=== PATIENT | male | born 1980 | race Caucasian/White ===

== ENCOUNTER 2021-12-07 07:30 | Emergency (ER) | payer BC, SELFPAY ==
[2021-12-07 07:49] VITALS: BP 180/94; PULSE 76; RESP 18; O2SAT 98; BMI 50.5
--- NOTE | 2021-12-07 08:02 | CRLHL7_ITS ---
For Patients: As a result of the Century Cures Act, medical imaging exams and procedure reports are released immediately into your electronic medical record. You may view this report before your referring provider. If you have questions, please contact your health care provider. INDICATION: Left flank pain, history of kidney stones. TECHNIQUE: CT of the abdomen and pelvis without intravenous contrast. Coronal and sagittal reconstructions. COMPARISON: CT of the abdomen and pelvis 06/14/2020. FINDINGS: The unenhanced liver, gallbladder, spleen, pancreas, and adrenal glands are normal in appearance. No biliary dilation. Stable small low-attenuation lesion in the right kidney which is not well characterized but likely a cyst. No right hydronephrosis or ureteral dilation. There is a 5 mm obstructing stone in the mid left ureter with mild upstream left hydroureteronephrosis and perinephric fat stranding (series 2 image 115 and series 3, image 62). The bladder is normal in appearance. Nonenlarged prostate gland. No bowel dilation. Mild amount of stool throughout the colon. Negative appendix. No intraperitoneal free air or fluid. Small fat containing umbilical hernia. Aortoiliac vascular calcifications. Stable small gastrohepatic, delmis hepatis, and periaortic lymph nodes. No lymphadenopathy by size criteria. Degenerative changes of the spine. The lung bases are clear. Mild coronary artery calcifications. IMPRESSION: 1. 5 mm obstructing stone in the mid left ureter with mild left hydroureteronephrosis. 2. Coronary artery and abdominal vascular calcifications slightly greater than expected for patient age. Please note that all CT scans at this facility use dose modulation, iterative reconstruction, and/or weight-based dosing when appropriate to reduce radiation dose to as low as reasonably achievable. Dictated by Katey Meyer MD @ 12/07/2021 9:30:30 AM (Electronically Signed)
--- NOTE | 2021-12-07 08:03 | ED.GENADULT ---
HPI - General Adult General Chief complaint: Flank Pain Stated complaint: Possible kidney stone Time Seen by Provider: 12/07/21 07:53 History of Present Illness HPI narrative: This 41-year-old male comes in reporting left flank pain radiating into his left abdomen and groin. This began about 3 hours prior to arrival. He has a history of multiple kidney stones in the past. He states that this feels like another recurrence of the same. He does not report any fever. He has not had any gross hematuria. Prior to this he was in good health. Related Data Previous Rx's Medication Instructions Recorded hydrocodone 5 mg-acetaminophen 325 1 tab PO Q4-6H PRN pain #20 tabs 12/07/21 mg tablet ketorolac 10 mg tablet 10 mg PO Q8H 5 days #15 tabs 12/07/21 ondansetron HCl 4 mg tablet 4 mg PO Q6H #20 tabs 12/07/21 Allergies Allergy/AdvReac Type Severity Reaction Status Date / Time No Known Drug Allergies Allergy Verified 12/07/21 07:48 Review of Systems Status of ROS: Reports: 10 or more systems reviewed and unremarkable except as noted in History and below Narrative: Constitutional: No fevers, no weight gain or loss. Eyes: No discharge. No vision changes. HENT: No congestion, no sore throat, no ear pain. Cardiovascular: No chest pain, no palpitations. Respiratory: No shortness of breath, no wheezes, no cough. Gastrointestinal: Left flank and abdominal pain with associated nausea and vomiting. Genitourinary: No dysuria, no hematuria. Musculoskeletal: Normal range of motion. Skin: No rashes, no pruritis. Neurological: No dizziness, weakness, sensory change, speech change. Endo/Heme/Allergies: No bruising or bleeding. No polydipsia. Pysch: no suicidality, no anxiety, no insomnia. All other systems reviewed and are negative. PFSH PFSH Social History Smoking Status: Current every day smoker What tobacco products do you use: cigarettes Do you use any of these nicotine containing products: None Second hand tobacco smoke exposure: No How often do you have a drink containing alcohol: monthly or less How many standard drinks containing alcohol do you have on a typical day: 3 or 4 How often do you have six or more drinks on one occasion: Less than monthly AUDIT-C Alcohol total score: 3 Non-prescribed substance use: marijuana (any form) service: No Exam Narrative: Exam Narrative: Constitutional: Well-developed, well-nourished, no acute distress. HEENT: Normocephalic, atraumatic. Neck: Normal range of motion. Nontender. Supple. Heart: Regular. No murmurs. Normal rate. Intact distal pulses. Lungs: Clear to auscultation. No chest discomfort. No wheezes, rhonchi, or rales. Abdomen: Normal bowel sounds. Left flank tenderness radiating into the left abdomen and left groin. No rebound tenderness. Genitalia: Deferred. Back: No midline tenderness. Normal range of motion. Extremities: Normal range of motion. No injury. Skin: Intact. No rash. Warm. No erythema or pallor. Neurologic: No altered sensation. No weakness. Alert and oriented. Psychiatric: No suicidality. No anxiety or depression. No insomnia. Nursing notes and vitals signs are reviewed. Const: Vital Signs, click to edit/add: Vital Signs - 24 hr 12/07/21 07:49 Pulse Rate [Pulse Oximeter] 76 Respiratory Rate 18 Blood Pressure [Le ft Forearm] 180/94 H Pulse Oximetry 98 Oxygen Delivery Me thod Room Air Course Vital Signs Vital signs: Initial Vital Signs Temperature Source Temporal Artery Scan 12/07/21 07:49 Pulse Rate 76 12/07/21 07:49 Pulse Rhythm 12/07/21 07:49 Respiratory Rate 18 12/07/21 07:49 Blood Pressure 180/94 H 12/07/21 07:49 Blood Pressure Mean 122 12/07/21 07:49 Blood Pressure Position Supine 12/07/21 07:49 Pulse Oximetry 98 12/07/21 07:49 Oxygen Delivery Method 12/07/21 07:49 Vital Signs Pulse Rate 76 12/07/21 07:49 Respiratory Rate 18 12/07/21 07:49 Blood Pressure 180/94 H 12/07/21 07:49 Pulse Oximetry 98 12/07/21 07:49 Oxygen Delivery Method 12/07/21 07:49 Pulse Rate 76 12/07/21 07:49 Respiratory Rate 18 12/07/21 07:49 Blood Pressure 180/94 H 12/07/21 07:49 Pulse Oximetry 98 12/07/21 07:49 Oxygen Delivery Method 12/07/21 07:49 Medical Decision Making MDM Narrative Medical decision making narrative: This patient comes in with symptoms typical of passing a ureteral stone. An IV was established where he received Zofran 4 mg, Dilaudid 0.5 mg, and Toradol [address] is of the abdomen and pelvis is obtained as is urinalysis. Urinalysis shows no sign of infection but there is microscopic hematuria. CT imaging of the abdomen and pelvis does show a 5 mm stone in the mid left ureter. The patient received sufficient relief with the medicines he received. His tone is a bit larger than average and hopefully he will be able to pass this without assistance from urologist. He received prescriptions for Gilbert, Toradol, and Zofran. I advised him to return if not improving or worsening. Lab Data Labs: Lab Results 12/07/21 Range/Units 08:01 Urine Color Yellow (Yellow) Urine Appearance Slightly Cloudy A (Clear) Urine pH 7.0 (5.0-8.5) Ur Specific [place] 1.020 (1.000-1.030) Urine Protein Negative (Negative) Urine Glucose (UA) Negative (Negative) Urine Ketones Negative (Negative) Urine Blood 2+ A (Negative) Urine Nitrite Negative (Negative) Urine Bilirubin Negative (Negative) Urine Urobilinogen 0.2 (0.2-1.0) Ur Leukocyte Esterase Negative (Negative) Urine RBC 10-25 A (0-2) Urine WBC 0-2 (0-5) Ur Squamous Epith Cells Few (None-Few) Urine Bacteria None (None) Imaging Data CT scan - abdomen: Radiologist's impression: 1. 5 mm obstructing stone in the mid left ureter with mild left hydroureteronephrosis. 2. Coronary artery and abdominal vascular calcifications slightly greater than expected for patient age. Discharge Plan Discharge Clinical Impression: Calculus, ureteral Patient Disposition: Home, Self-Care Condition: Stable Additional Instructions: Take medications as needed and indicated. Follow up with MD or return if worsening. Prescriptions: New hydrocodone-acetaminophen 5-325 mg tablet 1 tab PO Q4-6H PRN (Reason: pain) Qty: 20 0RF ketorolac 10 mg tablet 10 mg PO Q8H 5 Days Qty: 15 0RF ondansetron HCl 4 mg tablet 4 mg PO Q6H Qty: 20 0RF Follow Up/Referrals: Provider,Not a Local [Primary Care Provider] - Stand Alone Forms: [employer] Info Instructions
[2021-12-07] MEDS: KETOROLAC 30 MG/ML inj IVP (08:17)
[2021-12-07] MEDS: ONDANSETRON 2 MG/ML inj 4 MG IVP (08:18)
[2021-12-07] MEDS: HYDROmorphone 0.5 mg/0.5 ml inj IVP (08:20)
[2021-12-07 08:28] LABS: Color Urine Yellow (Yellow)
[2021-12-07 08:29] LABS: Appearance Urine Slightly Cloudy (Clear); Bilirubin Urine Negative (Negative); Blood Urine 2+ (Negative); Glucose Urine Negative (Negative); Ketones Urine Negative (Negative)
[2021-12-07 08:30] LABS: Leukocyte Esterase Urine Negative (Negative); Nitrite Urine Negative (Negative); Protein Urine Negative (Negative); Squamous Epithelial Cell Urine Few (None-Few); Urobilinogen Urine 0.2 (0.2-1.0); WBC Urine 0-2 (0-5)
--- OUTSIDE RECORDS SUMMARY | 2021-12-07 08:32 | XMS_ITS | Encounter Summary ---
:1980 Author Organization [place] Address [facility] [place] [address] Care Team Providers Name Role Phone Alice Gillette PA-C Primary Care Provider [phone] Alice Gillette PA-C Unavailable [phone] Reason for Visit Reason Onset Date Comments Medication Refill 10/30/2021 Fluoxetine Encounter Details Date Type Department Care Team Description 10/30/2021 Telephone [facility] Alice Gillette Med ication Refill Physicians CARYL Beltrán (Fluoxetine) [address] [place] [address] [place] [address] [address] [place], [place] [id number] [phone] Social History Tobacco Use Types Packs/Day Years Used Date Smoking Tobacco: Every Day Cigarettes 0.5 10 Smokeless Tobacco: Never Comments: 5 cigarettes a day, down from 10 Alcohol Use Standard Drinks/Week Comments Yes 0 (1 standard drink = 0.6 oz pure alcoho l) 2 drinks/month Alcohol Habits Answer Date Recorded How often do you have a drink containing alcohol? 2-4 times a month 07/20/2019 How many drinks containing alcohol do you have on a 1 or 2 07/20/2019 typical day when you are drinking? How often do you have six or more drinks on one Never 07/20/2019 occasion? Sex Assigned at Date Recorded Not on file documented as of this encounter Miscellaneous Notes Telephone Encounter - Eva Guillen CMA - 11/01/2021 12:00 PM CDT Called patient and informed him of message from Magen. He understands but is not able to come in for the next couple of months due to work and travel. He is wondering If 60 tablets can be sent in and papa come in to see Alice for his medication check visit since she will be back from maternity leave at that time. Routing to Magen to resend 60 day supply. Telephone Encounter - Eva Guillen CMA - 10/30/2021 5:21 PM CDT Addendum: Approved short course only, we haven't addressed this medication for over 1 year. Need OV for further refills. Neither Alice nor I discussed this in our recent visits. Magen Vázquez PA-C [facility] Pt called in wondering why his fluoxetine was denied and all other medications were sent. He has been taking this for awhile and he has no concerns with it. It is working well so he is hoping that a refill can be sent in. Routing to Magen for approval of this. Telephone Encounter - Su Pérez CMA - 10/30/2021 2:09 PM CDT Denied refill of fluoxetine. Needs OV for refills Addendum Note - Eva Guillen CMA - 10/30/2021 2:09 PM CDT Addended by: EVA GONSALEZ on: 10/30/2021 05:23 PM Modules accepted: Orders Addendum Note - Magen Vázquez PA-C - 10/30/2021 2:09 PM CDT Addended by: MAGEN VÁZQUEZ on: 11/01/2021 08:26 AM Modules accepted: Orders Addendum Note - Eva Guillen CMA - 10/30/2021 2:09 PM CDT Addended by: EVA GONSALEZ on: 11/01/2021 12:01 PM Modules accepted: Orders Addendum Note - Magen Vázquez PA-C - 10/30/2021 2:09 PM CDT Addended by: MAGEN VÁZQUEZ on: 11/01/2021 01:05 PM Modules accepted: Orders documented in this encounter Plan of Treatment Not on filedocumented as of this encounter Visit Diagnoses Diagnosis Generalized anxiety disorder documented in this encounter Additional Health Concerns Assessment Noted Time PHQ-9 Depression Total Score: 0 10/27/2020 2:16 PM CDT documented as of this encounter Care Teams Manager Registration Relationship Specialty Start Date End Date Alice Gillette PA-C PCP - General Physician Supervisor Tree Trimming 07/20/19 [address] [place] [address] Alice Gillette PA-C Assigned PCP 06/25/19 [address] [address] documented as of this encounter
--- OUTSIDE RECORDS SUMMARY | 2021-12-07 08:32 | XMS_ITS | Clinical Summary ---
:1980 Author Organization [place] Address [address] [facility] [place] [address] Care Team Providers Name Role Phone Alice Gillette PA-C Primary Care Provider [phone] Alice Gillette PA-C Unavailable Allergies No known active allergies Medications Medication Sig Dispensed Refills Start Date End Date Status aspirin 81 MG EC tablet Take 81 mg by 0 Active mouth daily fluticasone (FLONASE) 50 [place] 1-2 15.8 mL 0 12/01/2020 Active MCG/ACT nasal sprays into sprayIndications: Benign both nostrils paroxysmal positional daily vertigo, bilateral tamsulosin (FLOMAX) 0.4 Take 0.4 mg by 0 06/17/2020 Active MG capsule mouth as needed PRN FOR KIDNEY STONES amLODIPine (NORVASC) 10 Take 1 tablet 90 tablet 1 08/02/2021 Active MG tabletIndications: (10 mg) by Benign essential mouth daily hypertension hydrochlorothiazide Take 1 tablet 90 tablet 1 08/02/2021 Active (HYDRODIURIL) 25 MG (25 mg) by tabletIndications: Benign mouth daily essential hypertension lisinopril (ZESTRIL) 40 Take 1 tablet 90 tablet 1 08/02/2021 Active MG tabletIndications: (40 mg) by Benign essential mouth daily hypertension metFORMIN (GLUCOPHAGE XR) Take 1 tablet 90 tablet 1 08/02/2021 Active 500 MG 24 hr (500 mg) by tabletIndications: mouth daily Prediabetes (with dinner) metoprolol succinate ER Take 1 tablet 90 tablet 1 08/02/2021 Active (TOPROL XL) 50 MG 24 hr (50 mg) by tabletIndications: Benign mouth daily essential hypertension FLUoxetine (PROZAC) 20 MG Take 1 capsule 60 capsule 0 11/02/19 Active capsuleIndications: (20 mg) by Generalized anxiety mouth daily disorder Active Problems Problem Noted Date Post-traumatic osteoarthritis of left knee 08/02/2021 Generalized anxiety disorder 10/27/2020 Prediabetes 10/27/2020 Health Mcfp 07/20/2019 ACP (advance care planning) 07/20/2019 History of cocaine use 07/20/2019 History of alcohol abuse 07/20/2019 Bilateral carpal tunnel syndrome 07/20/2019 Benign essential hypertension 05/27/2014 BMI 50.0-59.9, adult 05/27/2014 Nasal septal deformity 05/27/2014 GUTIERREZ on CPAP 05/27/2014 Tobacco use disorder 01/09/2010 Tear of medial cartilage or meniscus of knee, current 12/08/2007 Other postprocedural status(V45.89) 12/08/2007 Resolved Problems Problem Noted Date Resolved Date Morbid obesity 08/02/2021 08/02/2021 Alcohol abuse 01/09/2010 07/20/2019 Calf pain 01/09/2010 07/20/2019 Chest pain, unspecified 01/09/2010 07/20/2019 Cocaine abuse, continuous 01/09/2010 07/20/2019 Hyperglycemia 01/09/2010 08/02/2021 Malignant hypertension 01/09/2010 07/20/2019 Encounters Date Type Specialty Care Team Description 10/30/2021 Telephone Family Practice Alice Gillette Medic ation Refill CARYL Beltrán (Fluoxetine) from Last 3 Months Immunizations Name Administration Dates Next Due HepB-Adult 12/21/1996 MMR 10/11/1993, 12/11/1981 TD (ADULT, 7+) 12/21/1996 TDAP Vaccine (Boostrix) 11/03/2019 Family History Patient is adopted Medical History Relation Comments Hypertension Father Osteoarthritis Father Deep Vein Thrombosis Mother provoked plane ride Osteoarthritis Mother bilateral TKR Sleep Apnea Sister Relation Status Comments Brother Alive Father Alive Mother Alive Sister Alive Social History Tobacco Use Types Packs/Day Years [...] Assigned at Date Recorded Not on file Last Filed Vital Signs Vital Sign Reading Time Taken Comments Blood Pressure 164/90 09/04/2021 1:21 PM CDT Pulse 61 09/04/2021 1:21 PM CDT Temperature 36.7 ??C (98 ??F) 09/04/2021 1:21 PM CDT Respiratory Rate 18 08/24/2019 10:39 PM CDT Oxygen Saturation 98% 09/04/2021 1:21 PM CDT Inhaled Oxygen Concentration - - Weight 163.3 kg (360 lb) 09/04/2021 1:21 PM CDT Height 176.5 cm (5' 9.5) 08/02/2021 11:47 AM CDT Body Mass Index 52.4 08/02/2021 11:47 AM CDT Plan of Treatment Health Maintenance Due Date Last Done Comments ANNUAL REVIEW OF 1980 ORDERS DIABETIC FOOT EXAM 1980 EYE EXAM 1980 MICROALBUMIN 1980 COVID-19 Vaccine (#1) 03/11/1981 INFLUENZA VACCINE (#1) 2021 A1C 11/02/2021 08/02/2021, 05/02/2021, 10/27/2020, Additional history exists HEPATITIS B IMMUNIZATION 05/02/2022 04/26/2020 (Not Postpon ed from 06/21/2020 (3 of 3 - 3-dose series) Needed), 12/21/1996 (Ad ditional Documentation Needed) BMP 08/02/2022 08/02/2021, 05/02/2021, 10/27/2020, Additional history exists LIPID 09/04/2022 09/04/2021, 04/26/2020 NICOTINE/TOBACCO 09/04/2022 09/04/2021 CESSATION COUNSELING Q 1 YR YEARLY PREVENTIVE VISIT 09/04/2022 09/04/2021, 09/04/2021, 12/21/1996 ADVANCE CARE PLANNING 07/19/2024 07/20/2019, 07/20/2019 DTAP/TDAP/TD IMMUNIZATION 11/02/2029 11/03/2019, 12/21/1996 (3 - Td or Tdap) Pneumococcal Vaccine: Addressed 04/26/2020 (Not Overridden with the Pediatrics (0 to 5 Years) Needed) intent ion of not and At-Risk Patients (6 completi ng the topic to 64 Years) PHQ-2 (once per calendar Completed 05/02/2021, year) 10/27/2020, 10/27/2020, Additional history exists HEPATITIS C SCREENING Discontinued HIV SCREENING Discontinued IPV IMMUNIZATION Aged Out No longer eligi ble based on patient's age to complete this to pic MENINGITIS IMMUNIZATION Aged Out No longe r eligible based on patient's age to complete this to pic Procedures Procedure Name Priority Date/Time Associated Diagnosis Comme [facility] SURGICAL PATHOLOGY Routine 09/22/2021 8:00 AM Res ults for this EXAM CDT procedure are i n the results section. from Last 3 Months Results Surgical Pathology Exam (09/22/2021 8:00 AM CDT) Component Value Ref Test Analysis Performed At [facility] gist Range Method Time Signature Case Report Surgical Pathology Report ? Case: [id number] ? 09/25/2021 Authorizing Provider: ??Claudio Siddiqi MD ? Collected: ? 09/22/2021 08:00 AM ? 11:02 AM LABORATOR Y Ordering Location: ? [facility] ?? Received: ?09/22/2021 09:13 AM ? CDT ? Hospital ? Pathologist: ? Jesse Waldron, ? MD ? Specimen: ?Finger, Right , long finger ? Final Soft tissue, right long finger, excision- 09/25/2021 Electronically Diagnosis Keratinous cyst, epidermal type 11:02 AM LABORATORY signed by CDT Jesse Waldron MD on 09/25/2021 at 11:02 AM Clinical na 09/25/2021 RH Information 11:02 AM LABORATORY CDT Gross A(). Finger, Right, long finger: 022 RH Description The specimen is received in formalin labeled with the patient's name, medical record number and other identifying information and designated mass right long finger. It consists of a well-circumscribed 11:02 AM LABORATORY 1.4 x 1.3 x 1.1 cm white-ta n, rubbery tissue mass. Sectioning shows it is a cystic structure filled with white, pasty material with a wall thickness averaging 0.1 cm. Transitional Kindergarten Teacher sections are submitted in 1 cassette. CDT (MARIBETH Jauregui (ASCP)) Microscopic Microscopic 09/25/2021 Description performed 11:02 AM LABORATORY CDT Performing The technical 09/25/2021 RH Labs component of this 11:02 AM LABORATORY testing was CDT completed at [facility] Laboratory Case Images 09/25/2021 11:02 AM LABORATORY CDT Specimen Anatomical Collection Method Collection Time Receive d Time (Source) Location / / Volume Laterality Tissue STRUCTURE OF 09/22/2021 8:00 AM 9:13 FINGER OF RIGHT CDT AM CDT HAND / Unknown Claudio More MD LAB - [facility] Performing Organization Address City/State/ZIP Code Phon e Number LABORATORY [facility] [place] [address] Acute Care Lab [address]st floor, Room [address] [place] [address], Care Lab [facility] [address] Lab (1st floor, no room number) from Last 3 Months Insurance Payer Benefit Plan Subscriber ID Effective Phone Address Typ e / Group Dates WORK COMP WC OTHER [id number] 2013-Prese [phone] [address] [place] [address] BCBS BC[place] OF [place] [id number] 2020-Pres [phone] [address] [id number] Indemnity ent [address] [place] [address] [phone] [id number] [facility] [address] (Home) [place] [address] Brock Gotti Personal/Family Self 1980 [phone] [id number] (Home) [place] [address] Brock Gotti Personal/Family Self 1980 [phone] [id number] [address] (Home) [place] [address] Brock Gotti Worker's Self 1980 [phone] [facility] [address] (Home) [place] [address] Care Teams Cook Fruit Relationship Specialty Start Date End Date Alice Gillette PA-C PCP - General Physician Fiberglass Boat Builder 07/20/19 [address] [address] Alice Gillette PA-C Assigned PCP 06/25/19 [address] [address]
--- OUTSIDE RECORDS SUMMARY | 2021-12-07 08:32 | XMS_ITS | Encounter Summary ---
:1980 Author Organization [place] Address [address] [place] [address]. [place] [address] Care Team Providers Name Role Phone Alice Gillette PA-C Primary Care Provider [phone] Alice Gillette PA-C Unavailable [phone] Encounter Details Date Type Department Care Team Description 08/02/2021 Travel Social History Tobacco Use Types Packs/Day Years Used Date Smoking Tobacco: Every Day Cigarettes 0.5 10 Smokeless Tobacco: Never Comments: 10 per day Alcohol Use Standard Drinks/Week Comments Yes 0 (1 standard drink = 0.6 oz pure alcoho l) 5 drinks/week Alcohol Habits Answer Date Recorded How often do you have a drink containing alcohol? 2-4 times a month 07/20/2019 How many drinks containing alcohol do you have on a 1 or 2 07/20/2019 typical day when you are drinking? How often do you have six or more drinks on one Never 07/20/2019 occasion? Sex Assigned at Date Recorded Not on file COVID-19 Exposure Response Date Recorded In the last 10 days, have you been in contact with No / Unsu re 08/02/2021 11:35 AM CDT someone who was confirmed or suspected to have Coronavirus/COVID-19? documented as of this encounter Plan of Treatment Not on filedocumented as of this encounter Visit Diagnoses Not on filedocumented in this encounter Additional Health Concerns Assessment Noted Time PHQ-9 Depression Total Score: 0 10/27/2020 2:16 PM CDT documented as of this encounter Care Teams Rn Flight Relationship Specialty Start Date End Date Alice Gillette PA-C PCP - General Physician Sawmill Supervisor 07/20/[address], [address] [address] Alice Gillette PA-C Assigned PCP 06/25/[address] [address] documented as of this encounter
--- OUTSIDE RECORDS SUMMARY | 2021-12-07 08:32 | XMS_ITS | Encounter Summary ---
:1980 Author Organization [place] Address [address] [place] [address]. [place] [address] Care Team Providers Name Role Phone Alice Gillette PA-C Primary Care Provider [phone] Alice Gillette PA-C Unavailable [phone] Encounter Details Date Type Department Care Team Description 09/04/2021 Travel Social History Tobacco Use Types Packs/Day [...] in contact with No / Unsu re 09/04/2021 12:51 PM CDT someone who was confirmed or suspected to have Coronavirus/COVID-19? documented as of this encounter Plan of Treatment Not on filedocumented as of this encounter Visit Diagnoses Not on filedocumented in this encounter Additional Health Concerns Assessment Noted Time PHQ-9 Depression Total Score: 0 10/27/2020 2:16 PM CDT documented as of this encounter Care Teams Field Installer Relationship Specialty Start Date End Date Alice Gillette PA-C PCP - General Physician Striker Off 07/20/19 [address] , [address] [address] Alice Gillette PA-C Assigned PCP 06/25/19 [address] , [address] [address] documented as of this encounter
--- OUTSIDE RECORDS SUMMARY | 2021-12-07 08:32 | XMS_ITS | Encounter Summary ---
:1980 Author Organization [place] Address [facility] [place] [address] Care Team Providers Name Role Phone Alice Gillette PA-C Primary Care Provider [phone] Alice Gillette PA-C Unavailable [phone] Reason for Visit Reason Comments Physical Encounter Details Date Type Department Care Team Description 09/04/[address] [facility] Brock Vázquez PA -C Encounter for general adult medical exam ination with abnormal findings (Primary Dx); Physicians [address] [place] [address] Screening for lipoid disorde rs [address] [place] [id number] Social History Tobacco Use Types Packs/Day Years [...] have Coronavirus/COVID-19? documented as of this encounter Last Filed Vital Signs Vital Sign Reading Time Taken Comments Blood Pressure 164/90 09/04/2021 1:21 PM CDT Pulse 61 09/04/2021 1:21 PM CDT Temperature 36.7 ??C (98 ??F) 09/04/2021 1:21 PM CDT Respiratory Rate - - Oxygen Saturation 98% 09/04/2021 1:21 PM CDT Inhaled Oxygen Concentration - - Weight 163.3 kg (360 lb) 09/04/2021 1:21 PM CDT Height - - Body Mass Index 52.4 08/02/2021 11:47 AM CDT documented in this encounter Progress Notes Brock Vázquez PA-C - 09/04/2021 1:00 PM CDT SUBJECTIVE: CC: Brock Gotti is an 40 year old male who presents for preventative health visit. Patient has been advised of split billing requirements and indicates understanding: Yes HPI Today's PHQ-2 Score: PHQ-2 (??1999 Pfizer) 05/02/2021 Q1: Little interest or pleasure in doing things 1 Q2: Feeling down, depressed or hopeless 1 PHQ-2 Score 2 PHQ-2 Total Score (12-17 Years)- Positive if 3 or more points; Administer PHQ-A if positive - Abuse: Current or Past(Physical, Sexual or Emotional)- No Do you feel safe in your environment? Yes Diet-on an intermittent fasting diet. Good fruit/vegetable intake. Working on weight loss. Exercise-limited due to knee pain Sleep-using CPAP. 8hrs/night BM-1x/day Vitamin Use-none at this time Dentist-hasn't gone in years Eye Doctor-not gone in years Stopping cigarettes this weekend-down to 5 cigarettes/day. Denies wanting NRT or Chantix but will call if necessary. BP at [id number]. Taking medications as directed. Has white coat hypertension. Social History Tobacco Use ??? Smoking status: Current Every Day Smoker Packs/day: 0.50 Years: 10.00 Pack years: 5.00 Types: Cigarettes ??? Smokeless tobacco: Never Used ??? Tobacco comment: 5 cigarettes a day, down from 10 Substance Use Topics ??? Alcohol use: Yes Comment: 2 drinks/month No flowsheet data found. Last PSA: No results found for: PSA Reviewed orders with patient. Reviewed health maintenance and updated orders accordingly - Yes Lab work is in process Reviewed and updated as needed this visit by clinical staff Tobacco Med Hx Surg Hx Fam Hx Soc Hx Reviewed and updated as needed this visit by Provider Tobacco Med Hx Surg Hx Fam Hx Soc Hx Past Medical History: Diagnosis Date ??? Hypertension ??? Recurrent nephrolithiasis Past Surgical History: Procedure Laterality Date ??? ARTHROSCOPY KNEE left ??? CYSTECTOMY PILONIDAL ??? ENDOSCOPIC POLYPECTOMY NASAL 06/17/2012 Procedure: ENDOSCOPIC POLYPECTOMY NASAL;; Surgeon: Damon Haywood MD; Location: [facility] OR ??? FRACTURE TX, FINGER/HAND 5th digit right hand, ~ age 13 ??? MYRINGOTOMY, INSERT TUBE BILATERAL, COMBINED 06/17/2012 Procedure: COMBINED MYRINGOTOMY, INSERT TUBE BILATERAL; Bilateral MYRINGOTOMY with Aspiration, Coagulation of Adenoids, Tonsillectomy, Nasal Endoscopy and Nasal Pharyngoscopy; Surgeon: Kun Haywood MD; Location: [facility] OR ??? TONSILLECTOMY, ADENOIDECTOMY, COMBINED 06/17/2012 Procedure: COMBINED TONSILLECTOMY, ADENOIDECTOMY;; Surgeon: Damon Haywood MD; Location: [facility] OR ??? wisdom teeth extraction[ Review of Systems CONSTITUTIONAL: NEGATIVE for fever, chills, change in weight INTEGUMENTARY/SKIN: NEGATIVE for worrisome rashes, moles or lesions EYES: NEGATIVE for vision changes or irritation ENT: NEGATIVE for ear, mouth and throat problems RESP: NEGATIVE for significant cough or SOB CV: NEGATIVE for chest pain, palpitations or peripheral edema GI: NEGATIVE for nausea, abdominal pain, heartburn, or change in bowel habits male: negative for dysuria, hematuria, decreased urinary stream, erectile dysfunction, urethral discharge MUSCULOSKELETAL: NEGATIVE for significant arthralgias or myalgia NEURO: NEGATIVE for weakness, dizziness or paresthesias PSYCHIATRIC: NEGATIVE for changes in mood or affect OBJECTIVE: BP (!) 164/90 (BP Location: Right arm, Patient Position: Sitting, Cuff Size: Adult Large) Pulse 61 Temp 98 ??F (36.7 ??C) (Oral) Wt (!) 163.3 kg (360 lb) SpO2 98% BMI 52.40 kg/m?? Physical Exam GENERAL: healthy, alert and no distress EYES: Eyes grossly normal to inspection, PERRL and conjunctivae and sclerae normal HENT: ear canals and TM's normal, nose and mouth without ulcers or lesions NECK: no adenopathy, no asymmetry, masses, or scars and thyroid normal to palpation RESP: lungs clear to auscultation - no rales, rhonchi or wheezes CV: regular rate and rhythm, normal S1 S2, no S3 or S4, no murmur, click or rub, no peripheral edemaand peripheral pulses strong ABDOMEN: soft, nontender, no hepatosplenomegaly, no masses and bowel sounds normal SKIN: no suspicious lesions or rashes NEURO: Normal strength and tone, mentation intact and speech normal PSYCH: mentation appears normal, affect normal/bright Diagnostic Test Results: Labs reviewed in Epic ASSESSMENT/PLAN: ICD-10-CM 1. Encounter for general adult medical examination with abnormal findings Z00.01 2. Screening for lipoid disorders Z13.220 Patient has been advised of split billing requirements and indicates understanding: Yes COUNSELING: Reviewed preventive health counseling, as reflected in patient instructions Regular exercise Healthy diet/nutrition Vision screening Alcohol Use Safe sex practices/STD prevention Estimated body mass index is 52.4 kg/m?? as calculated from the following: Height as of 08/02/21: 1.765 m (5' 9.5). Weight as of this encounter: 163.3 kg (360 lb). Weight management plan: Discussed healthy diet and exercise guidelines He reports that he has been smoking cigarettes. He has a 5.00 pack-year smoking history. He has never used smokeless tobacco. Nicotine/Tobacco Cessation Plan: Patient is working on quitting this weekend. Offered help and he declines, wants to quit without NRT Counseling Resources: ATP IV Guidelines Pooled Cohorts Equation Calculator FRAX Risk Assessment ICSI Preventive Guidelines Dietary Guidelines for Americans, 2009 USDA's MyPlate ASA Prophylaxis Lung CA Screening Brock Vázquez PA-C [facility] documented in this encounter Plan of Treatment Not on filedocumented as of this encounter Procedures Procedure Name Priority Date/Time Associated Diagnosis Comme nts LIPID PANEL (BFP) Routine 09/04/2021 3:01 PM Screening for lip oid Results for this CDT disorders procedure are i n the results section. HEMOGRAM PLATELET Routine 09/04/2021 1:58 PM Encounter for Res ults for this DIFF (BFP) CDT general adult procedure are in medical examination the resu lts with abnormal section. findings CO COLLECTION VENOUS Routine 09/04/2021 1:32 PM Encounter for BLOOD VENIPUNCTURE CDT general adult medical examination with abnormal findings Screening for lipoid disorders documented in this encounter Results (ABNORMAL) Lipid Panel (BFP) (09/04/2021 3:01 PM CDT) Patholo gist Method Time Signature Cholesterol 210 (A) 0 - 199 BFP INTERNAL mg/dL Triglycerides 411 (A) 0 - 149 BFP INTERNAL mg/dL HDL Cholesterol 39 (A) 40 - 150 BFP INTERNAL mg/dL LDL Cholesterol 89 0 - 130 BFP INTERNAL Direct mg/dL Cholesterol/HDL 5 0 - 5 BFP INTERNAL Ratio Specimen (Source) Anatomical Collection Method Collection Time Re ceived Time Location / / Volume Laterality Blood 09/04/2021 3:01 PM CDT Brock Vázquez PA-C LAB - NON-BEAKER BLOOD LABS Performing Organization Address City/State/ZIP Code Phon e Number BFP INTERNAL HEMOGRAM PLATELET DIFF (BFP) (09/04/2021 1:58 PM CDT) P athologist Signature WBC 10.1 4.0 - 11 B[facility] INTERNAL 10*9/L RBC Count 5.23 4.4 - 5.9 B[facility] INTERNAL 10*12/L Hemoglobin 16.2 13.3 - 17.7 B[facility] INTERNAL g/dL Hematocrit 47.8 40.0 - 53.0 BFP INTERNAL % MCV 91.4 78 - 100 fL BFP INTERNAL MCH 31.0 26 - 33 pg BFP INTERNAL MCHC 33.9 31 - 36 [facility] INTERNAL g/dL Platelet Count 253 150 - 375 BFP INTERNAL 10^9/L % Granulocytes 58.1 % BFP INTERNAL % Lymphocytes 30.9 % BFP INTERNAL % Monocytes 11.0 % BFP INTERNAL Specimen (Source) Anatomical Collection Method Collection Time Re ceived Time Location / / Volume Laterality Blood 09/04/2021 1:58 PM CDT Brock Vázquez PA-C LAB - NON-BEAKER BLOOD LABS Performing Organization Address City/State/ZIP Code Phon e Number BFP INTERNAL documented in this encounter Visit Diagnoses Diagnosis Encounter for general adult medical exam ination with abnormal findings - Primary Routine general medical examination at a health care facility Screening for lipoid disorders documented in this encounter Additional Health Concerns Assessment Noted Time PHQ-9 Depression Total Score: 0 10/27/2020 2:16 PM CDT documented as of this encounter Care Teams Jewelry Polisher Relationship Specialty Start Date End Date Alice Gillette PA-C PCP - General Physician Executive Director Contract Shop 07/20/19 [address] , [address] [address] Alice Gillette PA-C Assigned PCP 06/25/[address], [address] [address] documented as of this encounter
--- OUTSIDE RECORDS SUMMARY | 2021-12-07 08:33 | XMS_ITS | Encounter Summary ---
:1980 Author Organization [place] Address [facility] [place] [address] Care Team Providers Name Role Phone Alice Gillette PA-C Primary Care Provider [phone] Alice Gillette PA-C Unavailable [phone] Encounter Details Date Type Department Care Team Description 05/04/2021 Telephone [facility] Alice Gillette Physicians PA-C [address] [address] [address] [place] [address] [place] [address] [phone] Social History Tobacco Use Types Packs/Day Years [...] Exposure Response Date Recorded In the last month, have you been in contact with No / Unsure 05/02/2021 11:57 AM CDT someone who was confirmed or suspected to have Coronavirus / COVID-19? documented as of this encounter Miscellaneous Notes Telephone Encounter - Alice Gillette PA-C - 05/04/2021 5:35 PM CDT Called and left message for pt. Informed of normal labs other than mildly elevated ALT. Suspect fatty liver. Working on weight loss. Continue with plan to recheck in 2 months. documented in this encounter Plan of Treatment Not on filedocumented as of this encounter Visit Diagnoses Not on filedocumented in this encounter Additional Health Concerns Assessment Noted Time PHQ-9 Depression Total Score: 0 10/27/2020 2:16 PM CDT documented as of this encounter Care Teams Disbursing Officer Relationship Specialty Start Date End Date Alice Gillette PA-C PCP - General Physician Client Service Professional 07/20/19 [address] , [address] [address] Alice Gillette PA-C Assigned PCP 06/25/[address], [address] [address] documented as of this encounter
--- OUTSIDE RECORDS SUMMARY | 2021-12-07 08:33 | XMS_ITS | Encounter Summary ---
:1980 Author Organization [place] Address [facility] [place] [address] Care Team Providers Name Role Phone Alice Gillette PA-C Primary Care Provider Alice Gillette PA-C Unavailable [phone] Reason for Visit Reason Comments Dizziness Patient has had dizzy episod es over the past week. Might have something to do with his ear tubes. Encounter Details Date Type Department Care Team Description 12/01/2020 Office Visit [facility] Alice Gillette ign paroxysmal Physicians CARYL Beltrán positional vertigo, [address], bilateral (Primary [address]) [place] [address] [phone] (Wo rk) Social History Tobacco Use Types Packs/Day Years [...] been in contact with No / Unsure 12/01/2020 1:24 PM CDT someone who was confirmed or suspected to have Coronavirus / COVID-19? documented as of this encounter Last Filed Vital Signs Vital Sign Reading Time Taken Comments Blood Pressure 170/88 12/01/2020 1:33 PM CDT Pulse 69 12/01/2020 1:33 PM CDT Temperature 36.7 ??C (98.1 ??F) 12/01/2020 1:33 PM CDT Respiratory Rate - - Oxygen Saturation 98% 12/01/2020 1:33 PM CDT Inhaled Oxygen Concentration - - Weight 164.7 kg (363 lb) 12/01/2020 1:33 PM CDT Height 176.5 cm (5' 9.5) 12/01/2020 1:33 PM CDT Body Mass Index 52.84 12/01/2020 1:33 PM CDT documented in this encounter Patient Instructions Patient InstructionsAlice Gillette PA-C - 12/01/2020 1:30 PM CDT Symptoms strongly suggestive of benign paroxysmal positional vertigo (BPPV). Explained concept of this to patient, including cause being crystals being dislodged in inner ear and needing these crystalsto be returned to proper place for symptoms to resolve. Informed patient that the body can gradually return these crystals to their place on it's own over the course of several days to sometimes weeks. However, I did recommend they try taking meclizine to help with symptoms, and explained basic Patti maneuver to try at home to help return crystals to proper place. Also prescribed fluticasone nasal spray to use daily for the next 1-2 weeks. Encouraged pt to contact me in 1 week if not significantly better, or sooner if worsening. At that point, would likely coordinate referral to a dizzy and balance physical therapist. Pt should contact me or seek emergency evaluation if symptoms significantly worsen. documented in this encounter Progress Notes Alice Gillette PA-C - 12/01/2020 1:30 PM CDT CC: Dizziness History: Brock was at work last week, and felt sudden spinning when he looked down. This went away within 2 minutes. Last night was at a friend's house, normal, and then went home, and when he stood up after cough felt tilted like he was walking sideways. Denies any feeling of passing out. This dizziness lasted remainder of night, and then woke up this morning and it was gone, but still feels off. PMH, MEDICATIONS, ALLERGIES, SOCIAL AND FAMILY HISTORY in [facility] and reviewed by me personally. ROS negative other than the symptoms noted above in the HPI. Examination BP (!) 170/88 (BP Location: Left arm, Patient Position: Sitting, Cuff Size: Adult Large) Pulse 69 Temp 98.1 ??F (36.7 ??C) (Temporal) Ht 1.765 m (5' 9.5) Wt (!) 164.7 kg (363 lb) SpO2 98% BMI 52.84 kg/m?? Constitutional: Sitting comfortably, in no acute distress. Vital signs noted Eyes: pupils equal round reactive to light and accomodation, extra ocular movements intact Ears: external canals and TMs free of abnormalities Nose: patent, without mucosal abnormalities Mouth and throat: without erythema or lesions of the mucosa Neck: no adenopathy, trachea midline and normal to palpation, thyroid normal to palpation Cardiovascular: regular rate and rhythm, no murmurs, clicks, or gallops Respiratory: normal respiratory rate and rhythm, lungs clear to auscultation NEURO: cranial nerves 2-12 intact, muscle strength normal, rapid alternating movements normal, sensation to light touch and pinprick normal, proprioception normal, reflexes normal and symmetric SKIN: No jaundice/pallor/rash. Psychiatric: mentation appears normal and affect normal/bright A/P ICD-10-CM 1. Benign paroxysmal positional vertigo, bilateral H81.13 meclizine (ANTIVERT) 25 MG tablet fluticasone (FLONASE) 50 MCG/ACT nasal spray DISCUSSION: Reassured by normal neurological exam today. Symptoms strongly suggestive of benign paroxysmal positional vertigo (BPPV). Explained concept of this to patient, including cause being crystals being dislodged in inner ear and needing these crystalsto be returned to proper place for symptoms to resolve. Informed patient that the body can gradually return these crystals to their place on it's own over the course of several days to sometimes weeks. However, I did recommend they try taking meclizine to help with symptoms, and explained basic Patti maneuver to try at home to help return crystals to proper place. Also prescribed fluticasone nasal spray to use daily for the next 1-2 weeks. Encouraged pt to contact me in 1 week if not significantly better, or sooner if worsening. At that point, would likely coordinate referral to a dizzy and balance physical therapist. Pt should contact me or seek emergency evaluation if symptoms significantly worsen. follow up visit: As needed Alice Gillette PA-C [facility] Physicians documented in this encounter Plan of Treatment Not on filedocumented as of this encounter Visit Diagnoses Diagnosis Benign paroxysmal positional vertigo, bi lateral - Primary documented in this encounter Additional Health Concerns Assessment Noted Time PHQ-9 Depression Total Score: 0 10/27/2020 2:16 PM CDT documented as of this encounter Care Teams Pipe Cutter Relationship Specialty Start Date End Date Alice Gillette PA-C PCP - General Physician Recruitment Internship 07/20/19 [address] [address] Alice Gillette PA-C Assigned PCP 06/25/[address], [address] [address] documented as of this encounter
--- OUTSIDE RECORDS SUMMARY | 2021-12-07 08:33 | XMS_ITS | Encounter Summary ---
:1980 Author Organization [facility] Address [address] [facility] [place] [address] Care Team Providers Name Role Phone Alice Gillette PA-C Primary Care Provider [phone] Alice Gillette PA-C Unavailable [phone] Reason for Visit Reason Comments Flank Pain Encounter Details Date Type Department Care Team Description 08/24/2019 - Emergency [facility] Priscilla Quiroga U reterolithiasis; 08/25/2019 [facility] Emergency [place] Right flank pain Dept [facility] [address] [place], [place] [address] [email or web address] [address] [id number] [place] [address] [place] [address] (Wo rk) Social History Tobacco Use Types Packs/Day Years Used Date Smoking Tobacco: Every Day Cigarettes 0.5 10 Smokeless Tobacco: Never Comments: at most 2 cig/ daily-trying to quit Alcohol Use Standard Drinks/Week Comments Yes 0 [...] been in contact with No / Unsure 08/24/2019 10:38 PM CDT someone who was confirmed or suspected to have Coronavirus / COVID-19? documented as of this encounter Last Filed Vital Signs Vital Sign Reading Time Taken Comments Blood Pressure 164/93 08/25/2019 1:18 AM CDT Pulse 71 08/25/2019 1:18 AM CDT Temperature 36.4 ??C (97.6 ??F) 08/24/2019 10:39 PM CDT Respiratory Rate 18 08/24/2019 10:39 PM CDT Oxygen Saturation 97% 08/25/2019 1:16 AM CDT Inhaled Oxygen Concentration - - Weight - - Height - - Body Mass Index - - documented in this encounter Discharge Instructions Discharge InstructionsPriscilla Quiroga PA - 08/25/2019 1:11 AM CDT You have a 8 mm stone is almost to the bladder on the right side. Rest your labs and urine are reassuring. Stay well-hydrated at home, Tylenol and ibuprofen for pain control. You can take up to 1000 mgor 1 g of Tylenol. You can take 600 mg of ibuprofen at one time. You can take these together every 6hours if needed. Always take ibuprofen with food. Never take more than 4 g (4000 mg) of Tylenol in 1day. Do not take this amount for more than 1 week at a time. Use oxycodone to help with pain controlas well. Flomax can help pass the stone. Zofran for nausea control. Follow-up with urology, information as above. They may be able to offer you diet modifications. If he passes stone, bring it to theirclinic as well. The stone is larger, and you may have difficulty passing it, follow-up with them if you continue to have pain by the end of the week. Return if you have uncontrolled pain, fevers, new concerns. Diet modifications to consider with stones: From the viewpoint of diet, increasing the intake of fluid, fruits, vegetables, dietary calcium, potassium, and phytate may be beneficial. In addition, decreasing the intake of oxalate, animal protein,sucrose, fructose, sodium, supplemental vitamin C, and supplemental calcium (as opposed to dietary calcium) may reduce the risk of stones. Discharge Instructions Kidney Stones Kidney stones are a common problem that can cause a lot of pain but fortunately are usually not dangerous and can be generally treated with medicine at home. However, sometimes your condition may be worse than it seemed at first, or may get worse with time. You need to follow-up with your regular doctor within 3 days. Most kidney stones will pass on their own, but occasionally stones may need to be removed by an urologist. We will send you home with a urine strainer. Be sure to urinate into this, or urinate into a container and pour the urine through the fine filter to catch the kidney stone as it comes out. The stone will seem like a pebble or grain of sand. Be sure to save this in a Ziploc?? bag and take it to the doctor???s office with you. Return to the Emergency Department if: Your pain is not controlled. You are vomiting and can???t keep fluids or medications down. You develop fever (>101). You feel much more ill or develop new symptoms. What can I do to help myself? Be sure to drink plenty of fluids. Staying active is good, and may help the stone to pass. You may do whatever you feel up to doing without restrictions. Treatment: Non-steroidal anti-inflammatory drugs (NSAIDs). This includes prescription medicines like Toradol?? (ketorolac) and non-prescription medicines like Advil?? (ibuprofen) and Nuprin?? (ibuprofen). These pain relievers are very effective for kidney stones. Narcotic pain pills. If you have been given a narcotic such as Vicodin?? (hydrocodone with acetaminophen), Percocet?? (oxycodone with acetaminophen), or codeine, do not drive for four hours after you have taken it. If the narcotic contains Tylenol?? (acetaminophen), do not take Tylenol?? with it. All narcotics will cause constipation, so eat a high fiber diet. Nausea medication. Nausea and vomiting are common with kidney stones, so your physician may send youhome with medicine for this. Flomax?? (tamsulosin). This medicine is sometimes used for men with prostate problems, but also can help kidney stones to pass. This medicine can lower blood pressure, and you may feel faint, especially when you first stand up. Be sure to get up gradually, sit down if you feel faint, and avoid activity where feeling faint would be dangerous, such as climbing ladders. If you were given a prescription for medicine here today, be sure to read all of the information (including the package insert) that comes with your prescription. This will include important information about the medicine, its side effects, and any warnings that you need to know about. The pharmacist who fills the prescription can provide more information and answer questions you may have about the medicine. If you have questions or concerns that the pharmacist cannot address, please call or return to the Emergency Department. documented in this encounter Medications at Time of Discharge Medication Sig Dispensed Refills Start Date End Date ondansetron (ZOFRAN ODT) 4 Take 1 tablet (4 9 tablet 0 08/28/2019 MG ODT tab mg) by mouth every 8 hours as needed for nausea tamsulosin (FLOMAX) 0.4 MG Take 1 capsule 10 capsule 0 08/2409/04/2019 capsule (0.4 mg) by mouth daily for 10 doses amLODIPine (NORVASC) 10 MG Take 1 tablet (10 90 tablet 0 11/03/2019 tabletIndications: Benign mg) by mouth essential hypertension daily hydrochlorothiazide Take 1 tablet (25 90 tablet 0 0 11/03/2019 (HYDRODIURIL) 25 MG mg) by mouth tabletIndications: Benign daily essential hypertension lisinopril (ZESTRIL) 40 MG Take 1 tablet (40 90 tablet 0 11/03/2019 tabletIndications: Benign mg) by mouth essential hypertension daily metoprolol succinate ER Take 1 tablet (50 90 tablet 0 08/0611/03/2019 (TOPROL-XL) 50 MG 24 hr mg) by mouth tabletIndications: Benign daily essential hypertension order for DMEIndications: Equipment being 1 Units 0 08/0606/09/2020 Benign essential ordered: Digital hypertension home blood pressure monitor kit oxyCODONE (ROXICODONE) 5 MG Take 1 tablet (5 12 tablet 0 11/03/2019 tablet mg) by mouth every 6 hours as needed for pain documented as of this encounter ED Notes Bisi Álvarez, REAL - 08/25/2019 1:25 AM CDT AVS reviewed. Yesenia Mohr RN - 08/24/2019 10:38 PM CDT Onset of right flank pain that started this evening at 5. Hx of kidney stones. Priscilla Quiroga PA - 08/24/2019 10:37 PM CDT History Chief Complaint: Flank Pain HPI Brock Gotti, a current everyday smoker, is a 38 year old male with a history of recurrent kidney stones and hypertension who presents with flank pain. The patient reports 4 days ago he developed back aches and suddenly at 1700 today he developed a 10/10 pain on his right back. The pain is similar to the pain he has with kidney stones, but more intense. He turned the seat heaters on in his car and notes alleviation for 1 minute. He took a oxycodone for pain control. He endorses muscle tightness in his back. He denies fever, hematuria, and chest pain. Allergies: No known drug allergies Medications: Amlodipine Hydrochlorothiazide Lisinopril Metroprolol succinate ER Past Medical History: Cocaine use Alcohol abuse Bilateral carpal tunnel syndrome Essential hypertension Morbid obesity Nasal septal deformity GUTIERREZ on CPAP Hyperglycemia Tobacco use disorder Tear of medial cartilage or meniscus of knee, current Other postprocedural status Recurrent nephrolithiasis Past Surgical History: Cystectomy pilonidal Endoscopic polypectomy nasal Fracture TX, finger/hand Myringotomy, insert tube bilateral, combined Tonsillectomy, adenoidectomy, combined Uledi teeth extraction Family History: Bilateral TKR DVT Hypertension Social History: Smoking status- current every day smoker Alcohol use- yes Drug use- yes Marital Status: Single [1] Review of Systems Constitutional: Negative for fever. HENT: Negative for sore throat. Respiratory: Negative for cough and shortness of breath. Gastrointestinal: Positive for nausea. Negative for diarrhea and vomiting. Genitourinary: Positive for flank pain. Negative for difficulty urinating and hematuria. Musculoskeletal: Positive for myalgias. All other systems reviewed and are negative. Physical Exam Patient Vitals for the past 24 hrs: BP Temp Temp src Pulse Resp SpO2 08/25/19 0030 (!) 167/96 -- -- 68 -- 96 % 08/25/19 0022 (!) 179/95 -- -- 69 -- 97 % 08/24/19 2241 (!) 154/59 -- -- -- -- -- 08/24/19 2239 -- 97.6 ??F (36.4 ??C) Temporal -- 18 96 % Physical Exam General: Appears uncomfortable, resting on the bed. Skin: Good turgor, no rash, no unusual bruising or prominent lesions. HEENT: Head: Normocephalic, atraumatic, no visible masses. Eyes: Conjunctiva clear. Cardiac: Normal rate and regular rhythm, no murmur or gallop. Lungs: Clear to auscultation. Abdomen: Obese abdomen. Mild right CVA tenderness that extends to the right lower abdomen. No rebound or guarding. Negative Tomas's. No pain McBurney's. No left CVA tenderness. Musculoskeletal: Normal gait and station. N Neurologic: Oriented x 3. GCS: 15. Psychiatric: Intact recent and remote memory, judgment and insight, normal mood and affect. Emergency Department Course Imaging: Radiology findings were communicated with the patient who voiced understanding of the findings. CT Abdomen/Pelvis w/o Contrast: Moderate right hydronephrosis due to a distal ureteral stone, 8 mm maximal dimension. As read by Radiology. Laboratory: Laboratory findings were communicated with the patient who voiced understanding of the findings. CBC: WBC 16.9 (L), absolute neutrophil 12.2 (H), absolute monocytes 1.9 (H) o/w WNL (HGB 15.4, PLT 237) BMP: Glucose 141 (H) o/w WNL (Creatinine 0.89) UA with Microscopic: Moderate blood, protein albumin 30, red blood cells 56, calcium oxalate few, o/w WNL. Procedures None Interventions: 2326 Zofran 4 mg IV 2326 Dilaudid 0.5 mg IV 2330 Toradol 15 mg IV 0035 Dilaudid 0.5 mg IV 0110 Oxycodone 5 mg PO Emergency Department Course: Past medical records, nursing notes, and vitals reviewed. 2326 I performed an exam of the patient as documented above. IV was inserted and blood was drawn for laboratory testing, results above. The patient provided a urine sample here in the emergency department. This was sent for laboratory testing, findings above. The patient was sent for a CT abdomen/pelvis while in the emergency department, results above. I rechecked the patient and discussed the results of his workup thus far. Findings and plan explained to the Patient. Patient discharged home with instructions regarding supportive care, medications, and reasons to return. The importance of close follow-up was reviewed. The patient was prescribed oxycodone, Flomax, Zofran. Impression & Plan Medical Decision Making: Brock Gotti is a 38 year old male presented with unilateral flank and abdominal pain consistent with renal colic. CT confirms a ureteral stone. As the patient has been having recurrent stones, we did discuss ultrasound or x-ray to evaluate for stone. However, given the patient significant leukocytosis, we did decide to move forward with a CT which confirmed an 8 mm stone in the distal right ureter. Patient was uncomfortable here, but pain is controlled with interventions in the Emergency Department. Given the size of the stone in his initial significant discomfort, we did discuss observation for pain control. However, as he does feel improved and comfortable for discharge I think this is reasonable. There is no fever or evidence of a urinary tract infection. The patient will be discharged with opioid analgesics and Ibuprofen for pain. Side effects of narcotic medications were discussed. Flomaxwill be prescribed daily to attempt to ease stone passage. Other etiologies for these symptoms such as AAA, pyelonephritis, muscular strain, appendicitis, amongst others are considered and have been excluded. We did discuss diet modifications. I do feel that he needs to follow with urology as he has been having recurrent stones. He was given the follow-up info and advised to call tomorrow. In the meantime, he will continue to strain his urine at home. Zofran given for nausea control. He will also con tinue Tylenol ibuprofen with oxycodone. The patient was told to return if if increasing pain not controlled with pain meds, vomiting, and fever. We discussed that the stone may have difficulty passing,however it is reassuring that is moved the distal ureter. We may need to see urology to help with passing of stone and he will call them within the next few days if pain persists. All questions were answered prior to the patient's discharge. He was in agreement with the plan stated above. Diagnosis: ICD-10-CM 1. Ureterolithiasis N20.1 2. Right flank pain R10.9 Disposition: Discharged to home. Discharge Medications: New Prescriptions ONDANSETRON (ZOFRAN ODT) 4 MG ODT TAB Take 1 tablet (4 mg) by mouth every 8 hours as needed for nausea OXYCODONE (ROXICODONE) 5 MG TABLET Take 1 tablet (5 mg) by mouth every 6 hours as needed for pain TAMSULOSIN (FLOMAX) 0.4 MG CAPSULE Take 1 capsule (0.4 mg) by mouth daily for 10 doses Scribe Disclosure: Trista Coyne, am serving as a scribe at 11:39 PM on 08/24/2019 to document services personally performed by Priscilla Quiroga PA based on my observations and the provider's statements to me. This was created at least in part with a voice recognition software. Mistakes/typos may be present. Priscilla Quiroga PA 08/25/19 0123 documented in this encounter Plan of Treatment Not on filedocumented as of this encounter Procedures Procedure Name Priority Date/Time Associated Comments Diagnosis ROUTINE UA WITH STAT 08/25/2019 12:09 Results for this MICROSCOPIC AM CDT procedure are i n the results section. CT ABDOMEN PELVIS W/O STAT 08/25/2019 12:03 Re sults for this CONTRAST AM CDT procedure are i n the results section. CBC WITH PLATELETS & STAT 08/24/2019 11:19 Res ults for this DIFFERENTIAL PM CDT procedure are i n the results section. BASIC METABOLIC PANEL STAT 08/24/2019 11:19 Re sults for this PM CDT procedure are i n the results section. documented in this encounter Results (ABNORMAL) UA with Microscopic (08/25/2019 12:09 AM CDT) [facility] Method Time Signature Color Urine Yellow 08/25/2019 [facility] 12:56 AM [facility] Appearance Urine Clear 08/25/2019 [facility] 12:56 AM [facility] Glucose Urine Negative NEG^Negat 08/25/2019 [facility] radha mg/dL 12:56 AM [facility] Bilirubin Urine Negative NEG^Negat 08/25/2019 [facility]ha 12:56 AM [facility] Ketones Urine Trace (A) NEG^Negat 08/25/2019 [facility] mg/dL 12:56 AM [facility] Specific [place] 1.032 1.003 - 08/25/2019 [facility] Urine 1.035 12:56 AM [facility] Blood Urine Moderate (A) NEG^Negat 08/25/2019 [facility]ha 12:56 AM [facility] pH Urine 6.0 5.0 - 7.0 08/25/2019 [facility] pH 12:56 AM [facility] Protein Albumin 30 (A) NEG^Negat 08/25/2019 [facility] Urine radha mg/dL 12:56 AM [facility] Urobilinogen Normal 0.0 - 2.0 08/25/2019 [facility] mg/dL mg/dL 12:56 AM [facility] Nitrite Urine Negative NEG^Negat 08/25/2019 [facility] radha 12:56 AM [facility] Leukocyte Negative NEG^Negat 08/25/2019 [facility] Esterase Urine radha 12:56 AM [facility] Source Midstream 08/25/2019 [facility] Urine 12:09 AM [facility] WBC Urine 2 0 - 5 08/25/2019 [facility] /HPF 12:56 AM [facility] RBC Urine 56 (H) 0 - 2 08/25/2019 [facility] /HPF 12:56 AM [facility] Mucous Urine Present (A) NEG^Negat 08/25/2019 [facility] radha /LPF 12:56 AM [facility] Calcium Oxalate Few (A) NEG^Negat 08/25/2019 [facility] /HPF 12:56 AM [facility] Specimen (Source) Anatomical Collection Method Collection Time Re ceived Time Location / / Volume Laterality Examination of 08/25/2019 12:09 0 midstream urine AM CDT 12:16 AM T specimen (procedure) [facility] - URINE ORDERABLES Performing Organization Address City/State/ZIP Code Phon e Number M [facility] [address], [place] [address] [facility] [address], [place] [address] [address] [phone] CT Abdomen Pelvis w/o Contrast (08/25/2019 12:03 AM CDT) Anatomical Region Laterality Modality Abdomen/Pelvis, SUBRAD CT BODY, UMP CT ABDOMEN PELVIS, Computed Tomography RAD CT Specimen (Source) Anatomical Collection Method Collection Time Re ceived Time Location / / Volume Laterality 08/24/2019 11:51 PM CDT Impressions 08/25/2019 12:40 AM CDT IMPRESSION: Moderate right hydronephrosis due to a distal ureteral stone, 8 mm maximal dimension. Narrative 08/25/2019 12:40 AM CDT EXAM: CT ABDOMEN PELVIS W/O CONTRAST LOCATION: [facility] DATE/TIME: 08/24/2019 11:51 PM INDICATION: Right flank pain. COMPARISON: 10/01/2018. TECHNIQUE: CT scan of the abdomen and pe lvis was performed without IV contrast. Multiplanar reformats were obtained. Dose reduction techniques were used. CONTRAST: None. FINDINGS: LOWER CHEST: Normal. HEPATOBILIARY: Normal. PANCREAS: Normal. SPLEEN: Normal. ADRENAL GLANDS: Normal. KIDNEYS/BLADDER: Moderate right hydronep hrosis and perinephric stranding due to a slightly elongated stone in the distal ureter just above the UVJ. This measures 8 mm craniocaudad x 6 mm in greatest cross-sectional diameter. BOWEL: No obstruction. LYMPH NODES: Normal. VASCULATURE: Mild calcification. Normal caliber abdominal aorta. PELVIC ORGANS: Normal. No ascites. OTHER: Evaluation of solid abdominal org ans limited by lack of contrast. MUSCULOSKELETAL: Normal. Procedure Note Vidal Escalante MD - 08/25/2019F ormatting of this note might be different from the original. EXAM: CT ABDOMEN PELVIS W/O CONTRAST LOCATION: [facility] DATE/TIME: 08/24/2019 11:51 PM INDICATION: Right flank pain. COMPARISON: 10/01/2018. TECHNIQUE: CT scan of the abdomen and pe lvis was performed without IV contrast. Multiplanar reformats were obtained. Dose reduction techniques were used. CONTRAST: None. FINDINGS: LOWER CHEST: Normal. HEPATOBILIARY: Normal. PANCREAS: Normal. SPLEEN: Normal. ADRENAL GLANDS: Normal. KIDNEYS/BLADDER: Moderate right hydronep hrosis and perinephric stranding due to a slightly elongated stone in the distal ureter just above the UVJ. This measures 8 mm craniocaudad x 6 mm in greatest cross-sectional diameter. BOWEL: No obstruction. LYMPH NODES: Normal. VASCULATURE: Mild calcification. Normal caliber abdominal aorta. PELVIC ORGANS: Normal. No ascites. OTHER: Evaluation of solid abdominal org ans limited by lack of contrast. MUSCULOSKELETAL: Normal. IMPRESSION: Moderate right hydronephrosi s due to a distal ureteral stone, 8 mm maximal dimension. [facility] IMG CT ORDERABLES (ABNORMAL) Basic metabolic panel (08/24/2019 11:19 PM [facility]) athologist Signature Sodium 138 133 - 144 08/24/2019 [facility] mmol/L 11:43 PM [facility] Potassium 4.0 3.4 - 5.3 08/24/2019 [facility] mmol/L 11:43 PM [facility] Comment: Specimen slightly hemolyzed, potassium m ay be falsely elevated Reviewed, acceptable Chloride 107 94 - 109 mmol/L 08/24/2019 11:43 PM [facility] Carbon Dioxide 25 20 - 32 mmol/L 08/24/2019 11:43 PM [facility] Anion Gap 6 3 - 14 mmol/L 08/24/2019 11:43 PM [facility] Glucose 141 (H) 70 - 99 mg/dL 08/24/2019 11:43 PM [facility] Urea Nitrogen 15 7 - 30 mg/dL 08/24/2019 11:43 PM [facility] Creatinine 0.89 0.66 - 1.25 mg/dL 08/24/2019 11:46 PM [facility] GFR Estimate >90 >60 08/24/2019 11:46 PM YO CAI mL/min/{1.73_m2} [facility] Comment: Non GFR Calc Starting 01/28/2018, serum creatinine ba sed estimated GFR (eGFR) will be calculated using the Chronic Kidney Dise ase Epidemiology Collaboration (CKD-EPI) equation. GFR Estimate If >90 >60 mL/min/{1.73_m2} 08/24/2019 11 :46 PM [facility] Comment: GFR Calc Starting 01/28/2018, serum creatinine ba sed estimated GFR (eGFR) will be calculated using the Chronic Kidney Dise ase Epidemiology Collaboration (CKD-EPI) equation. Calcium 8.3 (L) 8.5 - 10.1 mg/dL 08/24/2019 11:43 PM CDT [facility] Specimen Anatomical Collection Method Collection Time Receive d Time (Source) Location / / Volume Laterality Blood specimen 08/24/2019 11:19 0 (specimen) PM CDT 11:29 PM CDT [facility] - BLOOD ORDERABLES Performing Organization Address City/State/ZIP Code Phon e Number M [place] [id number] [place] [address] [place] [address], [facility] [phone] [facility] [address], [place] [address], [facility] [phone] (ABNORMAL) CBC with platelets differential (08/24/2019 11:19 PM CDT) [facility] Method Time Signature WBC 16.9 (H) 4.0 - 08/24/2019 [facility] 11.0 11:31 PM [facility] 10e9/L [facility] RBC Count 5.21 4.4 - 5.9 08/24/2019 [facility] 10e12/L 11:31 PM [facility] Hemoglobin 15.4 13.3 - 08/24/2019 [facility] 17.7 g/dL 11:31 PM [facility] Hematocrit 45.8 40.0 - 08/24/2019 [facility] 53.0 % 11:31 PM [facility] MCV 88 78 - 100 08/24/2019 [facility] [place] 11:31 PM [facility] MCH 29.6 26.5 - 08/24/2019 [facility] 33.0 pg 11:31 [facility] MCHC 33.6 31.5 - 08/24/2019 [facility] 36.5 g/dL 11:31 [facility] RDW 13.3 10.0 - 08/24/2019 [facility] 15.0 % 11:31 PM [facility] Platelet Count 237 150 - 450 08/24/2019 [facility] 10e9/L 11:31 PM [facility] Diff Method Automated 08/24/2019 [facility] Method 11:31 [facility] % Neutrophils 72.2 % 08/24/2019 [facility] 11:31 PM [facility] % Lymphocytes 14.3 % 08/24/2019 [facility] 11:31 [facility] % Monocytes 11.1 % 08/24/2019 [facility] 11:31 [facility] % Eosinophils 1.6 % 08/24/2019 [facility] 11:31 PM [facility] % Basophils 0.4 % 08/24/2019 [facility] 11:31 [facility] % Immature 0.4 % 08/24/2019 [facility] Granulocytes 11:31 [facility] Nucleated RBCs 0 0 /100 08/24/2019 [facility] 11:31 PM [facility] Absolute 12.2 (H) 1.6 - 8.3 08/24/2019 [facility] Neutrophil 10e9/L 11:31 [facility] Absolute 2.4 0.8 - 5.3 08/24/2019 [facility] Lymphocytes 10e9/L 11:31 [facility] Absolute 1.9 (H) 0.0 - 1.3 08/24/2019 [facility] Monocytes 10e9/L 11:31 [facility] Absolute 0.3 0.0 - 0.7 08/24/2019 [facility] Eosinophils 10e9/L 11:31 [facility] Absolute 0.1 0.0 - 0.2 08/24/2019 [facility] Basophils 10e9/L 11:31 PM [facility] Abs Immature 0.1 0 - 0.4 08/24/2019 [facility] Granulocytes 10e9/L 11:31 [facility] Absolute 0.0 08/24/2019 [facility] Nucleated RBC 11:31 [facility] Specimen Anatomical Collection Method Collection Time Receive d Time (Source) Location / / Volume Laterality Blood specimen 08/24/2019 11:19 0 (specimen) PM CDT 11:29 PM CDT [facility] - BLOOD ORDERABLES Performing Organization Address City/State/ZIP Code Phon e Number M [facility] [address], [place] [address] [facility] [facility] [address] [place], [place] [address] [facility] [phone] documented in this encounter Visit Diagnoses Diagnosis Ureterolithiasis Calculus of ureter Right flank pain Abdominal pain, unspecified site documented in this encounter Administered Medications Inactive Administered Medications - up to 3 most recent administrations Medication Order MAR Action Action Date Dose Rate Site HYDROmorphone (PF) (DILAUDID) Given 08/25/2019 12:35 AM CDT 0.5 mg injection 0.5 mg 0.5 mg, Intravenous, EVERY 15 MIN PRN, moderate to severe pain, Starting on Sat08/24/19 at 2323, For 3 doses, For ordered IV doses 0.1-4 mg give IV Push undiluted. Administer each 2mg over 2-5 minutes. Given 08/24/2019 11:26 PM CDT 0.5 mg ketorolac (TORADOL) injection 15 mg Given 08/24/2019 11:30 PM CDT 15 mg 15 mg, Intravenous, ONCE, On Sat08/24/19 at 2324, For 1 dose, Do not give within 6 hours of Ibuprofen. Can cause pain on injection. If ordered intravenously (IV) : administer through a running maintenance fluid over 1 minute followed by a flush. If patient complains of pain on injection, may dilute 15-30 mg in 5 mL and push over 1 to 2 minutes. ondansetron (ZOFRAN) injection 4 mg Given 08/24/2019 11:26 PM CDT 4 mg 4 mg, Intravenous, EVERY 30 MIN PRN, nausea, vomiting, Administer over 2-5 Minutes, Starting on Sat08/24/19 at 2323, For 3 doses, May repeat in 30 minutes as needed, up to 3 doses. Irritant. For ordered IV doses 0.1-4 mg, give IV Push undiluted over 2-5 minutes. oxyCODONE (ROXICODONE) tablet 5 mg Given 08/25/2019 1:10 AM CDT 5 mg 5 mg, Oral, ONCE, On Sat08/25/19 at 0107, For 1 dose documented in this encounter Active and Recently Administered Medications Times are shown in CDT. Scheduled Medication Order 08/23/2019 08/24/2019 08/25/2019 ketorolac (TORADOL) injection 15 mg (COMPLETED) 2329 (Given - Provider: Piper Silva, REAL) 15 mg, Intravenous, ONCE, Sat08/24/19 at 2324, For 1 dose, Do not give within 6 hours of Ibuprofen. Can cause pain on injection. If ordered intravenously (IV) : administer through a running maintenance fluid over 1 minute followed by a flush. If patient complains of pain on injection, may dilute 15-30 mg in 5 mL and push over 1 to 2 minutes. oxyCODONE (ROXICODONE) tablet 5 mg (COMPLETED) 109 (Given - Provider: Bisi Álvarez, REAL) 5 mg, Oral, ONCE, Sat08/25/19 at 0107, For 1 dose PRN Medication Order 08/23/2019 08/24/2019 08/25/2019 HYDROmorphone (PF) (DILAUDID) injection 0.5 mg 2325 (Given - Provider: Piper Silva, REAL) 0035 (Given - Provider: Bisi Álvarez , REAL) 0.5 mg, Intravenous, EVERY 15 MIN PRN, m oderate to severe pain, Starting Sat08/24/19 at 2323, For 3 doses, For ordered IV doses 0.1-4 mg give IV Push undiluted. Administer each 2mg over 2-5 minutes. ondansetron (ZOFRAN) injection 4 mg 2325 (Given - Provider: Piper Silva, REAL) 4 mg, Intravenous, EVERY 30 MIN PRN, kurtis sea, vomiting, Administer over 2-5 Minutes, Starting 08/24/19 at 2323, For 3 doses, May repeat in 30 minutes as needed, up to 3 doses. Irritant. For ordered IV doses 0.1-4 mg, give IV Push undiluted over 2-5 minutes. 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
--- OUTSIDE RECORDS SUMMARY | 2021-12-07 08:33 | XMS_ITS | Encounter Summary ---
:1980 Author Organization [facility] Address [address] [place] [address]. [place] [address] Care Team Providers Name Role Phone Alice Gillette PA-C Primary Care Provider [phone] Alice Gillette PA-C Unavailable [phone] Encounter Details Date Type Department Care Team Description 11/03/2019 Travel Social History Tobacco Use Types Packs/Day [...] been in contact with No / Unsure 11/03/2019 9:29 AM CDT someone who was confirmed or suspected to have Coronavirus / COVID-19? documented as of this encounter Plan of Treatment Not on filedocumented as of this encounter Visit Diagnoses Not on filedocumented in this encounter Care Teams Clinic Scheduler Relationship Specialty Start Date End Date Alice Gillette PA-C PCP - General Physician Fur Pointer 07/20/19 [address] [place] [id number] Alice Gillette PA-C Assigned PCP 06/25/[address] [address] documented as of this encounter
--- OUTSIDE RECORDS SUMMARY | 2021-12-07 08:33 | XMS_ITS | Encounter Summary ---
:1980 Author Organization [facility] Address [facility] [facility] [place] [address] Care Team Providers Name Role Phone Alice Gillette PA-C Primary Care Provider [phone] Alice Gillette PA-C Unavailable [phone] Encounter Details Date Type Department Care Team Description 07/20/2019 Travel Social History Tobacco Use Types Packs/Day [...] been in contact with No / Unsure 07/20/2019 11:18 AM CDT someone who was confirmed or suspected to have Coronavirus / COVID-19? documented as of this encounter Plan of Treatment Not on filedocumented as of this encounter Visit Diagnoses Not on filedocumented in this encounter Care Teams Etcher Electrolytic Relationship Specialty Start Date End Date Alice Gillette PA-C PCP - General Physician Respiratory Equipment Assistant 07/20/[address] [place] [id number] Alice Gillette PA-C Assigned PCP 06/25/[address] [address] documented as of this encounter
--- OUTSIDE RECORDS SUMMARY | 2021-12-07 08:33 | XMS_ITS | Encounter Summary ---
:1980 Author Organization [facility] Address [address] [place] [address]. [place] [address] Care Team Providers Name Role Phone No Ref-Primary, Physician Primary Care Provider [phone] Reason for Visit Reason Comments Flank Pain Back Pain Encounter Details Date Type Department Care Team Description 06/23/2019 - Emergency [facility] Jon Louise Hydronep hrosis with 06/24/2019 [facility] Emergency DO Jamison urinary obstruction Dept [facility] due to ureteral [address] calculus [place], [place] [address] [id number] [place] [address] (Wo rk) Social History Tobacco Use Types Packs/Day Years Used Date Smoking Tobacco: Every Day Cigarettes 0.5 10 Smokeless Tobacco: Never Comments: at most 2 cig/ daily-trying to quit Alcohol Use Standard Drinks/Week Comments No 0 (1 standard drink = 0.6 oz pure alcoho l) 20 weekly Alcohol Habits Answer Date Recorded How often [...] been in contact with No / Unsure 06/23/2019 5:43 PM CDT someone who was confirmed or suspected to have Coronavirus / COVID-19? documented as of this encounter Last Filed Vital Signs Vital Sign Reading Time Taken Comments Blood Pressure 158/86 06/23/2019 11:00 PM CDT Pulse 72 06/23/2019 11:00 PM CDT Temperature 36.6 ??C (97.8 ??F) 06/23/2019 5:43 PM CDT Respiratory Rate 20 06/23/2019 5:43 PM CDT Oxygen Saturation 96% 06/23/2019 11:00 PM CDT Inhaled Oxygen Concentration - - Weight - - Height - - Body Mass Index - - documented in this encounter Discharge Instructions Discharge InstructionsJon Louise DO - 06/23/2019 11:30 PM CDT Diagnosis: Right ureteral stone What do you do next: Take the medications I have prescribed as directed. Drink plenty of fluids. We discussed keeping you in the hospital and having you seen by the urologist tomorrow though you have elected to go home. Please follow-up with your primary care clinic but also with the urologist that I have listed. I have placed a note to the urologist and hopefully their clinic will contact you in thenext 1-2 business days. When do you return: If you have worsening pain, intractable vomiting, fevers you cannot control, or any other symptoms that concern you please return to the emergency department for reevaluation. Thank you for allowing us to care for you today. AttachmentsThe following attachments cannot be sent through Care Everywhere. Kidney Stone w/ Colic ([place])documented in this encounter Medications at Time of Discharge Medication Sig Dispensed Refills Start Date End Date AMLODIPINE BESYLATE PO Take 10 mg by 0 07/20/2019 mouth daily. celecoxib (CELEBREX) 200 MG Take 1 capsule 14 capsule 1 08/201207/20/2019 capsuleIndications: S/P by mouth 2 times tonsillectomy daily as needed for pain. HYDROCHLOROTHIAZIDE PO Take 25 mg by 0 07/20/2019 mouth daily. ibuprofen (ADVIL,MOTRIN) 600 Take 1 tablet 30 tablet 1 04/201308/07/2019 MG tablet (600 mg) by mouth every 6 hours as needed for pain LISINOPRIL PO Take 20 mg by 0 07/20/19 20 mouth daily. ondansetron (ZOFRAN) 4 MG Take 1 tablet (4 8 tablet 0 /06/201907/20/2019 tablet mg) by mouth every 6 hours oxyCODONE (ROXICODONE) 5 MG Take 1 tablet (5 12 tablet 0 07/20/2019 tablet mg) by mouth every 6 hours as needed for severe pain tamsulosin (FLOMAX) 0.4 MG Take 1 capsule 10 capsule 0 06/2208/07/2019 capsule (0.4 mg) by mouth daily for 10 doses documented as of this encounter ED Notes Aide Harrison RN - 06/23/2019 5:47 PM CDT Two days ago with right sided flank pain. States he has had kidney stones in the past. 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 States took one Oxycodone around 1300 and laid down. Pain had improved, but is now coming back more severe. Denies hematuria. States my scrotum is starting to get upset right now like it does when I get kidney stones. Jon Louise DO - 06/23/2019 5:43 PM CDT History Chief Complaint: Flank Pain and Back Pain HPI Brock Gotti is a 38 year old male current tobacco user with a history of kidney stones, hypertension and diabetes who presents with right sided flank and back pain. The patient reports four days of worsening pain in his back and flank that radiates down to his scrotum. He complains of nausea, bloating, and dark urine. He reports that the pain feels similar to previous kidney stones, noting that he gets them every three months.The patient states that he has never needed surgical interventions and they have always passed on their own. He denies any family history of kidney stones or personal history of kidney infections. The patient states that his testicles do not hurt as bad as previous episodes. He reports taking an Oxycodone, prescribed from previous episodes, and feeling brief relief, before it returned. He denies any trauma or injury to his scrotum or groin. He denies any hematuria, fever, or respiratory symptoms. He denies any abdominal surgery. Allergies: No known drug allergies Medications: Amlodipine Hydrochlorothiazide Lisinopril Prozac Blood glucose meter Past Medical History: Hypertension Obesity Deviated nasal septum Diabetes GUTIERREZ History of alcohol abuse History of cocaine abuse Past Surgical History: Arthroscopy knee left Cystectomy pilonidal Endoscopic nasal polypectomy Bilateral myringotomy and tube insertion Tonsillectomy, adenoidectomy [place] teeth extraction Family History: History reviewed. No pertinent family history. Social History: Smoking status: current 0.5 ppd - trying to quit Alcohol use: No Drug use: No The patient presents to the emergency department alone via personal vehicle PCP: No Ref-Primary, Physician Marital Status: Single [1] Review of Systems Constitutional: Negative for fever. Respiratory: Negative for cough and shortness of breath. Gastrointestinal: Positive for nausea. Negative for vomiting. Genitourinary: Positive for flank pain. Negative for hematuria and testicular pain. Musculoskeletal: Positive for back pain. All other systems reviewed and are negative. Physical Exam Patient Vitals for the past 24 hrs: BP Temp Temp src Pulse Resp SpO2 06/23/19 2300 (!) 158/86 -- -- 72 -- 96 % 06/23/19 1743 (!) 183/108 97.8 ??F (36.6 ??C) Temporal 92 20 94 % Physical Exam Constitutional: Vital signs reviewed as above. HENT: Head: No external signs of trauma noted. Eyes: Conjunctivae are normal. Pupils are equal, round, and reactive to light. Cardiovascular: Normal rate, regular rhythm and normal heart sounds. Exam reveals no friction rub. No murmur heard. Pulmonary/Chest: Effort normal and breath sounds normal. No respiratory distress. There are no wheezes. There are no rales. Gastrointestinal: Soft. Bowel sounds normal. There is no distension. There is mild RLQ tenderness. There is no rebound or guarding. Musculoskeletal: Normal range of motion. Normal Tone Mild right CVA tenderness to percussion Neurological: Patient is alert and oriented to person, place, and time. Skin: Skin is warm and dry. Patient is not diaphoretic Psychiatric: The patient appears calm Emergency Department Course Imaging: Radiology findings were communicated with the patient who voiced understanding of the findings. Abd/pelvis CT no contrast - Stone Protocol IMPRESSION: 1. Obstructing 4 x 4 x 5 mm distal right ureteral stone with mild secondary hydronephrosis, right renal and perirenal edema. 2. Hepatic steatosis. 3. Mild nonspecific distention of the gallbladder without adjacent inflammatory change. 4. Mildly prominent right inguinal lymph node stable when compared to oldest study and of unknown but doubtful significance. As read by Radiology. Laboratory: Laboratory findings were communicated with the patient who voiced understanding of the findings. BMP: Glucose: 139 (H) o/w WNL (Creatinine 0.83) CBC: WBC 14.7 (H) WNL (HGB 15.1, PLT 275) UA: protein albumin: 10, RBC: 4 (H), mucous: present, o/w Negative Urinalysis and culture obtained and sent for evaluation. Hepatic Panel: WNL Interventions: 2024 Morphine 4 mg IV 2024 Zofran 4 mg IV 2206 Morphine 4 mg IV Emergency Department Course: Past medical records, nursing notes, and vitals reviewed. 1932: I performed an exam of the patient and obtained history, as documented above. IV inserted and blood drawn. Urinalysis and culture obtained and sent for evaluation. The patient was sent for a abdomen and pelvic CT while in the emergency department, results above. 2316: I rechecked the patient. Explained findings to patient. 2325: I rechecked the patient. I reviewed the results with the Patient and answered all related questions prior to discharge. Findings and plan explained to the Patient. Patient discharged home with instructions regarding supportive care, medications, and reasons to return. The importance of close follow-up was reviewed. The patient was prescribed Oxycodone and Flomax Impression & Plan Medical Decision Making: This 38-year-old male patient presents the ED due to flank pain. Please see the HPI and exam for specifics. The patient seemed to have flank pain that was coming and going. He received several doses ofpain medications and on reassessment I discussed observation with him. The patient states that he would like to try Flomax and would like to try going home but I did encourage him to come back should he feel any worse at all. The patient states that he has had stones in the past but has never followedup with urology in person. I did put a message into Dr. Ortiz from urology in the hopes that the patient can be connected with a specialist in the outpatient setting. Anticipatory guidance given prior to discharge. Diagnosis: ICD-10-CM 1. Hydronephrosis with urinary obstruction due to ureteral calculus N13.2 Hepatic panel Disposition: Discharged to home. Discharge Medications: Oxycodone Flomax Lauren janis 06/23/2019 [facility] EMERGENCY DEPARTMENT Scribe Disclosure: I, Lauren Mendozaaravindcaleb, am serving as a scribe at 7:32 PM on 06/23/2019 to document services personally performed by Jon Louise DO based on my observations and the provider's statements to me. Scribe Disclosure: I, Douglas Cam, am serving as a scribe at 11:45 PM on 06/23/2019 to document services personally performed by Jon Louise DO\ based on my observations and the provider's statements to me. Jon Louise DO 06/24/19 0049 documented in this encounter Miscellaneous Notes Result Encounter Note - Felix Jacinto RN - 06/24/2019 12:44 AM CDT Final urine culture report is NEGATIVE per [facility] Result protocol. If NEGATIVE result, no change in treatment, per [facility] Result protocol. documented in this encounter Plan of Treatment Not on filedocumented as of this encounter Procedures Procedure Name Priority Date/Time Associated Diagnosis Comme nts CT ABDOMEN PELVIS STAT 06/23/2019 10:22 Result s for this W/O CONTRAST PM CDT procedure are i n the results section. URINE CULTURE STAT 06/23/2019 9:52 Hydronephrosis with Resu lts for this PM CDT urinary obstruction procedur e are in due to ureteral the results calculus section. ROUTINE UA WITH STAT 06/23/2019 9:50 Results f or this MICROSCOPIC PM CDT procedure are i n the results section. CBC WITH PLATELETS & STAT 06/23/2019 8:26 Resu lts for this DIFFERENTIAL PM CDT procedure are i n the results section. HEPATIC FUNCTION Routine 06/23/2019 8:26 Hydronephrosis with R esults for this PANEL PM CDT urinary obstruction procedur e are in due to ureteral the results calculus section. BASIC METABOLIC STAT 06/23/2019 8:26 Results f or this PANEL PM CDT procedure are i n the results section. documented in this encounter Results Abd/pelvis CT no contrast - Stone Protocol (06/23/2019 10:22 PM CDT) Anatomical Region Laterality Modality Abdomen/Pelvis, SUBRAD CT BODY, UMP CT ABDOMEN PELVIS, Computed Tomography RAD CT Specimen (Source) Anatomical Collection Method Collection Time Re ceived Time Location / / Volume Laterality 06/23/2019 10:17 PM CDT Impressions 06/23/2019 10:57 PM CDT IMPRESSION: 1. ??Obstructing 4 x 4 x 5 mm distal rig ht ureteral stone with mild secondary hydronephrosis, right renal and perirenal edema. 2. ??Hepatic steatosis. 3. ??Mild nonspecific distention of the gallbladder without adjacent inflammatory change. 4. ??Mildly prominent right inguinal lym ph node stable when compared to oldest study, of unknown but doubtful significance. Narrative 06/23/2019 10:57 PM CDT EXAM: CT ABDOMEN PELVIS W/O CONTRAST LOCATION: [facility] DATE/TIME: 06/23/2019 10:17 PM INDICATION: Right-sided flank pain, prio r kidney stones COMPARISON: 10/01/2018 and additional ex ams dating back to 04/21/2017 TECHNIQUE: CT scan of the abdomen and pe lvis was performed without IV contrast. Multiplanar reformats were obtained. Dose reduction techniques were used. CONTRAST: None. FINDINGS: LOWER CHEST: Normal. HEPATOBILIARY: Hepatic steatosis. Mild n onspecific distention of the gallbladder without adjacent inflammatory change. No radiodense stones identified. PANCREAS: Normal. SPLEEN: Normal. ADRENAL GLANDS: Normal. KIDNEYS/BLADDER: 4 x 4 x 5 mm obstructin g distal right ureteral stone just prior to the ureterovesical junction with mild secondary hydronephrosis and hydroureter, mild right renal and perirenal edema, otherwise normal. BOWEL: Normal. LYMPH NODES: Mildly prominent right ingu inal lymph node stable with no other adenopathy. VASCULATURE: Atherosclerotic plaque. No aortic aneurysm. PELVIC ORGANS: Normal. MUSCULOSKELETAL: Tiny fat-containing par aumbilical hernia. Degenerative disease. Procedure Note Natanael Saeed MD - 06/23/2019F ormatting of this note might be different from the original. EXAM: CT ABDOMEN PELVIS W/O CONTRAST LOCATION: [facility] DATE/TIME: 06/23/2019 10:17 PM INDICATION: Right-sided flank pain, prio r kidney stones COMPARISON: 10/01/2018 and additional ex ams dating back to 04/21/2017 TECHNIQUE: CT scan of the abdomen and pe lvis was performed without IV contrast. Multiplanar reformats were obtained. Dose reduction techniques were used. CONTRAST: None. FINDINGS: LOWER CHEST: Normal. HEPATOBILIARY: Hepatic steatosis. Mild n onspecific distention of the gallbladder without adjacent inflammatory change. No radiodense stones identified. PANCREAS: Normal. SPLEEN: Normal. ADRENAL GLANDS: Normal. KIDNEYS/BLADDER: 4 x 4 x 5 mm obstructin g distal right ureteral stone just prior to the ureterovesical junction with mild secondary hydronephrosis and hydroureter, mild right renal and perirenal edema, otherwise normal. BOWEL: Normal. LYMPH NODES: Mildly prominent right ingu inal lymph node stable with no other adenopathy. VASCULATURE: Atherosclerotic plaque. No aortic aneurysm. PELVIC ORGANS: Normal. MUSCULOSKELETAL: Tiny fat-containing par aumbilical hernia. Degenerative disease. IMPRESSION: 1. Obstructing 4 x 4 x 5 mm distal right ureteral stone with mild secondary hydronephrosis, right renal and perirenal edema. 2. Hepatic steatosis. 3. Mild nonspecific distention of the ga llbladder without adjacent inflammatory change. 4. Mildly prominent right inguinal lymph node stable when compared to oldest study, of unknown but doubtful significance. Jon Louise DO IMG CT ORDERABLES Urine Culture (06/23/2019 9:52 PM CDT) Component Value Ref Test Analysis Performed At [facility] Range Method Time Signature Specimen Midstream Urine INFECTIOUS Description DISEASES DIAGNOSTIC LABORATORY Special Specimen 06/24/2019 INFECTIOUS Requests received in 4:19 AM CDT DISEASES preservative DIAGNOSTIC LABORATORY Culture Micro No growth 06/25/2019 INFECTIOUS 4:58 AM CDT DISEASES DIAGNOSTIC LABORATORY Specimen (Source) Anatomical Collection Method Collection Time Re ceived Time Location / / Volume Laterality Examination of 06/23/2019 9:52 06/23/2019 midstream urine PM CDT 10:01 PM CDT specimen (procedure) Jon Jamison Louise DO LAB - MICRO GENERAL ORDERABL ES Performing Organization Address City/State/ZIP Code Phon e Number INFECTIOUS DISEASES [address] [place] [address] DIAGNOSTIC LABORATORY, [facility] INFECTIOUS DISEASES [address] [place] [address], [place] DIAGNOSTIC LABORATORY (ABNORMAL) UA with Microscopic (06/23/2019 9:50 PM [facility]) [facility] Method Time Signature Color Urine Light Yellow 06/23/2019 [facility] 10:08 PM [facility] Appearance Urine Clear 06/23/2019 [facility] 10:08 PM [facility] Glucose Urine Negative NEG^Negat 06/23/2019 [place] radha mg/dL 10:08 PM [facility] Bilirubin Urine Negative NEG^Negat 06/23/2019 [place] radha 10:08 PM [facility] Ketones Urine Negative NEG^Negat 06/23/2019 [place] radha mg/dL 10:08 PM [facility] Specific [place] 1.022 1.003 - 06/23/2019 [place] Urine 1.035 10:08 PM [facility] Blood Urine Negative NEG^Negat 06/23/2019 [place] radha 10:08 PM [facility] pH Urine 6.5 5.0 - 7.0 06/23/2019 [place] pH 10:08 PM [facility] Protein Albumin 10 (A) NEG^Negat 06/23/2019 [place] Urine radha mg/dL 10:08 [facility] Urobilinogen Normal 0.0 - 2.0 06/23/2019 [place] mg/dL mg/dL 10:08 PM [facility] Nitrite Urine Negative NEG^Negat 06/23/2019 [place] radha 10:08 [facility] Leukocyte Negative NEG^Negat 06/23/2019 [place] Esterase Urine radha 10:08 [facility] Source Midstream 06/23/2019 [place] Urine 9:52 PM [facility] WBC Urine 2 0 - 5 06/23/2019 [facility] /HPF 10:08 PM [facility] RBC Urine 4 (H) 0 - 2 06/23/2019 [facility] /HPF 10:08 [facility] Mucous Urine Present (A) NEG^Negat 06/23/2019 [place] radha /LPF 10:08 PM [facility] Specimen (Source) Anatomical Collection Method Collection Time Re ceived Time Location / / Volume Laterality Examination of 06/23/2019 9:50 06/23/2019 midstream urine PM CDT 10:00 PM CDT specimen (procedure) Jon Louise DO LAB - URINE ORDERABLES Performing Organization Address City/[facility]/ZIP Code Phon e Number M [facility] [address], [place] [address] [facility] [address] [place], [place] [address] [facility] [phone] Hepatic panel (06/23/2019 8:26 PM CDT) athologist Signature Bilirubin Direct <0.1 0.0 - 0.2 06/23/2019 [place] mg/dL 11:30 PM [facility] Bilirubin Total 0.4 0.2 - 1.3 06/23/2019 [place] mg/dL 11:30 PM [facility] Albumin 3.6 3.4 - 5.0 06/23/2019 [place] g/dL 11:30 [facility] Protein Total 7.7 6.8 - 8.8 06/23/2019 [place] g/dL 11:30 [facility] Alkaline 91 40 - 150 06/23/2019 [place] Phosphatase U/L 11:30 [facility] ALT 62 0 - 70 U/L 06/23/2019 [place] 11:30 PM [facility] AST 42 0 - 45 U/L 06/23/2019 [place] 11:30 PM [facility] Comment: Specimen is hemolyzed which can falsely elevate AST. Analysis of a non-hemolyzed specimen may result in a l ower value. Specimen Anatomical Collection Method Collection Time Receive d Time (Source) Location / / Volume Laterality 06/23/2019 8:26 PM 0 8:31 CDT PM CDT Jon Louise DO LAB - BLOOD ORDERABLES Performing Organization Address City/[facility]/ZIP Code Phon e Number [facility] [address], [place] [address] [facility] [address] [place], [place] [address] [facility] [phone] (ABNORMAL) Basic metabolic panel (06/23/2019 8:26 PM [facility]) athologist Signature Sodium 138 133 - 144 06/23/2019 [place] mmol/L 8:49 PM [facility] Potassium 3.5 3.4 - 5.3 06/23/2019 [place] mmol/L 8:49 PM [facility] Comment: Specimen slightly hemolyzed, po tassium may be falsely elevated Chloride 105 94 - 109 mmol/L 06/23/2019 8:49 PM [facility] Carbon Dioxide 29 20 - 32 mmol/L 06/23/2019 8:[address] [facility] Anion Gap 4 3 - 14 mmol/L 06/23/2019 8:49 PM [facility] Glucose 139 (H) 70 - 99 mg/dL 06/23/2019 8:49 PM [facility] Urea Nitrogen 14 7 - 30 mg/dL 06/23/2019 8:49 PM [facility] Creatinine 0.83 0.66 - 1.25 mg/dL 06/23/2019 8:49 PM [facility] GFR Estimate >90 >60 06/23/2019 8:49 PM [facility] mL/min/{1.73_m2} [facility] Comment: Non GFR Calc Starting 01/28/2018, serum creatinine ba sed estimated GFR (eGFR) will be calculated using the Chronic Kidney Dise [facility] Epidemiology Collaboration (CKD-EPI) equation. GFR Estimate If >90 >60 mL/min/{1.73_m2} 06/23/2019 8: [address] [facility] Comment: GFR Calc Starting 01/28/2018, serum creatinine ba sed estimated GFR (eGFR) will be calculated using the Chronic Kidney Dise [facility] Epidemiology Collaboration (CKD-EPI) equation. Calcium 8.7 8.5 - 10.1 mg/dL 06/23/2019 8:49 PM [facility] Specimen Anatomical Collection Method Collection Time Receive d Time (Source) Location / / Volume Laterality Blood specimen 06/23/2019 8:26 PM 020 8:31 (specimen) CDT PM CDT Jon Louise DO LAB - BLOOD ORDERABLES Performing Organization Address City/State/ZIP Code Phon e Number M [facility] [address] [place] [address] [phone] [facility] [address] [place] [address], [place] [phone] (ABNORMAL) CBC with platelets differential (06/23/2019 8:26 PM CDT) [facility] gist Method Time Signature WBC 14.7 (H) 4.0 - 06/23/2019 [facility] 11.0 8:33 PM [facility] 10e9/L [facility] RBC Count 5.27 4.4 - 5.9 06/23/2019 [facility] 10e12/L 8:33 PM [facility] Hemoglobin 15.1 13.3 - 06/23/2019 [facility] 17.7 g/dL 8:33 PM [facility] Hematocrit 44.9 40.0 - 06/23/2019 [facility] 53.0 % 8:33 PM [facility] MCV 85 78 - 100 06/23/2019 [facility] fl 8:33 PM [facility] MCH 28.7 26.5 - 06/23/2019 [facility] 33.0 pg 8:33 PM [facility] MCHC 33.6 31.5 - 06/23/2019 [facility] 36.5 g/dL 8:33 PM [facility] RDW 13.1 10.0 - 06/23/2019 [facility] 15.0 % 8:33 PM [facility] Platelet Count 275 150 - 450 06/23/2019 [facility] 10e9/L 8:33 PM [facility] Diff Method Automated 06/23/2019 [facility] Method 8:33 PM [facility] % Neutrophils 74.6 % 06/23/2019 [facility] 8:33 PM [facility] % Lymphocytes 13.2 % 06/23/2019 [facility] 8:33 PM [facility] % Monocytes 10.5 % 06/23/2019 [facility] 8:33 PM [facility] % Eosinophils 1.0 % 06/23/2019 [place] 8:33 PM [facility] % Basophils 0.3 % 06/23/2019 [place] 8:33 PM [facility] % Immature 0.4 % 06/23/2019 [place] Granulocytes 8:33 PM [facility] Nucleated RBCs 0 0 /100 06/23/2019 [place] 8:33 PM [facility] Absolute 11.0 (H) 1.6 - 8.3 06/23/2019 [place] Neutrophil 10e9/L 8:33 PM [facility] Absolute 2.0 0.8 - 5.3 06/23/2019 [place] Lymphocytes 10e9/L 8:33 PM [facility] Absolute 1.6 (H) 0.0 - 1.3 06/23/2019 [place] Monocytes 10e9/L 8:33 PM [facility] Absolute 0.2 0.0 - 0.7 06/23/2019 [place] Eosinophils 10e9/L 8:33 PM [facility] Absolute 0.1 0.0 - 0.2 06/23/2019 [place] Basophils 10e9/L 8:33 PM [facility] Abs Immature 0.1 0 - 0.4 06/23/2019 [place] Granulocytes 10e9/L 8:33 PM [facility] Absolute 0.0 06/23/2019 [place] Nucleated RBC 8:33 PM [facility] Specimen Anatomical Collection Method Collection Time Receive d Time (Source) Location / / Volume Laterality Blood specimen 06/23/2019 8:26 PM 020 8:31 (specimen) CDT PM CDT Jon Louise DO LAB - BLOOD ORDERABLES Performing Organization Address City/State/ZIP Code Phon e Number M [facility] [address], [place] [address] [facility] [address] [phone] documented in this encounter Visit Diagnoses Diagnosis Hydronephrosis with urinary obstruction due to ureteral calculus documented in this encounter Administered Medications Inactive Administered Medications - up to 3 most recent administrations Medication Order MAR Action Action Date Dose Rate Site HYDROmorphone (PF) (DILAUDID) Given 06/23/2019 11:36 PM CDT 0.5 mg injection 0.5 mg 0.5 mg, Intravenous, ONCE, On e 06/23/19 at 2230, For 1 dose, For ordered IV doses 0.1-4 mg give IV Push undiluted. Administer each 2mg over 2-5 minutes. morphine (PF) injection 4 mg Given 06/23/2019 8:25 PM CDT 4 mg 4 mg, Intravenous, ONCE, Administer over 4-5 Minutes, On Sat06/23/19 at 2019, For 1 dose, For ordered IV doses 0.1-15 mg give IV Push undiluted over 4-5 minutes. morphine (PF) injection 4 mg Given 06/23/2019 10:07 PM CDT 4 mg 4 mg, Intravenous, ONCE, Administer over 4-5 Minutes, On Sat06/23/19 at 2142, For 1 dose, For ordered IV doses 0.1-15 mg give IV Push undiluted over 4-5 minutes. ondansetron (ZOFRAN) injection 4 mg Given 06/23/2019 8:25 PM CDT 4 mg 4 mg, Intravenous, ONCE, Administer over 2-5 Minutes, On Sat06/23/19 at 2019, For 1 dose, Irritant. For ordered IV doses 0.1-4 mg, give IV Push undiluted over 2-5 minutes. tamsulosin (FLOMAX) capsule 0.4 mg Given 06/23/2019 11:33 PM CDT 0.4 mg 0.4 mg, Oral, ONCE, On Sat06/23/19 at 2327, For 1 dose, Administer 30 minutes after the same meal each day. Capsules should be swallowed whole; do not crush chew or open. documented in this encounter Active and Recently Administered Medications Times are shown in CDT. Scheduled Medication Order 06/22/2019 06/23/2019 06/24/2019 HYDROmorphone (PF) (DILAUDID) injection 0.5 mg (COMPLETED) 2336 (Given - Provider: Jose R Piper RN) 0.5 mg, Intravenous, ONCE, Sat06/23/19 a t 2230, For 1 dose, For ordered IV doses 0.1-4 mg give IV Push undiluted. Administer each 2mg over 2-5 minutes. morphine (PF) injection 4 mg (COMPLETED) 2024 (Given - Provider: Glendy Rockwell RN) 4 mg, Intravenous, ONCE, Administer over 4-5 Minutes, 06/23/19 at 2019, For 1 dose, For ordered IV doses 0.1-15 mg give IV Push undiluted over 4-5 minutes. morphine (PF) injection 4 mg (COMPLETED) 2206 (Given - Provider: Glendy Rockwell RN) 4 mg, Intravenous, ONCE, Administer over 4-5 Minutes, 06/23/19 at 2142, For 1 dose, For ordered IV doses 0.1-15 mg give IV Push undiluted over 4-5 minutes. ondansetron (ZOFRAN) injection 4 mg (COMPLETED) 2024 (Given - Provider: Glendy Rockwell RN) 4 mg, Intravenous, ONCE, Administer over 2-5 Minutes, 06/23/19 at 2019, For 1 dose, Irritant. For ordered IV doses 0.1-4 mg, give IV Push undiluted over 2-5 minutes. tamsulosin (FLOMAX) capsule 0.4 mg (COMPLETED) 2332 (Given - Provider: Jose R Piper RN) 0.4 mg, Oral, ONCE, 06/23/19 at 2327, For 1 dose, Administer 30 minutes after the same meal each day. Capsules should be swallowed whole; do not crush chew or open. documented in this encounter Care Teams Computer System Validation Specialist Relationship Specialty Start Date End Date No Ref-Primary, Physician PCP - General 04/26/19 07/19/19 documented as of this encounter
--- OUTSIDE RECORDS SUMMARY | 2021-12-07 08:33 | XMS_ITS | Encounter Summary ---
:1980 Author Organization [place] Address [address] [place] [address]. [place] [address] Care Team Providers Name Role Phone No Ref-Primary, Physician Primary Care Provider [phone] Encounter Details Date Type Department Care Team Description 06/23/2019 Travel Social History Tobacco Use Types Packs/Day [...] on filedocumented in this encounter Care Teams Interim Controller Relationship Specialty Start Date End Date No Ref-Primary, Physician PCP - General 04/26/19 07/19/19 documented as of this encounter
--- OUTSIDE RECORDS SUMMARY | 2021-12-07 08:33 | XMS_ITS | Encounter Summary ---
:1980 Author Organization [place] Address [address] [place] [address]. [place] [address] Care Team Providers Name Role Phone Alice Gillette PA-C Primary Care Provider [phone] Alice Gillette PA-C Unavailable [phone] Encounter Details Date Type Department Care Team Description 05/12/2021 Travel Social History Tobacco Use Types Packs/Day [...] been in contact with No / Unsure 05/12/2021 10:49 AM CDT someone who was confirmed or suspected to have Coronavirus / COVID-19? documented as of this encounter Plan of Treatment Not on filedocumented as of this encounter Visit Diagnoses Not on filedocumented in this encounter Additional Health Concerns Assessment Noted Time PHQ-9 Depression Total Score: 0 10/27/2020 2:16 PM CDT documented as of this encounter Care Teams Anesthesiologist Assistant Certified Relationship Specialty Start Date End Date Alice Gillette PA-C PCP - General Physician Art Conservator 07/20/[address], [address] [address] Alice Gillette PA-C Assigned PCP 06/25/[address], [address] [address] documented as of this encounter
--- OUTSIDE RECORDS SUMMARY | 2021-12-07 08:33 | XMS_ITS | Encounter Summary ---
:1980 Author Organization [place] Address [facility] [facility] [place] [address] Care Team Providers Name Role Phone Alice Gillette PA-C Primary Care Provider [phone] Alice Gillette PA-C Unavailable [phone] Encounter Details Date Type Department Care Team Description 08/07/2019 Travel Social History Tobacco Use Types Packs/Day [...] been in contact with No / Unsure 08/07/2019 9:35 AM CDT someone who was confirmed or suspected to have Coronavirus / COVID-19? documented as of this encounter Plan of Treatment Not on filedocumented as of this encounter Visit Diagnoses Not on filedocumented in this encounter Care Teams Assembler Unit Relationship Specialty Start Date End Date Alice Gillette PA-C PCP - General Physician Plaster Machine Tender 07/20/[address] [place] [id number] Alice Gillette PA-C Assigned PCP 06/25/[address] [address] documented as of this encounter
--- OUTSIDE RECORDS SUMMARY | 2021-12-07 08:33 | XMS_ITS | Encounter Summary ---
:1980 Author Organization [place] Address [facility] [place] [address] Care Team Providers Name Role Phone Alice Gillette PA-C Primary Care Provider Alice Gillette PA-C Unavailable [phone] Reason for Referral Consultation (Routine) - Pending Review Specialty Diagnoses / Procedures Referred By Contact Refer red To Contact Diagnoses Post-traumatic osteoarthritis of left knee Alice Gillette [facility] CARYL Beltrán [place] [address], [place] [address] [place] [phone] Fax: Referral ID Status Reason Start Date Expiration Date Visits V isits Requested Authorized [id number] Pending 08/02/2021 08/02/2022 1 1 Review Reason for Visit Reason Comments Recheck Medication Non fasting, check a1c Encounter Details Date Type Department Care Team Description 08/02/2021 Office Visit [facility] Meagan Gilletteiabshayy s (Primary Dx); Physicians Alice Beltrán, Benign essential hypertensio n; [address] CARY[place] Post-traumatic osteoarthritis of left kn ee; [address], BMI 50.0-59.9, adult (H) [facility] [address] [id number] [place], [place] [phone] [id number] Social History Tobacco Use Types Packs/Day Years [...] Sign Reading Time Taken Comments Blood Pressure 146/92 08/02/2021 11:47 AM CDT Pulse 69 08/02/2021 11:47 AM CDT Temperature 36.9 ??C (98.4 ??F) 08/02/2021 11:47 AM CDT Respiratory Rate - - Oxygen Saturation 98% 08/02/2021 11:47 AM CDT Inhaled Oxygen Concentration - - Weight 162.8 kg (359 lb) 08/02/2021 11:47 AM CDT Height 176.5 cm (5' 9.5) 08/02/2021 11:47 AM CDT Body Mass Index 52.25 08/02/2021 11:47 AM CDT documented in this encounter Progress Notes Alice Gillette PA-C - 08/02/2021 11:45 AM CDT CC: Medication Check History: Pre-diabetes, Obesity: A1c last checked 04/2021 and 6.0%. Was started on metformin XR 500 mg daily to help with prediabetes,and weight. HTN: Has been taking hydrochlorothiazide, amlodipine, lisinopril, and metoprolol ER 50 mg daily. Has beentaking consistently. Does tend to get better numbers at home, but has stopped checking at home as hedoesn't feel high blood pressure. Left knee osteoarthritis: Pain continues to be severe. Seems to be causing compensatory pain with plantar fasciitis, right lower extremity pain. Has been recommended to have knee replacement, since there is no cartilage left, but he has been also recommended to lose weight prior to this surgery. He is getting increasing frustrated with his efforts to lose weight, and lack of results. Feels like knee pain is significantly lowering quality of life. PMH, MEDICATIONS, ALLERGIES, SOCIAL AND FAMILY HISTORY in EPIC and reviewed by me personally. ROS negative other than the symptoms noted above in the HPI. Examination BP (!) 146/92 (BP Location: Left arm, Patient Position: Sitting, Cuff Size: Adult Large) Pulse 69 Temp 98.4 ??F (36.9 ??C) (Temporal) Ht 1.765 m (5' 9.5) Wt (!) 162.8 kg (359 lb) SpO2 98% BMI 52.25 kg/m?? Constitutional: Sitting comfortably, in no acute distress. Vital signs noted Neck: no adenopathy, trachea midline and normal to palpation, thyroid normal to palpationno adenopathy, trachea midline and normal to palpation, thyroid normal to palpation Cardiovascular: regular rate and rhythm, no murmurs, clicks, or gallops Respiratory: normal respiratory rate and rhythm, lungs clear to auscultation SKIN: No jaundice/pallor/rash. Psychiatric: mentation appears normal and affect normal/bright A/P ICD-10-CM 1. Prediabetes R73.03 HEMOGLOBIN A1C (BFP) VENOUS COLLECTION metFORMIN (GLUCOPHAGE XR) 500 MG 24 hr tablet CANCELED: ALBUMIN RANDOM URINE QUANTITATIVE (BFP) CANCELED: FOOT EXAM NO CHARGE [18924.114] 2. Benign essential hypertension I10 amLODIPine (NORVASC) 10 MG tablet hydrochlorothiazide (HYDRODIURIL) 25 MG tablet lisinopril (ZESTRIL) 40 MG tablet metoprolol succinate ER (TOPROL XL) 50 MG 24 hr tablet Basic Metabolic Panel (BFP) DISCUSSION: Pre-diabetes, Obesity: A1c today decreased to 5.8%. Weight down 3 lbs. Will update BMP, and send MyChart. Did offer weight management referral but pt declines at this time. Feels like he follows healthy diet. His mom has hadsome success with Nova, which he understands would need to come from weight specialist. HTN: Given history of white coat hypertension, suspect home BP would be better than today. Asked him to resume checking BPs at home 1-2x monthly indefinitely to ensure <130/80. Agreed to refill current medications for 6 months. Contact me sooner if getting higher numbers. Left knee osteoarthritis: Given ongoing and significant impact to quality of life agreed to refer to [facility] for second opinion. follow up visit: As needed Alice Gillette PA-C [facility] documented in this encounter Nursing Notes Katerin Elliott - 08/02/2021 11:45 AM CDT Chief Complaint Patient presents with ??? Recheck Medication Non fasting, check a1c Pre-visit Screening: Immunizations: up to date Colonoscopy: NA Mammogram: NA Asthma Action Test/Plan: NA PHQ9: UTD GAD7: UTD Questioned patient about current smoking habits Pt. Smokes about 10 per day. Ok to leave detailed message on voice mail for today's visit only Yes, phone # [phone] documented in this encounter Plan of Treatment Scheduled Referrals Name Type Priority Associated Diagnoses Order S chedule Orthopedic Ball Rolling Machine Operator Referral Routine Post-traumatic Expec kalen: Referral osteoarthritis of left 08/02 knee (Approximate), Expires: 2022 documented as of this encounter Procedures Procedure Name Priority Date/Time Associated Diagnosis Comme nts BASIC METABOLIC PANEL Routine 08/02/2021 2:15 PM Benign essent ial Results for this (BFP) CDT hypertension procedure are i n the results section. [place] COLLECTION VENOUS Routine 08/02/2021 11:52 Prediabetes BLOOD VENIPUNCTURE AM CDT HEMOGLOBIN A1C (BFP) Routine 08/02/2021 Prediabetes Results for this procedure are i n the results section. documented in this encounter Results (ABNORMAL) Basic Metabolic Panel (BFP) (08/02/2021 2:15 PM CDT) Analysis Performed At Patho logist Time Signature Carbon Dioxide 29.3 20 - 32 B[facility] INTERNAL mmol/L Creatinine 0.85 0.60 - [facility] INTERNAL 1.30 mg/dL Glucose 129 (A) 60 - 99 [facility] INTERNAL mg/dL Sodium 138.9 135 - 146 [facility] INTERNAL mmol/L Potassium 3.31 (A) 3.5 - 5.3 [facility] INTERNAL mmol/L Comment: ran twice Chloride 101.2 98 - 110 mmol/L [facility] INTERNAL Urea Nitrogen 13 7 - 25 mg/dL [facility] INTERNAL Calcium 9.2 8.6 - 10.3 mg/dL [facility] INTERNAL BUN/Creatinine Ratio 15.3 6 - 22 BFP INTER NAL Specimen (Source) Anatomical Collection Method Collection Time Re ceived Time Location / / Volume Laterality Blood 08/02/2021 2:15 PM CDT Alice Gillette PA-C LAB - NON-FAUSTINO BLOOD LAB S Performing Organization Address City/[facility] Phon e Number [facility] INTERNAL HEMOGLOBIN A1C (BFP) (08/02/2021) P athologist Signature Hemoglobin A1C 5.8 4.0 - 7.0 % [facility] INTERNAL Specimen (Source) Anatomical Location Collection Method / Collectio n Time Received Time / Laterality Volume Blood 08/02/2021 Alice Gillette PA-C LAB - NON-NEENA BLOOD LAB S Performing Organization Address City/[facility] Phon e Number B[facility] INTERNAL documented in this encounter Visit Diagnoses Diagnosis Prediabetes - Primary Other abnormal glucose Benign essential hypertension Essential hypertension, benign Post-traumatic osteoarthritis of left kn ee Secondary localized osteoarthrosis, lowe r leg BMI 50.0-59.9, adult (H) Body Mass Index 50.0-59.9, adult documented in this encounter Additional Health Concerns Assessment Noted Time PHQ-9 Depression Total Score: 0 10/27/2020 2:16 PM CDT documented as of this encounter Care Teams Selector Packer Relationship Specialty Start Date End Date Alice Gillette PA-C PCP - General Physician Packing Clerk 07/20/19 [address] [address] Aliec Gillette PA-C Assigned PCP 06/25/19 [address] , [address] [address] documented as of this encounter
--- OUTSIDE RECORDS SUMMARY | 2021-12-07 08:33 | XMS_ITS | Encounter Summary ---
:1980 Author Organization [facility] Address [facility] [place] [address] Care Team Providers Name Role Phone Ailce Gillette PA-C Primary Care Provider [phone] Alice Gillette PA-C Unavailable [phone] Reason for Visit Reason Comments Pre-Op Exam carpal tunnel Encounter Details Date Type Department Care Team Description [facility] Pre -op exam (Primary Dx); Physicians CARYL Beltrán Bilateral carpal tunnel syndrome; [address], [facility] essential hypertensio n; [address] [address] History of elevated glucose; [place], [place] History of cocaine use; [id number] History of alcohol abuse; [phone] (Wo rk) [facility]; ACP (adva nce care planning) Social History Tobacco Use Types Packs/Day Years [...] Sign Reading Time Taken Comments Blood Pressure 161/88 07/20/2019 12:34 PM average omro n CDT Pulse 82 07/20/2019 12:34 PM CDT Temperature 36.8 ??C (98.3 ??F) 07/20/2019 11:35 AM CDT Respiratory Rate - - Oxygen Saturation 97% 07/20/2019 11:35 AM CDT Inhaled Oxygen Concentration - - Weight 165.4 kg (364 lb 9.6 07/20/2019 11:35 AM oz) CDT Height 175.3 cm (5' 9) 07/20/2019 11:35 AM CDT Body Mass Index 53.84 07/20/2019 11:35 AM CDT documented in this encounter Progress Notes Alice Encarnacion PA-C - 07/20/2019 11:30 AM CDT [facility] [address] [place] [id number] Dept: [phone] PRE-OP EVALUATION: Today's date: 07/20/2019 Brock Gotti (: 1980) presents for pre-operative evaluation assessment as requested by Dr. Claudio More. He requires evaluation and anesthesia risk assessment prior to undergoing surgery/procedure for treatment of carpal tunnel. Proposed Surgery/ Procedure: Bilateral carpal tunel Date of Surgery/ Procedure: July Time of Surgery/ Procedure: am Hospital/Surgical Facility: [facility] Fax number for surgical facility: [phone] Primary Physician: Alice Encarnacion Type of Anesthesia Anticipated: to be determined Patient has a Health Care Directive or Living Will: NO 1. NO - Do you have a history of heart attack, stroke, stent, bypass or surgery on an artery in the head, neck, heart or legs? 2. NO - Do you ever have any pain or discomfort in your chest? 3. NO - Do you have a history of Heart Failure? 4. NO - Are you troubled by shortness of breath when: walking on the level, up a slight hill or at night? 5. NO - Do you currently have a cold, bronchitis or other respiratory infection? 6. NO - Do you have a cough, shortness of breath or wheezing? 7. NO - Do you sometimes get pains in the calves of your legs when you walk? 8. YES - DO YOU OR ANYONE IN YOUR FAMILY HAVE PREVIOUS HISTORY OF BLOOD CLOTS? Mother has history ofprovoked DVT after plane ride 9. NO - Do you or does anyone in your family have a serious bleeding problem such as prolonged bleeding following surgeries or cuts? 10. NO - Have you ever had problems with anemia or been told to take iron pills? 11. NO - Have you had any abnormal blood loss such as black, tarry or bloody stools, or abnormal vaginal bleeding? 12. NO - Have you ever had a blood transfusion? 13. NO - Have you or any of your relatives ever had problems with anesthesia? 14. YES - DO YOU HAVE SLEEP APNEA, EXCESSIVE SNORING OR DAYTIME DROWSINESS? Patient has GUTIERREZ and usesCPAP 15. NO - Do you have any prosthetic heart valves? 16. NO - Do you have prosthetic joints? 17. NO - Is there any chance that you may be ? HPI: HPI related to upcoming procedure: Brock has been having worsening symptoms of carpal tunnel for the past 2 years. Plan is for surgical repair. HYPERTENSION - Patient has longstanding history of HTN , currently denies any symptoms referable to elevated blood pressure. Specifically denies chest pain, palpitations, dyspnea, orthopnea, PND or peripheral edema. Blood pressure readings have not been in normal range. Current medication regimen is as listed below. Patient denies any side effects of medication. Will have him increase lisinopril to 40 mg daily. MEDICAL HISTORY: Patient Active Problem List Diagnosis Date Noted ??? History of cocaine use 07/20/2019 Priority: Medium ??? History of alcohol abuse 07/20/2019 Priority: Medium ??? Bilateral carpal tunnel syndrome 07/20/2019 Priority: Medium ??? Essential hypertension 05/27/2014 Priority: Medium ??? Morbid obesity with BMI of 45.0-49.9, adult (H) 05/27/2014 Priority: Medium ??? Nasal septal deformity 05/27/2014 Priority: Medium ??? GUTIERREZ on CPAP 05/27/2014 Priority: Medium ??? Hyperglycemia 01/09/2010 Priority: Medium ??? Tobacco use disorder 01/09/2010 Priority: Medium ??? Tear of medial cartilage or meniscus of knee, current 12/08/2007 Priority: Medium ??? Other postprocedural status(V45.89) 12/08/2007 Priority: Medium ??? Health Fci 07/20/2019 Priority: Low ??? ACP (advance care planning) 07/20/2019 Priority: Low Past Medical History: Diagnosis Date ??? Hypertension [...] Location: [facility] OR ??? wisdom teeth extraction[ Current Outpatient Medications Medication Sig Dispense Refill ??? amLODIPine (NORVASC) 10 MG tablet Take 1 tablet (10 mg) by mouth daily 14 tablet 0 ??? hydrochlorothiazide (HYDRODIURIL) 25 MG tablet Take 1 tablet (25 mg) by mouth daily 14 tablet 0 ??? ibuprofen (ADVIL,MOTRIN) 600 MG tablet Take 1 tablet (600 mg) by mouth every 6 hours as needed for pain 30 tablet 1 ??? lisinopril (ZESTRIL) 40 MG tablet Take 0.5 tablets (20 mg) by mouth daily 14 tablet 0 OTC products: Takes ibuprofen, but stopped 07/18/2019. Allergies Allergen Reactions ??? No Clinical Screening - See Comments PN: JAVIER CM1: >>> NO CONTRAST ADVERSE REACTION <<< Reaction : Latex Allergy: NO Social History Tobacco Use ??? Smoking status: Current Every Day Smoker Packs/day: 0.50 Years: 10.00 Pack years: 5.00 Types: Cigarettes ??? Smokeless tobacco: Never Used ??? Tobacco comment: at most 2 cig/ daily-trying to quit Substance Use Topics ??? Alcohol use: Yes Frequency: 2-4 times a month Drinks per session: 1 or 2 Binge frequency: Never Comment: 5 drinks/week History Drug Use ??? Types: Marijuana REVIEW OF SYSTEMS: Constitutional, neuro, ENT, endocrine, pulmonary, cardiac, gastrointestinal, genitourinary, musculoskeletal, integument and psychiatric systems are negative, except as otherwise noted. EXAM: BP (!) 161/88 Pulse 82 Temp 98.3 ??F (36.8 ??C) (Oral) Ht 1.753 m (5' 9) Wt (!) 165.4 kg (364 lb 9.6 oz) SpO2 97% BMI 53.84 kg/m?? GENERAL APPEARANCE: healthy, alert and no distress EYES: EOMI, PERRL HENT: ear canals and TM's normal and nose and mouth without ulcers or lesions NECK: no adenopathy, no asymmetry, masses, or scars and thyroid normal to palpation RESP: lungs clear to auscultation - no rales, rhonchi or wheezes CV: regular rates and rhythm, normal S1 S2, no S3 or S4 and no murmur, click or rub ABDOMEN: soft, nontender, no HSM or masses and bowel sounds normal MS: extremities normal- no gross deformities noted, no evidence of inflammation in joints, FROM in all extremities. SKIN: no suspicious lesions or rashes NEURO: Normal strength and tone, sensory exam grossly normal, mentation intact and speech normal PSYCH: mentation appears normal. and affect normal/bright LYMPHATICS: No cervical adenopathy DIAGNOSTICS: Hemoglobin (indicated for history of anemia or procedure with significant blood loss such as tonsillectomy, major intraperitoneal surgery, vascular surgery, major spine surgery, total joint replacement) Serum Potassium Serum Creatinine Hemoglobin A1C Office Visit on 07/20/2019 Component Date Value Ref Range Status ??? WBC 07/20/2019 9.9 4.0 - 11 10*9/L Final ??? RBC Count 07/20/2019 5.22 4.4 - 5.9 10*12/L Final ??? Hemoglobin 07/20/2019 15.9 13.3 - 17.7 g/dL Final ??? Hematocrit 07/20/2019 46.7 40.0 - 53.0 % Final ??? MCV 07/20/2019 89.4 78 - 100 fL Final ??? MCH 07/20/2019 30.5 26 - 33 pg Final ??? MCHC 07/20/2019 34.0 31 - 36 g/dL Final ??? RDW 07/20/2019 12.7 % Final ??? Platelet Count 07/20/2019 262 150 - 375 10^9/L Final ??? Carbon Dioxide 07/20/2019 28.3 20 - 32 mmol/L Final ??? Creatinine 07/20/2019 0.84 0.70 - 1.18 mg/dL Final ??? Glucose 07/20/2019 140* 60 - 99 mg/dL Final ??? Sodium 07/20/2019 143.6 135 - 146 mmol/L Final ??? Potassium 07/20/2019 3.39* 3.5 - 5.3 mmol/L Final ??? Chloride 07/20/2019 104.7 98 - 110 mmol/L Final ??? Protein Total 07/20/2019 7.3 6.1 - 8.1 g/dL Final ??? Albumin 07/20/2019 4.3 3.6 - 5.1 g/dL Final ??? Alkaline Phosphatase 07/20/2019 96 33 - 130 U/L Final ??? ALT 07/20/2019 36* 0 - 32 U/L Final ??? AST 07/20/2019 18 0 - 35 U/L Final ??? Bilirubin Total 07/20/2019 0.6 0.2 - 1.2 mg/dL Final ??? Urea Nitrogen 07/20/2019 14 7 - 25 mg/dL Final ??? Calcium 07/20/2019 9.7 8.6 - 10.3 mg/dL Final ??? BUN/Creatinine Ratio 07/20/2019 16.7 6 - 22 Final ??? Globulin Calculated 07/20/2019 3.0 1.9 - 3.7 Final ??? A/G Ratio 07/20/2019 1.4 1 - 2.5 Final ??? Hemoglobin A1C 07/20/2019 6.1 4.0 - 7.0 % Final Labs WNL other than mild elevation of ALT and mild hypokalemia. BP in office today is elevated on max doses of his triple therapy for HTN. I do not feel that levelsare high enough to be unsafe for surgery, and pt has been instructed to follow-up with me within 2 weeks after surgery. IMPRESSION: Reason for surgery/procedure: Bilateral Carpal Tunnel Diagnosis/reason for consult: Pre-operative Examination The proposed surgical procedure is considered INTERMEDIATE risk. REVISED CARDIAC RISK INDEX The patient has the following serious cardiovascular risks for perioperative complications such as (ND, PE, VFib and 3?? AV Block): No serious cardiac risks INTERPRETATION: 1 risks: Class II (low risk - 0.9% complication rate) The patient has the following additional risks for perioperative complications: No identified additional risks ICD-10-CM 1. Pre-op exam Z01.818 VENOUS COLLECTION HEMOGRAM/PLATELET (BFP) Comprehensive Metobolic Panel (BFP) 2. Bilateral carpal tunnel syndrome G56.03 VENOUS COLLECTION HEMOGRAM/PLATELET (BFP) Comprehensive Metobolic Panel (BFP) 3. Benign essential hypertension I10 amLODIPine (NORVASC) 10 MG tablet hydrochlorothiazide (HYDRODIURIL) 25 MG tablet lisinopril (ZESTRIL) 40 MG tablet VENOUS COLLECTION Comprehensive Metobolic Panel (BFP) 4. History of elevated glucose Z86.39 VENOUS COLLECTION Hemoglobin A1c (BFP) 5. History of cocaine use Z87.898 6. History of alcohol abuse F10.11 7. Health Fci Z76.89 8. ACP (advance care planning) Z71.89 RECOMMENDATIONS: --Patient is to take all scheduled medications on the day of surgery EXCEPT for modifications listedbelow. APPROVAL GIVEN to proceed with proposed procedure, without further diagnostic evaluation 1. Seven days before surgery do not take Aspirin or any [id number] pain medications other thanTylenol. TYLENOL is the safest pain pill to use before surgery because it does not affect your bleeding time. If tylenol is not sufficient for pain control talk to me or the surgeon and we will decide what is safe to use. 2. Do not eat anything after midnight (renny of the surgery) and nothing the morning of the surgery. 3. Medications: Patient should take lisinopril and amlodipine on the morning of surgery, and hold hydrochlorothiazide until after surgery. 4. Follow all instructions given by the surgery team. They usually give out a packet. Read it and please follow it precisely. This helps surgical experience and outcomes. 5. If you have any questions do not hesitate to call me or the surgeon/surgical team. Alice Encarnacion PA-C [facility] Signed Electronically by: Alice Encarnacion PA-C Copy of this evaluation report is provided to requesting physician. [facility] Preop Guidelines Revised Cardiac Risk Index documented in this encounter Miscellaneous Notes Addendum Note - Alice Encarnacion PA-C - 07/20/2019 11:30 AM CDT Addended by: ALICE ENCARNACION on: 07/20/2019 05:37 PM Modules accepted: Orders documented in this encounter Plan of Treatment Not on filedocumented as of this encounter Procedures Procedure Name Priority Date/Time Associated Comments Diagnosis HEMOGLOBIN A1C Routine 07/20/2019 12:23 History of elevated Re sults for this PM CDT glucose procedure are i n the results section. ZZCL AFF Routine 07/20/2019 12:12 Pre-op exam Results for this HEMOGRAM/PLATELET PM CDT Bilateral carpal proced ure are in tunnel syndrome the results section. HC VENOUS COLLECTION Routine 07/20/2019 11:54 Benign essential AM CDT hypertension Pre-op exam Bilateral carpal tunnel syndrome History of elevated glucose COMPREHENSIVE Routine 07/20/2019 Benign essential Results fo r this METABOLIC PANEL (BFP) hypertensi on procedure are in Pre-op exam the results Bilateral carpal section. tunnel syndrome documented in this encounter Results Hemoglobin A1c (BFP) (07/20/2019 12:23 PM CDT) P athologist Signature Hemoglobin A1C 6.1 4.0 - 7.0 % BFP INTERNAL Specimen (Source) Anatomical Collection Method Collection Time Re ceived Time Location / / Volume Laterality Blood specimen 07/20/2019 12:23 (specimen) PM CDT Alice Gillette PA-C LAB - BLOOD ORDERABLES Performing Organization Address City/State/ZIP Code Phon e Number BFP INTERNAL HEMOGRAM/PLATELET (BFP) (07/20/2019 12:12 PM CDT) P athologist Signature WBC 9.9 4.0 - 11 BFP INTERNAL 10*9/L RBC Count 5.22 4.4 - 5.9 BFP INTERNAL 10*12/L Hemoglobin 15.9 13.3 - 17.7 BFP INTERNAL g/dL Hematocrit 46.7 40.0 - 53.0 BFP INTERNAL % MCV 89.4 78 - 100 fL BFP INTERNAL MCH 30.5 26 - 33 pg BFP INTERNAL MCHC 34.0 31 - 36 BFP INTERNAL g/dL RDW 12.7 % BFP INTERNAL Platelet Count 262 150 - 375 BFP INTERNAL 10^9/L Specimen (Source) Anatomical Collection Method Collection Time Re ceived Time Location / / Volume Laterality 07/20/2019 12:12 PM CDT Alice Gillette PA-C LABORATORY Performing Organization Address City/State/ZIP Code Phon e Number BFP INTERNAL (ABNORMAL) Comprehensive Metobolic Panel (BFP) (07/20/2019) Patholo gist Method Time Signature Carbon Dioxide 28.3 20 - 32 BFP INTERNAL mmol/L Creatinine 0.84 0.70 - BFP INTERNAL 1.18 mg/dL Glucose 140 (A) 60 - 99 BFP INTERNAL mg/dL Sodium 143.6 135 - 146 BFP INTERNAL mmol/L Potassium 3.39 (A) 3.5 - 5.3 BFP INTERNAL mmol/L Chloride 104.7 98 - 110 BFP INTERNAL mmol/L Protein Total 7.3 6.1 - 8.1 BFP INTERNAL g/dL Albumin 4.3 3.6 - 5.1 BFP INTERNAL g/dL Alkaline 96 33 - 130 BFP INTERNAL Phosphatase U/L ALT 36 (A) 0 - 32 U/L BFP INTERNAL AST 18 0 - 35 U/L BFP INTERNAL Bilirubin Total 0.6 0.2 - 1.2 BFP INTERNAL mg/dL Urea Nitrogen 14 7 - 25 BFP INTERNAL mg/dL Calcium 9.7 8.6 - 10.3 BFP INTERNAL mg/dL BUN/Creatinine 16.7 6 - 22 BFP INTERNAL Ratio Globulin 3.0 1.9 - 3.7 BFP INTERNAL Calculated A/G Ratio 1.4 1 - 2.5 BFP INTERNAL Specimen (Source) Anatomical Location Collection Method / Collectio n Time Received Time / Laterality Volume Blood specimen 07/20/2019 (specimen) Alice Gillette PA-C LAB - NON-BEAKER BLOOD LAB S Performing Organization Address City/State/ZIP Code Phon e Number BFP INTERNAL documented in this encounter Visit Diagnoses Diagnosis Pre-op exam - Primary Preoperative examination, unspecified Bilateral carpal tunnel syndrome Carpal tunnel syndrome Benign essential hypertension Essential hypertension, benign History of elevated glucose Personal history of other endocrine, met abolic, and immunity disorders History of cocaine use Cocaine abuse, in remission History of alcohol abuse Nondependent alcohol abuse, in remission Health [facility] notesas part of the Health [facility] to capture care coordination pl ACP (advance care planning) Other specified counseling documented in this encounter Care Teams Entry Operator Relationship Specialty Start Date End Date Alice Gillette PA-C PCP - General Physician Websphere Administrator 07/20/19 [address] [address] Alice Gillette PA-C Assigned PCP 06/25/[address], [address] [address] documented as of this encounter
--- OUTSIDE RECORDS SUMMARY | 2021-12-07 08:33 | XMS_ITS | Encounter Summary ---
:1980 Author Organization [place] Address [facility] [place] [address] Care Team Providers Name Role Phone Alice Gillette PA-C Primary Care Provider [phone] Alice Gillette PA-C Unavailable [phone] Encounter Details Date Type Department Care Team Description 08/24/2019 Travel Social History Tobacco Use Types Packs/Day [...] on filedocumented in this encounter Care Teams Ukrainian Folk Arts Instructor Relationship Specialty Start Date End Date Alice Gillette PA-C PCP - General Physician Registrar [employer] 07/20/19 [address] [place] [address] Alice Gillette PA-C Assigned PCP 06/25/[address] [address] documented as of this encounter
--- OUTSIDE RECORDS SUMMARY | 2021-12-07 08:33 | XMS_ITS | Encounter Summary ---
:1980 Author Organization [place] Address [address] [place] [address]. [place] [address] Care Team Providers Name Role Phone Alice Gillette PA-C Primary Care Provider [phone] Alice Gillette PA-C Unavailable [phone] Encounter Details Date Type Department Care Team Description 10/27/2020 Travel Social History Tobacco Use Types Packs/Day [...] been in contact with No / Unsure 10/27/2020 12:01 PM CDT someone who was confirmed or suspected to have Coronavirus / COVID-19? documented as of this encounter Plan of Treatment Not on filedocumented as of this encounter Visit Diagnoses Not on filedocumented in this encounter Additional Health Concerns Assessment Noted Time PHQ-9 Depression Total Score: 0 10/27/2020 2:16 PM CDT documented as of this encounter Care Teams Supervisor In Charge Relationship Specialty Start Date End Date Alice Gillette PA-C PCP - General Physician Process Safety Management Engineer 07/20/[address], [address] [address] Alice Gillette PA-C Assigned PCP 06/25/[address], [address] [id number] documented as of this encounter
--- OUTSIDE RECORDS SUMMARY | 2021-12-07 08:33 | XMS_ITS | Encounter Summary ---
:1980 Author Organization [place] Address On license of [facility]. [address] Care Team Providers Name Role Phone Alice Gillette PA-C Primary Care Provider [phone] Alice Gillette PA-C Unavailable [phone] Reason for Visit Reason Comments Recheck Medication Encounter Details Date Type Department Care Team Description 01/28/2020 Office Visit [facility] Alice Gillette eralized anxiety Physicians CARYL Beltrán disorder (Primary Dx) [address] , [facility] [address] [id number] [phone] (Wo rk) Social History Tobacco Use Types [...] been in contact with No / Unsure 01/28/2020 7:08 AM CHILD LIFE ASSISTANT someone who was confirmed or suspected to have Coronavirus / COVID-19? documented as of this encounter Progress Notes Alice Encarnacion PA-C - 01/28/2020 11:00 AM CST This visit was completed via telemedicine using [employer]. Patient and I completed history, ROS, and HPI via virtual encounter with video/sound. There was no physical examination done due to telemedicine appointment. CC: Medication Check History: Anxiety, panic attacks: Has been taking fluoxetine 20 mg daily for anxiety for the past 5 years. This seemed to start after he had to be hospitalized around that time with severely elevated BP. Was evaluated for depression, anxiety, and was found to have anxiety. Fluoxeteine helps with stress/anxiety, panic, and irritability. No longer getting panic attacks. Takes fluoxetine daily consistently. No side effects. PMH, MEDICATIONS, ALLERGIES, SOCIAL AND FAMILY HISTORY in [facility] and reviewed by me personally. ROS negative other than the symptoms noted above in the HPI. Examination There were no vitals taken for this visit. Constitutional: Sitting comfortably, in no acute distress. Vital signs noted Psychiatric: mentation appears normal and affect normal/bright A/P ICD-10-CM 1. Generalized anxiety disorder F41.1 FLUoxetine (PROZAC) 20 MG capsule DISCUSSION: Anxiety: ANGELINA-7 today shows good control. Agreed to refill this medication without change for 1 year, as it isworking well without side effects. He should contact me sooner with concerns. follow up visit: 3 months for BP as planned, 1 year for mental health Time of visit: 10 minutes Alice Encarnacion PA-C [facility] Physicians D LIFE ASSISTANT documented in this encounter Plan of Treatment Not on filedocumented as of this encounter Visit Diagnoses Diagnosis Generalized anxiety disorder - Primary documented in this encounter Care Teams Pressfitter Relationship Specialty Start Date End Date Alice Gillette PA-C PCP - General Physician Truck Loader 07/20/[address], [address] [place] [address] Alice Gillette PA-C Assigned PCP 06/25/19 [address] , [facility] [address] [place] [address] documented as of this encounter
--- OUTSIDE RECORDS SUMMARY | 2021-12-07 08:33 | XMS_ITS | Encounter Summary ---
:1980 Author Organization [place] Address [address] [place] [address]. [place] [address] Care Team Providers Name Role Phone Alice Gillette PA-C Primary Care Provider [phone] Alice Gillette PA-C Unavailable [phone] Encounter Details Date Type Department Care Team Description 01/27/2021 Travel Social History Tobacco Use Types Packs/Day [...] been in contact with No / Unsure 01/27/2021 11:18 AM COMMUNITY HEALTH DIRECTOR someone who was confirmed or suspected to have Coronavirus / COVID-19? documented as of this encounter Plan of Treatment Not on filedocumented as of this encounter Visit Diagnoses Not on filedocumented in this encounter Additional Health Concerns Assessment Noted Time PHQ-9 Depression Total Score: 0 10/27/2020 2:16 PM CDT documented as of this encounter Care Teams Sand Screener Operator Relationship Specialty Start Date End Date Alice Gillette PA-C PCP - General Physician Switchboard Clerk 07/20/[address], [address] [id number] Alice Gillette PA-C Assigned PCP 06/25/[address], [address] [address] documented as of this encounter
--- OUTSIDE RECORDS SUMMARY | 2021-12-07 08:33 | XMS_ITS | Encounter Summary ---
:1980 Author Organization [place] Address [facility] [place] [address] Care Team Providers Name Role Phone Alice Gillette PA-C Primary Care Provider Alice Gillette PA-C Unavailable Reason for Referral (Routine) - Closed Specialty Diagnoses / Procedures Referred By Contact Refer red To Contact Procedures Alice Gillette PA-C TDAP VACCINE [address], [address] [place] [address] Referral ID Status Reason Start Date Expiration Date Visits Requ ested Visits Authorized [id number] Closed 11/03/2019 11/02/2020 1 1 Reason for Visit Reason Comments Recheck Medication non fasting Encounter Details Date Type Department Care Team Description 11/03/2019 Office Visit [place] Alice Gillette essential hypertension (Primary Dx); Physicians CARYL Beltrán Acute right-sided thoracic back pain [address], [address] [place] [address] [phone] (Wo rk) Social History Tobacco Use Types [...] Sign Reading Time Taken Comments Blood Pressure 152/88 11/03/2019 9:36 AM CDT Pulse 76 11/03/2019 9:36 AM CDT Temperature 36.7 ??C (98.1 ??F) 11/03/2019 9:36 AM CDT Respiratory Rate - - Oxygen Saturation 98% 11/03/2019 9:36 AM CDT Inhaled Oxygen Concentration - - Weight 164.2 kg (362 lb) 11/03/2019 9:36 AM CDT Height 176.5 cm (5' 9.5) 11/03/2019 9:36 AM CDT Body Mass Index 52.69 11/03/2019 9:36 AM CDT documented in this encounter Patient Instructions Patient InstructionsAlice Encarnacion PA-C - 11/03/2019 9:30 AM CDT BP improved today, but not controlled. Suspect degree of white coat hypertension. Agreed to refill current medication without any change. Agreed to refill current medications without change for 90 days, but asked him to contact me in 2 weeks with BP from home. If normal, would consider 6 months of refills. If abnormal would increase metoprolol. Goal BP is <130/80. Recommended he continue to push fluids for potential kidney stone. Also can take Flomax. Also recommended trial of cyclobenzaprine (Flexaril) muscle relaxant that pt can take up to 3 times daily. Warned them of possible side effects, including drowsiness, and no driving if drowsy. Consider [employer] to help with weight loss. documented in this encounter Progress Notes Alice Encarnacion PA-C - 11/03/2019 9:30 AM CDT CC: Medication Check History: HTN: Taking amlodipine 10 mg daily, hydrochlorothiazide 25 mg, and lisinopril 40 mg daily. He has been taking these consistently with most recent dose being yesterday. Denies any chest pain, palpitations, SOB. Does not check BP at home. He has been unemployed, so does not have health insurance. No chest pain, palpitations, SOB. I recommended he complete an annual eye exam, but he was unable to do this before his insurance stopped. History of kidney stones: Has had several kidney stones, with most recent confirmed in 08/2019 with 8 mm diameter. Was filtering urine for 3 weeks, and never came out. Did get right sided pain back about 3 weeks ago, and is concerned he is getting another kidney stone. Seems to be triggered by dark alcohol, fireball, so has been avoiding this which has helped. PMH, MEDICATIONS, ALLERGIES, SOCIAL AND FAMILY HISTORY in [facility] and reviewed by me personally. ROS negative other than the symptoms noted above in the HPI. Examination BP (!) 152/88 (BP Location: Right arm, Patient Position: Sitting, Cuff Size: Adult Large) Pulse 76 Temp 98.1 ??F (36.7 ??C) (Oral) Ht 1.765 m (5' 9.5) Wt (!) 164.2 kg (362 lb) SpO2 98% BMI52.69 kg/m?? Constitutional: Sitting comfortably, in no acute distress. Vital signs noted. BP elevated. Eyes: pupils equal round reactive to light and accomodation, extra ocular movements intact Neck: no adenopathy, trachea midline and normal to palpation, thyroid normal to palpation Cardiovascular: regular rate and rhythm, no murmurs, clicks, or gallops Respiratory: normal respiratory rate and rhythm, lungs clear to auscultation SKIN: No jaundice/pallor/rash. Psychiatric: mentation appears normal and affect normal/bright A/P ICD-10-CM 1. Benign essential hypertension I10 amLODIPine (NORVASC) 10 MG tablet metoprolol succinate ER (TOPROL-XL) 50 MG 24 hr tablet lisinopril (ZESTRIL) 40 MG tablet hydrochlorothiazide (HYDRODIURIL) 25 MG tablet VENOUS COLLECTION Basic Metabolic Panel (BFP) 2. Acute right-sided thoracic back pain M54.6 cyclobenzaprine (FLEXERIL) 10 MG tablet DISCUSSION: BP improved today, but not controlled. Suspect degree of white coat hypertension. Agreed to refill current medications without change for 90 days, but asked him to contact me in 2 weeks with BP from home. If normal, would consider 6 months of refills. If abnormal would increase metoprolol to 100 mg daily. Goal BP is <130/80. Recommended he continue to push fluids for potential kidney stone. Also can take Flomax. Also recommended trial of cyclobenzaprine (Flexaril) muscle relaxant that pt can take up to 3 times daily. Warned them of possible side effects, including drowsiness, and no driving if drowsy. Consider [employer] to help with weight loss. follow up visit: 6 months Alice Encarnacion PA-C [facility] documented in this encounter Nursing Notes Katerin Elliott - 11/03/2019 9:30 AM CDT Brock is here for a non fasting bp med check. Pre-visit Screening: Immunizations: not up to date - tdap today Colonoscopy: NA Mammogram: NA Asthma Action Test/Plan: NA PHQ9: None GAD7: None Questioned patient about current smoking habits Pt. Quit some time ago Ok to leave detailed message on voice mail for today's visit only Yes, phone # [phone] documented in this encounter Plan of Treatment Not on filedocumented as of this encounter Procedures Procedure Name Priority Date/Time Associated Diagnosis Comme nts HC VENOUS Routine 11/03/2019 10:10 Benign essential COLLECTION AM CDT hypertension BASIC METABOLIC Routine 11/03/2019 Benign essential Results for this PANEL (BFP) hypertension procedure are i n the results section. documented in this encounter Results (ABNORMAL) Basic Metabolic Panel (BFP) (11/03/2019) P athologist Signature Carbon Dioxide 31.9 20 - 32 BFP INTERNAL mmol/L Creatinine 0.77 0.70 - BFP INTERNAL 1.18 mg/dL Glucose 152 (A) 60 - 99 BFP INTERNAL mg/dL Sodium 139.5 135 - 146 BFP INTERNAL mmol/L Potassium 3.67 3.5 - 5.3 BFP INTERNAL mmol/L Chloride 100.6 98 - 110 BFP INTERNAL mmol/L Urea Nitrogen 10 7 - 25 BFP INTERNAL mg/dL Calcium 9.5 8.6 - 10.3 BFP INTERNAL mg/dL BUN/Creatinine 13.0 6 - 22 BFP INTERNAL Ratio Specimen (Source) Anatomical Location Collection Method / Collectio n Time Received Time / Laterality Volume Blood specimen 11/03/2019 (specimen) Alice Gillette PA-C LAB - NON-BEAKER BLOOD LAB S Performing Organization Address City/State/ZIP Code Phon e Number BFP INTERNAL documented in this encounter Visit Diagnoses Diagnosis Benign essential hypertension - Primary Essential hypertension, benign Acute right-sided thoracic back pain documented in this encounter Care Teams Telesales Manager Relationship Specialty Start Date End Date Alice Gillette PA-C PCP - General Physician Sewer Bricklayer 07/20/19 [address] [address] Alice Gillette PA-C Assigned PCP 06/25/[address] [address] documented as of this encounter
--- OUTSIDE RECORDS SUMMARY | 2021-12-07 08:33 | XMS_ITS | Encounter Summary ---
:1980 Author Organization [place] Address [address] [facility] [place] [address] Care Team Providers Name Role Phone lAice Gillette PA-C Primary Care Provider [phone] Alice Gillette PA-C Unavailable [phone] Reason for Visit Reason Comments Shoulder Pain right shoulder pain. Was mov ing furniture yesterday and then this morning he noticed pain and arm pain. Encounter Details Date Type Department Care Team Description 05/12/2021 Office Visit [place] León Mullen Acute pain of right shoulder (Primary Dx); Physicians MD Jevon White coat syndrome with hypertension [address] [place] [address] [phone] Social History Tobacco Use Types Packs/Day Years [...] Sign Reading Time Taken Comments Blood Pressure 180/88 05/12/2021 11:12 AM CDT Pulse 64 05/12/2021 11:12 AM CDT Temperature 36.6 ??C (97.9 ??F) 05/12/2021 11:12 AM CDT Respiratory Rate - - Oxygen Saturation 98% 05/12/2021 11:12 AM CDT Inhaled Oxygen Concentration - - Weight 164.2 kg (362 lb) 05/12/2021 11:12 AM CDT Height 176.5 cm (5' 9.5) 05/12/2021 11:12 AM CDT Body Mass Index 52.69 05/12/2021 11:12 AM CDT documented in this encounter Patient Instructions Patient InstructionsAllLeón flowers MD - 05/12/2021 11:00 AM CDT Let me know if pain comes back, we'll set up imaging for you Consider appt with Dr. Bocanegra or Edelmira at [facility] documented in this encounter Progress Notes León Mullen MD - 05/12/2021 11:00 AM CDT ASSESSMENT & PLAN ICD-10-CM 1. Acute pain of right shoulder M25.511 2. White coat syndrome with hypertension I10 Sx improved, exam reassuring, agreed to continue to monitor and follow-up prn León Mullen MD, [facility] ----- SUBJECTIVE Brock Gotti is a/an 40 year old male who is seen for evaluation of Chief Complaint Patient presents with ??? Shoulder Pain right shoulder pain. Was moving furniture yesterday and then this morning he noticed pain and arm pain. The patient is seen by themselves. 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 OBJECTIVE: BP (!) 180/88 (BP Location: Right arm, Patient Position: Sitting, Cuff Size: Adult Large) Pulse 64 Temp 97.9 ??F (36.6 ??C) (Temporal) Ht 1.765 m (5' 9.5) Wt (!) 164.2 kg (362 lb) SpO2 98% BMI 52.69 kg/m?? General: healthy, alert and in no distress HEENT: no scleral icterus or conjunctival erythema Skin: no visible suspicious lesions or rashes. CV: no pedal edema Resp: normal respiratory effort without conversational dyspnea Psych: normal mood and affect Gait: normal MSK: R shoulder without deformity, skin unremarkable Full and symm AROM 160/160/60/T6 5/5 str throughout RTC and BUE Neg empty can, agee, speeds, Obriens and apprehension SILT BUE 2+ radial pulses documented in this encounter Nursing Notes Katerin Elliott - 05/12/2021 11:00 AM CDT Chief Complaint Patient presents with ??? Shoulder Pain right shoulder pain. Was moving furniture yesterday and then this morning he noticed pain and arm pain. Pre-visit Screening: Immunizations: up to date Colonoscopy: NA Mammogram: NA Asthma Action Test/Plan: NA PHQ9: UTD GAD7: UTD Questioned patient about current smoking habits Pt. has never smoked. Ok to leave detailed message on voice mail for today's visit only Yes, phone # [phone] documented in this encounter Plan of Treatment Not on filedocumented as of this encounter Visit Diagnoses Diagnosis Acute pain of right shoulder - Primary White coat syndrome with hypertension documented in this encounter Additional Health Concerns Assessment Noted Time PHQ-9 Depression Total Score: 0 10/27/2020 2:16 PM CDT documented as of this encounter Care Teams Director Drug Safety Relationship Specialty Start Date End Date Ailce Gillette PA-C PCP - General Physician Web Merchandiser 07/20/19 [address] [address] Alice Gillette PA-C Assigned PCP 06/25/[address], [address] [address] documented as of this encounter
--- OUTSIDE RECORDS SUMMARY | 2021-12-07 08:33 | XMS_ITS | Encounter Summary ---
:1980 Author Organization [place] Address Count includes the [facility] [place] [address] Care Team Providers Name Role Phone Alice Gillette PA-C Primary Care Provider [phone] Alice Gillette PA-C Unavailable [phone] Reason for Visit Reason Comments Recheck Medication Encounter Details Date Type Department Care Team Description 08/07/2019 Office Visit [facility] Alice Gillette vated glucose (Primary Dx); Physicians CARYL Beltrán Benign essential hypertension [address] , [address] [address] [phone] (Wo rk) Social History Tobacco Use Types [...] Sign Reading Time Taken Comments Blood Pressure 162/90 08/07/2019 9:48 AM CDT Pulse 88 08/07/2019 9:48 AM CDT Temperature 36.6 ??C (97.9 ??F) 08/07/2019 9:48 AM CDT Respiratory Rate 20 08/07/2019 9:48 AM CDT Oxygen Saturation - - Inhaled Oxygen Concentration - - Weight 162 kg (357 lb 3.2 oz) 08/07/2019 9:48 AM CDT Height 175.3 cm (5' 9) 08/07/2019 9:48 AM CDT Body Mass Index 52.75 08/07/2019 9:48 AM CDT documented in this encounter Patient Instructions Patient InstructionsAlice Encarnacion PA-C - 08/07/2019 9:45 AM CDT Brock's BP continues to be elevated today, although he has not taken medications today, and has only been taking 1/2 tablet of lisinopril. Will recheck labs today, and contact with results next week. Continue on same medications, but will add on metoprolol 1 tablet daily. Monitor for side effects, including dizziness, fatigue, SOB, and contact me if noted. I will order blood pressure monitor that you can hopefully warp picker from your pharmacy. Try to check BP at home 1-2 times weekly, after 5 minutes of sitting, feet flat on floor. Arm level with heart. Please contact me with phone call in 2-4 weeks with some updated BP. Need to get BP <140/90, but even better if <130/80. Continue to work on healthy diet and exercise with the goal weight loss. documented in this encounter Progress Notes Alice Encarnacion PA-C - 08/07/2019 9:45 AM CDT CC: Medication Check History: HTN: Taking amlodipine 10 mg daily, hydrochlorothiazide 25 mg, and lisinopril 40 mg daily. He has been taking these consistently with most recent being yesterday, but for some reason he explains that lisinopril bottle said to take 1/2 tablet, so he has only been taking half dose. Denies any chest pain, palpitations, SOB. Does not check BP at home. Has been under some stress with his work letting him go after [email or web address] as they could not accommodate his post-op restrictions. He was working in the [employer], so he is unsure of where he will work next. As of now, his insurance runs out at the end of July. I recommended he complete an annual eye exam as it has been more than 1 year. PMH, MEDICATIONS, ALLERGIES, SOCIAL AND FAMILY HISTORY in [facility] and reviewed by me personally. ROS negative other than the symptoms noted above in the HPI. Examination BP (!) 162/90 (BP Location: Right arm, Patient Position: Chair, Cuff Size: Adult Large) Pulse 88 Temp 97.9 ??F (36.6 ??C) Resp 20 Ht 1.753 m (5' 9) Wt (!) 162 kg (357 lb 3.2 oz) BMI 52.75 kg/m?? Constitutional: Sitting comfortably, in no acute distress. Vital signs noted Neck: no adenopathy, trachea midline and normal to palpation Cardiovascular: regular rate and rhythm, no murmurs, clicks, or gallops Respiratory: normal respiratory rate and rhythm, lungs clear to auscultation SKIN: No jaundice/pallor/rash. Psychiatric: mentation appears normal and affect normal/bright A/P ICD-10-CM 1. Benign essential hypertension I10 amLODIPine (NORVASC) 10 MG tablet hydrochlorothiazide (HYDRODIURIL) 25 MG tablet lisinopril (ZESTRIL) 40 MG tablet VENOUS COLLECTION Basic Metabolic Panel (BFP) metoprolol succinate ER (TOPROL-XL) 50 MG 24 hr tablet order for DME DISCUSSION: Brock's BP continues to be elevated today, although he has not taken medications today, and has only been taking 1/2 tablet of lisinopril. Will recheck labs today, and contact with results next week. Continue on same medications, but will add on metoprolol 1 tablet daily. Monitor for side effects, including dizziness, fatigue, SOB, and contact me if noted. I will order blood pressure monitor that you can hopefully warp picker from your pharmacy. Try to check BP at home 1-2 times weekly, after 5 minutes of sitting, feet flat on floor. Arm level with heart. Please contact me with phone call in 2-4 weeks with some updated BP. Need to get BP <140/90, but even better if <130/80. Continue to work on healthy diet and exercise with the goal weight loss. Glucose elevated. Adding A1c Asked him to get annual eye exam and have records faxed. follow up visit: 3 months Alice Encarnacion PA-C [facility] Physicians documented in this encounter Nursing Notes Su Pérez CMA - 08/07/2019 9:45 AM CDT Brock Gotti is here for a blood pressure check and medication refill. Questioned patient about current smoking habits. Pt. currently smokes. Advised about smoking cessation. Body mass index is 52.75 kg/m??. PULSE regular My Chart: Pre-visit planning Immunizations - Tdap Colonoscopy - Mammogram - Asthma - PHQ9 - ANGELINA-7 - documented in this encounter Miscellaneous Notes Addendum Note - Alice Encarnacion PA-C - 08/07/2019 9:45 AM CDT Addended by: ALICE ENCARNACION on: 08/07/2019 02:24 PM Modules accepted: Orders documented in this encounter Plan of Treatment Not on filedocumented as of this encounter Procedures Procedure Name Priority Date/Time Associated Diagnosis Comme nts HEMOGLOBIN A1C Routine 08/07/2019 2:33 PM Elevated glucose Res ults for this CDT procedure are i n the results section. HC VENOUS Routine 08/07/2019 10:16 Benign essential COLLECTION AM CDT hypertension BASIC METABOLIC Routine 08/07/2019 Benign essential Results for this PANEL (BFP) hypertension procedure are i n the results section. documented in this encounter Results Hemoglobin A1c (BFP) (08/07/2019 2:33 PM CDT) P athologist Signature Hemoglobin A1C 5.9 4.0 - 7.0 % BFP INTERNAL Specimen (Source) Anatomical Collection Method Collection Time Re ceived Time Location / / Volume Laterality Blood specimen 08/07/2019 2:33 PM (specimen) CDT Alice Gillette PA-C LAB - BLOOD ORDERABLES Performing Organization Address City/[facility] Phon e Number BFP INTERNAL (ABNORMAL) Basic Metabolic Panel (BFP) (08/07/2019) P athologist Signature Carbon Dioxide 27.7 20 - 32 BFP INTERNAL mmol/L Creatinine 0.75 0.70 - BFP INTERNAL 1.18 mg/dL Glucose 144 (A) 60 - 99 BFP INTERNAL mg/dL Sodium 143.3 135 - 146 BFP INTERNAL mmol/L Potassium 3.59 3.5 - 5.3 BFP INTERNAL mmol/L Chloride 105.5 98 - 110 BFP INTERNAL mmol/L Urea Nitrogen 12 7 - 25 BFP INTERNAL mg/dL Calcium 8.7 8.6 - 10.3 BFP INTERNAL mg/dL BUN/Creatinine 16.0 6 - 22 BFP INTERNAL Ratio Specimen (Source) Anatomical Location Collection Method / Collectio n Time Received Time / Laterality Volume Blood specimen 08/07/2019 (specimen) Alice Gillette PA-C LAB - NON-BEAKER BLOOD LAB S Performing Organization Address [facility] Phon e Number BFP INTERNAL documented in this encounter Visit Diagnoses Diagnosis Elevated glucose - Primary Other abnormal glucose Benign essential hypertension Essential hypertension, benign documented in this encounter Care Teams Barrel Stave Inspector Relationship Specialty Start Date End Date Alice Gillette PA-C PCP - General Physician Line Mechanic 07/20/[address], [address] [address] Alice Gillette PA-C Assigned PCP 06/25/[address], [address] [place] [address] documented as of this encounter
--- OUTSIDE RECORDS SUMMARY | 2021-12-07 08:33 | XMS_ITS | Encounter Summary ---
:1980 Author Organization [place] Address [facility] [place] [address] Care Team Providers Name Role Phone Alice Gillette PA-C Primary Care Provider Alice Gillette PA-C Unavailable [phone] Reason for Visit Reason Comments Recheck Medication non fasting Diabetes Encounter Details Date Type Department Care Team Description 10/27/2020 Office Visit [facility] Alice Gillette essential hypertension (Primary Dx); Physicians CARYL Beltrán Prediabetes; [address], Generalized anxiety disorder ; [address] [address] BMI 50.0-59.9, adult (H) [place] [id number] [phone] (Wo rk) Social History Tobacco Use Types [...] Sign Reading Time Taken Comments Blood Pressure 158/90 10/27/2020 12:23 PM CDT Pulse 67 10/27/2020 12:23 PM CDT Temperature 36.6 ??C (97.9 ??F) 10/27/2020 12:23 PM CDT Respiratory Rate - - Oxygen Saturation 98% 10/27/2020 12:23 PM CDT Inhaled Oxygen Concentration - - Weight 166 kg (366 lb) 10/27/2020 12:23 PM CDT Height 176.5 cm (5' 9.5) 10/27/2020 12:23 PM CDT Body Mass Index 53.27 10/27/2020 12:23 PM CDT documented in this encounter Progress Notes Alice Gillette PA-C - 10/27/2020 12:15 PM CDT CC: Medication Check History: HTN: Pt is treated for HTN. Taking amlodipine, lisinopril, metoprolol, hydrochlorothiazide and potassium supplement as he was found to be low potassium 04/2020. This has not been rechecked. Has been taking consistently. Denies any side effects. BP was elevated at last visit 04/2020, but Brock had been checking at home and was getting much better numbers, and was having some success with weight loss, so no changes were made. Suspect white coat hypertension. Does check BP at home. Getting 130/72. Last eye exam was many years ago. Denies any chest pain, palpitations, SOB. Has been active. Weight has been stable. Prediabetes: Brock has been on metformin in the past for prediabetes. A1c at 04/2020 appt had increased to 6.4%, right on the border between prediabetes and diabetes. Based on this, recommended restart metformin, butdid not get that message on MyChart, so has not been taking this. Anxiety: Well controlled on fluoxetine 20 mg. No side effects. No panic attacks. PMH, MEDICATIONS, ALLERGIES, SOCIAL AND FAMILY HISTORY in EPIC and reviewed by me personally. ROS negative other than the symptoms noted above in the HPI. Examination BP (!) 158/90 (BP Location: Left arm, Patient Position: Sitting, Cuff Size: Adult Large) Pulse 67 Temp 97.9 ??F (36.6 ??C) (Temporal) Ht 1.765 m (5' 9.5) Wt (!) 166 kg (366 lb) SpO2 98% BMI 53.27 kg/m?? Constitutional: Sitting comfortably, in no acute distress. Vital signs noted Neck: no adenopathy, trachea midline and normal to palpation, thyroid normal to palpation Cardiovascular: regular rate and rhythm, no murmurs, clicks, or gallops Respiratory: normal respiratory rate and rhythm, lungs clear to auscultation SKIN: No jaundice/pallor/rash. Psychiatric: mentation appears normal and affect normal/bright A/P ICD-10-CM 1. Benign essential hypertension I10 hydrochlorothiazide (HYDRODIURIL) 25 MG tablet lisinopril (ZESTRIL) 40 MG tablet metoprolol succinate ER (TOPROL-XL) 50 MG 24 hr tablet amLODIPine (NORVASC) 10 MG tablet 2. Prediabetes R73.03 HEMOGLOBIN A1C (BFP) VENOUS COLLECTION Comprehensive Metobolic Panel (BFP) 3. Generalized anxiety disorder F41.1 FLUoxetine (PROZAC) 20 MG capsule 4. BMI 50.0-59.9, adult (H) Z68.43 DISCUSSION: HTN: BP today elevated as expected with white coat hypertension. Home BPs continue to be at goal or near goal of <130/80. Agreed to have him to bring BP cuff with him to next appt to recalibrate. For now, continue on same doses, and contact me with concerns. Will update CMP today. Continue to work on lifestyle changes. Will refer for eye exam. Prediabetes: A1c today improved to 6.2%. Agreed to recheck in 6 months and hold on restarting metformin at this time. Anxiety: ANGELINA updated today. Will refill for up to 1 year. Obesity: Weight continues to be a concern. He is not interested in seeing weight rental management trainee at this time. follow up visit: 6 months Alice Gillette PA-C [facility] Physicians documented in this encounter Nursing Notes Katerin Elliott - 10/27/2020 12:15 PM CDT Chief Complaint Patient presents with ??? Recheck Medication non fasting ??? Diabetes Pre-visit Screening: Immunizations: up to date Colonoscopy: NA Mammogram: NA Asthma Action Test/Plan: NA PHQ9: Done today GAD7: Done today Questioned patient about current smoking habits Pt. smokes 10 cigerettes a day Ok to leave detailed message on voice mail for today's visit only Yes, phone # cell documented in this encounter Plan of Treatment Not on filedocumented as of this encounter Procedures Procedure Name Priority Date/Time Associated Comments Diagnosis HEMOGLOBIN A1C (BFP) Routine 10/27/2020 12:41 Prediabetes Res ults for this PM CDT procedure are i n the results section. CA COLLECTION VENOUS Routine 10/27/2020 12:27 Prediabetes BLOOD VENIPUNCTURE PM CDT COMPREHENSIVE Routine 10/27/2020 Prediabetes Results for th is METABOLIC PANEL (BFP) proced ure are in the results section. documented in this encounter Results HEMOGLOBIN A1C (BFP) (10/27/2020 12:41 PM CDT) P athologist Signature Hemoglobin A1C 6.2 4.0 - 7.0 % BFP INTERNAL Specimen (Source) Anatomical Collection Method Collection Time Re ceived Time Location / / Volume Laterality Blood 10/27/2020 12:41 PM CDT Alice Gillette PA-C LAB - NON-BEAKER BLOOD LAB S Performing Organization Address City/State/ZIP Code Phon e Number BFP INTERNAL (ABNORMAL) Comprehensive Metobolic Panel (BFP) (10/27/2020) [facility] Method Time Signature Carbon Dioxide 29.3 20 - 32 BFP INTERNAL mmol/L Creatinine 0.68 0.60 - BFP INTERNAL 1.30 mg/dL Glucose 138 (A) 60 - 99 BFP INTERNAL mg/dL Sodium 140.7 135 - 146 BFP INTERNAL mmol/L Potassium 3.40 (A) 3.5 - 5.3 BFP INTERNAL mmol/L Chloride 102.9 98 - 110 BFP INTERNAL mmol/L Protein Total 6.9 6.1 - 8.1 BFP INTERNAL g/dL Albumin 4.2 3.6 - 5.1 BFP INTERNAL g/dL Alkaline 63 33 - 130 BFP INTERNAL Phosphatase U/L ALT 46 (A) 0 - 32 U/L BFP INTERNAL AST 22 0 - 35 U/L BFP INTERNAL Bilirubin Total 0.5 0.2 - 1.2 BFP INTERNAL mg/dL Urea Nitrogen 13 7 - 25 BFP INTERNAL mg/dL Calcium 9.3 8.6 - 10.3 BFP INTERNAL mg/dL BUN/Creatinine 19.1 6 - 22 BFP INTERNAL Ratio Globulin 2.7 1.9 - 3.7 BFP INTERNAL Calculated A/G Ratio 1.6 1 - 2.5 BFP INTERNAL Specimen (Source) Anatomical Location Collection Method / Collectio n Time Received Time / Laterality Volume Blood 10/27/2020 Alice Gillette PA-C LAB - NON-BEAKER BLOOD LAB S Performing Organization Address City/State/ZIP Code Phon e Number BFP INTERNAL documented in this encounter Visit Diagnoses Diagnosis Benign essential hypertension - Primary Essential hypertension, benign Prediabetes Other abnormal glucose Generalized anxiety disorder BMI 50.0-59.9, adult (H) Body Mass Index 50.0-59.9, adult documented in this encounter Additional Health Concerns Assessment Noted Time PHQ-9 Depression Total Score: 0 10/27/2020 2:16 PM CDT documented as of this encounter Care Teams Tax Compliance Manager Relationship Specialty Start Date End Date Alice Gillette PA-C PCP - General Physician Conference Organizer 07/20/19 [address] [address] Alice Gillette PA-C Assigned PCP 06/25/[address], [address] [address] documented as of this encounter
--- OUTSIDE RECORDS SUMMARY | 2021-12-07 08:33 | XMS_ITS | Encounter Summary ---
:1980 Author Organization [place] Address [address] [place] [address]. [place] [address] Care Team Providers Name Role Phone Alice Gillette PA-C Primary Care Provider [phone] Alice Gillette PA-C Unavailable [phone] Encounter Details Date Type Department Care Team Description 04/26/2020 Travel Social History Tobacco Use Types Packs/Day [...] been in contact with No / Unsure 04/26/2020 11:20 AM CDT someone who was confirmed or suspected to have Coronavirus / COVID-19? documented as of this encounter Plan of Treatment Not on filedocumented as of this encounter Visit Diagnoses Not on filedocumented in this encounter Care Teams Long Line Teamster Relationship Specialty Start Date End Date Alice Gillette PA-C PCP - General Physician Bibliographic Services Specialist 07/20/[address] [place] [address] Alice Gillette PA-C Assigned PCP 06/25/19 [address] [place] [address] documented as of this encounter
--- OUTSIDE RECORDS SUMMARY | 2021-12-07 08:33 | XMS_ITS | Encounter Summary ---
:1980 Author Organization [place] Address [facility] [place] [address] Care Team Providers Name Role Phone Alice Gillette PA-C Primary Care Provider Alice Gillette PA-C Unavailable [phone] Reason for Visit Reason Comments Recheck Medication non fasting Encounter Details Date Type Department Care Team Description 05/02/2021 Office Visit [facility] Alice Gillette essential hypertension (Primary Dx); Physicians CARYL Beltrán Prediabetes; [address], Fatigue, unspecified type; [address] Morbid obesity (H) [place] [address] [phone] (Wo rk) Social History Tobacco Use Types [...] Sign Reading Time Taken Comments Blood Pressure 170/84 05/02/2021 12:14 PM CDT Pulse 68 05/02/2021 12:14 PM CDT Temperature 36.8 ??C (98.2 ??F) 05/02/2021 12:14 PM CDT Respiratory Rate - - Oxygen Saturation 98% 05/02/2021 12:14 PM CDT Inhaled Oxygen Concentration - - Weight 163.3 kg (360 lb) 05/02/2021 12:14 PM CDT Height 176.5 cm (5' 9.5) 05/02/2021 12:14 PM CDT Body Mass Index 52.4 05/02/2021 12:14 PM CDT documented in this encounter Progress Notes Alice Gillette PA-C - 05/02/2021 12:15 PM CDT CC: Medication Check History: Pre-diabetes: A1c last checked 10/2020 6.2%, which was down from 6.4%. Has been on Metformin in the past, but stopped this. Did have weight loss when on Metformin before. Has been eating more healthy, but frustrated has only lost 3 lbs. HTN: Pt is treated for HTN. Taking hydrochlorothiazide, amlodipine, lisinopril, metoprolol ER 50 mg. Has been taking consistently. Denies any side effects. Does check BP at home, and does have history of having white coat hypertension. Last home BP was 137/72. He feels like mask in clinic also spikes his claustrophobia, elevating BP. Has not been able to schedule eye exam, but knows this is recommended. Denies any chest pain, palpitations, SOB. Has not been active. Weight has been slightly decreased. Bilateral knee pain: Continues to struggle with significant knee pain despite getting injections 1 month ago. These were very successful. Is considering seeing another ortho for second opinion. Has been told he has to loseweight before replacement surgery, but is finding this very difficult. He has been taking NSAIDS regularly. Has not tried Tylenol. Obesity: Has been eating very healthy. Has only lost 3 lbs since 6 months ago. PMH, MEDICATIONS, ALLERGIES, SOCIAL AND FAMILY HISTORY in EPIC and reviewed by me personally. ROS negative other than the symptoms noted above in the HPI. Examination BP (!) 170/84 (BP Location: Left arm, Patient Position: Sitting, Cuff Size: Adult Large) Pulse 68 Temp 98.2 ??F (36.8 ??C) (Temporal) Ht 1.765 m (5' 9.5) Wt (!) 163.3 kg (360 lb) SpO2 98% BMI 52.40 kg/m?? Constitutional: Sitting comfortably, in no acute distress. Vital signs noted Neck: no adenopathy, trachea midline and normal to palpation, thyroid normal to palpation Cardiovascular: regular rate and rhythm, no murmurs, clicks, or gallops Respiratory: normal respiratory rate and rhythm, lungs clear to auscultation SKIN: No jaundice/pallor/rash. Psychiatric: mentation appears normal and affect normal/bright A/P ICD-10-CM 1. Benign essential hypertension I10 lisinopril (ZESTRIL) 40 MG tablet metoprolol succinate ER (TOPROL-XL) 50 MG 24 hr tablet hydrochlorothiazide (HYDRODIURIL) 25 MG tablet amLODIPine (NORVASC) 10 MG tablet Comprehensive Metobolic Panel (BFP) 2. Prediabetes R73.03 VENOUS COLLECTION HEMOGLOBIN A1C (BFP) metFORMIN (GLUCOPHAGE-XR) 500 MG 24 hr tablet 3. Fatigue, unspecified type R53.83 TSH WITH FREE T4 REFLEX ([facility]) 4. Morbid obesity (H) E66.01 TSH WITH FREE T4 REFLEX ([facility]) DISCUSSION: Pre-diabetes: A1c improved to 6.0%. However, agreed to restart on metformin 1 tablet daily with dinner to help with insulin resistance, obesity. He will need to return in 2 months to recheck BMP. HTN: BP today significantly elevated as is typical for him in clinic. However, home BPs are well controlled. Will refill without change for 90 days, and will hopefully do longer term refills at metformin f/u visit. Ideally should complete eye exam, and consider bringing home BP cuff to next appt. Bilateral knee pain: Should continue to work with eligibility specialist. Should do trial of Tylenol arthritis twice dailyto see if this controls symptoms in order to stop NSAIDs. This could be contributing to HTN. Obesity: Offered weight referral, especially with issues with knee, unable to get surgery, but pt declines. Checking TSH. follow up visit: 3 months Alice Gillette PA-C [facility] Physicians documented in this encounter Nursing Notes Katerin Elliott - 05/02/2021 12:15 PM CDT Chief Complaint Patient presents with ??? Recheck Medication non fasting Pre-visit Screening: Immunizations: up to date Colonoscopy: NA Mammogram: NA Asthma Action Test/Plan: NA PHQ9: NA GAD7: NA Questioned patient about current smoking habits Pt. Smokes 10 cigs per day Ok to leave detailed message on voice mail for today's visit only Yes, phone # [phone] documented in this encounter Plan of Treatment Not on filedocumented as of this encounter Procedures Procedure Name Priority Date/Time Associated Diagnosis Comme nts COMPREHENSIVE Routine 05/02/2021 2:36 Benign essential Results for this METABOLIC PANEL (BFP) PM CDT hypertension proced ure are in the results section. TSH WITH FREE T4 Routine 05/02/2021 1:47 Fatigue, unspecified Results for this REFLEX ([facility]) PM CDT type procedure are in Morbid obesity (H) the resul ts section. SC COLLECTION VENOUS Routine 05/02/2021 12:19 Prediabetes BLOOD VENIPUNCTURE PM CDT HEMOGLOBIN A1C (BFP) Routine 05/02/2021 Prediabetes Results for this procedure are i n the results section. documented in this encounter Results (ABNORMAL) Comprehensive Metobolic Panel (BFP) (05/02/2021 2:36 PM CDT) P athologist Signature Carbon Dioxide 27.7 20 - 32 BFP INTERNAL mmol/L Creatinine 0.81 0.60 - BFP INTERNAL 1.30 mg/dL Glucose 98 60 - 99 BFP INTERNAL mg/dL Sodium 140.6 135 - 146 BFP INTERNAL mmol/L Potassium 3.50 3.5 - 5.3 BFP INTERNAL mmol/L Chloride 102.5 98 - 110 BFP INTERNAL mmol/L Protein Total 7.3 6.1 - 8.1 BFP INTERNAL g/dL Albumin 4.4 3.6 - 5.1 BFP INTERNAL g/dL Alkaline 79 33 - 130 BFP INTERNAL Phosphatase U/L ALT 82 (A) 0 - 32 U/L BFP INTERNAL AST 32 0 - 35 U/L BFP INTERNAL Bilirubin Total 0.6 0.2 - 1.2 BFP INTERNAL mg/dL Urea Nitrogen 15 7 - 25 BFP INTERNAL mg/dL Calcium 9.6 8.6 - 10.3 BFP INTERNAL mg/dL BUN/Creatinine 18.5 6 - 22 BFP INTERNAL Ratio Globulin 2.9 1.9 - 3.7 BFP INTERNAL Calculated A/G Ratio 1.5 1 - 2.5 BFP INTERNAL Specimen (Source) Anatomical Collection Method Collection Time Re ceived Time Location / / Volume Laterality Blood 05/02/2021 2:36 PM CDT Alice Gillette PA-C LAB - NON-BEAKER BLOOD LAB S Performing Organization Address City/State/ZIP Code Phon e Number BFP INTERNAL TSH WITH FREE T4 REFLEX ([facility]) (05/02/2021 1:47 PM CDT) athologist Signature TSH 1.39 0.40 - 4.50 [facility] Specimen Anatomical Collection Method Collection Time Receive d Time (Source) Location / / Volume Laterality Blood 05/02/2021 1:47 PM 2 2:44 CDT AM CDT Resulting Agency Comment Performing Organization Information: ? CB ? [facility] ? [address] [facility] [place] [phone] ? Devin Bello M.D. Alice Gillette PA-C LAB - NON-BEAKER BLOOD LAB S Performing Organization Address City/State/ZIP Code Phon e Number [facility] [address] [place], [place] [address] HEMOGLOBIN A1C (BFP) (05/02/2021) P athologist Signature Hemoglobin A1C 6.0 4.0 - 7.0 % BFP INTERNAL Specimen (Source) Anatomical Location Collection Method / Collectio n Time Received Time / Laterality Volume Blood 05/02/2021 Alice Gillette PA-C LAB - NON-BEAKER BLOOD LAB S Performing Organization Address City/State/ZIP Code Phon e Number BFP INTERNAL documented in this encounter Visit Diagnoses Diagnosis Benign essential hypertension - Primary Essential hypertension, benign Prediabetes Other abnormal glucose Fatigue, unspecified type Morbid obesity (H) Morbid obesity documented in this encounter Additional Health Concerns Assessment Noted Time PHQ-9 Depression Total Score: 0 10/27/2020 2:16 PM CDT documented as of this encounter Care Teams Survey Research Professor Relationship Specialty Start Date End Date Alice Gillette PA-C PCP - General Physician Data Services Developer 07/20/19 [address] [address] Alice Gillette PA-C Assigned PCP 06/25/19 [address] [address] documented as of this encounter
--- OUTSIDE RECORDS SUMMARY | 2021-12-07 08:33 | XMS_ITS | Encounter Summary ---
:1980 Author Organization [place] Address [address] [place] [address]. [place] [address] Care Team Providers Name Role Phone Alice Gillette PA-C Primary Care Provider [phone] Alice Gillette PA-C Unavailable Reason for Visit Reason Onset Date Comments Refill Request 01/18/2020 Encounter Details Date Type Department Care Team Description 01/18/2020 Refill [facility] Alice Gillette , Refill Request Physicians CARYL [address] [address] [place] [address] [address] [place], [place] [address] [place] [address] [phone] Social History Tobacco Use Types Packs/Day Years [...] this encounter Miscellaneous Notes Telephone Encounter - Ira Brewer CMA - 01/19/2020 12:42 PM TEACHER ADULT EDUCATION Called and informed pt. HER ADULT EDUCATION Telephone Encounter - Alice Encarnacion PA-C - 01/19/2020 12:27 PM TEACHER ADULT EDUCATION Refilled all 4 medications with metoprolol being increased to 100 mg daily. Please inform pt. He will be due for appt prior to this 90 day supply running out, ideally fast for this appt. HER ADULT EDUCATION Telephone Encounter - Ira Brewer CMA - 01/19/2020 9:12 AM CST Pt states he has not written them now , 138/85 avg reading he has been getting. HER ADULT EDUCATION Telephone Encounter - Alice Encarnacion PA-C - 01/19/2020 12:09 AM TEACHER ADULT EDUCATION This was our agreement: Agreed to refill current medications without change for 90 days, but asked him to contact me in 2 weeks with BP from home. If normal, would consider 6 months of refills. If abnormal would increase metoprolol to 100 mg daily. Goal BP is <130/80. I never heard any outside BPs from him. Can you please contact him, and ask him for any home BPs he has? HER ADULT EDUCATION Telephone Encounter - Ira Brewer CMA - 01/18/2020 12:04 PM TEACHER ADULT EDUCATION Last OV 11/03/2019 with instructions to follow up in 6 months. Pt called asking for refills. Pending Prescriptions: Disp Refills amLODIPine (NORVASC) 10 MG tablet 90 tab*0 Sig: Take 1 tablet (10 mg) by mouth daily hydrochlorothiazide (HYDRODIURIL) 25 MG t*90 tab*0 Sig: Take 1 tablet (25 mg) by mouth daily lisinopril (ZESTRIL) 40 MG tablet 90 tab*0 Sig: Take 1 tablet (40 mg) by mouth daily metoprolol succinate ER (TOPROL-XL) 50 MG*90 tab*0 Sig: Take 1 tablet (50 mg) by mouth daily HER ADULT EDUCATION documented in this encounter Plan of Treatment Not on filedocumented as of this encounter Visit Diagnoses Diagnosis Benign essential hypertension Essential hypertension, benign documented in this encounter Care Teams Lighter Relationship Specialty Start Date End Date Alice Gillette PA-C PCP - General Physician Cleat Layer 07/20/19 [address] [address] Alice Gillette PA-C Assigned PCP 06/25/19 [address] [address] documented as of this encounter
--- OUTSIDE RECORDS SUMMARY | 2021-12-07 08:33 | XMS_ITS | Encounter Summary ---
:1980 Author Organization [place] Address [address] [place] [address]. [place] [address] Care Team Providers Name Role Phone Alice Gillette PA-C Primary Care Provider [phone] Alice Gillette PA-C Unavailable [phone] Encounter Details Date Type Department Care Team Description 12/01/2020 Travel Social History Tobacco Use Types Packs/Day [...] documented as of this encounter Care Teams Security Controls Assessor Relationship Specialty Start Date End Date Alice Gillette PA-C PCP - General Physician Silverware Washer 07/20/[address], [address] [address] Alice Gillette PA-C Assigned PCP 06/25/[address], [address] [id number] documented as of this encounter
--- OUTSIDE RECORDS SUMMARY | 2021-12-07 08:33 | XMS_ITS | Encounter Summary ---
:1980 Author Organization [place] Address [address] [place] [address]. [place] [address] Care Team Providers Name Role Phone Alice Gillette PA-C Primary Care Provider [phone] Alice Gillette PA-C Unavailable [phone] Encounter Details Date Type Department Care Team Description 01/28/2020 Travel Social History Tobacco Use Types Packs/Day [...] with No / Unsure 01/28/2020 7:08 AM MANAGER OF PATIENT someone who was confirmed or suspected to have Coronavirus / COVID-19? documented as of this encounter Plan of Treatment Not on filedocumented as of this encounter Visit Diagnoses Not on filedocumented in this encounter Care Teams Bee Worker Relationship Specialty Start Date End Date Alice Gillette PA-C PCP - General Physician Scientific Associate 07/20/[address] [address] Alice Gillette PA-C Assigned PCP 06/25/19 [address] [facility] [address] [address] documented as of this encounter
--- OUTSIDE RECORDS SUMMARY | 2021-12-07 08:33 | XMS_ITS | Encounter Summary ---
:1980 Author Organization [place] Address [address] [place] [address]. [place] [address] Care Team Providers Name Role Phone Alice Gillette PA-C Primary Care Provider [phone] Alice Gillette PA-C Unavailable [phone] Encounter Details Date Type Department Care Team Description 05/02/2021 Travel Social History Tobacco Use Types Packs/Day [...] documented as of this encounter Care Teams Biomedical Instrument Technician Relationship Specialty Start Date End Date Alice Gillette PA-C PCP - General Physician Cement Gun Operator 07/20/[address], [address] [address] Alice Gillette PA-C Assigned PCP 06/25/[address], [address] [id number] documented as of this encounter
--- OUTSIDE RECORDS SUMMARY | 2021-12-07 08:33 | XMS_ITS | Encounter Summary ---
:1980 Author Organization [place] Address Formerly [facility] [place] [address] Care Team Providers Name Role Phone Alice Gillette PA-C Primary Care Provider [phone] Alice Gillette PA-C Unavailable [phone] Reason for Visit Reason Comments Recheck Medication fasting Encounter Details Date Type Department Care Team Description 04/26/2020 Office Visit [facility] Alice Gillette essential hypertension (Primary Dx); Physicians CARYL Beltrán Screening for lipid disorders; [address], Prediabetes; [address] Type 2 diabetes mellitus without complic ation, without long-term current use of insulin (H) [place] [id number] [phone] (Wo rk) Social History Tobacco Use Types [...] Sign Reading Time Taken Comments Blood Pressure 154/90 04/26/2020 11:35 AM CDT Pulse 63 04/26/2020 11:35 AM CDT Temperature 36.9 ??C (98.4 ??F) 04/26/2020 11:35 AM CDT Respiratory Rate - - Oxygen Saturation 98% 04/26/2020 11:35 AM CDT Inhaled Oxygen Concentration - - Weight 166 kg (366 lb) 04/26/2020 11:35 AM CDT Height 175.3 cm (5' 9) 04/26/2020 11:35 AM CDT Body Mass Index 54.05 04/26/2020 11:35 AM CDT documented in this encounter Progress Notes Alice Gillette PA-C - 04/26/2020 11:30 AM CDT CC: Medication Check History: HTN: Taking amlodipine 10 mg daily, hydrochlorothiazide 25 mg, metoprolol XL 100 mg (only 1/2 tablet) and lisinopril 40 mg daily. Tried metoprolol 100 mg full pill, but got some SOB/chest pressure, that went away when he went back down to 50 mg. Has been taking those consistently. Denies any chest pain, palpitations, SOB. Does check BP at home and getting 134-137/73-74. He has now gotten back on health insurance.??He has not yet completed eye exam. Has been working out regularly. Eating less, soda minimal, replacement shakes. Prediabetes: Has been on metformin before, but no longer taking. PMH, MEDICATIONS, ALLERGIES, SOCIAL AND FAMILY HISTORY in [facility] and reviewed by me personally. ROS negative other than the symptoms noted above in the HPI. Examination BP (!) 154/90 (BP Location: Left arm, Patient Position: Sitting, Cuff Size: Adult Large) Pulse 63 Temp 98.4 ??F (36.9 ??C) (Temporal) Ht 1.753 m (5' 9) Wt (!) 166 kg (366 lb) SpO2 98% BMI 54.05 kg/m?? Constitutional: Sitting comfortably, in no acute [...] hypertension I10 lisinopril (ZESTRIL) 40 MG tablet hydrochlorothiazide (HYDRODIURIL) 25 MG tablet amLODIPine (NORVASC) 10 MG tablet VENOUS COLLECTION Basic Metabolic Panel (BFP) metoprolol succinate ER (TOPROL-XL) 50 MG 24 hr tablet 2. Screening for lipid disorders Z13.220 VENOUS COLLECTION Lipid Panel (BFP) 3. Prediabetes R73.03 VENOUS COLLECTION Hemoglobin A1c (BFP) DISCUSSION: HTN: BP is elevated today in office, but home BPs are much better, and Brock is suspected to have a degreeof white coat hypertension. Given that he is having some success with weight loss, agreed to continue on same dose for 6 months. Will check fasting labs, and send MyChart with results when available. Diabetes: New diagnosis diabetes A1c 6.4%. Recommended restart on Metformin 500 XL 1 tab daily then after 1 week increase to 2 tabs daily with meals. Start LD ASA. Return in 3 months. Also found low potassium. Agreed to start daily potassium supplement. follow up visit: 3 months Alice Gillette PA-C [facility] Physicians documented in this encounter Nursing Notes Olive May - 04/26/2020 11:30 AM CDT Brock is here for a fasting med check. Pre-visit Screening: Immunizations: up to date Colonoscopy: NA Mammogram: NA Asthma Action Test/Plan: NA PHQ9: UTD GAD7: UTD Questioned patient about current smoking habits Pt. Smokes 15 cigs per day Ok to leave detailed message on voice mail for today's visit only Yes, phone # [phone] documented in this encounter Miscellaneous Notes Addendum Note - Alice Gillette PA-C - 04/26/2020 11:30 AM CDT Addended by: ALICE GILLETTE on: 04/28/2020 05:57 PM Modules accepted: Orders Addendum Note - Olive May - 04/26/2020 11:30 AM CDT Addended by: OLIVE MAY on: 06/09/2020 01:30 PM Modules accepted: Orders documented in this encounter Plan of Treatment Not on filedocumented as of this encounter Procedures Procedure Name Priority Date/Time Associated Diagnosis Comme nts ME COLLECTION VENOUS Routine 04/26/2020 12:06 Benign essential BLOOD VENIPUNCTURE PM CDT hypertension Screening for lipid disorders Prediabetes LIPID PANEL (BFP) Routine 04/26/2020 Screening for lipid Res ults for this disorders procedure are i n the results section. BASIC METABOLIC PANEL Routine 04/26/2020 Benign essential Re sults for this (BFP) hypertension procedure are i n the results section. HEMOGLOBIN A1C Routine 04/26/2020 Prediabetes Results for t his procedure are i n the results section. documented in this encounter Results (ABNORMAL) Lipid Panel (BFP) (04/26/2020) [facility] gist Method Time Signature Cholesterol 210 (A) 0 - 199 BFP INTERNAL mg/dL Triglycerides 200 (A) 0 - 149 BFP INTERNAL mg/dL HDL Cholesterol 42 40 - 150 BFP INTERNAL mg/dL LDL Cholesterol 128 0 - 130 BFP INTERNAL Direct mg/dL Cholesterol/HDL 5 0 - 5 BFP INTERNAL Ratio Specimen (Source) Anatomical Location Collection Method / Collectio n Time Received Time / Laterality Volume Blood specimen 04/26/2020 (specimen) Alice Gillette PA-C LAB - NON-BEAKER BLOOD LAB S Performing Organization Address City/[facility]/ZIP Code Phon e Number BFP INTERNAL Hemoglobin A1c (BFP) (04/26/2020) P athologist Signature Hemoglobin A1C 6.4 4.0 - 7.0 % BFP INTERNAL Specimen (Source) Anatomical Location Collection Method / Collectio n Time Received Time / Laterality Volume Blood specimen 04/26/2020 (specimen) Alice Gillette PA-C LAB - BLOOD ORDERABLES Performing Organization Address City/[facility]/ZIP Code Phon e Number BFP INTERNAL (ABNORMAL) Basic Metabolic Panel (BFP) (04/26/2020) Analysis Performed At Patho logist Time Signature Carbon Dioxide 31.1 20 - 32 BFP INTERNAL mmol/L Creatinine 0.98 0.60 - BFP INTERNAL 1.30 mg/dL Glucose 143 (A) 60 - 99 BFP INTERNAL mg/dL Sodium 141.2 135 - 146 BFP INTERNAL mmol/L Potassium 3.38 (A) 3.5 - 5.3 BFP INTERNAL mmol/L Comment: ran twice Chloride 101.2 98 - 110 mmol/L BFP INTERNAL Urea Nitrogen 17 7 - 25 mg/dL BFP INTERNAL Calcium 9.4 8.6 - 10.3 mg/dL BFP INTERNAL BUN/Creatinine Ratio 17.3 6 - 22 BFP INTER NAL Specimen (Source) Anatomical Location Collection Method / Collectio n Time Received Time / Laterality Volume Blood specimen 04/26/2020 (specimen) Alice Gillette PA-C LAB - NON-BEAKER BLOOD LAB S Performing Organization Address [facility]/ZIP Code Phon e Number BFP INTERNAL documented in this encounter Visit Diagnoses Diagnosis Benign essential hypertension - Primary Essential hypertension, benign Screening for lipid disorders Prediabetes Other abnormal glucose Type 2 diabetes mellitus without complic ation, without long-term current use of insulin (H) documented in this encounter Care Teams Building Estimator Relationship Specialty Start Date End Date Alice Gillette PA-C PCP - General Physician Bolt Machine Operator 07/20/[address], [address] [place] [address] Alcie Gillette PA-C Assigned PCP 06/25/[address] [address] documented as of this encounter
--- OUTSIDE RECORDS SUMMARY | 2021-12-07 08:33 | XMS_ITS | Encounter Summary ---
:1980 Author Organization [place] Address [address] [place] [address]. [place] [address] Care Team Providers Name Role Phone Alice Gillette PA-C Primary Care Provider [phone] Alice Gillette PA-C Unavailable Reason for Visit Reason Onset Date Comments Refill Request 01/25/2020 Encounter Details Date Type Department Care Team Description 01/25/2020 Refill [facility] Alice Gillette , Refill Request Physicians CARYL [address] [address] [place] [address] [address] [place], [place] [id number] [place] [phone] Social History Tobacco Use Types Packs/Day Years [...] this encounter Miscellaneous Notes Telephone Encounter - Damon Garcia CMA - 01/26/2020 5:44 PM CST Scheduled pt for virtual visit on 01/28/20. He asked for 5 capsules, called this in to May[facility] Morton per his request. AISER TIMBER Telephone Encounter - Alice Encarnacion PA-C - 01/26/2020 5:12 PM APPRAISER TIMBER Unfortunately, since this mental health medication wasn't discussed with pt yet, I do feel like we would need to discuss this before any tank terminal gauger refills. We could do virtual visit for this medication. I would refill him up to 30 days to make sure he won't run out prior to appt. AISER TIMBER Telephone Encounter - Vida Duncan CMA - 01/25/2020 11:21 AM CST Patient is on 20 mg of fluoxetine which he received from Dr Quintanilla at [facility]. He is hoping you can refill this for him as it wasn't done with the recent refills? Pending Prescriptions: Disp Refills FLUoxetine (PROZAC) 20 MG capsule 90 cap*1 Sig: Take 1 capsule (20 mg) by mouth daily Patient's phone #[phone] AISER TIMBER Addendum Note - Damon Garcia CMA - 01/25/2020 11:21 AM APPRAISER TIMBER Addended by: DAMON GARCIA on: 01/26/2020 05:45 PM Modules accepted: Orders AISER TIMBER documented in this encounter Plan of Treatment Not on filedocumented as of this encounter Visit Diagnoses Not on filedocumented in this encounter Care Teams Crackling Press Operator Relationship Specialty Start Date End Date Alice Gillette PA-C PCP - General Physician Assistant Women'S Basketball Coach 07/20/19 [address] [address] Alice Gillette PA-C Assigned PCP 06/25/[address] [facility] [address] [place] [address] documented as of this encounter
--- OUTSIDE RECORDS SUMMARY | 2021-12-07 08:34 | XMS_ITS | Encounter Summary ---
:1980 Author Organization [place] Address [facility]0 [facility] [place] [address] Care Team Providers Name Role Phone No Ref-Primary, Physician Primary Care Provider [phone] Reason for Visit Reason Comments Flank Pain Encounter Details Date Type Department Care Team Description 04/26/2019 Emergency [facility] Evens Mercado MD Acute right flank pain; [facility] Emergency Dep t [facility] Groin pain, right [address] [place], [place] [address] [place] [id number] [address] [address] [place], [place] [address] (Wo rk) Social History Tobacco Use Types [...] been in contact with No / Unsure 04/26/2019 10:58 AM CDT someone who was confirmed or suspected to have Coronavirus / COVID-19? documented as of this encounter Last Filed Vital Signs Vital Sign Reading Time Taken Comments Blood Pressure 142/76 04/26/2019 1:00 PM CDT Pulse 75 04/26/2019 1:15 PM CDT Temperature 37 ??C (98.6 ??F) 04/26/2019 11:00 AM CDT Respiratory Rate 16 04/26/2019 11:54 AM CDT Oxygen Saturation 97% 04/26/2019 1:15 PM CDT Inhaled Oxygen Concentration - - Weight - - Height - - Body Mass Index - - documented in this encounter Discharge Instructions Discharge InstructionsNick Mercado MD - 04/26/2019 1:17 PM CDT Discharge Instructions Kidney Stones Kidney stones are a common problem that can cause a lot of pain but fortunately are usually not dangerous. Kidney stones form in the kidney and then can cause a blockage (obstruction) of the flow of urine from the kidney which leads to pain. Most patients can manage kidney stones at home (without a hospital stay). However, sometimes your condition may be worse than it seemed at first, or may get worse with time. Most kidney stones will pass on their own, but occasionally stones may need to be removed by an urologist. Generally, every Emergency Department visit should have a follow-up clinic visit with either a primary or a specialty clinic/provider. Please follow-up as instructed by your emergency provider today. Return to the Emergency Department if: Your pain is not controlled despite the medications provided or recommended. You are vomiting (throwing up) and cannot keep fluids or medications down. You develop a fever (>100.4??F). You feel much more ill or develop new symptoms. What can I do to help myself? Be sure to drink plenty of fluids. If instructed to do so, strain your urine (pee) with the urine strainer you were provided with today. Your stone may look like a grain of sand or a small pebble. Collect any stones in the cup provided and bring to your follow-up appointment. Staying active is good, and may help the stone to pass. You may do whatever you feel up to doing without restrictions. Treatment: Non-steroidal anti-inflammatory drugs (NSAIDs). This includes prescription medicines like Toradol?? (ketorolac) and non-prescription medicines like Advil?? (ibuprofen) and Nuprin?? (ibuprofen) and Naproxen. These pain relievers are very effective for kidney stones. Nausea (sick to your stomach) medication. Nausea and vomiting are common with kidney stones, so yourprovider may send you home with medicine for this. Flomax?? (tamsulosin). This medicine is sometimes used for men with prostate problems, but also can help kidney stones to pass. Its effectiveness is controversial or questionable so it is prescribed incertain situations. This medicine can lower blood pressure, and you may feel faint/lightheaded, espec ially when you first stand up. Be sure [...] call or return to the Emergency Department. Remember that you can always come back to the Emergency Department if you are not able to see your regular provider in the amount of time listed above, if you get any new symptoms, or if there is anything that worries you. documented in this encounter Medications at Time [...] Take 1 tablet (4 8 tablet 0 04/1107/20/2019 tablet mg) by mouth every 6 hours oxyCODONE-acetaminophen Take 1 tablet by 12 tablet 0 201906/23/2019 (PERCOCET) 5-325 MG tablet mouth every 6 hours as needed for moderate to severe pain tamsulosin (FLOMAX) 0.4 MG Take 1 capsule 7 capsule 1 04/2106/23/2019 capsule (0.4 mg) by mouth daily documented as of this encounter ED Notes Shahid Waters RN - 04/26/2019 11:00 AM CDT Pt with hx of kidney stones, woke this morning with right flank pain radiating into his testicle;stephanie. It feels like my last kidney stone. Pt did day 1 hydrocodone this morning for pain with no improvement. Nick Mercado MD - 04/26/2019 10:58 AM CDT History Chief Complaint: Flank Pain HPI Brock Gotti is a 38 year old male with diabetes and history of kidney stones who presents with flank pain. The patient was fine yesterday but developed right-sided lower back pain this morning, first radiating up to his flank then down to his testicles. This resembles pain he has had in the past withhis previous 3 or 4 kidney stones. His last stones was about 3 or 4 months ago though he never saw it pass when straining his urine. The patient took a hydrocodone about 40 minutes ago for the pain anddeveloped nausea on his way to the Emergency Department but has not vomited. He also notes potentialhematuria about 3 weeks ago and states his sugars have been well-controlled lately. The patient denies previous abdominal surgeries, hernias, or recent falls or injuries. Allergies: No Known Allergies Medications: amlodipine Celecoxib Hydrochlorothiazide lisinopril Past Medical History: Hypertension Obesity Deviated nasal septum Diabetes GUTIERREZ History of alcohol abuse History of cocaine abuse Past Surgical History: Left knee arthroscopy Pilonidal cystectomy Endoscopic nasal polypectomy Bilateral myringotomy and tube insertion Tonsillectomy, adenoidectomy [place] teeth extraction Family History: No past pertinent family history. Social History: Tobacco use: current every day smoker, 0.5 packs daily for 10 years, trying to quit Alcohol use: history of abuse, about 20 drinks weekly Drug use: history of cocaine PCP: [facility] Review of Systems Gastrointestinal: Positive for nausea. Negative for vomiting. Genitourinary: Positive for flank pain, hematuria and testicular pain. Musculoskeletal: Positive for back pain. All other systems reviewed and are negative. Physical Exam Patient Vitals for the past 24 hrs: BP Temp Pulse Heart Rate Resp SpO2 04/26/19 1315 -- -- 75 -- -- 97 % 04/26/19 1300 (!) 142/76 -- 75 -- -- 95 % 04/26/19 1245 (!) 141/79 -- 68 -- -- 95 % 04/26/19 1230 (!) 159/82 -- 67 -- -- 95 % 04/26/19 1215 (!) 152/85 -- 69 -- -- 95 % 04/26/19 1200 (!) 151/84 -- 66 -- -- 96 % 04/26/19 1154 (!) 158/89 -- -- 76 16 98 % 04/26/19 1130 -- -- -- -- -- 96 % 04/26/19 1115 (!) 149/83 -- 66 -- 16 97 % 04/26/19 1100 (!) 210/117 98.6 ??F (37 ??C) 76 76 16 98 % Physical Exam Vital signs and nursing notes reviewed. Constitutional: laying on gurney appears comfortable HENT: Oropharynx is clear and moist Eyes: Conjunctivae are normal bilaterally. Pupils equal Neck: normal range of motion Cardiovascular: Normal rate, regular rhythm, normal heart sounds. Pulmonary/Chest: Effort normal and breath sounds normal. No respiratory distress. Abdominal: Soft. Bowel sounds are normal. No localizing reproducible tenderness. Tenderness to palpation. No rebound or guarding. No flank pain. : No testicular swelling or scrotal pain. Musculoskeletal: No joint swelling or edema. Neurological: Alert and oriented. No focal weakness Skin: Skin is warm and dry. No rash noted. Psych: normal affect Emergency Department Course Imaging: Radiology findings were communicated with the patient who voiced understanding of the findings. XR KUB: An approximately 0.5 cm radiodensity projected over the right pelvis could represent a distal right ureteral stone. No other findings suspicious for urinary calculi are identified, although the kidneys are largely obscured by overlying bowel gas. The bowel gas pattern is within normal limits where seen, as per radiology. Laboratory: Laboratory findings were communicated with the patient who voiced understanding of the findings. BMP: glucose 159 (H), creatinine 0.64 (L) o/w WNL UA with microscopic: WNL Interventions: 1122 Toradol 15 mg IV 1123 Dilaudid 0.5 mg IV 1319 Percocet 5-325 mg tablet PO Emergency Department Course: Past medical records, nursing notes, and vitals reviewed. 1108 I performed an exam of the patient as documented above. IV was inserted and blood was drawn for laboratory testing, results above. The patient provided a urine sample here in the emergency department. This was sent for laboratory testing, findings above. The patient was sent for a KUB x-ray while in the emergency department, results above. 1307 Patient rechecked and updated. I personally reviewed the laboratory and imaging results with the Patient and answered all related questions prior to discharge. I prescribed Zofran and Percocet. Impression & Plan Medical Decision Making: Brock Gotti is a 38 year old male who presents to the emergency department today with acute onset of right flank followed by right groin and testicular pain today. Patient has a history of kidney stones and states his pain feels very similar to that. Lab tests including BMP and urinalysis were done and returned unremarkable. There' no obvious hematuria. I did a KUB which showed findings of suspicionof a distal ureteral stone of about 0.5 cm. Patient's pain is almost resolved at time of evaluation.Discusses that I can't 100% tell him that this was a kidney stone that caused his pain, but as there's no clear indication of other causes of discomfort as he has no testicular pathology, specifically evidence of torsion or scrotal swelling, no history of diverticulitis, etc, that I suspect it likely is uretal stone causing his pain. Discussed though that without doing CT imaging this cannot be definitely diagnosed. He understands and states he would rather hold off on doing CT imaging at this time.Patient is aware if he has progressive or worsening uncontrolled pain, fever, vomiting, bloody stools, or other concerns, he is to return immediately. Otherwise, will have him strain his urine until hepasses the likely stone. He is given medication for pain and nausea if needed. He is given referral to uroloy as outpatient for follow-up if he has not passed the stone in the past few days. Patient understands the plan and has no questions. Discharged home. Discharge Diagnosis: ICD-10-CM 1. Acute right flank pain R10.9 2. Groin pain, right R10.31 Disposition: Discharged to home Discharge Medications: New Prescriptions ONDANSETRON (ZOFRAN) 4 MG TABLET Take 1 tablet (4 mg) by mouth every 6 hours OXYCODONE-ACETAMINOPHEN (PERCOCET) 5-325 MG TABLET Take 1 tablet by mouth every 6 hours as needed for moderate to severe pain Scribe Disclosure: Jovana Coyne, am serving as a scribe at 11:08 AM on 04/26/2019 to document services personally performed by Nick Mercado MD based on my observations and the provider's statements to me. Nick Mercado MD 04/26/19 1341 documented in this encounter Plan of Treatment Not on filedocumented as of this encounter Procedures Procedure Name Priority Date/Time Associated Comments Diagnosis XR KUB STAT 04/26/2019 11:46 Results for this AM CDT procedure are i n the results section. ROUTINE UA WITH STAT 04/26/2019 11:17 Results for this MICROSCOPIC AM CDT procedure are i n the results section. BASIC METABOLIC PANEL STAT 04/26/2019 11:17 Re sults for this AM CDT procedure are i n the results section. documented in this encounter Results KUB XR (04/26/2019 11:46 AM CDT) Anatomical Region Laterality Modality Abdomen/Pelvis Digital Radiography Specimen (Source) Anatomical Location Collection Method / Collectio n Time Received Time / Laterality Volume Impressions 04/26/2019 1:41 PM CDT IMPRESSION: An approximately 0.5 cm radiodensity projected over the right pelvis could represent a distal ri ght ureteral stone. No other findings suspicious for urinary calculi are identified, although the kidneys are largely obscured by overlyin g bowel gas. The bowel gas pattern is within normal limits where se en. HERMINIO BARNES MD Narrative 04/26/2019 1:41 PM CDT ABDOMEN ONE VIEW ??04/26/2019 11:46 AM HISTORY: Right flank and groin pain. COMPARISON: CT of the abdomen and pelvis performed 04/21/2017. Procedure Note Herminio Barnes MD - 04/26/2019Forma tting of this note might be different from the original. ABDOMEN ONE VIEW 04/26/2019 11:46 AM HISTORY: Right flank and groin pain. COMPARISON: CT of the abdomen and pelvis performed 04/21/2017. IMPRESSION: An approximately 0.5 cm radi odensity projected over the right pelvis could represent a distal ri ght ureteral stone. No other findings suspicious for urinary calculi are identified, although the kidneys are largely obscured by overlyin g bowel gas. The bowel gas pattern is within normal limits where se en. HERMINIO BARNES MD Nick Mercado MD IMG DIAGNOSTIC IMAGING ORDER HALLIE UA with Microscopic (04/26/2019 11:17 AM CDT) [facility] Method Time Signature Color Urine Straw 04/26/2019 [place] 11:30 AM [facility] Appearance Urine Clear 04/26/2019 [place] 11:30 AM [facility] Glucose Urine Negative NEG^Negat 04/26/2019 [place] radha mg/dL 11:30 AM [facility] Bilirubin Urine Negative NEG^Negat 04/26/2019 [place] radha 11:30 AM [facility] Ketones Urine Negative NEG^Negat 04/26/2019 [place] radha mg/dL 11:30 AM [facility] Specific [place] 1.014 1.003 - 04/26/2019 [place] Urine 1.035 11:30 AM [facility] Blood Urine Negative NEG^Negat 04/26/2019 [place] radha 11:30 AM [facility] pH Urine 6.5 5.0 - 7.0 04/26/2019 [place] pH 11:30 AM [facility] Protein Albumin Negative NEG^Negat 04/26/2019 [place] Urine radha mg/dL 11:30 AM [facility] Urobilinogen Normal 0.0 - 2.0 04/26/2019 [place] mg/dL mg/dL 11:30 AM [facility] Nitrite Urine Negative NEG^Negat 04/26/2019 [place] radha 11:30 AM [facility] Leukocyte Negative NEG^Negat 04/26/2019 [place] Esterase Urine radha 11:30 AM [facility] Source Midstream 04/26/2019 [place] Urine 11:18 AM [facility] WBC Urine 1 0 - 5 04/26/2019 [facility] /HPF 11:30 AM [facility] RBC Urine 1 0 - 2 04/26/2019 [facility] /HPF 11:30 AM [facility] Squamous <1 0 - 1 04/26/2019 [place] Epithelial /HPF /HPF 11:30 AM [facility] Specimen (Source) Anatomical Collection Method Collection Time Re ceived Time Location / / Volume Laterality Examination of URINE SPECIMEN 04/26/2019 11:17 020 midstream urine OBTAINED BY CLEAN AM CDT 11:23 A M CDT specimen CATCH PROCEDURE / (procedure) Unknown Nick Mercado MD LAB - URINE ORDERABLES Performing Organization Address City/State/ZIP Code Phon e Number M [facility] [address] [address] [facility] [address] [phone] (ABNORMAL) Basic metabolic panel (04/26/2019 11:17 AM [facility]) Analysis Performed At Patho logist Time Signature Sodium 138 133 - 144 04/26/2019 [place] mmol/L 11:38 AM [facility] Potassium 3.4 3.4 - 5.3 04/26/2019 [place] mmol/L 11:38 AM [facility] Chloride 104 94 - 109 04/26/2019 [place] mmol/L 11:38 AM [facility] Carbon Dioxide 30 20 - 32 04/26/2019 [place] mmol/L 11:44 AM [facility] Anion Gap 4 3 - 14 04/26/2019 [place] mmol/L 11:44 AM [facility] Glucose 159 (H) 70 - 99 04/26/2019 [place] mg/dL 11:44 AM [facility] Urea Nitrogen 11 7 - 30 04/26/2019 [place] mg/dL 11:44 AM [facility] Creatinine 0.64 (L) 0.66 - 04/26/2019 [place] 1.25 mg/dL 11:44 AM [facility] GFR Estimate >90 >60 04/26/2019 [place] mL/min/{1. 11:44 AM [facility] 73_m2} HOSPITAL Comment: Non GFR Calc Starting 01/28/2018, serum creatinine ba sed estimated GFR (eGFR) will be calculated using the Chronic Kidney Dise [facility] Epidemiology Collaboration (CKD-EPI) equation. GFR Estimate If >90 >60 mL/min/{1.73_m2} 04/26/2019 11 :[address] [facility] Comment: GFR Calc Starting 01/28/2018, serum creatinine ba sed estimated GFR (eGFR) will be calculated using the Chronic Kidney Dise [facility] Epidemiology Collaboration (CKD-EPI) equation. Calcium 9.0 8.5 - 10.1 mg/dL 04/26/2019 11:44 AM [facility] Specimen Anatomical Collection Method Collection Time Receive d Time (Source) Location / / Volume Laterality Blood specimen 04/26/2019 11:17 0 (specimen) AM CDT 11:21 AM CDT Nick Mercado MD LAB - BLOOD ORDERABLES Performing Organization Address City/State/ZIP Code Phon e Number [place] [address] [phone] documented in this encounter Visit Diagnoses Diagnosis Acute right flank pain Abdominal pain, unspecified site Groin pain, right documented in this encounter Administered Medications Inactive Administered Medications - up to 3 most recent administrations Medication Order MAR Action Action Date Dose Rate Site HYDROmorphone (PF) (DILAUDID) Given 04/26/2019 11:23 AM CDT 0.5 mg injection 0.5 mg 0.5 mg, Intravenous, ONCE, On 04/26/19 at 1114, For 1 dose, For ordered IV doses 0.1-4 mg give IV Push undiluted. Administer each 2mg over 2-5 minutes. ketorolac (TORADOL) injection 15 mg Given 04/26/2019 11:22 AM CDT 15 mg 15 mg, Intravenous, ONCE, On 04/26/19 at 1114, For 1 dose, Can cause pain on injection. If ordered intravenously (IV) : administer through a running maintenance fluid over 1 minute followed by a flush. If patient complains of pain on injection, may dilute 15-30 mg in 5 mL and push over 1 to 2 minutes. oxyCODONE-acetaminophen (PERCOCET) 5-325 MG Given 04/11 1:19 PM CDT 1 tablet per tablet 1 tablet 1 tablet, Oral, ONCE, On 04/26/19 at 1314, For 1 dose, Maximum acetaminophen dose from all sources= 75 mg/kg/day not to exceed 4 grams documented in this encounter Active and Recently Administered Medications Times are shown in CDT. Scheduled Medication Order 04/24/2019 04/25/2019 04/26/2019 HYDROmorphone (PF) (DILAUDID) injection 0.5 mg (COMPLETED) 1123 (Given - Provider: Tracee Han RN) 0.5 mg, Intravenous, ONCE, 1 dose, Sun at 1114, For ordered IV doses 0.1-4 mg give IV Push undiluted. Administer each 2mg over 2-5 minutes. ketorolac (TORADOL) injection 15 mg (COMPLETED) 1122 (Given - Provider: Tracee Han RN) 15 mg, Intravenous, ONCE, 04/26/19 at 1114, For 1 dose, Can cause pain on injection. If ordered intravenously (IV) : administer through a running maintenance fluid over 1 minute followed by a flush. If patient complains of pain on injectio n, may dilute 15-30 mg in 5 mL and push over 1 to 2 minutes. oxyCODONE-acetaminophen (PERCOCET) 5-325 MG per tablet 1 tablet (COMPLETED) 1319 (Given - Provider: Tracee Han RN) 1 tablet, Oral, ONCE, 04/26/19 at 131 4, For 1 dose, Maximum acetaminophen dose from all sources= 75 mg/kg/day not to exceed 4 grams documented in this encounter Care Teams Vocational Instructor Relationship Specialty Start Date End Date No Ref-Primary, Physician PCP - General 04/26/19 07/19/19 documented as of this encounter
--- OUTSIDE RECORDS SUMMARY | 2021-12-07 08:34 | XMS_ITS | Encounter Summary ---
:1980 Author Organization [facility] Address [address] [place] [address]. [place] [address] Care Team Providers Name Role Phone Bertrand Field MD Primary Care Provider Reason for Visit Reason Comments Ankle Pain Encounter Details Date Type Department Care Team Description 02/13/2013 [facility] León Ramirez Ankle fr acture, right, [facility] Emergency Dep vladimir Johnson MD closed, initial [address] [facility] EMERGENCY PHYSICIANS encounter (Primary Dx) [facility] [id number] [address] [facility] [phone] [place], [place] [address] (Wo rk) Social History Tobacco Use Types [...] on file documented as of this encounter Last Filed Vital Signs Vital Sign Reading Time Taken Comments Blood Pressure 113/72 02/13/2013 10:25 AM RN BURN Pulse 76 02/13/2013 9:07 AM RN BURN Temperature 36.7 ??C (98.1 ??F) 02/13/2013 9:08 AM RN BURN Respiratory Rate 18 02/13/2013 10:25 AM RN BURN Oxygen Saturation 99% 02/13/2013 10:25 AM RN BURN Inhaled Oxygen Concentration - - Weight - - Height - - Body Mass Index - - documented in this encounter Discharge Instructions Discharge InstructionsLeón Ramirez MD - 02/13/2013 10:15 AM RN BURN Discharge Instructions Splint Care You had a splint put on today to help protect your injury and help it heal. Splints are used to treat things like strains, sprains, cuts and fractures (broken bones). Be sure your splint is not too tight! If you splint is too tight, it may cause loss of blood supply.Signs of your splint being too tight include: your arm or leg hurting a lot more; your fingers or toes getting numb, cold, pale or blue; or your child is crying, fussing or seeming restless. Return to the Emergency Department right away if: You have increased pain or pressure around the injury. You have numbness, tingling, or cool, pale, or blue toes or fingers past the injury. Your child is more fussy than normal, crying a lot, or restless. Your splint becomes soft, breaks, or is wet. Your splint begins to smell bad. Your splint is cutting into your skin. Home Care: Keep the injured area above the level of your heart while laying or sitting down. This will help decrease the swelling and the pain. Keep the splint dry. Do not put objects down or inside the splint. If there is an elastic bandage (Mohan wrap) holding the splint on this may be loosened slightly to relieve pressure or pain. If pain continues return to the Emergency Department right away. Do not remove your splint by yourself unless told to by your doctor. Follow-up: Sometimes the splint put on in the Emergency Department needs to be changed once the swelling has gone down and a more permanent cast needs to be placed. This is usually done by a bone specialist doctor (Orthopedist). Follow the instructions given to you by your doctor today. X-rays: X-rays done today were read by your doctor but will also be read by a radiologist. We will contact you if the radiologist sees anything different on the x-ray. Your regular doctor may also wantto review your x-rays on follow-up. You could have a fracture (break), even if we told you your x-rays were normal. X-rays are not always certain, and some fractures are hard to see and may not show up right away. Also, your x-ray may look like you have a fracture, even though you do not. It is important to follow-up with your regular doctor. Remember that you can always come back to the Emergency Department if you are not able to see your regular doctor in the amount of time listed above, if you get any new symptoms, or if there is anything that worries you. You were given a medication that may make you drowsy or impaired. You must not drive, operate dangerous equipment, or do any other dangerous activity for at least 4 hours after you leave the emergency department, or longer if the doctor tells you a different time. If you drive under the influence of this medication, it could be illegal. Do not drink any alcohol for at least 8 hours after you leave here. BURN documented in this encounter Medications at Time of Discharge Medication Sig Dispensed Refills Start Date End Date ondansetron (ZOFRAN ODT) 4 Take 1 tablet (4 10 tablet 0 04/201302/16/2013 MG disintegrating tablet mg) by mouth every 8 hours as needed for nausea AMLODIPINE BESYLATE PO Take 10 mg by 0 07/20/2019 mouth daily. celecoxib (CELEBREX) 200 MG Take 1 capsule by 14 capsule 1 0 06/17/2012 07/20/2019 capsuleIndications: S/P mouth 2 times tonsillectomy daily as needed for pain. HYDROCHLOROTHIAZIDE PO Take 25 mg by 0 07/20/2019 mouth daily. ibuprofen (ADVIL,MOTRIN) Take 1 tablet 30 tablet 1 02/13/19 14 08/07/2019 600 MG tablet (600 mg) by mouth every 6 hours as needed for pain LISINOPRIL PO Take 20 mg by 0 07/20/19 20 mouth daily. oxyCODONE-acetaminophen Take 1 tablet by 20 tablet 0 201304/21/2017 (PERCOCET) 5-325 MG per mouth every 6 tablet hours as needed for pain oxyCODONE-acetaminophen Take 5-10 mLs by 500 mL 0 201204/21/2017 (ROXICET) 5-325 MG/5ML mouth every 4 solutionIndications: S/P hours as needed tonsillectomy for pain. Hold if sedated. Observe for any airway or breathing problems. documented as of this encounter ED Notes León Ramirez MD - 02/13/2013 9:11 AM CST Images from the original note were not included. History Chief Complaint: Ankle Pain HPI Brock Gotti is a 32 year old male with a history of hypertension who presents with ankle pain aftera fall. The patient reports that 30 minutes ago he was at work when he had a witnessed, mechanical fall off a one foot high loading dock, landing on his right ankle. The patient continues that he developed immediate right ankle pain and swelling, stating I have never felt like this before, and I havetwisted my ankle many times, prompting him to visit the ED. Here, the patient states that his rightankle is numb - I cannot feel anything [in his ankle, but denies focal weakness or tingling. He denies bony deformity or ecchymosis. He denies head injury or LOC during his fall, but notes additional left thumb pain, also without deformity. Allergies: NKDA Medications: Lisinopril Amlodipine besylate HCTZ Roxicet Celebrex Past Medical History: Hypertension Tear of medial cartilage or meniscus of knee Past Surgical History: Left knee arthroscopy Pilonidal cystoscopy [place] teeth extraction Bilateral myringotomy Endoscopic nasal polypectomy T&A Family History: The patient denies any relevant family history. Social History: The patient is single and presents with his roommate. The patient is a current everyday smoker, 0.5ppd for 10 years, and reports alcohol use of 20 drinks weekly. Review of Systems Musculoskeletal: Right ankle pain after fall. Edema. No deformity. Left thumb pain - no deformity. Skin: No ecchymosis. Neurological: Positive for numbness (right ankle). No focal weakness or tingling. No head injury or LOC. All other systems reviewed and are negative. Physical Exam First Vitals: BP: 114/72 mmHg Pulse: 76 Temp: 98.1 ??F (36.7 ??C) Resp: 16 SpO2: 99 % Physical Exam Nursing note and vitals reviewed. Constitutional: He is oriented to person, place, and time. He appears well-developed. HENT: Head: Normocephalic and atraumatic. Right Ear: External ear normal. Mouth/Throat: Oropharynx is clear and moist. Eyes: Conjunctivae normal and EOM are normal. Pupils are equal, round, and reactive to light. Neck: Normal range of motion. Neck supple. No JVD present. Cardiovascular: Normal rate, regular rhythm and normal heart sounds. Pulmonary/Chest: Effort normal and breath sounds normal. Abdominal: Soft. Bowel sounds are normal. He exhibits no distension. There is no tenderness. There is no rebound. Musculoskeletal: Normal range of motion. Right knee: Normal. Right ankle: He exhibits swelling and ecchymosis. He exhibits no deformity, no laceration and normal pulse. tenderness. Lateral malleolus tenderness found. Achilles tendon normal. Left hand: He exhibits tenderness. Hands: Lymphadenopathy: He has no cervical adenopathy. Neurological: He is alert and oriented to person, place, and time. He displays normal reflexes. No cranial nerve deficit. He exhibits normal muscle tone. Coordination normal. Skin: Skin is warm and dry. Psychiatric: He has a normal mood and affect. His behavior is normal. Judgment normal. Emergency Department Course Imaging: Radiographic findings were communicated with the patient who voiced understanding of the findings. Right ankle XR, G/E, 3 views: 3 views of the ankle. Soft tissue swelling over the lateral malleolus.Very tiny density inferior to the distal fibula could represent a tiny avulsion fracture approximately 1 x 3 mm. Ankle mortise appears intact. Prominent inferior calcaneal spur. Degenerative changes over the dorsal midfoot. Report per radiology. Left fingers XR, 2-3 views: 3 views of the thumb. Negative. Report per radiology. Procedure: Right ankle splint placement A/O splint was applied and after placement I checked and adjusted the fit to ensure proper positioning. Patient was more comfortable with splint in place. Sensation and circulation are intact after splint placement. ED Interventions: Zofran-ODT 4mg disintegrating tablet PO Advil 600mg tablet PO [place] 5-325mg tablet PO Emergency Department Course: Nursing notes and vitals reviewed. I performed an exam of the patient as documented above. 9:32 AM Right ankle x-rays obtained. Left fingers x-rays obtained. Results as above. Findings discussed with the patient. 9:58 AM Recheck. The patient notes that his numbness is positional in nature, stating that it is exacerbated by rotating his ankle to the right. 10:14 AM I placed a splint on the patient's right ankle. See note above. Findings and plan explained to the Patient. Patient discharged home, status improved, with instructions regarding supportive care, medications, and reasons to return as well as the importance of close follow-up was reviewed. Impression & Plan Medical Decision Making: Brock Gotti is a 32 year old male who presents following a mechanical fall at work. Examination shows minimal tenderness of the left thumb and moderate tenderness and swelling of the lateral malleolus. X-rays confirm a distal avulsion fracture of the right fibula. X-rays of the thumb are negative. Patient was provided an A/O splint and follow up with orthopedics. Pain medication was provided. Diagnosis: 1. Acute right distal fibula fracture 2. Status post mechanical fall at work Radha Coyne am serving as a scribe at 9:11 AM on 02/13/2013 to document services personally performed by León Ramirez MD, based on my observations and the provider's statements to me. León Ramirez MD 02/15/13 0460 BURN Ratna aGmino RN - 02/13/2013 9:06 AM CST Patient presents to the ED following a fall off a loading dock. Estimates fall of 6, landed on right ankle. BURN documented in this encounter Plan of Treatment Not on filedocumented as of this encounter Procedures Procedure Name Priority Date/Time Associated Diagnosis Comme nts XR ANKLE RIGHT G/E STAT 02/13/2013 9:32 AM Res ults for this 3 VIEWS RN BURN procedure are i n the results section. XR FINGER LEFT G/E STAT 02/13/2013 9:32 AM Res ults for this 2 VIEWS RN BURN procedure are i n the results section. documented in this encounter Results Ankle XR, G/E 3 views, right (02/13/2013 9:32 AM RN BURN) Anatomical Region Laterality Modality Left Ankle Right Computed Radiography Specimen (Source) Anatomical Location Collection Method / Collectio n Time Received Time / Laterality Volume Impressions 02/13/2013 9:56 AM RN BURN IMPRESSION: ??3 views of the ankle. Soft tissue swelling over the lateral malleolus. Very tiny density inf erior to the distal fibula could represent a tiny avulsion fracture approximately 1 x 3 mm. Ankle mortise appears intact. Prominent inferi or calcaneal spur. Degenerative changes over the dorsal mid foot. CRISSY SMITH MD Narrative 02/13/2013 9:56 AM RN BURN XR ANKLE RT G/E 3 VW ??02/13/2013 9:32 AM HISTORY: ??Trauma. COMPARISON: ??None. Procedure Note Crissy Smith MD - 4 XR ANKLE RT G/E 3 VW 02/13/2013 9:32 AM HISTORY: Trauma. COMPARISON: None. IMPRESSION IMPRESSION: 3 views of the ankle. Soft t issue swelling over the lateral malleolus. Very tiny density inf erior to the distal fibula could represent a tiny avulsion fracture approximately 1 x 3 mm. Ankle mortise appears intact. Prominent inferi or calcaneal spur. Degenerative changes over the dorsal mid foot. CRISSY SMITH MD León Ramirez MD IMG DIAGNOSTIC IMAGING ORDER HALLIE Fingers XR, 2-3 views, left (02/13/2013 9:32 AM RN BURN) Anatomical Region Laterality Modality Left Hand Left Computed Radiography Specimen (Source) Anatomical Location Collection Method / Collectio n Time Received Time / Laterality Volume Impressions 02/13/2013 9:54 AM RN BURN IMPRESSION: ??3 views of the thumb. Negative. CRISSY SMITH MD Narrative 02/13/2013 9:54 AM RN BURN XR FINGER LT G/E 2 VW ??02/13/2013 9:32 AM HISTORY: ??Pain. COMPARISON: ??None. Procedure Note Crissy Smith MD - 4 XR FINGER LT G/E 2 VW 02/13/2013 9:32 AM HISTORY: Pain. COMPARISON: None. IMPRESSION IMPRESSION: 3 views of the thumb. Negati ve. CRISSY SMITH MD León Ramirez MD IMG DIAGNOSTIC IMAGING ORDER HALLIE documented in this encounter Visit Diagnoses Diagnosis Ankle fracture, right, closed, initial e ncounter - Primary documented in this encounter Administered Medications Inactive Administered Medications - up to 3 most recent administrations Medication Order MAR Action Action Date Dose Rate Site HYDROcodone-acetaminophen Given 02/13/2013 9:23 AM RN BURN 1 tablet (NORCO) 5-325 MG per tablet 1 tablet 1 tablet, Oral, ONCE, On Sat02/13/13 at 0915, For 1 dose, Maximum acetaminophen dose from all sources= 75 mg/kg/day not to exceed 4 grams ibuprofen (ADVIL,MOTRIN) tablet 600 mg Given 02/13/2013 9:23 AM RN BURN 600 mg 600 mg, Oral, ONCE, On Sat02/13/13 at 0915, For 1 dose ondansetron (ZOFRAN-ODT) disintegrating tablet Given 0 02/13/2013 9:23 AM RN BURN 4 mg 4 mg 4 mg, Oral, ONCE, On Sat02/13/13 at 0915, For 1 dose, With dry hands, peel back foil backing and gently remove tablet; do not push oral disintegrating tablet through foil backing; administer immediately on tongue and oral disintegrating tablet dissolves in seconds; then swallow with saliva; liquid not required. documented in this encounter Active and Recently Administered Medications Times are shown in RN BURN. Scheduled Medication Order 02/11/2013 02/12/2013 02/13/2013 HYDROcodone-acetaminophen (NORCO) 5-325 MG per tablet 1 tablet ( COMPLETED) 922 (Given - Provider: Ratna Gamino RN) 1 tablet, Oral, ONCE, Sat02/13/13 at 0915 , For 1 dose, Maximum acetaminophen dose from all sources= 75 mg/kg/day not to exceed 4 grams ibuprofen (ADVIL,MOTRIN) tablet 600 mg (COMPLETED) 922 (Given - Provider: Ratna Gamino RN) 600 mg, Oral, ONCE, Sat02/13/13 at 0915, For 1 dose ondansetron (ZOFRAN-ODT) disintegrating tablet 4 mg (COMPLETED) 0923 (Given - Provider: Ratna Gamino RN) 4 mg, Oral, ONCE, 02/13/13 at 0915, Fo r 1 dose, With dry hands, peel back foil backing and gently remove tablet; do not push oral disintegrating tablet through foil backing; administer immediately on tongue and oral disintegrating tablet di ssolves in seconds; then swallow with saliva; liquid not required. documented in this encounter Care Teams Clinical Data Analyst Relationship Specialty Start Date End Date Bertrand Field MD PCP - General Family Practice 06/09/12 04/25/19 [facility] [address] [place] [phone] documented as of this encounter
--- OUTSIDE RECORDS SUMMARY | 2021-12-07 08:34 | XMS_ITS | Encounter Summary ---
:1980 Author Organization [facility] Address [facility] [place] [address] Care Team Providers Name Role Phone Bertrand Field MD Primary Care Provider Reason for Visit Auth/Cert - Closed Specialty Diagnoses / Procedures Referred By Contact Refer red To Contact Surgery Diagnoses Tosil and Adenoid Hypertrophy, Chronic Otitis Media Rh Periop Services Procedures COMBINED MYRINGOTOMY, INSERT TUBE(S), ADENOIDECTOMY TONSILLECTOMY [address], [place] [address] Phone: Fax: Referral ID Status Reason Start Date Expiration Date Visits Requ ested Visits Authorized [id number] Closed 1 1 Encounter Details Date Type Department Care Team Description 06/17/2012 Anesthesia Event [facility] Shelton Lomax PeriOp Services MD eGovani [address] [place] [address] ANESTHESIA [id number] [facility] [address] [place], [place] [address] (Wo rk) Anesthesia Record Procedure Summary Procedure Name Responsible Anesthesia Start Anesthesia Stop Anesthesiologist Time Time Bilateral MYRINGOTOMY Shelton Lomax MD 06/17/12 0927 0 06/17/12 1115 with Aspiration, Coagulation of Adenoids, Tonsillectomy, Nasal Endoscopy and Nasal Pharyngoscopy (Bilateral: Ear) Events Date Time Event Comment 06/17/2012 09 An Phoebe 0927 MD Present 0930 An Start Data 0934 An Induction 0934 Quick Note Pre oxygenation. Airway controlled. Easy mask. 0935 MD Present 0938 An Intubation 0941 MD Present 1011 MD Present 1038 MD Present 1109 MD Present 1115 1115 an stop data 1115 An Stop Electronically s igned by Jian Carl on June 17, 2012 11:15 AM Name Total midazolam 1 mg/mL 2 mg fentaNYL 50 mcg/mL 250 mcg lidocaine 1% 50 mg propofol 10 mg/mL 200 mg rocuronium 10 mg/mL 45 mg succinylcholine 20 mg/mL 10 mg glycopyrrolate 0.2 mg/mL 1.1 mg neostigmine 1mg/mL 5 mg dexamethasone 4 mg/mL 10 mg ondansetron 2 mg/mL 4 mg ePHEDrine 50 mg/mL 10 mg phenylephrine 10 mg/mL 1,300 mcg ceFAZolin (ANCEF) IVPB 2 g 2 g LR 1,700 mL Agents Name O2 N2O Exp Sevoflurane Blood No blood administrations on file. Lines, Drains, and Airways Type Details Placement Removal Peripheral IV 06/17/12; 0821; 20 G; 06/17/12 0821 by 06/17/12 1400 by Left; Hand Shelton Lomax Melander, Jean M, MD RN RETIRED ETT 06/17/12; 0938; Airway 06/17/12 0938 by 06/17/12 1110 by Size: 8; Cuffed; Oral Jian Carl Kortan, Rory endotracheal tube, AJITH; ARCHIVAL STUDIES PROFESSOR Geovani Baker ARTIFICIAL SNOW MAKING MACHINE OPERATOR Blade Type: Reid; Blade Size: 2; Insertion Attempts: 1; Secured at (cm)to lip: 22 cm; Breath Sounds: Equal, clear and bilateral; End Tidal CO2: Present; Dentition: Intact; Grade View of Cords: 1 Incision/Surgical Site 06/17/12; 1006; 06/17/12 1006 by 08/25/19 0026 by Bilateral; Ear; Ananya Krishnamurthy RN Otterstedt, Erica, 08/25/19; 0026 REAL Incision/Surgical Site 06/17/12; 1054; Throat; 06/17/12 1054 by 08/25/19 0026 by 08/25/19; 0026 Ananya Krishnamurthy RN Otterstedt, Erica, RN Gastric Tube 18 fr; appearance of 06/17/12 1056 by 06/17/12 1 056 by fluid consistent with Jian Velásquez APRN CRNA Incision/Surgical Site 06/17/12; 1102; Nose; 06/17/12 1102 by 0026 by 08/25/19; 0026 Ananya Krishnamurthy RN Otterstedt, Erica, REAL documented in this encounter Social History Tobacco Use Types Packs/Day Years [...] on file documented as of this encounter OR Notes Anesthesia Postprocedure Evaluation - Shelton Lomax MD - 06/17/2012 5:11 PM CDT Anesthesia Post-Evaluation Note Patient: Brock Gotti Patient location: PACU Procedure(s) Performed: Procedure(s) with comments: COMBINED MYRINGOTOMY, INSERT TUBE BILATERAL - Bilateral MYRINGOTOMY with Aspiration, Coagulation of Adenoids, Tonsillectomy, Nasal Endoscopy and Nasal Pharyngoscopy COMBINED TONSILLECTOMY, ADENOIDECTOMY Anesthesia type: General Patient Condition Respiratory Function (RR / SpO2 / Airway Patency): Satisfactory Cardiac Function (HR / Rhythm / BP): Satisfactory Mental Status: Satisfactory Temperature: Satisfactory Pain Control: Satisfactory PONV: None Beta-Ngozi Therapy: None indicated Hydration Status: Satisfactory Last Vitals: Filed Vitals: 06/17/12 1219 06/17/12 1235 06/17/12 1315 BP: 116/62 109/53 114/62 Temp: Resp: 12 14 12 SpO2: 95% 96% Additional Comments: Anesthesia Preprocedure Evaluation - Shelton Lomax MD - 06/17/2012 8:24 AM CDT Anesthesia Evaluation . ROS/MED HX Pulmonary: (+) tobacco use Current use. Neurologic: Cardiovascular: (+) hypertension . . METS/Exercise Tolerance: Hematologic: Musculoskeletal: GI/Hepatic: (+) Other GI/Hepatic obesity Renal: Endo: Psychiatric: Infectious Disease: Other: Physical Exam Normal systems: cardiovascular and pulmonary Airway Mallampati: II TM distance: >3 FB Neck ROM: full Dental Cardiovascular Pulmonary Anesthesia Plan ASA Score 2 . Plan for ETT and General with Intravenous and Propofol induction. Maintenance will beBalanced. Routine analgesia and antiemetics to be used for post-operative care. Anesthetic plan, risks, benefits and alternatives discussed with: patient or patient admitting representative. History & Physical Review History and physical reviewed; no interval change. . documented in this encounter Miscellaneous Notes Anesthesia Care Transfer Note - Jian Carl APRN CRNA - 06/17/2012 11:15 AM CDT Anesthesia Care Transfer Note Patient: Brock Gotti Transferred to: PACU Patient vital signs: stable Airway: none Spont resps, patient awake, follows commands, extubated awake. Airway clear. documented in this encounter Plan of Treatment Not on filedocumented as of this encounter Visit Diagnoses Not on filedocumented in this encounter Administered Medications Inactive Administered Medications - up to 3 most recent administrations Medication Order MAR Action Action Date Dose Rate Site ceFAZolin (ANCEF) IVPB 2 g Given 06/17/2012 9:27 AM CDT 2 g Routine, 2 g, Intravenous, PRE-OP/PRE-PROCEDURE, Starting on Sat06/17/12 at 0748, For 1 dose, Give first dose within 1 hour PRIOR to incision., Indications: Perioperative Pharmacoprophylaxis, Pre-procedure dexamethasone (DECADRON) injection Given 06/17/2012 10:00 AM CDT 2 mg PRN, Administer over 1-4 Minutes, Starting on Sat06/17/12 at 0931, Anesthesia Intra-op Given 06/17/2012 9:31 AM CDT 8 mg ePHEDrine injection Given 06/17/2012 10:07 AM CDT 10 mg PRN, Starting on Sat06/17/12 at 1007, Anesthesia Intra-op fentaNYL (SUBLIMAZE) injection Given 06/17/2012 11:15 AM CDT 50 mcg PRN, moderate to severe pain, Starting on Sat06/17/12 at 0931, Anesthesia Intra-op Given 06/17/2012 11:01 AM CDT 50 mcg Given 06/17/2012 9:31 AM CDT 150 mcg glycopyrrolate (ROBINUL) injection Given 06/17/2012 11:08 AM CDT 0.8 mg PRN, Starting on Sat06/17/12 at 0931, Anesthesia Intra-op Given 06/17/2012 9:31 AM CDT 0.3 mg lactated ringers infusion New Bag 06/17/2012 9:48 AM CDT mL Intravenous, CONTINUOUS PRN, Anesthesia Intra-op, Starting on Sat06/17/12 at 0927, Until Sat06/17/12 at 1115 New Bag 06/17/2012 9:27 AM CDT mL lidocaine 1 % injection Given 06/17/2012 9:31 AM CDT 50 mg PRN, Starting on Sat06/17/12 at 0931, Anesthesia Intra-op midazolam (VERSED) injection Given 06/17/2012 9:27 AM CDT 2 mg PRN, anxiety, Starting on Sat06/17/12 at 0927, Anesthesia Intra-op neostigmine (PROSTIGMINE) injection Given 06/17/2012 11:08 AM CDT 5 mg Intravenous, PRN, Starting on Sat06/17/12 at 1108, Anesthesia Intra-op ondansetron (ZOFRAN) injection Given 06/17/2012 10:20 AM CDT 4 mg PRN, nausea, vomiting, Administer over 2-5 Minutes, Starting on Sat06/17/12 at 1020, Anesthesia Intra-op phenylephrine (PRASANNA-SYNEPHRINE) injection Given 06/17/2012 10:07 AM CDT 200 mcg PRN, Starting on Sat06/17/12 at 0945, Anesthesia Intra-op Given 06/17/2012 10:03 AM CDT 200 mcg Given 06/17/2012 9:59 AM CDT 200 mcg propofol (DIPRIVAN) injection Given 06/17/2012 9:31 AM CDT 200 mg PRN, Starting on Sat06/17/12 at 0931, Anesthesia Intra-op rocuronium (ZEMURON) injection Given 06/17/2012 9:31 AM CDT 45 mg PRN, Starting on Sat06/17/12 at 0931, Anesthesia Intra-op succinylcholine (ANECTINE) injection Given 06/17/2012 9:59 AM CDT 10 mg PRN, Starting on Sat06/17/12 at 0959, Anesthesia Intra-op documented in this encounter Care Teams City Letter Carrier Relationship Specialty Start Date End Date Bertrand Field MD PCP - General Family Practice 06/09/12 04/25/19 [facility] [address] [place] [phone] documented as of this encounter
--- OUTSIDE RECORDS SUMMARY | 2021-12-07 08:34 | XMS_ITS | Encounter Summary ---
:1980 Author Organization [facility] Address [address] [place] [address]. [place] [address] Care Team Providers Name Role Phone Med Hawley MD Primary Care Provider Encounter Details Date Type Department Care Team Description 12/08/2007 Therapy Visit [place] for [place]io, Tear of Media l Cartilage or Meniscus of Knee, Current; Athletic Medicine - MARY ANNE Winkler Other Postprocedural Status [address] Physical Therapy [facility] [address] [address] [place], [place] [address] [place], [place] [phone] (Work) [phone] Social History Tobacco Use Types Packs/Day Years Used Date Smoking Tobacco: Never Assessed Alcohol Habits Answer Date Recorded How often [...] on file documented as of this encounter Progress Notes Peterson Mercado - 12/27/2007 10:38 AM CST D/C per IE status as pt failed to schedule/show for additional appts. CLE OPERATOR Peterson Mercado - 12/08/2007 12:51 PM CDT Please refer to the daily flowsheet for treatment today and total treatment time. Does this patient have Medicare or Medicaid as primary or secondary insurance? NO documented in this encounter Plan of Treatment Not on filedocumented as of this encounter Procedures Procedure Name Priority Date/Time Associated Diagnosis Comme nts [facility] THERAPEUTIC Routine 12/08/2007 12:52 PM Tear of Medial Car tilage ACTIVITIES CDT or Meniscus of Knee, Current Other Postprocedural Status [facility] THERAPEUTIC Routine 12/08/2007 12:52 PM Tear of Medial Car tilage EXERCISES CDT or Meniscus of Knee, Current Other Postprocedural Status documented in this encounter Visit Diagnoses Diagnosis Tear of medial cartilage or meniscus of knee, current Other postprocedural status(V45.89) Other postprocedural status documented in this encounter Care Teams Electric Frying Pan Repairer Relationship Specialty Start Date End Date Med Hawley MD PCP - General 11/22/04 06/08/12 [address] [place] [address] documented as of this encounter
--- OUTSIDE RECORDS SUMMARY | 2021-12-07 08:34 | XMS_ITS | Encounter Summary ---
:1980 Author Organization [place] Address [address] [place] [address]. [place] [address] Care Team Providers Name Role Phone No Ref-Primary, Physician Primary Care Provider [phone] Encounter Details Date Type Department Care Team Description 04/26/2019 Travel Social History Tobacco Use Types Packs/Day [...] on filedocumented in this encounter Care Teams Social Media Strategist Relationship Specialty Start Date End Date No Ref-Primary, Physician PCP - General 04/26/19 07/19/19 documented as of this encounter
--- OUTSIDE RECORDS SUMMARY | 2021-12-07 08:34 | XMS_ITS | Encounter Summary ---
:1980 Author Organization [place] Address [address] [place] [address]. [place] [address] Care Team Providers Name Role Phone Bertrand Field MD Primary Care Provider Reason for Visit Reason Comments Abdominal Pain Encounter Details Date Type Department Care Team Description 10/13/2015 Emergency [facility] Eliza Cruz Pros tatocystitis [facility] Emergency Dep vladimir Wynn MD [address] [facility] [place], [place] [address] [place] [id number] [facility] [phone] [place] [address] (Wo rk) Social History Tobacco [...] Sign Reading Time Taken Comments Blood Pressure 156/81 10/13/2015 4:15 AM CDT Pulse 80 10/13/2015 4:15 AM CDT Temperature 36.5 ??C (97.7 ??F) 10/13/2015 1:52 AM CDT Respiratory Rate 18 10/13/2015 4:15 AM CDT Oxygen Saturation 98% 10/13/2015 4:15 AM CDT Inhaled Oxygen Concentration - - Weight 153.8 kg (339 lb) 10/13/2015 1:52 AM CDT Height 175.3 cm (5' 9) 10/13/2015 1:52 AM CDT Body Mass Index 50.06 10/13/2015 1:52 AM CDT documented in this encounter Discharge Instructions AttachmentsThe following attachments cannot be sent through Care Everywhere. PROSTATE ANATOMY (VIETNAMESE)URINARY SYMPTOMS, PROSTATE PROBLEMS AND RELATED (VIETNAMESE)documented in this encounter Medications at Time of Discharge Medication Sig Dispensed Refills Start Date End Date doxycycline (VIBRAMYCIN) Take 1 capsule 28 capsule 0 016 10/27/2015 100 MG capsule (100 mg) by mouth 2 times daily for 14 days phenazopyridine (PYRIDIUM) Take 1 tablet 9 tablet 0 201510/16/2015 100 MG tablet (100 mg) by mouth 3 times daily for 3 days AMLODIPINE BESYLATE PO Take 10 mg by [...] documented as of this encounter ED Notes Kieran Reese - 10/13/2015 2:05 AM CDT Applied monitoring equipment onto Patient (Pulse ox and BP). chaperoned MD with testicular exam. KETT Eliza Cruz MD - 10/13/2015 1:56 AM CDT History Chief Complaint: Abdominal Pain HPI Brock Gotti is a 35 year old male with a history of HTN who presents to the emergency department today for evaluation of lower abdominal pain and scrotal pain. The patient states that he was at work yesterday and was having urinary frequency and urgency and dysuria. When he did urinate, he would let out some urine, but not a lot would really come out. He also began having lower abdominal pain that radiates into his bilateral rotum. He went to lay down and was unable to sleep due to the pain. He describes his pain as a dull ache and unbearable at moments. The pain resolves temporarily after usingthe bathroom, but comes back shortly afterwards. He denies gross hematuria. The patient denies fevers, chills, nausea, vomiting, or diarrhea. He denies any recent testicular discharge or sores. Allergies: NKDA Medications: Celebrex Linisopril Amlodipine Hydrochlorothiazide Percocet Past Medical History: HTN Past Surgical History: Arthroscopy knee Cystectomy pilonidal Myringotomy Polypectomy, nasal Family History: History reviewed. No pertinent family history. Social History: Marital Status: Single [1] Tobacco: Current Everyday Smoker Alcohol: Negative Review of Systems Constitutional: Negative for fever and chills. Gastrointestinal: Negative for nausea, vomiting and diarrhea. Genitourinary: Positive for urgency, frequency and testicular pain. Negative for hematuria and discharge. All other systems reviewed and are negative. Physical Exam First Vitals: BP: (!) 171/109 mmHg Pulse: 83 Temp: 97.7 ??F (36.5 ??C) Resp: 20 Height: 175.3 cm (5' 9) Weight: (!) 153.769 kg (339 lb) SpO2: 98 % Physical Exam General/Appearance: appears stated age, well-groomed, appears comfortable Eyes: EOMI, no scleral injection, no icterus ENT: MMM Neck: supple, nl ROM, no stiffness Cardiovascular: RRR, nl S1S2, no m/r/g, 2+ pulses in all 4 extremities, cap refill <2sec Respiratory: CTAB, good air movement throughout, no wheezes/rhonchi/rales, no increased WOB, no retractions Back: no lesions GI: abd soft, non-distended, Mild suprapubic tenderness to palpation, no HSM, no rebound, no guarding, nl BS : nl bilateral testicular lie, no testicular swelling/lesions/ttp/masses. No penile lesions or purulent drainage. MSK: YUNG, good tone, no bony abnormality Skin: warm and well-perfused, no rash, no edema, no ecchymosis, nl turgor Neuro: GCS 15, alert and oriented, no gross focal neuro deficits Psych: interacts appropriately Heme: no petechia, no purpura, no active bleeding Emergency Department Course Imaging: US Testicular and Scrotum: IMPRESSION: Normal scrotal ultrasound. Preliminary reading per radiology. Laboratory: UA: yellow, clear. WBC/HPF 1 RBC/HPF 38 (H), Urine Blood: Moderate (A), Protein Albumin Urine: 10 (A), Mucous Urine: Present (A). Chlamydia PCR: Pending Gonorrhea PCR: Pending Interventions: 0400 250 mg Rocephin IM 0400 100 mg Doxycycline PO 0400 200 mg Pyridium PO Emergency Department Course: Nursing notes and vitals reviewed. I performed an exam of the patient as documented above. The patient was taken for ultrasound, see imaging results above. Urine collected. This was sent to the lab for further testing, results above. The patient received the intervention(s) above. 0324 Recheck on patient and update on results Findings and plan explained to the Patient. Patient discharged home with instructions regarding supportive care, medications, and reasons to return. The importance of close follow-up was reviewed. Impression & Plan Medical Decision Making: Brock Gotti is a 35 year old male who presents with one day of urinary frequency and urge as well as a sense of urge or defecation. He is also having suprapubic discomfort and tenderness to palpation.He has some testicular discomfort however, not reproduced by palpation. Testicular and scrotal ultras ound are negative. Exam is not consistent with orchitis or epididymitis. His urinalysis is positive for significant blood, likely consistent with prostatitis. He is being treated with Subtriaxone IM and Doxycycline for fourteen days. He feels comfortable with this plan. WE will also try Pyridium for his urinary symptoms, although we discussed this may not be as affective if his inflammation is comingfrom a prostate source rather than a bladder source. Diagnosis: ICD-10-CM 1. Prostatocystitis N41.3 Disposition: discharged to home Discharge Medications: New Prescriptions DOXYCYCLINE (VIBRAMYCIN) 100 MG CAPSULE Take 1 capsule (100 mg) by mouth 2 times daily for 14 days PHENAZOPYRIDINE (PYRIDIUM) 100 MG TABLET Take 1 tablet (100 mg) by mouth 3 times daily for 3 days Scribe Disclosure: ILauren, am serving as a scribe at 2:02 AM on 10/13/2015 to document services personally performed by Eliza Cruz*, based on my observations and the provider's statements to me. Lauren Pena 10/13/2015 [facility] EMERGENCY DEPARTMENT Eliza Cruz MD 10/13/15 0512 Lisa Green RN - 10/13/2015 1:54 AM CDT Pt to ER with c/o low abd pain, increased urination, constipation, denies any nausea or vomiting documented in this encounter Plan of Treatment Not on filedocumented as of this encounter Procedures Procedure Name Priority Date/Time Associated Diagnosis Comme nts US TESTICULAR AND STAT 10/13/2015 3:13 AM Resu lts for this SCROTUM CDT procedure are i n the results section. ROUTINE UA WITH STAT 10/13/2015 2:12 AM Result s for this MICROSCOPIC CDT procedure are i n the results section. NEISSERIA STAT 10/13/2015 2:10 AM Prostatocystitis Resul ts for this GONORRHOEAE PCR CDT procedure ar e in the results section. CHLAMYDIA STAT 10/13/2015 2:10 AM Prostatocystitis Resul ts for this TRACHOMATIS PCR CDT procedure ar e in the results section. documented in this encounter Results US Testicular and Scrotum (10/13/2015 3:13 AM CDT) Anatomical Region Laterality Modality Abdomen/Pelvis Ultrasound Specimen (Source) Anatomical Location Collection Method / Collectio n Time Received Time / Laterality Volume Impressions 10/13/2015 6:08 AM CDT IMPRESSION: Normal scrotal ultrasound. EDUARDO BROWN MD Narrative 10/13/2015 6:08 AM CDT US TESTICULAR AND SCROTUM ??10/13/2015 3:13 AM ?? HISTORY: Bilateral scrotal pain. COMPARISON: None. FINDINGS: The testicles are normal in si ze and texture bilaterally. No testicular mass. The right testicle shawn ures 4.9 x 2.6 x 3.0 cm. The left testicle measures 4.6 x 2.5 x 3.1 c m. Color Doppler and Doppler waveform analysis of the testicles shows normal and symmetric blood flow. No torsion. The epididymides are n ormal in appearance bilaterally. No hydrocele or varicocele on either side. Procedure Note Eduardo Brown MD - 10/13/2015Form atting of this note might be different from the original. US TESTICULAR AND SCROTUM 10/13/2015 3:13 AM HISTORY: Bilateral scrotal pain. COMPARISON: None. FINDINGS: The testicles are normal in si ze and texture bilaterally. No testicular mass. The right testicle shawn ures 4.9 x 2.6 x 3.0 cm. The left testicle measures 4.6 x 2.5 x 3.1 c m. Color Doppler and Doppler waveform analysis of the testicles shows normal and symmetric blood flow. No torsion. The epididymides are n ormal in appearance bilaterally. No hydrocele or varicocele on either side. IMPRESSION: Normal scrotal ultrasound. EDUARDO BROWN MD Eliza Cruz MD IMG US ORDERABLES (ABNORMAL) UA with Microscopic (10/13/2015 2:12 AM CDT) [facility] Method Time Signature Color Urine Yellow [facility] Appearance Urine Clear [facility] Glucose Urine Negative NEG mg/dL [facility] Bilirubin Urine Negative NEG [facility] Ketones Urine Negative NEG mg/dL [facility] Specific [place] 1.019 1.003 - [place] Urine 1.035 [facility] Blood Urine Moderate (A) NEG [facility] pH Urine 6.0 5.0 - 7.0 [place] pH [facility] Protein Albumin 10 (A) NEG mg/dL [facility] Urobilinogen 2.0 0.0 - 2.0 [place] mg/dL mg/dL [facility] Nitrite Urine Negative NEG [facility] Leukocyte Negative NEG [place] Esterase Urine [facility] Source [facility]stream [facility] WBC Urine 1 0 - 2 [facility] RBC Urine 38 (H) 0 - 2 [facility] Mucous Urine Present (A) NEG /LPF [facility] Specimen Anatomical Collection Method Collection Time Receive d Time (Source) Location / / Volume Laterality Urine specimen URINE SPECIMEN 10/13/2015 2:12 AM 10/12 2:18 (specimen) OBTAINED BY CLEAN CDT AM CDT CATCH PROCEDURE / Unknown Eliza Cruz MD LAB - URINE ORDERABLES Performing Organization Address City/[facility] [place] Phon e Number [place] [address] [phone] [place] [phone] Neisseria gonorrhoeae PCR (10/13/2015 2:10 AM CDT) Component Value Ref Test Analysis Performed At [facility] Range Method Time Signature Specimen Urine [facility] N Gonorrhea Negative NEG INFECTIOUS PCR Negative for N. gonorrhoeae rRNA by transcripti on mediated amplification. DISEASE A negative result by transc ription mediated amplification does not preclude the DIAGNOSTIC presence of N. gonorrhoeae infection because re sults are dependent on proper LABORATORY and adequate collection, absence of inhibitors, and suffici ent rRNA to be detected. Specimen Anatomical Collection Method Collection Time Receive d Time (Source) Location / / Volume Laterality Urine specimen 10/13/2015 2:10 AM 016 2:17 (specimen) CDT AM CDT Eliza Cruz MD LAB - MICRO GENERAL ORDER HALLIE Performing Organization Address City/State/ZIP Code Phon e Number INFECTIOUS DISEASES [address] [place] [address] DIAGNOSTIC LABORATORY, [facility] [address] [place], [place] [address] [address] [phone] INFECTIOUS DISEASE [address] [place], [place] [address] DIAGNOSTIC LABORATORY Chlamydia trachomatis PCR (10/13/2015 2:10 AM CDT) Component Value Ref Test Analysis Performed At [facility] [place] Method Time Signature Specimen Urine [facility] Chlamydia Negative NEG INFECTIOUS Trachomatis Negative for C. trachomatis rRNA by dynamic balancer set up worker mediated amplification. DISEASE PCR A negative result by transc ription mediated amplification does not preclude the DIAGNOSTIC presence of C. trachomatis infection because re sults are dependent on proper LABORATORY and adequate collection, absence of inhibitors, and suffici ent rRNA to be detected. Specimen Anatomical Collection Method Collection Time Receive d Time (Source) Location / / Volume Laterality Urine specimen 10/13/2015 2:10 AM 016 2:17 (specimen) CDT AM CDT Eliza Cruz MD LAB - MICRO GENERAL ORDER HALLIE Performing Organization Address City/State/ZIP Code Phon e Number INFECTIOUS DISEASES [address] [place] [address] DIAGNOSTIC LABORATORY, [facility] [address] [place], [place] [address] [facility] [phone] INFECTIOUS DISEASE [address] [place] [address], [facility] DIAGNOSTIC LABORATORY documented in this encounter Visit Diagnoses Diagnosis Prostatocystitis documented in this encounter Administered Medications Inactive Administered Medications - up to 3 most recent administrations Medication Order MAR Action Action Date Dose Rate Site cefTRIAXone (ROCEPHIN) injection Given 10/13/2015 4:00 AM CDT 25 0 mg 250 mg STAT, 250 mg, Intramuscular, ONCE, On Tiffanie 10/13/15 at 0326, For 1 dose, Indications: prostatitis doxycycline (VIBRA-TABS) tablet 100 mg Given 10/13/2015 4:00 AM CDT 100 mg STAT, 100 mg, Oral, ONCE, On Tiffanie 10/13/15 at 0326, For 1 dose, Indications: prostatisis phenazopyridine (PYRIDIUM) tablet 200 mg Given 10/13/2015 4:00 AM CDT 200 mg 200 mg, Oral, ONCE, On Tiffanie 10/13/15 at 0327, For 1 dose documented in this encounter Active and Recently Administered Medications Times are shown in CDT. Scheduled Medication Order 10/11/2015 10/12/2015 10/13/2015 cefTRIAXone (ROCEPHIN) injection 250 mg (COMPLETED) 0400 (Given - Provider: Ernestine Patel RN) 250 mg, Intramuscular, ONCE, Tiffanie 10/13/15 at 0326, For 1 dose, Indications: prostatitis doxycycline (VIBRA-TABS) tablet 100 mg (COMPLETED) 0400 (Given - Provider: Ernestine Patel RN) 100 mg, Oral, ONCE, Tiffanie 10/13/15 at 0326, For 1 dose, Indications: prostatisis phenazopyridine (PYRIDIUM) tablet 200 mg (COMPLETED) 0400 (Given - Provider: Ernestine Patel RN) 200 mg, Oral, ONCE, Tiffanie 10/13/15 at 0327, For 1 dose documented in this encounter Care Teams Bioinformatics Associate Relationship Specialty Start Date End Date Bertrand Field MD PCP - General Family Practice 06/09/12 04/25/19 [facility] [address] [place] [address] documented as of this encounter
--- OUTSIDE RECORDS SUMMARY | 2021-12-07 08:34 | XMS_ITS | Encounter Summary ---
:1980 Author Organization [facility] Address [address] [place] [address]. [place] [address] Care Team Providers Name Role Phone Bertrand Field MD Primary Care Provider Reason for Visit Reason Comments Ankle Pain Encounter Details Date Type Department Care Team Description 03/23/2013 Emergency [facility] Eliza Cruz e sprain, right, [facility] vladimir Wynn MD initial encounter [address] [facility] (Primary Dx) [place] [phone] [address] [phone] [address] [place] [address] (Wo rk) Social History Tobacco Use Types [...] Sign Reading Time Taken Comments Blood Pressure 119/66 03/23/2013 12:21 PM PATIENT ASSESSMENT COORDINATOR Pulse 83 03/23/2013 12:21 PM PATIENT ASSESSMENT COORDINATOR Temperature 36.6 ??C (97.9 ??F) 03/23/2013 10:41 AM PATIENT ASSESSMENT COORDINATOR Respiratory Rate 18 03/23/2013 12:21 PM PATIENT ASSESSMENT COORDINATOR Oxygen Saturation 100% 03/23/2013 12:21 PM PATIENT ASSESSMENT COORDINATOR Inhaled Oxygen Concentration - - Weight 140.6 kg (310 lb) 03/23/2013 12:21 PM PATIENT ASSESSMENT COORDINATOR Height 175.3 cm (5' 9.02) 03/23/2013 12:21 PM PATIENT ASSESSMENT COORDINATOR Body Mass Index 45.76 03/23/2013 12:21 PM PATIENT ASSESSMENT COORDINATOR documented in this encounter Discharge Instructions Discharge InstructionsEliza Cruz MD - 03/23/2013 12:23 PM PATIENT ASSESSMENT COORDINATOR Home Back SP RU CH *SPRAIN:ANKLE [w/ x-ray] A sprain is an injury to the ligaments or capsule that holds a joint together. There are no broken bones. Most sprains take from four to six weeks to heal. If the ligament is completely torn (severe sprain), it can take several months to recover. Mild to Moderate sprains may be treated with an elastic wrap or an in-shoe splint to provide supportand prevent re-injury. A mild sprain may not require any additional support. A severe sprain may require surgery to repair, but this is rare. HOME CARE: 1. Stay off the injured leg as much as possible until you can walk on it without pain. If you have alot of pain with walking, crutches or a walker may be prescribed. (These can be rented or purchased at many pharmacies and surgical or orthopedic supply stores). Follow your doctor's advice regarding when to begin bearing weight on that leg. 2. Keep your leg elevated to reduce pain and swelling. When sleeping, place a pillow under the injured leg. When sitting, support the injured leg so it is level with your waist. This is very important during the first 48 hours. 3. Apply an ice pack (ice cubes in a plastic bag, wrapped in a towel) over the injured area for 20 minutes every 1-2 hours the first day. You can place the ice pack directly over the splint/cast. If you were given a boot, open it to apply the ice pack. Continue with ice packs 3-4 times a day for the next two days, then as needed for the relief of pain and swelling. 4. You may use acetaminophen (Tylenol) 650-1000 mg every 6 hours or ibuprofen (Motrin, Advil) 600 mgevery 6-8 hours with food to control pain, if you are able to take these medicines. [NOTE: If you have chronic liver or kidney disease or ever had a stomach ulcer or GI bleeding, talk with your doctor before using these medicines.] 5. You may return to sports after healing, when you can run without pain. 6. A sprained ankle is at risk for re-injury during the first six weeks. During that time, protect your ankle with an in-shoe splint that prevents tilting of your ankle from side to side. This is very important if you do active work or play sports during that time. FOLLOW UP with your doctor, or as advised, if you are not starting to improve within the next five days. GET PROMPT MEDICAL ATTENTION if any of the following occur: ?? The plaster cast or splint gets wet or soft ?? The fiberglass cast or splint gets wet and does not dry for 24 hours ?? Pain or swelling increases, or redness appears ?? Toes become cold, blue, numb or tingly ?? [id number] [facility], [address] [place] [address]. All rights reserved. This information is not intended as a substitute for professional medical care. Always follow your healthcare professional's instructions. ENT ASSESSMENT COORDINATOR documented in this encounter Medications at Time [...] documented as of this encounter ED Notes Carmita Paulino RN - 03/23/2013 12:32 PM CST Pt states that he has air splint and crutches at home and does not want to incur additional expense.He has a follow up appt with ortho later this month. ENT ASSESSMENT COORDINATOR Eliza Cruz MD - 03/23/2013 12:02 PM CST History Chief Complaint: Ankle Pain HPI Brock Gotti is a 32 year old male who presents with right ankle pain. The patient reports that he inverted his right foot while walking today and developed pain in his lateral right ankle and throughout the right foot with associated swelling. He was only able to minimally bear weight on the ankle. Th is prompted him to come into the emergency department for evaluation. Here the patient rates his pain as 4/10 in severity. He initially had some numbness in his toes but it resolved by the time of thisinterview. The patient notes a previous injury about 5 weeks ago and states that x-ray revealed no bony injury at that time. He denies any overlying wounds or other complaints. Allergies: No Known Allergies Medications: Celebrex Lisinopril Amlodipine HCTZ Past Medical History: Hypertension Tear of medial cartilage or meniscus of knee Past Surgical History: Arthroscopy knee, left Cystectomy pilonidal [place] teeth extraction Myringotomy, insert tube bilateral Endoscopic polypectomy, nasal T&A Family History: History reviewed. No pertinent family history. Social History: Marital Status: Single Smoking status: 0.5 ppd for 10 years Alcohol use: 20 weekly Review of Systems Musculoskeletal: Positive for joint swelling, arthralgias and gait problem. Right ankle. Skin: Negative for wound. Neurological: Positive for numbness (resolved). All other systems reviewed and are negative. Physical Exam First Vitals: BP: 107/56 mmHg Heart Rate: 71 Temp: 97.9 ??F (36.6 ??C) Resp: 18 SpO2: 99 % Physical Exam Gen: GCS 15, alert, appropriate, appears comfortable in bed CV: RRR, nl S1S2, no m/r/g, equal 2+ pulses radial and DP pulses Resp: CTAB, no rales/rhonchi/wheezes, no increased WOB Ext: YUNG -- able to almost fully range R ankle, mild edema to lateral R malleolus, no ecchymosis, +ttp diffusely around lateral R malleolus, no ttp over medial malleolus/navicular bone/base of 5th metatarsal Emergency Department Course Imaging: Radiographic findings were communicated with the patient who voiced understanding of the findings. XR ankle, right: 3 views of the ankle. Persistent soft tissue swelling over the lateral malleolus, not significantly changed. No fractures identified. Prominent inferior calcaneal spur and degenerative changes over thedorsal midfoot as before. Final result per Dr. Smith, radiology. Emergency Department Course: The patient arrived in the emergency department. The patient was sent for a right ankle x-ray while in the emergency department, findings above. Past medical records, nursing notes, and vitals reviewed. (1202) I performed an exam of the patient as documented above. GCS 15. Findings and plan explained to the Patient. Patient discharged home, status improved, with instructions regarding supportive care,medications, and reasons to return as well as the importance of close follow-up was reviewed. Impression & Plan Medical Decision Making: The patient is a 32 year old male with right ankle inversion who had an x-ray ordered in triage. X-ray is negative. He has no significant findings of ankle joint instability. I feel he is appropriate for discharge. He already has ankle splint and crutches at home. Discharge Diagnosis: 1. Ankle sprain, right, initial encounter (845.00) Irene Rodriguez 03/23/2013 [facility] EMERGENCY DEPARTMENT I, Irene Rodriguez, am serving as a scribe at 12:02 PM on 03/23/2013 to document services personally performed by Dr. Cruz, based on my observations and the provider's statements to me. Eliza Cruz MD 03/23/13 [id number] ENT ASSESSMENT COORDINATOR Carmita Paulino RN - 03/23/2013 11:15 AM CST Pt back from XR. ENT ASSESSMENT COORDINATOR Mehnaz Dennis RN - 03/23/2013 10:42 AM CST In Triage: ABC's intact. Alert and oriented x 3. Waking today and rolled right ankle. Right ankle pain and swelling. ENT ASSESSMENT COORDINATOR documented in this encounter Plan of Treatment Not on filedocumented as of this encounter Procedures Procedure Name Priority Date/Time Associated Diagnosis Comme nts XR ANKLE RIGHT G/E STAT 03/23/2013 11:08 AM Re sults for this 3 VIEWS PATIENT ASSESSMENT COORDINATOR procedure are i n the results section. documented in this encounter Results Ankle XR, G/E 3 views, right (03/23/2013 11:08 AM PATIENT ASSESSMENT COORDINATOR) Anatomical Region Laterality Modality Left Ankle Right Computed Radiography Specimen (Source) Anatomical Location Collection Method / Collectio n Time Received Time / Laterality Volume Impressions 03/23/2013 11:11 AM PATIENT ASSESSMENT COORDINATOR IMPRESSION: ??3 views of the ankle. Persistent soft tissue swelling over the lateral malleolus, not signific antly changed. No fractures identified. Prominent inferior calcaneal spur and degenerative changes over the dorsal midfoot as before. CRISSY SMITH MD Narrative 03/23/2013 11:11 AM PATIENT ASSESSMENT COORDINATOR XR ANKLE RT G/E 3 VW ??03/23/2013 11:08 AM HISTORY: ??Trauma. COMPARISON: ??02/13/2013. Procedure Note Crissy Smith MD - 4 XR ANKLE RT G/E 3 VW 03/23/2013 11:08 AM HISTORY: Trauma. COMPARISON: 02/13/2013. IMPRESSION IMPRESSION: 3 views of the ankle. Persis tent soft tissue swelling over the lateral malleolus, not signific antly changed. No fractures identified. Prominent inferior calcaneal spur and degenerative changes over the dorsal midfoot as before. CRISSY SMITH MD Eliza Cruz MD [facility] DI[facility]NOST[facility] IMAG[facility] OR DERABLES documented in this encounter Visit Diagnoses Diagnosis Ankle sprain, right, initial encounter - Primary documented in this encounter Active and Recently Administered Medications Care Teams Rf Technician Relationship Specialty Start Date End Date Bertrand Field MD PCP - General Family Practice 06/09/12 04/25/19 [facility] [id number] [place] [id number] documented as of this encounter
--- OUTSIDE RECORDS SUMMARY | 2021-12-07 08:34 | XMS_ITS | Encounter Summary ---
:1980 Author Organization [facility] Address [address] [place] [address]. [place] [address] Care Team Providers Name Role Phone Bertrand Field MD Primary Care Provider Reason for Visit Reason Comments Groin Pain Back Pain Encounter Details Date Type Department Care Team Description 04/21/2017 Emergency [facility] Evens Mercado MD Ureterolithiasis [facility] Emergency Dep t [facility] [address] [place] [id number] [place], [place] [address] (Wo rk) Social History Tobacco Use Types [...] Sign Reading Time Taken Comments Blood Pressure 190/98 04/21/2017 10:53 PM CDT Pulse 83 04/21/2017 10:53 PM CDT Temperature 37.5 ??C (99.5 ??F) 04/21/2017 7:29 PM CDT Respiratory Rate 20 04/21/2017 9:27 PM CDT Oxygen Saturation 96% 04/21/2017 10:53 PM CDT Inhaled Oxygen Concentration - - Weight - - Height - - Body Mass Index - - documented in this encounter Discharge Instructions Discharge InstructionsNick Mercado MD - 04/21/2017 10:39 PM CDT Discharge Instructions Kidney Stones Kidney [...] today. Return to the Emergency Department if: ??? Your pain is not controlled despite the medications provided or recommended. ??? You are vomiting (throwing up) and cannot keep fluids or medications down. ? ? You develop a fever (>100.4??F). ??? You feel much more ill or develop new symptoms. What can I do to help myself? Be sure to drink plenty of fluids. ??? If instructed to do so, strain your urine (pee) with the urine strainer you were provided with today. Your stone may look like a grain of sand or a small pebble. Collect any stones in the cup provided and bring to your follow-up appointment. ??? Staying active is good, and may help the stone to pass. You may do whatever you feel up to doingwithout restrictions. Treatment: ??? Non-steroidal anti-inflammatory drugs (NSAIDs). This includes prescription medicines like Toradol?? (ketorolac) and non-prescription medicines like Advil?? (ibuprofen) and Nuprin?? (ibuprofen) and Naproxen. These pain relievers are very effective for kidney stones. ??? Nausea (sick to your stomach) medication. Nausea and vomiting are common with kidney stones, so your provider may send you home with medicine for this. ??? Flomax?? (tamsulosin). This medicine is sometimes used for men with prostate problems, but also can help kidney stones to pass. Its effectiveness is controversial or questionable so it is prescribed in certain situations. This medicine can lower blood pressure, and you may feel faint/lightheaded, e specially when you first stand up. Be sure [...] mouth daily. oxyCODONE-acetaminophen Take 1 tablet by 15 tablet 0 201704/26/2019 (PERCOCET) 5-325 MG per mouth every 6 tablet hours as needed for moderate to severe pain tamsulosin (FLOMAX) 0.4 MG Take 1 capsule 7 capsule 1 04/2106/23/2019 capsule (0.4 mg) by mouth daily documented as of this encounter ED Notes Neli Mahajan RN - 04/21/2017 7:30 PM CDT Groin pain and back pain x 1 hour. Patient states he has a history of prostate infection. ABC intactalert and no distress. Nick Mercado MD - 04/21/2017 7:23 PM CDT History Chief Complaint: Groin Pain and Back Pain The history is provided by the patient. Brock Gotti is a 36 year old male with a history of prostate infection who presents with groin and back pain. The patient reports that he experienced onset of bilateral testicular pain while trying tourinate 1 hour before presentation that quickly radiated to the right side of his back. The patient describes the pain as feeling swollen and constant. The patient states that his pain is not really similar in nature to when he had a prostate infection, only much worse. Patient was feeling well before onset of pain today. Patient denies hematuria, history of kidney stones, or other complaint. Allergies: No known drug allergies Medications: Celebrex Lisinopril Hydrochlorothiazide Past Medical History: Tear of medial cartilage of knee Hypertension Past Surgical History: Arthroscopy Cystectomy pilonidal Endoscopic nasal polypectomy Myringotomy Tonsillectomy, adenoidectomy (combined) [place] teeth extraction Family History: History reviewed. No pertinent family history. Social History: Presents with father Tobacco use: Current every day (0.50 PPD for 10 years) Alcohol use: No PCP: Bertrand Field Marital Status: Single Review of Systems Genitourinary: Positive for testicular pain. Negative for hematuria. Musculoskeletal: Positive for back pain. All other systems reviewed and are negative. Physical Exam Patient Vitals for the past 24 hrs: BP Temp Temp src Pulse Resp SpO2 04/21/17 2145 - - - - - 96 % 04/21/17 2127 (!) 194/94 - - 78 20 97 % 04/21/171928 (!) 180/95 99.5 ??F (37.5 ??C) Temporal 92 20 98 % Physical Exam Vital signs and nursing notes reviewed. Constitutional: laying on gurney appears uncomfortable HENT: Oropharynx is clear and moist Eyes: Conjunctivae are normal bilaterally. Pupils equal Neck: normal range of motion Cardiovascular: Normal rate, regular rhythm, normal heart sounds. Pulmonary/Chest: Effort normal and breath sounds normal. No respiratory distress. Abdominal: Soft. Bowel sounds are normal. No tenderness to palpation. No rebound or guarding. No palpable hernia. : no testicular pain or scrotal swelling Musculoskeletal: No joint swelling or edema. Neurological: Alert and oriented. No focal weakness Skin: Skin is warm and dry. No rash noted. Psych: normal affect Emergency Department Course Imaging: Radiographic findings were communicated with the patient who voiced understanding of the findings. CT Abd/pelvis without contrast: Impression: 3 mm distal right ureteral stone approximately 1-2 cm from the ureterovesical junction. There is mild associated hydronephrosis and hydroureter on that side. Imaging independently reviewed and agree with radiologist interpretation. Laboratory: CBC: WBC 13.0 (H) o/w WNL (HGB 15.4, PLT 246) BMP: K 3.1 (L), GLC 126 (H) o/w WNL (Creatinine 0.73) UA with micro: Blood large, RBC >182 (H), Mucous present o/w negative Interventions: 2009: Toradol 30 mg IV 2010: Dilaudid 1 mg IV 2013: Zofran 4 mg IV 2127: Percocet 5/325 1 tablet PO 2127: Dilaudid 0.5 mg IV The patient's symptoms were improved with parenteral narcotics. Emergency Department Course: Past medical records, nursing notes, and vitals reviewed. 1937: I performed an exam of the patient and obtained history, as documented above. Above interventions provided. Blood drawn. This was sent to the lab for further testing, results above. The patient was sent for a CT while in the emergency department, findings above. Findings and plan explained to the Patient. Patient discharged home with instructions regarding supportive care, medications, and reasons to return. The importance of close follow-up was reviewed. Impression & Plan Medical Decision Making: Brock Gotti is a 36 year old male who presents with acute onset of right flank and groin pain. On examination, I did not notice any testicular torsion, hernia, or other obvious findings. Lab tests areas above. His CT imaging showed findings of a 3mm distal right ureteral stone consistent with the location of his pain and symptoms. Patient's pain is well controlled her in the ER. He is given medication for at home including Flomax, percocet, and Zofran. He is to strain his urine until the stone passes. If, however, he developed fever, intractable pain, or uncontrolled vomiting, he is to return here for evaluation. He is follow up with primary care physician in the next few days if he does not pass the stone. Diagnosis: ICD-10-CM 1. Ureterolithiasis N20.1 right Disposition: Discharged to home with plan as outlined. Discharge Medications: Discharge Medication List as of 04/21/2017 10:40 PM START taking these medications Details tamsulosin (FLOMAX) 0.4 MG capsule Take 1 capsule (0.4 mg) by mouth daily, Disp- 7 capsule, R-1, Local Print Percocet 5/325 I, Meet [place], am serving as a scribe at 7:39 PM on 04/21/2017 to document services personally performed by Nick Mercado MD based on my observations and the provider's statements to me. 04/21/2017 [facility] EMERGENCY DEPARTMENT Nick Mercado MD 04/22/17 1218 documented in this encounter Plan of Treatment Not on filedocumented as of this encounter Procedures Procedure Name Priority Date/Time Associated Comments Diagnosis ROUTINE UA WITH STAT 04/21/2017 9:49 PM Result s for this MICROSCOPIC CDT procedure are i n the results section. CT ABDOMEN PELVIS W/O STAT 04/21/2017 8:54 PM Results for this CONTRAST CDT procedure are i n the results section. CBC WITH PLATELETS & STAT 04/21/2017 8:04 PM R esults for this DIFFERENTIAL CDT procedure are i n the results section. BASIC METABOLIC PANEL STAT 04/21/2017 8:04 PM Results for this CDT procedure are i n the results section. documented in this encounter Results (ABNORMAL) UA with Microscopic (04/21/2017 9:49 PM CDT) Component Value Ref Test Analysis Performed At [facility] Range Method Time Signature Color Urine Yellow 04/21/2017 [facility] 10:32 PM [facility] Appearance Urine Clear 04/21/2017 [facility] 10:32 PM [facility] Glucose Urine Negative NEG^Nega 04/21/2017 [facility] tive 10:32 PM [facility] mg/dL [facility] Bilirubin Urine Negative NEG^Nega 04/21/2017 [facility] tive 10:32 PM [facility] Ketones Urine Negative NEG^Nega 04/21/2017 [facility] tive 10:32 PM [facility] mg/dL [facility] Specific [place] 1.019 1.003 - 04/21/2017 [facility] Urine 1.035 10:32 PM [facility] Blood Urine Large (A) NEG^Nega 04/21/2017 [facility] tive 10:32 PM [facility] pH Urine 7.0 5.0 - 04/21/2017 [facility] 7.0 pH 10:32 PM [facility] Protein Albumin Negative NEG^Nega 04/21/2017 [facility] Urine tive 10:32 PM [facility] mg/dL [facility] Urobilinogen 0.0 0.0 - 04/21/2017 [facility] mg/dL 2.0 10:32 PM [facility] mg/dL [facility] Nitrite Urine Negative NEG^Nega 04/21/2017 [facility] tive 10:32 PM [facility] Leukocyte Negative NEG^Nega 04/21/2017 [place] Esterase Urine tive 10:32 PM [facility] Source Unspecified 04/21/2017 [facility] Urine 10:21 PM [facility] WBC Urine 1 0 - 5 04/21/2017 [facility] /HPF 10:32 PM [facility] RBC Urine >182 (H) 0 - 2 04/21/2017 [facility] /HPF 10:32 PM [facility] Mucous Urine Present (A) NEG^Nega 04/21/2017 [facility] tive 10:32 PM [facility] /[facility] Specimen (Source) Anatomical Collection Method Collection Time Re ceived Time Location / / Volume Laterality Unspecified Urine URINE SPECIMEN 04/21/2017 9:49 04/21 OBTAINED BY CLEAN PM CDT 10:20 PM C DT CATCH PROCEDURE / Unknown Nick Mercado MD LAB - URINE ORDERABLES Performing Organization Address City/State/ZIP Code Phon e Number [facility] [address] [place], [place] [address] [facility] [address] [place], [place] [address] [facility] [phone] CT Abdomen Pelvis w/o Contrast (04/21/2017 8:54 PM CDT) Anatomical Region Laterality Modality Abdomen/Pelvis, SUBRAD CT BODY, UMP CT ABDOMEN PELVIS, Computed Tomography RAD CT Specimen (Source) Anatomical Location Collection Method / Collectio n Time Received Time / Laterality Volume Impressions 04/21/2017 8:57 PM CDT Impression: 3 mm distal right ureteral stone approximately 1-2 cm from the ureterovesical junction. There is mi ld associated hydronephrosis and hydroureter on that side. JACK BOYLE MD Narrative 04/21/2017 8:57 PM CDT Exam: CT ABDOMEN PELVIS W/O CONTRAST ??04/21/2017 8:54 PM History: Right flank pain. Comparison: None Technique: Volumetric acquisition with r econstruction in the axial, coronal planes through the abdomen and p john without contrast. Radiation dose for this scan was reduced using automated exposure control, adjustment of the mA and/or kV according to patient size, or iterative reconstruction technique. Contrast: None Findings: Lung Bases: Lung bases are clear. No ple ural or pericardial effusion. Abdomen: Unenhanced liver, spleen, adren al glands, pancreas and gallbladder appear normal. 3 mm stone in the distal right ureter, a pproximately 1-2 cm from the ureterovesical junction (series 2 image 79). There is mild associated hydronephrosis and hydroureter on that s daniel. No left renal or ureteral calculi, no left hydronephrosis or hydro ureter. No areas of bowel wall thickening or bow el dilatation. Normal appendix. Pelvic structures appear normal. No free fluid. No abdominal or pelvic lymphadenopathy. Bones: No concerning lytic or sclerotic lesions. Procedure Note Jack Boyle MD - 04/21/2017 Exam: CT ABDOMEN PELVIS W/O CONTRAST 04/11 8:54 PM History: Right flank pain. Comparison: None Technique: Volumetric acquisition with r econstruction in the axial, coronal planes through the abdomen and p john without contrast. Radiation dose for this scan was reduced using automated exposure control, adjustment of the mA and/or kV according to patient size, or iterative reconstruction technique. Contrast: None Findings: Lung Bases: Lung bases are clear. No ple ural or pericardial effusion. Abdomen: Unenhanced liver, spleen, adren al glands, pancreas and gallbladder appear normal. 3 mm stone in the distal right ureter, a pproximately 1-2 cm from the ureterovesical junction (series 2 image 79). There is mild associated hydronephrosis and hydroureter on that s daniel. No left renal or ureteral calculi, no left hydronephrosis or hydro ureter. No areas of bowel wall thickening or bow el dilatation. Normal appendix. Pelvic structures appear normal. No free fluid. No abdominal or pelvic lymphadenopathy. Bones: No concerning lytic or sclerotic lesions. Impression: 3 mm distal right ureteral s tone approximately 1-2 cm from the ureterovesical junction. There is mi ld associated hydronephrosis and hydroureter on that side. JACK BOYLE MD Nick Mercado MD IMG CT ORDERABLES (ABNORMAL) Basic metabolic panel (BMP) (04/21/2017 8:04 PM CDT) athologist Signature Sodium 139 133 - 144 04/21/2017 [facility] mmol/L 8:39 PM [facility] Potassium 3.1 (L) 3.4 - 5.3 04/21/2017 [facility] mmol/L 8:39 PM [facility] Chloride 105 94 - 109 04/21/2017 [facility] mmol/L 8:39 PM [facility] Carbon Dioxide 29 20 - 32 04/21/2017 [facility] mmol/L 8:39 PM [facility] Anion Gap 5 3 - 14 04/21/2017 [facility] mmol/L 8:39 PM [facility] Glucose 126 (H) 70 - 99 04/21/2017 [facility] mg/dL 8:39 PM [facility] Urea Nitrogen 11 7 - 30 04/21/2017 [facility] mg/dL 8:39 PM [facility] Creatinine 0.73 0.66 - 04/21/2017 [facility] 1.25 mg/dL 8:39 PM [facility] GFR Estimate >90 >60 04/21/2017 [facility] mL/min/1.7 8:[address] Comment: Non GFR Calc GFR Estimate If >90 >60 mL/min/1.7m2 04/21/2017 8:39 [facility] Comment: GFR Calc Calcium 8.6 8.5 - 10.1 mg/dL 04/21/2017 8:39 PM [facility] Specimen Anatomical Collection Method Collection Time Receive d Time (Source) Location / / Volume Laterality Blood specimen 04/21/2017 8:04 PM 018 8:19 (specimen) CDT PM CDT Nick Mercado MD LAB - BLOOD ORDERABLES Performing Organization Address City/State/ZIP Code Phon e Number [facility] [address] [place] [address] [facility] [address] [phone] (ABNORMAL) CBC + differential (04/21/2017 8:04 PM CDT) [facility] Method Time Signature WBC 13.0 (H) 4.0 - 04/21/2017 [facility] 11.0 8:23 PM [facility] 10e9/L [facility] RBC Count 5.27 4.4 - 5.9 04/21/2017 [facility] 10e12/L 8:23 PM [facility] Hemoglobin 15.4 13.3 - 04/21/2017 [facility] 17.7 g/dL 8:23 PM [facility] Hematocrit 45.1 40.0 - 04/21/2017 [facility] 53.0 % 8:23 PM [facility] MCV 86 78 - 100 04/21/2017 [facility] fl 8:23 PM [facility] MCH 29.2 26.5 - 04/21/2017 [facility] 33.0 pg 8:23 PM [facility] MCHC 34.1 31.5 - 04/21/2017 [facility] 36.5 g/dL 8:23 PM [facility] RDW 13.2 10.0 - 04/21/2017 [facility] 15.0 % 8:23 PM [facility] Platelet Count 246 150 - 450 04/21/2017 [facility] 10e9/L 8:23 PM [facility] Diff Method Automated 04/21/2017 [facility] Method 8:23 PM [facility] % Neutrophils 61.8 % 04/21/2017 [facility] 8:23 PM [facility] % Lymphocytes 23.3 % 04/21/2017 [facility] 8:23 PM [facility] % Monocytes 10.5 % 04/21/2017 [facility] 8:23 PM [facility] % Eosinophils 3.2 % 04/21/2017 [facility] 8:23 PM [facility] % Basophils 0.5 % 04/21/2017 [facility] 8:23 PM [facility] % Immature 0.7 % 04/21/2017 [facility] Granulocytes 8:23 PM [facility] Nucleated RBCs 0 0 /100 04/21/2017 [facility] 8:23 PM [facility] Absolute 8.1 1.6 - 8.3 04/21/2017 [facility] Neutrophil 10e9/L 8:23 PM [facility] Absolute 3.0 0.8 - 5.3 04/21/2017 [facility] Lymphocytes 10e9/L 8:23 PM [facility] Absolute 1.4 (H) 0.0 - 1.3 04/21/2017 [facility] Monocytes 10e9/L 8:23 PM [facility] Absolute 0.4 0.0 - 0.7 04/21/2017 [facility] Eosinophils 10e9/L 8:23 PM [facility] Absolute 0.1 0.0 - 0.2 04/21/2017 [facility] Basophils 10e9/L 8:23 PM [facility] Abs Immature 0.1 0 - 0.4 04/21/2017 [facility] Granulocytes 10e9/L 8:23 PM [facility] Absolute 0.0 04/21/2017 [facility] Nucleated RBC 8:23 PM [facility] Specimen Anatomical Collection Method Collection Time Receive d Time (Source) Location / / Volume Laterality Blood specimen 04/21/2017 8:04 PM 018 8:19 (specimen) CDT [facility] Nick Mercado MD LAB - BLOOD ORDERABLES Performing Organization Address City/State/ZIP Code Phon e Number [facility] [address], [place] [address] [facility] [address] [place], [place] [address] [facility] [phone] documented in this encounter Visit Diagnoses Diagnosis Ureterolithiasis Calculus of ureter documented in this encounter Administered Medications Inactive Administered Medications - up to 3 most recent administrations Medication Order MAR Action Action Date Dose Rate Site HYDROmorphone (DILAUDID) injection 1 Given 04/21/2017 8:11 PM CD T 1 mg mg 1 mg, Intravenous, ONCE, On 04/21/17 at 1955, For 1 dose HYDROmorphone (PF) (DILAUDID) injection 0.5 Given 04/21/2017 9:28 PM CDT 0.5 mg mg 0.5 mg, Intravenous, ONCE, On 04/21/17 at 2123, For 1 dose, For ordered doses up to 4 mg give IV Push undiluted. Administer each 2mg over 2-5 minutes. ketorolac (TORADOL) injection 30 mg Given 04/21/2017 8:10 PM CDT 30 mg 30 mg, Intravenous, ONCE, Administer over 2 Minutes, On 04/21/17 at 1955, For 1 dose, Can cause pain on injection. Administer through a running maintenance fluid over 1 minute followed by a flush. If patient complains of pain on injection, may dilute 15-30 mg in 5 mL and push over 1 to 2 minutes. ondansetron (ZOFRAN) injection 4 mg Given 04/21/2017 8:14 PM CDT 4 mg 4 mg, Intravenous, ONCE, Administer over 2-5 Minutes, On 04/21/17 at 2014, For 1 dose, Irritant. For ordered doses up to 4 mg, give IV Push undiluted over 2-5 minutes. oxyCODONE-acetaminophen (PERCOCET) 5-325 MG Given 04/11 9:28 PM CDT 1 tablet per tablet 1 tablet 1 tablet, Oral, ONCE, On 04/21/17 at 2123, For 1 dose, Maximum acetaminophen dose from all sources= 75 mg/kg/day not to exceed 4 grams documented in this encounter Active and Recently Administered Medications Due to Daylight Saving Time, this section may contain times in both STENCIL MACHINE OPERATOR and CDT. Scheduled Medication Order 04/19/2017 04/20/2017 04/21/2017 HYDROmorphone (DILAUDID) injection 1 mg (COMPLETED) 2010 (Given - Provider: Joe Hodges, REAL) 1 mg, Intravenous, ONCE, 1 dose, 04/21/17 at 1955 HYDROmorphone (PF) (DILAUDID) injection 0.5 mg (COMPLETED) 2127 (Given - Provider: Joe Hodges, REAL) 0.5 mg, Intravenous, ONCE, 1 dose, Sun at 2123, For ordered doses up to 4 mg give IV Push undiluted. Administer each 2mg over 2-5 minutes. ketorolac (TORADOL) injection 30 mg (COMPLETED) 2009 (Given - Provider: Joe Hodges, REAL) 30 mg, Intravenous, ONCE, Administer ove r 2 Minutes, 04/21/17 at 195, For 1 dose, Can cause pain on injection. Administer through a running maintenance fluid over 1 minute followed by a flush. If kolby berry complains of pain on injection, trina erazo dilute 15-30 mg in 5 mL and push over 1 to 2 minutes. ondansetron (ZOFRAN) injection 4 mg (COMPLETED) 2013 (Given - Provider: Joe Hodges, REAL) 4 mg, Intravenous, ONCE, Administer over 2-5 Minutes, 04/21/17 at 2013, For 1 dose, Irritant. For ordered doses up to 4 mg, give IV Push undiluted over 2-5 minutes. oxyCODONE-acetaminophen (PERCOCET) 5-325 MG per tablet 1 tablet (COMPLETED) 2127 (Given - Provider: Joe Hodges, REAL) 1 tablet, Oral, ONCE, 04/21/17 at 212 3, For 1 dose, Maximum acetaminophen dose from all sources= 75 mg/kg/day not to exceed 4 grams documented in this encounter Care Teams Trekking Guide Relationship Specialty Start Date End Date Bertrand Field MD PCP - General Family Practice 06/09/12 04/25/19 [facility] [address] [place] [address] documented as of this encounter
--- OUTSIDE RECORDS SUMMARY | 2021-12-07 08:34 | XMS_ITS | Encounter Summary ---
:1980 Author Organization [place] Address [facility] [place] [address] Care Team Providers Name Role Phone Bertrand Field MD Primary Care Provider Reason for Visit Auth/Cert - Closed Specialty Diagnoses / Procedures Referred By Contact Refer red To Contact Surgery Diagnoses Tosil and Adenoid Hypertrophy, Chronic Otitis Media Rh Periop Services Procedures COMBINED MYRINGOTOMY, INSERT TUBE(S), ADENOIDECTOMY TONSILLECTOMY [address] [place], [place] [address] Phone: Fax: Referral ID Status Reason Start Date Expiration Date Visits Requ ested Visits Authorized [id number] Closed 1 1 Encounter Details Date Type Department Care Team Description 06/17/2012 Surgery [facility] Dimitri Haywood, [place] t[place] MYRINGOTOMY [place] [facility] SHRESTHA with Aspiration, [address] [facility] Coagulation of Adenoids, [facility] [place] Tonsillectomy, Nasal [id number] [address] Endoscopy and Nasal [phone] [address] Pharyngoscopy ENRIQUE SCHULER [phone] (Wo rk) Surgery Details Date/Time Status Location OR Service Patient Case Case Traum a Class Class Type Case? 06/17/12 9:00 Posted OR OR Otolaryngology Same Day AM Surgery Panel 1 Procedure LRB Anes Op Region Wound Class Commen ts Bilateral Bilateral General Ear II-Clean Bilateral MYRINGOTOMY with Contaminated MYRING OTOMY with Aspiration, Aspiration, Coagulation of Coagulatio n of Adenoids, Adenoids, Tonsillectomy, Nasal Tons illectomy, Endoscopy and Nasal Nasal Endoscopy and Pharyngoscopy Nasal Phary ngoscopy POLYPECTOMY, NASAL N/A General Nose II-Clean CAVITY, ENDOSCOPIC Contaminated Panel 2 Procedure LRB Anes Op Region Wound Class Commen ts TONSILLECTOMY AND ADENOIDECTOMY Throat II-C lean Contaminated Surgeon Surgeon Role Service Panel Dimitri Haywood MD Primary Otolaryngology 1 Dimitri Haywood MD Primary Otolaryngology 2 Special Needs 5'9; 315-330# per pt documented in this encounter Social History Tobacco [...] Sign Reading Time Taken Comments Blood Pressure 169/111 06/17/2012 7:38 AM CDT Pulse - - Temperature 35.9 ??C (96.6 ??F) 06/17/2012 7:38 AM CDT Respiratory Rate 18 06/17/2012 7:38 AM CDT Oxygen Saturation 98% 06/17/2012 7:38 AM CDT Inhaled Oxygen Concentration - - Weight 145.6 kg (321 lb) 06/17/2012 7:38 AM CDT Height 175.3 cm (5' 9) 06/17/2012 7:38 AM CDT Body Mass Index 47.4 06/17/2012 7:38 AM CDT documented in this encounter Discharge Instructions Discharge InstructionsRaDimitri dobbins MD - 06/17/2012 11:46 AM CDT GENERAL ANESTHESIA OR SEDATION ADULT DISCHARGE INSTRUCTIONS SPECIAL PRECAUTIONS FOR 24 HOURS AFTER SURGERY IT IS NOT UNUSUAL TO FEEL LIGHT-HEADED OR FAINT, UP TO 24 HOURS AFTER SURGERY OR WHILE TAKING PAIN MEDICATION. IF YOU HAVE THESE SYMPTOMS; SIT FOR A FEW MINUTES BEFORE STANDING AND HAVE SOMEONE ASSIST YOU WHEN YOU GET UP TO WALK OR USE THE BATHROOM. YOU SHOULD REST AND RELAX FOR THE NEXT 24 HOURS AND YOU MUST MAKE ARRANGEMENTS TO HAVE SOMEONE STAY WITH YOU FOR AT LEAST 24 HOURS AFTER YOUR DISCHARGE. AVOID HAZARDOUS AND STRENUOUS ACTIVITIES. DO NOTMAKE IMPORTANT DECISIONS FOR [address] ANY VEHICLE OR OPERATE MECHANICAL EQUIPMENT FOR 24 HOURS FOLLOWING THE END OF YOUR SURGERY. EVEN THOUGH YOU MAY FEEL NORMAL, YOUR REACTIONS MAY BE AFFECTED BY THE MEDICATION YOU HAVE RECEIVED. DO NOT DRINK ALCOHOLIC BEVERAGES FOR 24 HOURS FOLLOWING YOUR SURGERY. DRINK CLEAR LIQUIDS (APPLE JUICE, KEENAN SUNITHA, 7-UP, BROTH, ETC.). PROGRESS TO YOUR REGULAR DIET YOU FEEL ABLE. YOU MAY HAVE A DRY MOUTH, A SORE THROAT, MUSCLES ACHES OR TROUBLE SLEEPING. THESE SHOULD GO AWAY AFTER 24 HOURS. CALL YOUR DOCTOR FOR ANY OF THE FOLLOWING: SIGNS OF INFECTION (FEVER, GROWING TENDERNESS AT THE SURGERY SITE, A LARGE AMOUNT OF DRAINAGE OR BLEEDING, SEVERE PAIN, FOUL-SMELLING DRAINAGE, REDNESS OR SWELLING. IT HAS BEEN OVER 8 TO 10 HOURS SINCE SURGERY AND YOU ARE STILL NOT ABLE TO URINATE (PASS WATER). TONSILLECTOMY AND ADENOIDECTOMY DISCHARGE INSTRUCTIONS [facility], [place]. Dudley Mcleod M.D. Dimitri Haywood M.D. Ace Crowley M.D. León Membreno M.D. 1. Patients should eat only soft foods for at least one week after surgery. 2. Avoid citrus juices (which may burn) or any food which might scratch the throat and cause bleeding. The sooner patients eat and chew, the sooner they will feel better. 3. If the patient is nauseated or vomiting give clear liquids only, and avoid dairy products or other fatty foods. Use plain Tylenol instead of the narcotic pain medication. Hold the narcotic until nausea has passed and oral intake has improved. When you restart the narcotic pain medication, stop the Tylenol. 4. Patients may run a fever for up to 10 days after surgery. This may occasionally be as high as 101degrees. Contact your physician for a persisting fever in this range. 5. Patients may complain of an earache. This is usually referred pain from the throat and may be especially prominent around day six or seven after surgery, which is often when throat pain from tonsillectomy peaks. 6. Tylenol may be substituted for your prescription pain medication. Do not give Tylenol in additionto your prescription because an overdose of acetaminophen may occur. Ibuprofen may in some cases be used to supplement your narcotic pain medication. Contact your surgeon prior to starting ibuprofen todiscuss if this is a good choice for you. There may be a slightly increased risk of post operative bleeding with ibuprofen use. 7. Observe patient for difficulty breathing which may be caused by airway swelling or sedation from narcotic pain medication. 8. Patients should avoid any strenuous activity such as heavy lifting, active sports or games for atleast two weeks. It is best to stay in the [facility] area for the two week healing period. 9. Notify the doctor if there is any bleeding. Bleeding may be helped by gargling ice water if possible. 10. White areas will appear in the back of the throat after the tonsils have been removed. This is normal and will gradually disappear. 11. The patient???s breath may have a foul odor. This may be present for ten days. 12. If you have any problems or questions, please call [phone], 24 hours a day. 13. Keep ears dry until follow up visit. 14. Give oxymetazoline spray bottle from surgery and use 2 sprays in each nostril at bedtime for 1 week only if needed for congestion. documented in this encounter Medications at Time of Discharge Medication Sig Dispensed Refills Start Date End Date AMLODIPINE BESYLATE PO Take 10 mg by 0 07/20/2019 mouth daily. celecoxib (CELEBREX) 200 MG Take 1 capsule by 14 capsule 1 0 06/17/2012 07/20/2019 capsuleIndications: S/P mouth 2 times tonsillectomy daily as needed for pain. HYDROCHLOROTHIAZIDE PO Take 25 mg by 0 07/20/2019 mouth daily. LISINOPRIL PO Take 20 mg by 0 07/20/19 20 mouth daily. oxyCODONE-acetaminophen Take 5-10 mLs by 500 mL 0 201204/21/2017 (ROXICET) 5-325 MG/5ML mouth every 4 solutionIndications: S/P hours as needed tonsillectomy for pain. Hold if sedated. Observe for any airway or breathing problems. documented as of this encounter H&P Notes Dimitri Haywood MD - 06/16/2012 3:37 PM CDT documented in this encounter Miscellaneous Notes Op Note - Dimitri Haywood MD - 06/17/2012 11:58 AM CDT SURGEON: Dimitri Haywood MD PREOPERATIVE DIAGNOSES: 1. Chronic tonsillitis. 2. Adenoid hypertrophy. 3. Bilateral serous otitis media with conductive hearing loss. POSTOPERATIVE DIAGNOSES: 1. Chronic tonsillitis. 2. Adenoid hypertrophy. 3. Left serous otitis media. TITLE OF PROCEDURE: 1. Bilateral myringotomy and aspiration. 2. Tonsillectomy. 3. Coagulation of adenoids. 4. Nasopharyngoscopy. 5. Nasal endoscopy. INDICATIONS: Magen Oakley has a history of increasingly frequent episodes of sore throat. He also has chronic nasal obstruction and eustachian tube dysfunction, which has resulted in serous otitis media which is long-standing. The possible risks, benefits, alternatives, probabilities of success of the procedure including the risks of continued airway obstruction, bleeding, voice change, taste change, need for additional airway surgery in the future and risks related to his obesity were discussed and consent was obtained. DESCRIPTION OF PROCEDURE: Under general endotracheal anesthetic, the patient was draped and the right ear visualized under the microscope. He has a tortuous external auditory canal and only the posterior half of the tympanic membrane is easily accessible. A small radial myringotomy incision was made in the posterior-inferior quadrant. Only a very small amount of fluid was found in the right ear. A similar procedure was carried out on the left ear and that ear seemed to be full of clear fluid, which was suctioned out of the middle ear atraumatically. As per previous agreement with the patient, no tubes were placed. Attention was turned to the mouth. The Angelique was placed and a special retraction configuration arranged because of his weight to open the mouth and elevate the tongue and mandible. The right tonsil was grasped with a forceps and the mucosa of the anterior pillar incised with a bipolar cautery scissors. The tonsillar capsule was identified. A scissor was used to dissect the tonsil to the mid tonsil fossa where a large arterial vessel was identified and clamped. The vessel was double stick-tie ligated with 0 plain suture. The tonsil was dissected to the inferior pole pedicle, which was also clamped.The tonsil was removed and the pedicle stick-tie ligated with 0 plain suture. The left tonsil was removed in a similar fashion with one suture at the inferior pole which was a triple running suture over the pedicle. It should be noted that there was a papillomatous lesion on the medial surface of the left tonsil. With the tonsils out of the way, the nasopharynx was visualized with a mirror by retracting the softpalate but due to tissue hypertrophy and what appeared to be compression of the lateral pharynx due to his weight, the choana could not be visualized. It was also not possible to place a red Doe catheter through either side of the nose, so it was elected to endoscopically examine the nose. Oxymetazoline nasal spray was placed in each side of the nose and a 0-degree scope was used to visualize the choana. The adenoid tissue appeared to be completely obliterating the choana on the right side. Theleft side was very difficult to see because of the severe septal deviation. Using the endoscope, it was possible to advance the red Doe catheter into the nasopharynx on each side and pull it out the mouth and retract the soft palate. However, using a mirror in the nasopharynx, it was still not possible to visualize the choana due to tissue hypertrophy. Consequently, the suction cautery device was carefully used endoscopically through the nose to coagulate some of the adenoid tissue on the rightside. It was not possible to do that on the left side because of the marked septal deviation. Then, gradually it was possible to visualize some of the adenoid tissue in the nasopharynx because of the markings from the coagulation that was done transnasally. Some coagulation was done in the nasopharynxand after that, coagulation of the adenoids was carried out by alternating back and forth between the nasopharynx and a transnasal approach. However, the shrinkage did not appear adequate to open the airway and it was elected at this point not to instrument this area any further without discussing thesituation with the patient and determining how much shrinkage had been achieved by the coagulation through the right side. The red Doe catheter was removed and hemostasis was assured. The procedure was completed and the patient returned to the PAR in good condition, having tolerated the procedure well. There were no apparent complications and blood loss was approximately 50 cc. DIMITRI HAYWOOD MD MT: PP Name: MAGEN OAKLEY MRN: [id number] Account: [id number] : 1980 Procedure Date: 06/17/2012 Document: [id number] cc: Bertrand Field MD Brief Op Note - Dimitri Haywood MD - 06/17/2012 11:38 AM CDT [facility] Otol[facility]ology Brief Operative Note Procedure: Bilateral myringotomy and aspiration Nasopharyngoscopy Tonsillectomy and coagulation of adenoids Nasal endoscopy Surgeon: DIMITRI HAYWOOD MD Estimated blood loss: Less than 50 ml Comments: See dictated operative report for full details Plan of Care - Jennifer Tillman RN - 06/11/2012 12:12 PM CDT Copy of surgeons order sent to surgery scheduling for procedure verification documented in this encounter Plan of Treatment Not on filedocumented as of this encounter Procedures Procedure Name Priority Date/Time Associated Comments Diagnosis SURGICAL PATHOLOGY Routine 06/17/2012 10:10 AM Re sults for this EXAM CDT procedure are i n the results section. POLYPECTOMY, NASAL 06/17/2012 9:20 AM Tosil and Adenoi d CAVITY, ENDOSCOPIC CDT Hypertrophy, Chronic Otitis Media Special Needs 5'9; 315-330# per pt TONSILLECTOMY AND 06/17/2012 9:20 AM CDT Tosil and Sejal noid ADENOIDECTOMY Hypertrophy, Chronic Otitis Media Special Needs 5'9; 315-330# per pt MYRINGOTOMY, BILATERAL, WITH 06/17/2012 9:20 AM CDT To luciano and Adenoid VENTILATION TUBE INSERTION Hypertrophy, C hronic Otitis Media Special Needs 5'9; 315-330# per pt EKG 12-LEAD, TRACING ONLY Routine 06/17/2012 7:57 AM CDT Results for this procedure are in the resu lts section. CREATININE STAT 06/17/2012 7:55 AM CDT Resul ts for this procedure are in the resu lts section. documented in this encounter Results Surgical pathology exam (06/17/2012 10:10 AM CDT) Component Value Ref Test Analysis Performed At [facility] Locality Range Method Time Signature Copath Report Patient Name: MAGEN OAKLEY MR#: [id number] Specimen #: [id number] Collected: 06/17/2012 Received: 06/17/2012 Reported: 06/18/2012 13:59 Ordering Phy(s): DIMITRI HAYWOOD SPECIMEN(S): A: Tonsil, right B: Tonsil, left with lesion FINAL DIAGNOSIS: A. ??Tonsil, right, tonsillectomy - ? 1. ??Mild inflammation with benign lymphoid hyperplas ia. ? 2. ??Actinomyces organisms present. ? 3. ??Negative for dysplasia or malignancy. B. ??Tonsil, left, 'with lesion', tonsillectomy - ? 1. ??Squamous papilloma (0.5 cm, greatest dimension); completely excised. ? 2. ??Mild inflammation with benign lymphoid hyperplas ia. ? 3. ??Actinomyces organisms present. ? 4. ??Negative for dysplasia or malignancy. Electronically signed out by: Alysa Zaman M.D. CLINICAL HISTORY: Tonsil and adenoid hypertrophy. ??Chronic otitis media. GROSS: A. ??The specimen, labeled right tonsil, consists of a 3.2 x 2.5 x 1.5 cm intact palatine tonsillectomy specimen with pink edematou s and congested smooth mucosal surface. ??The pink homogeneous cut surface shows no localized lesions. ??RS, one cassette. B. ??The specimen, labeled left tonsil with lesion, consis ts of a 3.3 x 2.5 x 1.5 cm intact palatine tonsillectomy specimen with ove rlying pink surface remarkable for a central 0.5 cm area of raised exoph ytic cream-ernandez polypoid lesion. ??The base is inked black and the specimen is serially sectioned. ??The pink-cream tonsillar cut sections reveal the lesion to be limited to the mucosal surface. ??RS, one casse tte. ??SA/kd MICROSCOPIC: Microscopic examination is performed. Internal consultation is obtained (specimen B only). SA/sg DT/06-18-12 TESTING LAB LOCATION: [address] ??[id number] COLLECTION SITE: Client: [facility] Location: [facility]OR (R) Specimen Anatomical Collection Method Collection Time Receive d Time (Source) Location / / Volume Laterality 06/17/2012 10:10 06/17/2012 AM CDT 11:44 AM CDT Dimitri Haywood MD LAB - [facility] AP Performing Organization Address City/State/ZIP Code Phon e Number COPATH EKG 12-lead, tracing only (06/17/2012 7:57 AM CDT) Patholo gist Method Time Signature Interpretation ECG Click View RADIOLOGY Image link RESULTS to view waveform and result Specimen (Source) Anatomical Collection Method Collection Time Re ceived Time Location / / Volume Laterality 06/17/2012 7:57 AM CDT Shelton Lomax MD ECG ORDERABLES Performing Organization Address City/[facility]/ZIP Code Phon e Number RADIOLOGY RESULTS (ABNORMAL) Creatinine (06/17/2012 7:55 AM CDT) Analysis Performed At Patho logist Time Signature Creatinine 0.65 (L) 0.66 - [place] 1.25 mg/dL [facility] LAB GFR Estimate >90 >60 [facility] mL/min/1.7 [facility] m2 [facility] GFR Estimate If >90 >60 [place] Black mL/min/1.7 [facility] m2 [facility] LAB Specimen Anatomical Collection Method Collection Time Receive d Time (Source) Location / / Volume Laterality Blood specimen 06/17/2012 7:55 AM 013 8:00 (specimen) CDT AM CDT Shelton Lomax MD LAB - BLOOD ORDERABLES Performing Organization Address City/State/ZIP Code Phon e Number M [facility] [address] [place], [place] [address] [facility] documented in this encounter Visit Diagnoses Not on filedocumented in this encounter Administered Medications Inactive Administered Medications - up to 3 most recent administrations Medication Order MAR Action Action Date Dose Rate Site bupivacaine 0.25 % - Given 06/17/2012 10:31 5.1 mLs Operative EPINEPHrine 1:200,000 AM CDT Sit e/Surgical Site injection PRN, Starting on Sat06/17/12 at 1031, Intra-procedure fentaNYL (SUBLIMAZE) injection 25-50 mcg Given 06/17/2012 11:45 AM CDT 50 mcg 25-50 mcg, Intravenous, EVERY 2 MIN PRN, other, acute pain while in PACU., Starting on Sat06/17/12 at 1117, MAX cumulative dose = 250 mcg. Use Fentanyl initially, as a short acting agent for acute pain control. If insufficient, or a longer acting agent is needed, begin Morphine or Hydromorphone if ordered., PACU HYDROmorphone (DILAUDID) injection 0.2-0.4 Given 06/17/2012 11:27 AM CDT 0.4 mg mg 0.2-0.4 mg, Intravenous, EVERY 10 MIN PRN, moderate to severe pain, acute pain.?May administer if RR is > 10 , Starting on Sat06/17/12 at 1117, If fentanyl is also ordered, use HYDROmorphone if pain control insufficient with fentanyl or a longer acting agent is needed. Max cumulative dose = 2 mg , PACU/Phase II lactated ringers infusion New Bag 06/17/2012 12:27 PM CDT 1,000 mLs 100 mL/hr at 100 mL/hr, Intravenous, CONTINUOUS, Continue until IV catheter is weaned, PACU/Phase II, Starting on Sat06/17/12 at 1130, Until Sat06/17/12 at 1632 oxyCODONE-acetaminophen (ROXICET) 5-325 Given 06/17/2012 12:07 P M CDT 10 mLs MG/5ML solution 10 mL 10 mL, Oral, ONCE, On Sat06/17/12 at 1215, For 1 dose, PACU/Phase II documented in this encounter Active and Recently Administered Medications Times are shown in CDT. Scheduled Medication Order 06/15/2012 06/16/2012 06/17/2012 ceFAZolin (ANCEF) IVPB 2 g (COMPLETED) 09 (Given - Provider: Jian Carl APRN CRNA) 2 g, Intravenous, PRE-OP/PRE-PROCEDURE, For 1 dose, Give first dose within 1 hour PRIOR to incision., Indications: Surgical Prophylaxis, Pre-procedure oxyCODONE-acetaminophen (ROXICET) 5-325 MG/5ML solution 10 mL (C OMPLETED) 1207 (Given - Provider: Sarah Sweet, RN) 10 mL, Oral, ONCE, On Sat06/17/12 at 1215, For 1 dose, PACU/Phase II Continuous Medication Order 06/15/2012 06/16/2012 06/17/2012 lactated ringers infusion (CANCELED) 1227 (New Bag - Provider: Pura Burt, REAL) at 100 mL/hr, Intravenous, CONTINUOUS, C ontinue until IV catheter is weaned, PACU/Phase II PRN Medication Order 06/15/2012 06/16/2012 06/17/2012 bupivacaine 0.25 % - EPINEPHrine 1:200,000 injection (CANCELED) 1031 (Given - Provider: Dimitri Haywood MD - Comment: Tonsil Beds) PRN, Starting Sat06/17/12 at 1031, Intra-procedure fentaNYL (SUBLIMAZE) injection 25-50 mcg (CANCELED) 1145 (Given - Provider: Sarah Sweet, REAL) 25-50 mcg, Intravenous, EVERY 2 MIN PRN, Starting Sat06/17/12 at 1117, other, acute pain while in PACU., MAX cumulative dose = 250 mcg. Use Fentanyl initially, as a short acting agent for acute pain cont rol. If insufficient, or a longer acting agent is needed, begin Morphine or Hydromorphone if ordered., PACU HYDROmorphone (DILAUDID) injection 0.2-0.4 mg (CANCELED) 1127 (Given - Provider: Sarah Sweet RN) 0.2-0.4 mg, Intravenous, EVERY 10 MIN TN N, Starting 06/17/12 at 1117, Until 06/17/12 at 1632, moderate to severe pain, acute pain.?May administer if RR is > 10 , PACU/Phase II, If fentanyl is also ordered, use HYDROmorphone if pain control insufficient with fentanyl or a longer acting agent is needed. Max cumulative dose = 2 mg documented in this encounter Care Teams Power Cleaner Operator Relationship Specialty Start Date End Date Bertrand Field MD PCP - General Family Practice 06/09/12 04/25/19 [facility] [address] [place] [address] documented as of this encounter
--- OUTSIDE RECORDS SUMMARY | 2021-12-07 08:34 | XMS_ITS | Encounter Summary ---
:1980 Author Organization [place] Address [address] [place] [address]. [place] [address] Care Team Providers Name Role Phone Med Hawley MD Primary Care Provider Reason for Visit Reason Comments Consult bleeding belly button Encounter Details Date Type Department Care Team Description 11/22/2004 Office Visit [facility] Med Haw[facility] Casselberry MD (Primary Dx) [address] [phone] [id number] Social History Tobacco Use Types Packs/Day Years Used Date Smoking Tobacco: Every Day Cigarettes 0.5 Alcohol Use Standard Drinks/Week Comments Not Asked 0 (1 standard drink = 0.6 oz pure alcoho l) Alcohol Habits Answer Date Recorded How often [...] Sign Reading Time Taken Comments Blood Pressure 130/80 11/22/2004 1:00 PM CDT Pulse 80 11/22/2004 1:00 PM CDT Temperature - - Respiratory Rate - - Oxygen Saturation - - Inhaled Oxygen Concentration - - Weight 142 kg (313 lb) 11/22/2004 1:00 PM CDT Height 177.8 cm (5' 10) 11/22/2004 1:00 PM CDT Body Mass Index 44.91 11/22/2004 1:00 PM CDT documented in this encounter Progress Notes Med Hawley - 11/22/2004 1:15 PM CDT SUBJECTIVE: Brock Gotti is a 24 year old male complains of BLEEDING FROM HIS BELLY BUTTON. HE STATES THAT HE GETS THIS ON AND OFF EVERY YEAR. THERE IS NO FEVER AND NO CHILLS. OBJECTIVE: BP 130/80 Pulse 80 Ht 5' 10 (1.78m) Wt 313 lbs (142.0kg) EXAM;S1 and S2 normal, no murmurs, clicks, gallops or rubs. Regular rate and rhythm. Chest is clear;no wheezes or rales. No edema or JVD. Chest is clear, no wheezing or rales. Normal symmetric air entry throughout both lung lomas. No chest wall deformities or tenderness. The abdomen is soft without tenderness, guarding, mass, rebound or organomegaly. Bowel sounds are normal. No CVA tenderness or inguinal adenopathy noted. UMBILICYUS; SLIGHT REDNESS IN THE BOTTOM OF THE UMBILICUS NO FOUL SMELL ASSESSMENT: 1. SUPERFICIAL INFECTION; UMBILICUS PLAN: 1.see orders documented in this encounter Nursing Notes 11/22/2004 1:00 PM CDT >> PAO BUITRAGO 11/22/2004 1:04 pm Brock Gotti presents for complaint of bleeding belly button. Initial BP 130/80 Pulse 80 Ht 5' 10 (1.78m) Wt 313 lbs (142.0kg) Body Mass Index is 44.91 kg/(m^2).. BP completed using cuff size: large documented in this encounter Plan of Treatment Not on filedocumented as of this encounter Visit Diagnoses Diagnosis Other specified disorder of skin - Prima ry documented in this encounter Care Teams Wafer Cleaner Relationship Specialty Start Date End Date Med Hawley MD PCP - General 11/22/04 06/08/12 [address] [place] [address] documented as of this encounter
--- OUTSIDE RECORDS SUMMARY | 2021-12-07 08:34 | XMS_ITS | Encounter Summary ---
:1980 Author Organization [place] Address [facility] [place] [address] Care Team Providers Name Role Phone Bertrand Field MD Primary Care Provider Reason for Visit Auth/Cert - Closed Specialty Diagnoses / Procedures Referred By Contact Refer red To Contact Surgery Diagnoses Tosil and Adenoid Hypertrophy, Chronic Otitis Media Rh Periop Services Procedures COMBINED MYRINGOTOMY, INSERT TUBE(S), ADENOIDECTOMY TONSILLECTOMY [address] [place], [place] [address] Phone: Fax: Referral ID Status Reason Start Date Expiration Date Visits Requ ested Visits Authorized [id number] Closed 1 1 Encounter Details Date Type Department Care Team Description 06/17/2012 Hospital Encounter [facility] Dimitri Slaughter S /P tonsillectomy Carrol Mohr MD (Primary Dx) PreOP/PostOP ENT SPECIALTY [address] [facility] [address] [address] [place], [place] [phone] [address] Social History Tobacco Use Types Packs/Day Years [...] Sign Reading Time Taken Comments Blood Pressure 114/62 06/17/2012 1:15 PM CDT Pulse - - Temperature 36.8 ??C (98.2 ??F) 06/17/2012 11:13 AM CDT Respiratory Rate 12 06/17/2012 1:15 PM CDT Oxygen Saturation 96% 06/17/2012 1:15 PM CDT Inhaled Oxygen Concentration - - Weight 145.6 kg (321 lb) 06/17/2012 7:38 AM CDT Height 175.3 cm (5' 9) 06/17/2012 7:38 AM CDT Body Mass Index 47.4 06/17/2012 7:38 AM CDT documented in this encounter Discharge Instructions Discharge InstructionsDimitri Slaughter MD - 06/17/2012 11:46 AM CDT GENERAL [...] (PASS WATER). TONSILLECTOMY AND ADENOIDECTOMY DISCHARGE INSTRUCTIONS [facility], Jake. Dudley Mcleod M.D. Dimitri Slaughter M.D. Ace Crowley M.D. León Membreno M.D. [...] It is best to stay in the [facility] area for the two week healing period. [...] have any problems or questions, please call [phone], 24 hours a day. 13. Keep ears [...] as of this encounter H&P Notes Dimitri Slaughter MD - 06/16/2012 3:37 PM CDT documented in this encounter Miscellaneous Notes Op Note - Dimitri Slaughter MD - 06/17/2012 11:58 AM CDT SURGEON: Dimitri Slaughter MD PREOPERATIVE DIAGNOSES: 1. Chronic tonsillitis. 2. [...] blood loss was approximately 50 cc. DIMITRI SLAUGHTER MD MT: PP Name: MAGEN OAKLEY Account: [id number] : 1980 Procedure Date: 06/17/2012 Document: [id number] cc: Bertrand Field MD Brief Op Note - Dimitri Slaughter MD - 06/17/2012 11:38 AM CDT [facility] Otolaryngology Brief Operative Note Procedure: Bilateral myringotomy and aspiration Nasopharyngoscopy Tonsillectomy and coagulation of adenoids Nasal endoscopy Surgeon: DIMITRI SLAUGHTER MD Estimated blood loss: Less than 50 [...] Component Value Ref Test Analysis Performed At [facility] Method Time Signature Copath Report Patient Name: MAGEN OKALEY MR#: [id number] Specimen #: [id number] Collected: 06/17/2012 Received: 06/17/2012 Reported: 06/18/2012 13:59 Ordering Phy(s): DIMITRI SLAUGHTER SPECIMEN(S): A: Tonsil, right B: Tonsil, left [...] consultation is obtained (specimen B only). SA/sg 06-18-12 TESTING LAB LOCATION: [address] ??[address] COLLECTION SITE: Client: [facility] Location: SUSAN (R) Specimen Anatomical Collection Method Collection Time Receive d Time (Source) Location / / Volume Laterality 06/17/2012 10:10 06/17/2012 AM CDT 11:44 AM CDT Dimitri Slaughter MD LAB - [facility] AP Performing Organization Address City/State/ZIP Code Phon e Number COPATH EKG 12-lead, tracing only (06/17/2012 7:57 AM CDT) [facility] gist Method Time Signature Interpretation ECG Click View RADIOLOGY Image link RESULTS to view waveform and result Specimen (Source) Anatomical Collection Method Collection Time Re ceived Time Location / / Volume Laterality 06/17/2012 7:57 AM CDT Shelton Lomax MD ECG ORDERABLES Performing Organization Address City/State/ZIP Code Phon e Number RADIOLOGY RESULTS (ABNORMAL) Creatinine (06/17/2012 7:55 AM CDT) Analysis Performed At [facility] logist Time Signature Creatinine 0.65 (L) 0.66 - [facility] 1.25 mg/dL [facility] GFR Estimate >90 >60 [facility] mL/min/1.7 [facility] m2 [facility] GFR Estimate If >90 >60 [place] [facility] mL/min/[address] [place] [address] m2 [facility] LAB Specimen Anatomical Collection Method Collection Time Receive d Time (Source) Location / / Volume Laterality Blood specimen 06/17/2012 7:55 AM 013 8:00 (specimen) CDT AM CDT Shelton Lomax MD LAB - BLOOD ORDERABLES Performing Organization Address City/[facility]/ZIP Code Phon e Number [place] [address] [address] [facility] documented in this encounter Visit Diagnoses Diagnosis S/P tonsillectomy - Primary Other postprocedural status documented in this encounter Administered Medications Inactive Administered Medications - up to 3 most recent administrations Medication Order MAR Action Action Date Dose Rate Site fentaNYL (SUBLIMAZE) injection Given 06/17/2012 11:45 AM CDT 50 mcg 25-50 mcg 25-50 mcg, Intravenous, EVERY 2 MIN [...] 06/17/2012 ceFAZolin (ANCEF) IVPB 2 g (COMPLETED) 0927 (Given - Provider: Jian Carl APRN CRNA) 2 g, Intravenous, PRE-OP/PRE-PROCEDURE, For 1 dose, Give first dose within 1 hour PRIOR to incision., Indications: Surgical Prophylaxis, Pre-procedure oxyCODONE-acetaminophen (ROXICET) 5-325 MG/5ML solution 10 mL (C OMPLETED) 1207 (Given - Provider: Sarah Sweet RN) 10 mL, Oral, ONCE, On Sat06/17/12 at 1215, For 1 dose, PACU/Phase II Continuous Medication Order 06/15/2012 06/16/2012 06/17/2012 lactated ringers infusion (CANCELED) 1227 (New Bag - Provider: Pura Burt RN) at 100 mL/hr, Intravenous, CONTINUOUS, C ontinue until IV catheter is weaned, PACU/Phase II PRN Medication Order 06/15/2012 06/16/2012 06/17/2012 bupivacaine 0.25 % - EPINEPHrine 1:200,000 injection (CANCELED) 1031 (Given - Provider: Dimitri Slaughter MD - Comment: Tonsil Beds) PRN, Starting 06/17/12 at 1031, Intra-procedure fentaNYL (SUBLIMAZE) injection 25-50 mcg (CANCELED) 1145 (Given - Provider: Sarah Sweet RN) 25-50 mcg, Intravenous, EVERY 2 MIN PRN, Starting 06/17/12 at 1117, other, acute pain while in PACU., MAX cumulative dose = 250 mcg. Use Fentanyl initially, as a short acting agent for acute pain cont rol. If insufficient, or a longer acting agent is needed, begin Morphine or Hydromorphone if ordered., PACU HYDROmorphone (DILAUDID) injection 0.2-0.4 mg (CANCELED) 1127 (Given - Provider: Sarah Sweet RN) 0.2-0.4 mg, Intravenous, EVERY 10 MIN MT N, Starting 06/17/12 at 1117, Until 06/17/12 at 1632, moderate to severe pain, acute pain.?May administer if RR is > 10 , PACU/Phase II, If fentanyl is also ordered, use HYDROmorphone if pain control insufficient with fentanyl or a longer acting agent is needed. Max cumulative dose = 2 mg documented in this encounter Care Teams Iuss Analyst Relationship Specialty Start Date End Date Bertrand Field MD PCP - General Family Practice 06/09/12 04/25/19 [facility] [address] [place] [phone] documented as of this encounter
--- OUTSIDE RECORDS SUMMARY | 2021-12-07 08:35 | XMS_ITS | Encounter Summary ---
:1980 Author Organization [facility] Address [address] [place] [address] Care Team Providers Name Role Phone Unavailable Primary Care Provider Unavailable Reason for Referral MRI/CAT/PET Scan (Routine) - Closed Specialty Diagnoses / Procedures Referred By Contact Refer red To Contact Radiology Diagnoses [facility] Ureteral Dysuria Mary Nicholson APRN [facility] Region Procedures CT Abdomen Pelvis without IV Contrast C.N.P. [address] [address] Referral ID Status Reason Start Date Expiration Date Visits Requ ested Visits Authorized [id number] Closed 08/18/2020 08/18/2021 1 1 Encounter Details Date Type Department Care Team Description 08/18/2020 Orders Only Department of Urology Mary Nicholson, [facility] Ureteral (Primary Dx); in [place], C.N.P. Dysuria [place] [address] [place] [address] [phone] [phone] Social History Tobacco Use Types Packs/Day Years Used Date Smoking Tobacco: Every Day Cigarettes 0.5 Smokeless Tobacco: Never Alcohol Habits Answer Date Recorded How often do you have a drink containing alcohol? Monthly or less 06/16/2020 How many drinks containing alcohol do you have on a 5 or 6 06/16/2020 typical day when you are drinking? How often do you have six or more drinks on one Less than mo nthly 06/16/2020 occasion? Social Isolation Answer Date Recorded In a typical week, how many times do you More than three mikala es a week 06/16/2020 talk on the phone with family, friends, or neighbors? How often do you get together with friends Three times a wee k 06/16/2020 or relatives? How often do you attend bahai or Never 2020 holiness services? Do you belong to any clubs or No 06/16/2020 organizations such as bahai groups, unions, [employer] or athletic groups, or school groups? How often do you attend meetings of the Never 06/16/2020 clubs or organizations you belong to? Are you now , , , Never 06/16/2020 , never or living with a partner? Physical Activity Answer Date Recorded On average, how many days per week do you engage in moderate to 3 days 06/16/2020 strenuous exercise (like walking fast, running, jogging, dancing, swimming, biking, or other activities that cause a light or heavy sweat)? On average, how many minutes do you engage in exercise at th is 50 min 06/16/2020 level? Stress Answer Date Recorded Do you feel stress - tense, restless, nervous, or anxious, N ot at all 06/16/2020 or unable to sleep at night because your mind is troubled all the time - these days? Financial Resource Strain Answer Date Recorded How hard is it for you to pay for the very basics like Not v rafaela hard 06/16/2020 food, housing, medical care, and heating? Food Insecurity Answer Date Recorded Within the past 12 months, you worried that your food would Never true 06/16/2020 run out before you got money to buy more. Within the past 12 months, the food you bought just didn't N ever true 06/16/2020 last and you didn't have money to get more. Transportation Needs Answer Date Recorded In the past 12 months, has lack of transportation kept you f rom No 06/16/2020 medical appointments or from getting medications? In the past 12 months, has lack of transportation kept you f rom No 06/16/2020 meetings, work, or getting things needed for daily living? Housing Stability Answer Date Recorded In the last 12 months, was there a time when you were not ab le Yes 06/16/2020 to pay the mortgage or rent on time? In the last 12 months, how many places have you lived? 1 06/16/2020 In the last 12 months, was there a time when you did not hav e a No 06/16/[address] or slept in a usp (including now)? Education Answer Date Recorded What is the highest level of school you have Some college, n o degree 06/16/2020 completed or the highest degree you have received? Sex Assigned at Date Recorded Not on file documented as of this encounter Plan of Treatment Scheduled Orders Name Type Priority Associated Diagnoses Order S chedule CT Abdomen Pelvis Imaging RAD - Routine (most Stone Kidney And Expected: without IV Contrast inpatients and all Ureteral 08/18/2020 outpatients) Dysuria (Approximate), Expires: 08/19/2023 documented as of this encounter Visit Diagnoses Diagnosis [facility] Ureteral - Primary Dysuria documented in this encounter
--- OUTSIDE RECORDS SUMMARY | 2021-12-07 08:35 | XMS_ITS | Encounter Summary ---
:1980 Author Organization [facility] Address [address] [place] [address] Care Team Providers Name Role Phone Unavailable Primary Care Provider Unavailable Reason for Visit Reason Onset Date Comments Urolithiasis Left Without Being Seen 09/01/2020 Appointment Request (Routine) - Closed Specialty Diagnoses / Procedures Referred By Contact Refer red To Contact Urology Referral ID Status Reason Start Date Expiration Date Visits Requ ested Visits Authorized [id number] Closed 06/15/2020 06/15/2021 1 1 Encounter Details Date Type Department Care Team Description 06/16/2020 Comprehensive Visit Department of Mary [facility]olson And Urology in [place], UTILITY SALES AND SERVICE MANAGER, C.N.P. Treatment [place], [place] [address] Carried Out Due To [address] [place], [place] [address] Prior To Being Seen [phone] By [facility] Provider (Primary [phone] Dx) (Fax) Social History Tobacco Use Types Packs/Day Years [...] or relatives? How often do you attend catholic or Never 2020 pentecostal services? Do you belong to any clubs or No 06/16/2020 organizations such as catholic groups, unions, fraternal or athletic groups, or school groups? How [...] place to sleep or slept in a custodial (including now)? Education Answer Date Recorded What is the highest level of school you have Some college, n o degree 06/16/2020 completed or the highest degree you have received? Sex Assigned at Date Recorded Not on file documented as of this encounter Last Filed Vital Signs Vital Sign Reading Time Taken Comments Blood Pressure - - Pulse 81 06/16/2020 1:44 PM CDT Temperature 36.5 ??C (97.7 ??F) 06/16/2020 1:44 PM CDT Respiratory Rate - - Oxygen Saturation 98% 06/16/2020 1:44 PM CDT RA Inhaled Oxygen Concentration - - Weight - - Height - - Body Mass Index - - documented in this encounter Progress Notes Quan Weber - 06/16/2020 2:00 PM CDT Brock Gtoti was scheduled and checked in for an appointment but left before being seen by Mary Nicholson APRN, C.N.P. because provider had emerg surgery. Rooming staff completed some documentation within the encounter. documented in this encounter Plan of Treatment Not on filedocumented as of this encounter Visit Diagnoses Diagnosis Procedure And Treatment Not Carried Out Due To Patient Leaving Prior To Being Seen By Health Care Provider - Primary documented in this encounter
--- OUTSIDE RECORDS SUMMARY | 2021-12-07 08:35 | XMS_ITS | Encounter Summary ---
:1980 Author Organization [facility] Address [address] [place] [address] Care Team Providers Name Role Phone Unavailable Primary Care Provider Unavailable Reason for Visit Reason Comments Communication Encounter Details Date Type Department Care Team Description 06/15/2020 Clinical Communication Department of Urology Caren Walters Communication in [facility] C, R.N. [address] [place] [phone] Social History Tobacco Use Types Packs/Day Years [...] or relatives? How often do you attend orthodox or Never 2020 pentecostalism services? Do you belong to any clubs or No 06/16/2020 organizations such as orthodox groups, unions, fraternal or athletic groups, or [...] place to sleep or slept in a half-way (including now)? Sex Assigned at Date Recorded Not on file documented as of this encounter Miscellaneous Notes Telephone Encounter - Caren Walters R.N. - 06/15/2020 3:19 PM CDT Urology RN attempted to contact patient for further information in preparation of urology appointment tomorrow, 06/16/20. Called phone number listed in EMR twice and person that answered responded with wrong number. documented in this encounter Plan of Treatment Not on filedocumented as of this encounter Visit Diagnoses Not on filedocumented in this encounter
--- OUTSIDE RECORDS SUMMARY | 2021-12-07 08:35 | XMS_ITS | Encounter Summary ---
:1980 Author [facility] Address [address] [place] [address] Care Team Providers Name Role Phone Unassigned, Provider Primary Care Provider Unavailable Reason for Visit Procedure/Equipment (Routine) - Incomplete Specialty Diagnoses / Procedures Referred By Contact Refer red To Contact Diagnoses Primary osteoarthritis of both knees Maurilio Hair PA-C Procedures XR Knee Lt 3 Views [address] [facility] [place], [place] [address] Referral ID Status Reason Start Date Expiration Date Visits V isits Requested Authorized [id number] Incomplete 08/28/2016 11/27/2017 1 1 Encounter Details Date Type Department Care Team Description 08/28/2016 Imaging [facility] Maurilio Hair PA-C Left knee pain, [address] [facility] [facility] unspecified chronicity [place], [place] [address] [place] [address] [phone] (Wo rk) Social History Tobacco Use Types Packs/Day Years Used Date Smoking Tobacco: Former Sex Assigned at Date Recorded Not on file documented as of this encounter Plan of Treatment Not on filedocumented as of this encounter Procedures Procedure Name Priority Date/Time Associated Diagnosis Comme nts XR KNEE RT 1-2 VIEWS Routine 08/28/2016 8:22 AM Left knee pain , Results for this COMPARISON CDT unspecified procedure are i n chronicity the results section. XR KNEE LT 3 VIEWS Routine 08/28/2016 8:22 AM Left knee pain, Results for this CDT unspecified procedure are i n chronicity the results section. documented in this encounter Results XR Knee Rt 1-2 Views Comparison (08/28/2016 8:22 AM CDT) Anatomical Region Laterality Modality Lower Extremity, Knee Digital Radiograph y Specimen (Source) Anatomical Collection Method Collection Time Re ceived Time Location / / Volume Laterality 08/28/2016 8:11 AM CDT Narrative 08/28/2016 8:40 AM CDT COMPARISON: ??03/24/2010 FINDINGS: ?? Right knee: Moderate degenerative narrow ing medial knee joint compartment. Tricompartment degenerative spurring changes present as well as some atrophic changes of the tibial spine of the plateau. Left knee: More severe degenerative narr owing of the medial knee joint compartment. Tricompartment degenerative spurring. Appearance of some osteochondral loose joint body formation posterior knee joint. Procedure Note Rey Lee MD - 08/28/2016Format ting of this note might be different from the original. COMPARISON: 03/24/2010 FINDINGS: Right knee: Moderate degenerative narrow ing medial knee joint compartment. Tricompartment degenerative spurring changes present as well as some atrophic changes of the tibial spine of the plateau. Left knee: More severe degenerative narr owing of the medial knee joint compartment. Tricompartment degenerative spurring. Appearance of some osteochondral loose joint body formation posterior knee joint. Maurilio Hair PA-C RAD GD XR Knee Lt 3 Views (08/28/2016 8:22 AM CDT) Anatomical Region Laterality Modality Lower Extremity, Knee Digital Radiograph y Specimen (Source) Anatomical Collection Method Collection Time Re ceived Time Location / / Volume Laterality 08/28/2016 8:11 AM CDT Narrative 08/28/2016 8:40 AM CDT COMPARISON: ??03/24/2010 FINDINGS: ?? Right knee: Moderate degenerative narrow ing medial knee joint compartment. Tricompartment degenerative spurring changes present as well as some atrophic changes of the tibial spine of the plateau. Left knee: More severe degenerative narr owing of the medial knee joint compartment. Tricompartment degenerative spurring. Appearance of some osteochondral loose joint body formation posterior knee joint. Procedure Note Rey Lee MD - 08/28/2016Format ting of this note might be different from the original. COMPARISON: 03/24/2010 FINDINGS: Right knee: Moderate degenerative narrow ing medial knee joint compartment. Tricompartment degenerative spurring changes present as well as some atrophic changes of the tibial spine of the plateau. Left knee: More severe degenerative narr owing of the medial knee joint compartment. Tricompartment degenerative spurring. Appearance of some osteochondral loose joint body formation posterior knee joint. Maurilio PROCTOR GD documented in this encounter Visit Diagnoses Diagnosis Left knee pain, unspecified chronicity documented in this encounter Care Teams Independent Jeweler Relationship Specialty Start Date End Date Unassigned, Provider PCP - General 04/07/[address] [place] [phone] documented as of this encounter
--- OUTSIDE RECORDS SUMMARY | 2021-12-07 08:35 | XMS_ITS | Encounter Summary ---
:1980 Author Organization [facility] Address [address] [place] [address] Care Team Providers Name Role Phone Unassigned, Provider Primary Care Provider Unavailable Reason for Visit Procedure/Equipment (Routine) - Incomplete Specialty Diagnoses / Procedures Referred By Contact Refer red To Contact Diagnoses Pain in both knees, unspecified chronicity Jordan Mckinley PA-C Procedures XR Knee Rt 3 Views [address] [place] [address] Referral ID Status Reason Start Date Expiration Date Visits V isits Requested Authorized [id number] Incomplete 03/16/2020 06/15/2021 1 1 Encounter Details Date Type Department Care Team Description 03/16/2020 Ancillary [facility] AmbriannepimJordan Pain in both knees, Procedure [address] [facility] [address] [place] [address] [phone] Social History Tobacco Use Types Packs/Day Years Used Date Smoking Tobacco: Some Days Sex Assigned at Date Recorded Not on file documented as of this encounter Plan of Treatment Not on filedocumented as of this encounter Procedures Procedure Name Priority Date/Time Associated Diagnosis Comme nts XR KNEE RT 3 VIEWS Routine 03/16/2020 1:48 PM Pain in both kne es, Results for this CERTIFIED RECREATIONAL THERAPIST unspecified procedure are i n chronicity the results section. XR KNEE LT 3 VIEWS Routine 03/16/2020 1:48 PM Pain in both kne es, Results for this CERTIFIED RECREATIONAL THERAPIST unspecified procedure are i n chronicity the results section. documented in this encounter Results XR Knee Rt 3 Views (03/16/2020 1:48 PM CERTIFIED RECREATIONAL THERAPIST) Anatomical Region Laterality Modality Lower Extremity, Knee Digital Radiograph y Specimen (Source) Anatomical Collection Method Collection Time Re ceived Time Location / / Volume Laterality 03/16/2020 1:35 PM CERTIFIED RECREATIONAL THERAPIST Impressions 03/16/2020 1:53 PM CERTIFIED RECREATIONAL THERAPIST COMPARISON: ??08/18/2016. FINDINGS: ?? Right knee: 3 views were obtained. No fr acture or dislocation identified. Mild medial compartment and patellofemoral compartment joint space narrowing. Tricompartment marginal osteophyte formation. 4 mm ossific/calcific density on lateral vie w posterior to the tibial plateau may reflect small loose body. Left knee: 3 views were obtained. No fra cture or dislocation identified. Moderate to advanced medial compartment joint space narrowing, advanced compared with previous. Moderate patellofemoral compartme nt joint space narrowing. Tricompartment marginal osteophyte formation. Ossific densities posterior to the knee on lateral view may in part be due to hypertrophic spurring but question loose bodies. Procedure Note Jelani Johnson MD - 03/16/2020Formatt ing of this note might be different from the original. IMPRESSION COMPARISON: 08/18/2016. FINDINGS: Right knee: 3 views were obtained. No fr acture or dislocation identified. Mild medial compartment and patellofemoral compartment joint space narrowing. Tricompartment marginal osteophyte formation. 4 mm ossific/calcific density on lateral view posterior to the tibial plateau may reflect small loose body. Left knee: 3 views were obtained. No fra cture or dislocation identified. Moderate to advanced medial compartment joint space narrowing, advanced compared with previous. Moderate patellofemoral compartment joint space narrowing. Tricompartment marginal osteo phyte formation. Ossific densities posterior to the knee on lateral view may in part be due to hypertrophic spurring but question loose bodies. Jordan Mckinley PA-C RAD GD XR Knee Lt 3 Views (03/16/2020 1:48 PM CERTIFIED RECREATIONAL THERAPIST) Anatomical Region Laterality Modality Lower Extremity, Knee Digital Radiograph y Specimen (Source) Anatomical Collection Method Collection Time Re ceived Time Location / / Volume Laterality 03/16/2020 1:35 PM CERTIFIED RECREATIONAL THERAPIST Impressions 03/16/2020 1:53 PM CERTIFIED RECREATIONAL THERAPIST COMPARISON: ??08/18/2016. FINDINGS: ?? Right knee: 3 views were obtained. No fr acture or dislocation identified. Mild medial compartment and patellofemoral compartment joint space narrowing. Tricompartment marginal osteophyte formation. 4 mm ossific/calcific density on lateral vie w posterior to the tibial plateau may reflect small loose body. Left knee: 3 views were obtained. No fra cture or dislocation identified. Moderate to advanced medial compartment joint space narrowing, advanced compared with previous. Moderate patellofemoral compartme nt joint space narrowing. Tricompartment marginal osteophyte formation. Ossific densities posterior to the knee on lateral view may in part be due to hypertrophic spurring but question loose bodies. Procedure Note Jelani Johnson MD - 03/16/2020Formatt ing of this note might be different from the original. IMPRESSION COMPARISON: 08/18/2016. FINDINGS: Right knee: 3 views were obtained. No fr acture or dislocation identified. Mild medial compartment and patellofemoral compartment joint space narrowing. Tricompartment marginal osteophyte formation. 4 mm ossific/calcific density on lateral view posterior to the tibial plateau may reflect small loose body. Left knee: 3 views were obtained. No fra cture or dislocation identified. Moderate to advanced medial compartment joint space narrowing, advanced compared with previous. Moderate patellofemoral compartment joint space narrowing. Tricompartment marginal osteo phyte formation. Ossific densities posterior to the knee on lateral view may in part be due to hypertrophic spurring but question loose bodies. Jordan PROCTOR GD documented in this encounter Visit Diagnoses Diagnosis Pain in both knees, unspecified chronici ty documented in this encounter Care Teams Merchant Seaman Relationship Specialty Start Date End Date Unassigned, Provider PCP - General 04/07/[address] [place] [id number] documented as of this encounter
--- OUTSIDE RECORDS SUMMARY | 2021-12-07 08:35 | XMS_ITS | Encounter Summary ---
:1980 Author Organization [facility] Address [address] [place] [address] Care Team Providers Name Role Phone Unavailable Primary Care Provider Unavailable Encounter Details Date Type Department Care Team Description 08/18/2020 Clinical Communication Department of Urology Roberto Carlos [place] C[place]N.[place] [address] [place] [phone] Social History Tobacco Use Types Packs/Day Years [...] do you attend bahai or Never 2020 mormonism services? Do you belong to any clubs or No 06/16/2020 organizations such as bahai groups, unions, fraternal or athletic groups, or [...] place to sleep or slept in a residential (including now)? Education Answer Date Recorded What is the highest level of school you have Some college, n o degree 06/16/2020 completed or the highest degree you have received? Sex Assigned at Date Recorded Not on file documented as of this encounter Miscellaneous Notes Telephone Encounter - Noemi Ordaz R.N. - 08/18/2020 4:56 PM CDT Patient notified of response message. Verbalized understanding. Telephone Encounter - Mary Nicholson APRN, C.N.P. - 08/18/2020 4:33 PM CDT I placed orders for UA/UC and CT Stone Protocol. CT form will need to be faxed. It may take a few days before he gets everything schedule and we have results. If his symptoms worsen or he starts to have fevers, he should present to the emergency department in [place] or [place], preferably [place]. Telephone Encounter - oNemi Ordaz R.N. - 08/18/2020 2:14 PM CDT Left message for patient to call back. Telephone Encounter - Mary Nicholson APRN, C.N.P. - 08/18/2020 1:08 PM CDT Before we would schedule him for any procedure, he needs to have CT scan. We need to verify that this is in fact a stone that is causing problems, we also need to know its location and size. If he is still having pain, I will order a CT stone protocol. If he is not having any pain, he can continue with current fluid intake and return to the ER for imaging if needed in the future. Telephone Encounter - Vivienne Ly L.P.N. - 08/18/2020 12:48 PM CDT Please advise: Patient was seen last on 06/17/[address] was done on 06/14/20. Let us know if patient will need any further imaging or if he should get scheduled for surgery. Thanks Telephone Encounter - Yvette Grider - 08/18/2020 8:42 AM CDT Reason for Communication: Patient calling in and states that he was in the ER in [place] over the14 of August weekend for a kidney stone that he has. Patient did not have a CT scan done but the ER providers are pretty sure that he has a kidney stone. Patient was last seen with Mary Nicholson on 06/17/20 for a kidney stone. Patient is wondering if he is going to need surgery. Please advise. Current Can Nursing/Provider leave a detailed message?: yes Did the patient refuse triage through Nurse line? (for symptom based concerns): n/a Action Needed: Call back Name of Medication (if relevant): n/a documented in this encounter Plan of Treatment Not on filedocumented as of this encounter Visit Diagnoses Not on filedocumented in this encounter
--- OUTSIDE RECORDS SUMMARY | 2021-12-07 08:35 | XMS_ITS | Encounter Summary ---
:1980 Author Organization [facility] Address [address] [place] [address] Care Team Providers Name Role Phone Unassigned, Provider Primary Care Provider Unavailable Reason for Referral (Routine) - New Request Specialty Diagnoses / Procedures Referred By Contact Refer red To Contact Diagnoses Chronic pain of both knees Jordan Mckinley PA-C Procedures Triamcinolone Acet Inj Nos: (per 10 mg) [address] [place] [address] Referral ID Status Reason Start Date Expiration Date Visits V isits Requested Authorized [id number] New Request 09/15/2020 12/15/2021 1 1 Reason for Visit Reason Comments Follow-up Bilatera Knee Encounter Details Date Type Department Care Team Description 09/14/2020 Office Visit [facility] Jordan Mckinley pain of both CENTER CARYL John knees (Primary Dx) [address] [facility] [address] [place], [place] [address] [place], [place] [phone] Social History Tobacco Use Types Packs/Day Years Used Date Smoking Tobacco: Some Days Sex Assigned at Date Recorded Not on file documented as of this encounter Progress Notes Jordan Mckinley PA-C - 09/14/2020 12:00 AM CDT NAME: MAGEN OAKLEY [facility]: [id number] CLINIC NOTE DATE OF SERVICE: 09/14/2020 : 1980 HISTORY: Patient is a 40-year-old male who presents today for followup of his bilateral knee pain. He has a known history of bilateral knee osteoarthritis. He last saw Dr. James on June 21, 2020, where he underwent bilateral cortisone injections. This improved his knee pain up until about a week ago. He has been increasing his activity. He has been working and been working 10 hour days and feels like the injection has worn off. He is interested in repeating the cortisone injection. PHYSICAL EXAM: GENERAL: Patient is alert, awake and in no apparent distress. He walks with a mildly antalgic gait without the use of a brace or assistive device. On exam of his bilateral knees, there is no effusion, erythema, ecchymosis or skin abnormalities. Range of motion not tested. Thigh and calfare nontender. He is otherwise neurovascularly intact. IMPRESSION: Bilateral knee osteoarthritis. PLAN: I discussed with Magen we can proceed with a repeat corticosteroid injection. After verbal consent was obtained, his bilateral knees prepped with a Betadine solution. 4 mL of lidocaine and 1 mL ofKenalog which is equivalent to 40 mg, was injected into his bilateral knees under sterile technique.He tolerated this procedure well. He was educated on adverse reaction. Should he note any symptoms, he is instructed to call the clinic. All questions were answered. CARYL JARRELL/RONIT /[id number] documented in this encounter Plan of Treatment Not on filedocumented as of this encounter Visit Diagnoses Diagnosis Chronic pain of both knees - Primary documented in this encounter Care Teams Roller Shop Supervisor Relationship Specialty Start Date End Date Unassigned, Provider PCP - General 04/07/[address] [place] [address] documented as of this encounter
--- OUTSIDE RECORDS SUMMARY | 2021-12-07 08:35 | XMS_ITS | Encounter Summary ---
:1980 Author Organization [facility] Address [address] [place] [address] Care Team Providers Name Role Phone Unassigned, Provider Primary Care Provider Unavailable Encounter Details Date Type Department Care Team Description 04/11/2010 PN Conversion Only [facility] Salomon Gonzalez, Prosthetics [address] [facility] [address] [place] [address] [address] [place] [address] [place] [address] [phone] Social History Tobacco Use Types Packs/Day Years Used Date Smoking Tobacco: Never Assessed Sex Assigned at Date Recorded Not on file documented as of this encounter Plan of Treatment Not on filedocumented as of this encounter Visit Diagnoses Not on filedocumented in this encounter Care Teams Overlock Operator Relationship Specialty Start Date End Date Unassigned, Provider PCP - General 04/07/00 [address] [place] [address] documented as of this encounter
--- OUTSIDE RECORDS SUMMARY | 2021-12-07 08:35 | XMS_ITS | Encounter Summary ---
:1980 Author Organization [facility] Address [address] [place] [address] Care Team Providers Name Role Phone Unassigned, Provider Primary Care Provider Unavailable Reason for Referral (Routine) - Closed Specialty Diagnoses / Procedures Referred By Contact Refer red To Contact Diagnoses Right knee pain, unspecified chronicity Thierno Rodriguez MD Procedures Triamcinolone Acet Inj Nos: (per 10 mg) [address] [facility] [place], [place] [address] Referral ID Status Reason Start Date Expiration Date Visits Requ ested Visits Authorized [id number] Closed 03/22/2020 06/21/2021 1 1 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 Reason for Visit Reason Comments MRI Results Right Knee Encounter Details Date Type Department Care Team Description 03/21/2020 Office Visit [facility] Thierno Rodriguez M D Right knee pain, CENTER [address] [place] [address] unspecified [address] [place], [place] chronicity (Primary [place] [phone] Dx) [phone] (Wo rk) Social History Tobacco Use Types Packs/Day Years Used Date Smoking Tobacco: Some Days Sex Assigned at Date Recorded Not on file documented as of this encounter Progress Notes Thierno Rodriguez MD - 03/21/2020 10:[address] [facility] Follow-Up 03/21/2020 Chief Complaint: Right Knee Follow-Up History of Present Illness: Brock Gotti is a 39 y.o. male who presents for follow-up regarding his right knee MRI results. The patient was last evaluated on 03/16/20 by Jordan Mckinley PA-C at which time he reported several years of bilateral knee pain with his right knee recently being more painful than his left. He reported associated clicking, popping, catching, locking, and swelling that increased with any movement. 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 At that time, he was prescribed Voltaren to take along with Tylenol and a MRI was ordered to evaluate for meniscal pathology versus osteoarthritis. Today, patient reports if he trips over things it will take his knee approximately a week to resolveits swelling and limited mobility. He reports he is no longer doing any sports involving running which has helped with his pain. Patient reports he now just plays golf. He reports he is trying to lose weight and has lost 75 pounds over the past 1-2 years. Patient reports he has only done bracing, Tylenol, and ibuprofen for his right knee. Of note, patient reports a history of a left knee arthroscopy by this provider. Review of Systems: Positive for right knee pain, clicking, popping, catching, locking, instability, and swelling. No thigh or calf pain. No signs of infection. No numbness or tingling. Physical Exam: General: The patient is in no acute distress. Neuro: Answers questions appropriately. Right Knee: Exam deferred today. Imaging: His MRI of his right knee today demonstrates that he has a radial medial meniscus tear at the posterior horn, some advanced tricompartmental arthritis, some reactive osseous edema, and infiltrating prominent osteophytes at the posterior aspect of his medial tibial plateau. Assessment: 1. Right knee pain, unspecified chronicity Plan: My impression is that the patient has right knee degenerative wear of his medial compartment. He's not down to [id number] like he is in his left knee medial compartment. His left knee is not giving him much trouble. His right knee still has some chondral surface, however he has some subluxation of his medial meniscus probably due to a radial tear posteriorly which is probably his most acute event. He has significant marginal osteophytes medially of his femur and tibia which also help to displace his medial meniscus. He also has a fairly large cupula in his posterior tibia which accounts for the fact that he does not has as significant anterior drawer and his knee is stable given that his ACL is relatively thin, if functional. He also has significantly increased BMI, although it seems to be morearound his waist than in his legs. He is still a big carolyn even though he has dropped some weight as well. The patient is also a smoker and his age are all risks factors with regard to total knee arthroplasty or any type of surgery. One option would be to do an arthroscopy and debridement to see if we can get his joints quiet and get him into a program to work on his weight and get rid of his smoking, etc. Given his age, I still would need to consider the possibility of an osteotomy versus ACL reconstruction, I suppose, and/or some kind of hemiarthroplasty or total joint replacement. I would like to speak to my partners to get some ideas about which direction to go in with him and we will try and formulate a game plan for the coming week. Today, I thought the patient might benefit from a cortisone injection. He's had no treatments at all for his right knee. This is an outpatient note on Brock Gotti. The patient's office visit was 15 minutes face to face time in which 10 minutes were counseling. Procedure: Right Knee Cortisone Injection Risks, alternatives, and potential benefits were discussed, and the patient consents to proceed witha steroid injection. Using aseptic technique and a betadine prep, the patient underwent a right kneeintra-articular injection using a 22 gauge needle 8 cc 1% plain Xylocaine and 2 mg from a 40mg/mL vial of triamcinolone. There were no complications with the procedure. Scribed for Thierno Rodriguez MD by Jovanna Morton Scribe. I, Thierno Rodriguez MD, have personally reviewed and agree with the information provided by the scribe. NSTITCH 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 documented in this encounter Plan of Treatment Not on filedocumented as of this encounter Visit Diagnoses Diagnosis Right knee pain, unspecified chronicity - Primary documented in this encounter Care Teams Item Processor Relationship Specialty Start Date End Date Unassigned, Provider PCP - General 04/07/[address] [place] [address] documented as of this encounter
--- OUTSIDE RECORDS SUMMARY | 2021-12-07 08:35 | XMS_ITS | Encounter Summary ---
:1980 Author Organization [facility] Address [address] [place] [address] Care Team Providers Name Role Phone Unavailable Primary Care Provider Unavailable Reason for Visit Reason Comments Urolithiasis Appointment Request (Routine) - Closed Specialty Diagnoses / Procedures Referred By Contact Refer red To Contact Urology Referral ID Status Reason Start Date Expiration Date Visits Requ ested Visits Authorized [id number] Closed 06/15/2020 06/15/2021 1 1 Encounter Details Date Type Department Care Team Description 06/17/2020 Comprehensive Visit [facility], ART LIBRARIAN, C.N.P. Ureteral ([place], [place] [address]) [address] [place] [id number] Social History Tobacco Use Types Packs/Day Years [...] or relatives? How often do you attend religion or Never 2020 moravian services? Do you belong to any clubs or No 06/16/2020 organizations such as religion groups, unions, fraternal or athletic groups, or [...] place to sleep or slept in a nursing home (including now)? Education Answer Date Recorded What is the highest level of school you have Some college, n o degree 06/16/2020 completed or the highest degree you have received? Sex Assigned at Date Recorded Not on file documented as of this encounter Last Filed Vital Signs Vital Sign Reading Time Taken Comments Blood Pressure - - Pulse 77 06/17/2020 2:45 PM CDT Temperature 36.2 ??C (97.2 ??F) 06/17/2020 2:45 PM CDT Respiratory Rate - - Oxygen Saturation 98% 06/17/2020 2:45 PM CDT RA Inhaled Oxygen Concentration - - Weight - - Height - - Body Mass Index - - documented in this encounter Consult Notes Mary Nicholson APRN, C.N.P. - 06/17/2020 3:00 PM CDT SUBJECTIVE REQUESTING PROVIDER Self Referral REASON FOR CONSULT Urolithiasis HISTORY OF PRESENT ILLNESS Brock Gotti is a 39 year old male here today for consultation for renal and ureteral stones. He has had numerous stone episodes in the past. He was recently seen at the [facility] on June 14 and was found to have a 4 x 6 mm stone in the left distal ureter. No other renal or ureteral stones were noted at that time. He is not feel that he has passed this stone yet. Please see below for further details. Lower Urinary Symptoms Lower Urinary Sx: able to sense full bladder (+) 8 x per day 1 x nightly Obstructive Sx: kidney infections or required hospitalization for kidney failure (-) # of UTI's in past year: 1 or 2 Required catheter: no Incontinence: unintentionally leaks urine (-) Treatments: Treatments taken for urinary symptoms: none The following portions of the patient's history were reviewed and updated as appropriate: allergies,current medications, family history, medical history, social history, surgical history and problem list. REVIEW OF SYSTEMS Constitutional: Positive for fatigue and loss of appetite. Respiratory: Negative for sleep disturbances due to breathing. Gastrointestinal: Positive for nausea. Genitourinary: Has had at least 8 stone episodes in the last few years. Had 2 episodes last August, no episodes for 7 months. Was drinking 1-2 cans of pop daily, now only occasionally. Drinks 3-4 16 ounce bottles of water, no protein shakes, 2 cups of coffee, alcohol monthly. Previously drank a lot more often, thought Fireball was causing stone formation. Eats a lot of meat, rice, vegetables. Protein shakes were for meal replacement. Musculoskeletal: Positive for back pain and muscle pain/stiffness. Psychiatric/Behavioral: Negative for snores loudly and stop breathing, choking, or gasping while asleep. Wears cpap nightly. The following systems were negative: Skin, Eyes, ENT, CV, Respiratory, , Hematologic, Neuro, Psych OBJECTIVE Vitals: 06/17/20 1445 Pulse: 77 Temp: 36.2 ??C SpO2: 98% TempSrc: Temporal PHYSICAL EXAM Vitals and nursing note reviewed. General: Well developed, well nourished, well groomed male in no acute distress. Neurological: Alert, cooperative, oriented x3. Appropriate mood and affect. Head: Normal appearance, no abnormalities, normocephalic. Neck: Symmetrical and supple, trachea is midline. Cardiac: regular rate, regular rhythm Respiratory: Respirations are unlabored with normal respiratory rate and normal respiratory movements. Normal chest wall expansion without use of accessory muscles. Abdomen: Soft, non-tender, non-distended, obese Extremities: Warm, without edema or ulcerations. ASSESSMENT / PLAN #1 Recurrent renal and ureteral stones We viewed his CT images together, discussed findings, all questions are answered. We had an in-depthdiscussion about renal and ureteral stones. We discussed how they are formed, how they are prevented, and surgical options for treatment. We discussed that most kidney stones are formed due to in adequate fluid intake. We discussed that persons who form stones are encouraged to drink at least 100 oz of fluid daily. Most of this fluid should be water or flavored water. The goal is to continuously flush the kidneys and bladder to prevent stone formation. We discussed that dietary recommendation is to consume a varied diet of healthy foods, taking note of consuming all things in moderation and monitoring portion sizes. When a patient hasformed a stone, they have a 50% chance of forming another. In short, consume all things in moderation except fluids. We discussed that expectant therapy typically consists of Flomax, increased fluid intake, and physical activity. Flomax or a similar medication is typically prescribed to help to dilate the ureters to allow more space for stones to pass. Increased fluid intake helps to push stones through the ureter, remaining physically active can also help with moving stones. It is recommended to use a strainer each time they urinate if possible. If the stone is either too large to pass or is unable to pass, we would discuss scheduling procedureto remove this stone. We typically would perform ureteroscopy with laser lithotripsy, stone basketing, and stent placement in the operating room with Dr. Pritchett. We can also perform extra corporal shockwave lithotripsy if the patient is a good candidate for this procedure. If he is unable to pass this stone, he will contact us so that we can discuss scheduling procedure. If he does pass this stone and is able to catch it, he will contact us and we will place orders for stone analysis at the lab. Signed by: Mary Nicholson APRN, C.N.P. 06/17/2020 3:06 PM CDT documented in this encounter Plan of Treatment Not on filedocumented as of this encounter Visit Diagnoses Diagnosis Stone Kidney And Ureteral - Primary documented in this encounter
--- OUTSIDE RECORDS SUMMARY | 2021-12-07 08:35 | XMS_ITS | Clinical Summary ---
:1980 Author Organization [facility] Address [address] [place] [address] Care Team Providers Name Role Phone Unavailable Primary Care Provider Unavailable Source Comments Patient records contain information from all sites at [facility]. For routine questions regarding patient records, call [phone] during business hours, M-F 8:00 AM - 5:00 PM Central Time. Record requests for emergency care only can be directed to [phone] at any time.[facility] Allergies No known active allergies Medications Medication Sig Dispensed Refills Start Date End Date Status amLODIPine (NORVASC) 10 mg Take 10 mg by 0 7 Active tablet mouth daily. aspirin [address] tablet Take 81 mg by 0 Active mouth daily. FLUoxetine (PROzac) 20 mg Take 20 mg by 0 02/15/2015 Active capsule mouth daily. hydroCHLOROthiazide Take 25 mg by 0 01/10/2010 Active (HYDRODIURIL) 25 mg tablet mouth daily. lisinopriL Take 20 mg by 0 01/10/2010 Acti ve (PRINIVIL,ZESTRIL) 20 mg mouth daily. tablet ondansetron ODT Take 4 mg by 0 04/24/2020 Active (ZOFRAN-ODT) 4 mg mouth. disintegrating tablet oxyCODONE (ROXICODONE) 5 Take 1-2 0 06/15/2020 Active mg immediate release tablets by tablet mouth every 4 (four) hours as needed. potassium chloride Take 10 mEq 0 04/28/2020 Active (KLORCON/K-TAB) 10 mEq ER by mouth 2 tablet (two) times a day. tamsulosin (FLOMAX) 0.4 mg Take 1 30 capsule 1 06/17/2020 Active 24 hr capsule capsule (0.4 mg total) by mouth daily. For passage of stones Active Problems Problem Noted Date Stone Kidney And Ureteral 06/17/2020 Carpal Tunnel Syndrome Bilateral 07/20/2019 Morbid Severe Obesity Due To Excess Calories 5 Deviation Nasal Septal 05/27/2014 Apnea Sleep Obstructive 05/27/2014 Pain Chest 01/09/2010 Pain Calf 01/09/2010 Nicotine Dependence Unspecified 01/09/2010 Hypertension Essential Primary 01/09/2010 Cocaine Mild Use Disorder (Abuse) Uncomplicated 2009 Alcohol Mild Use Disorder (Abuse) Uncomplicated 2009 Hyperglycemia 01/09/2010 Resolved Problems Problem Noted Date Resolved Date Persons Encountering Health Services In Other Specified 09/201906/17/2020 Circumstances Immunizations Name Administration Dates Next Due HepB Adult 12/21/1996 HepB Pediatric/Adolescent 12/21/1996 MMR 10/11/1993, 12/11/1981 Td Preservative Free (TENIVAC, DECAVAC) 12/21/1996 Td, (Adult) Unspecified 12/21/1996 Tdap 11/03/2019 Family History Medical History Relation Name Comments No Known Problems Brother Heart attack Father Hypertension Father Sleep apnea Father Nephrolithiasis Mother No Known Problems Sister Relation Name Status Comments Brother Alive Father Alive Mother [...] or relatives? How often do you attend mosque or Never 2020 sabianism services? Do you belong to any clubs or No 06/16/2020 organizations such as mosque groups, unions, fraternal or athletic groups, or [...] place to sleep or slept in a fpc (including now)? Education Answer Date Recorded What [...] - - Body Mass Index - - Plan of Treatment Health Maintenance Due Date Last Done Comments HIV Screening 1980 Hepatitis C Screening 1980 Lipid (Cholesterol) Screening 1980 Office Visit for Blood Pressure Check 1980 / Re-check Tobacco Cessation counseling 1980 COVID-19 Vaccine (#1) 03/11/1981 Pneumococcal vaccine (0-64 years) (1 1986 - PCV) Hepatitis B Vaccines (2 of 3 - 3-dose 01/18/1997 12/21/1996 , 12/21/1996 series) Creatinine Level 08/23/2020 08/24/2019, 06/23/2019, 04/26/2019 Fasting Glucose for Diabetes 08/23/2020 08/24/2019, 020, Screening 04/26/2019 Potassium Level 08/23/2020 08/24/2019, 06/23/2019, 04/26/2019 Sodium Level 08/23/2020 08/24/2019, 06/23/2019, 04/26/2019 Depression Screening (Annual PHQ-2) 02/11/2021 Influenza Vaccine (#1) 2021 DTaP,Tdap,and Td Vaccines (3 - Td or 11/02/2029 11/03/2019, 12/21/1996, Tdap) 12/21/1996 Insurance Payer Benefit Plan Subscriber ID Effective Phone Address Typ e / Group Dates BLUE CR[employer] BC[employer] BLUE [id number] 2020-Bonny ATTN: Rossana saucedo HMO BLUE SHIELD PLUS HMO nt [employer] [id number] [place] [address] [address] [place] [address]
--- OUTSIDE RECORDS SUMMARY | 2021-12-07 08:35 | XMS_ITS | Encounter Summary ---
:1980 Author Organization [facility] Address [address] [place] [address] Care Team Providers Name Role Phone Unassigned, Provider Primary Care Provider Unavailable Reason for Referral Procedure/Equipment (Routine) - Incomplete Specialty Diagnoses / Procedures Referred By Contact Refer red To Contact Diagnoses Primary osteoarthritis of both knees Maurilio Hair PA-C Procedures MR Knee Lt WO IV Cont [address] [facility] [facility] [address] [place] [address] Referral ID Status Reason Start Date Expiration Date Visits V isits Requested Authorized [id number] Incomplete 08/28/2016 11/27/2017 1 1 Procedure/Equipment (Routine) - Incomplete Specialty Diagnoses / Procedures Referred By Contact Refer red To Contact Diagnoses Primary osteoarthritis of both knees Maurilio Hair PA-C Procedures XR Knee Rt 1-2 Views Comparison [address] [facility] [address] [place] [address] Referral ID Status Reason Start Date Expiration Date Visits V isits Requested Authorized [id number] Incomplete 08/28/2016 11/27/2017 1 1 Procedure/Equipment (Routine) - Incomplete Specialty Diagnoses / Procedures Referred By Contact Refer red To Contact Diagnoses Primary osteoarthritis of both knees Maurilio Hair PA-C Procedures XR Knee Lt 3 Views [address] [place] [address] 1 Referral ID Status Reason Start Date Expiration Date Visits V isits Requested Authorized [id number] Incomplete 08/28/2016 11/27/2017 1 1 Reason for Visit Reason Comments Knee Pain or Injury left Encounter Details Date Type Department Care Team Description 08/28/2016 Surgical Consult [facility] Maurilio Hair, Annetet [facility] of both knees (Primary [address] [facility] [address] [facility] [address] [place] [address] [phone] Social History Tobacco Use Types Packs/Day Years Used Date Smoking Tobacco: Former Sex Assigned at Date Recorded Not on file documented as of this encounter Last Filed Vital Signs Vital Sign Reading Time Taken Comments Blood Pressure - - Pulse - - Temperature - - Respiratory Rate - - Oxygen Saturation - - Inhaled Oxygen Concentration - - Weight 171.5 kg (378 lb) 08/28/2016 8:07 AM CDT Height 177.8 cm (5' 10) 08/28/2016 8:07 AM CDT Body Mass Index 54.24 08/28/2016 8:07 AM CDT documented in this encounter Patient Instructions Patient InstructionsJason Anne - 08/28/2016 8:10 AM CDT Maurilio Hair PA-C Sports Medicine and General Orthopedics Healthcare Receptionist: Yamila Walker Please contact Yamila for all administrative questions at [phone] Please call Nurse Triage at [phone] for all medical questions Fax number: [phone] Medication Requests: Prescriptions are not filled on Weekends or on Weekdays after 3:00PM For all medication refills: Request a refill using MyChart or contact your Pharmacy If you develop new or worsening symptoms call [facility] at [phone] documented in this encounter Progress Notes Maurilio Hair PA-C - 08/28/2016 8:10 AM CDT [facility] [place] Consultation 08/28/2016 Chief Complaint: Left knee pain History of Present Illness: Brock Gotti is a 35 y.o. male status-post left knee arthroscopy and partial medial meniscectomy by Dr. Thierno Rodriguez on 12/08/2007 who presents for evaluation of left knee pain. The patient reports that his left knee locked up on him when getting out of bed on 08/20/2016. After playing with the knee for awhile, it popped and he was able to flex the knee again. Since that time, he has had persistent medial-sided knee pain and swelling. There is also associated loss of motion feelings of instability. He rates his pain a 3/10 at rest and 10/10 with activity. His pain improves with ice and rest and is worse with activity. Brock's pain is constant in nature. He denies any numbness or tingling. Allergies: Review contrast media Current Medications: The patient has a current medication list which includes the following prescription(s): amlodipine, drug not in computer, fluoxetine, hydrochlorothiazide, lisinopril, unknown medication, and unknown medication. Past Medical History: The patient has past medical history significant for hypertension. Past Surgical History: The patient has past surgical history significant for left knee arthroscopy. Family History: Noncontributory. 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 Per the intake form, he does not use drugs or tobacco products, and he drinks occasionally. He enjoys golfing and fishing. Brock always wears a seatbelt. The General Medical History Form dated 08/28/2016 was updated and reviewed with the patient; this is located in [facility] in [facility]. Review of Systems: Positive for knee pain. No history of other heart, lung, liver, GI, or renal diseases, cancers, diabetes mellitus, or arthritis. Physical Exam: General: The patient is in no acute distress. Neuro: Answers questions appropriately. Alert and oriented x 3. Skin: Cool to touch without erythema, ecchymosis, or lesions. Left Knee: Mild effusion. Tenderness over the medial joint line. Agus's does reproduce pain. Full range of motion. Ligaments are stable. No crepitance is noted. Full range of motion of hip and ankle are noted. Calves are supple and non-tender. 2+ pedal pulses are noted bilaterally. All tendons areintact with 5/5 strength. This is compared bilaterally. Imaging: Radiographs of the bilateral knees - 3 views of the left and 2 views of the right (08/28/16): Medial compartment DJD, left greater than right. I ordered and independently reviewed and interpreted the imaging studies above; the results were discussed with the patient. Assessment: Diagnosis and Associated Orders ICD-10-CM 1. Primary osteoarthritis of both knees M17.0 XR Knee Lt 3 Views XR Knee Rt 1-2 Views Comparison MR Knee Lt WO IV Cont Suspect left medial meniscus tear Plan: I recommended an MRI of the left knee to evaluate for medial meniscus tearing. He will follow-up after the MRI is completed to discuss the results, further management based upon findings. The patient voices understanding and agreement of this plan. All of his questions were answered. Scribe Disclosure: Gt Coyne, am serving as a scribe to document services personally performed by Maurilio Hair PA-C at this visit, based upon the provider's statements to me. All documentation has been reviewed by the aforementioned provider prior to being entered into the official medical record. Entered on 08/28/16 at 9:36 AM. Maurilio Coyne PA-C, attest that the above named individual is acting in scribe capacity, has observed my performance of the services performed at this visit and has documented them in accordance with my direction. Entered on 08/28/16 at 9:36 AM. aMurilio Hair PA-C documented in this encounter Plan of Treatment Not on filedocumented as of this encounter Results MR Knee Lt WO IV Cont (08/29/2016 6:10 PM CDT) Anatomical Region Laterality Modality Lower Extremity, Knee, Skeletal, Thigh, Leg Left Magnetic Resonance Specimen (Source) Anatomical Collection Method Collection Time Re ceived Time Location / / Volume Laterality 08/29/2016 5:57 PM CDT Impressions 08/30/2016 9:28 AM CDT IMPRESSION: 1. Progressive advanced degenerative nolan nges of the medial compartment with progressive diffuse full-thickness chondral loss. 2. Partial meniscectomy changes of the m edial meniscus with progressive degenerative tearing throughout the anterior horn and body with extrusion of the body. 3. 2.0 x 0.6 cm nondisplaced chondral fl ap versus chondral delamination involving the weightbearing surface of the lateral femoral condyle. 4. Chronic complete full-thickness anter ior cruciate ligament tear. 5. Progressive chondral thinning and fis suring of the lateral and patellofemoral compartments as described. 6. Small joint effusion with intra-artic ular bodies. 7. Small partially ruptured popliteal cy st. 8. Multifocal regions of mild subchondra l marrow edema involving the medial and lateral compartments likely are degenerative versus stress reaction or osseous contusions. Narrative 08/30/2016 9:28 AM CDT TECHNIQUE: Routine MRI of the left knee was performed without contrast. COMPARISON: 08/29/2016 radiograph, 10/16/19 08 MRI FINDINGS: MEDIAL COMPARTMENT: Progressive diffuse full-thickness chondral loss of much of the weightbearing surface of the medial femoral condyle with moderate chondral thinning of the medial tibial plateau and l arge medial compartmental marginal osteo phytes. Mild subchondral marrow edema in the anterior aspect of the medial femoral condyle and weightbearing surface of the medial tibial plateau without subchond ral marrow edema. Blunting with intrasub stance degeneration in the posterior horn of the medial meniscus. Increased horizontal signal in the anterior horn contacting the superior surface compatible with horizontal tearing (series 4, images 11 through 15). Poor visualization of the meniscal body which is extruded medially with diffuse heterogeneous signal and blunting compatible with partial meniscectomy changes and diffuse degenerative tearing. LATERAL COMPARTMENT: Full-thickness kt dral fissuring of the lateral tibial plateau without subchondral marrow edema. Adjacent central osteophyte in the region of prior full-thickness chondral loss. Li near signal at the subchondral bone plat e involving the cartilage of the weightbearing surface of the lateral femoral condyle compatible with a nondisplaced chondral flap versus chondral delamination me asuring 2.0 cm anterior to posterior x 0 .6 cm transverse (series 7, image 23, series 4, image 25). Lateral compartmental marginal osteophytes. Intact lateral meniscus without discrete tear. PATELLOFEMORAL JOINT: Osseous overgrowth /central osteophyte in the trochlear midline in the region of the full-thickness chondral defect seen on the prior study. However, progressive diffuse moderate ch ondral thinning and fissuring involving the medial and lateral femoral trochlea. Mild chondral thinning with near full-thickness chondral fissuring involving the medial and lateral patellar facets. Vincent llofemoral joint marginal osteophytes. S mall joint effusion with synovitis. Small popliteal cyst with adjacent edema compatible with partial rupture. At least 3 intra-articular osteocartilaginous bodies in the posterior aspect of the medial c ompartment the largest measuring 4 mm (series 3, images 18 and 19). 8mm osteocartilaginous body in the intercondylar notch abutting the lateral femoral condyle. LIGAMENTS AND TENDONS: Anterior cruciate ligament is not visualized without acute edema likely representing chronic complete tear. Posterior cruciate ligament is intact. Medial collateral ligament, fibu lar collateral ligament, biceps femoris tendon and iliotibial band are intact. The popliteus muscle and tendons are normal. There is no evidence of injury to the posterolateral corner supporting structures. EXTENSOR MECHANISM: The quadriceps and p atellar tendons are normal. The medial retinaculum, medial patellofemoral ligament, and lateral retinaculum are normal. MARROW AND SOFT TISSUES: Mild subchondra l marrow edema in the medial femoral condyle, medial tibial plateau, anterior aspect of the lateral tibial plateau and far posterior aspect of the lateral femoral condyle without subchondral fracture is likely degenerative versus stress reaction or osseous contusions. No discrete fractures. Multilobulated focus of increased T2 signal in the proximal tibial metap hysis likely represents a benign enchond francisco measuring 1.4 x 0.7 x 1.5 cm. Mild diffuse subcutaneous edema without bursal effusion. Procedure Note Herminio Valerio MD - 08/30/2016Formatti ng of this note might be different from the original. TECHNIQUE: Routine MRI of the left knee was performed without contrast. COMPARISON: 08/29/2016 radiograph, 10/16/19 08 MRI FINDINGS: MEDIAL COMPARTMENT: Progressive diffuse full-thickness chondral loss of much of the weightbearing surface of the medial femoral condyle with moderate chondral thinning of the medial tibial plateau and large medial compartmental marginal osteophytes. Mild subchondral marrow edema in the anterior aspect of the medial femoral condyle and weightbearing surface of the medial tibial plateau without subchondral marrow edema. Blunting with intrasubstance degeneration in the poste rior horn of the medial meniscus. Increased horizontal signal in the anterior horn contacting the superior surface compatible with horizontal tearing (series 4, images 11 through 15). Poor visualization of the meniscal body which is extruded medially with diffuse heterogeneous signal and blunting compatible with partial meniscectomy changes and diffuse degenerative tearing. LATERAL COMPARTMENT: Full-thickness kt dral fissuring of the lateral tibial plateau without subchondral marrow edema. Adjacent central osteophyte in the region of prior full-thickness chondral loss. Linear signal at the subchondral bone plate inv olving the cartilage of the weightbearing surface of the lateral femoral condyle compatible with a nondisplaced chondral flap versus chondral delamination measuring 2.0 cm anterior to posterior x 0.6 cm transvers e (series 7, image 23, series 4, image 25). Lateral compartmental marginal osteophytes. Intact lateral meniscus without discrete tear. PATELLOFEMORAL JOINT: Osseous overgrowth /central osteophyte in the trochlear midline in the region of the full-thickness chondral defect seen on the prior study. However, progressive diffuse moderate chondral thinning and fissuring involving the med ial and lateral femoral trochlea. Mild chondral thinning with near full-thickness chondral fissuring involving the medial and lateral patellar facets. Patellofemoral joint marginal osteophytes. Small joint effusi on with synovitis. Small popliteal cyst with adjacent edema compatible with partial rupture. At least 3 intra-articular osteocartilaginous bodies in the posterior aspect of the medial compartment the largest measuring 4 mm (series 3, images 18 and 19). 8mm osteocartilaginous body in the intercondylar notch abutting the lateral femoral condyle. LIGAMENTS AND TENDONS: Anterior cruciate ligament is not visualized without acute edema likely representing chronic complete tear. Posterior cruciate ligament is intact. Medial collateral ligament, fibular collateral ligament, biceps femoris tend on and iliotibial band are intact. The popliteus muscle and tendons are normal. There is no evidence of injury to the posterolateral corner supporting structures. EXTENSOR MECHANISM: The quadriceps and p atellar tendons are normal. The medial retinaculum, medial patellofemoral ligament, and lateral retinaculum are normal. MARROW AND SOFT TISSUES: Mild subchondra l marrow edema in the medial femoral condyle, medial tibial plateau, anterior aspect of the lateral tibial plateau and far posterior aspect of the lateral femoral condyle without subchondral fracture is likely d egenerative versus stress reaction or osseous contusions. No discrete fractures. Multilobulated focus of increased T2 signal in the proximal tibial metaphysis likely represents a benign enchondroma measuring 1.4 x 0.7 x 1.5 cm. Mild diffuse subcutaneous edema without bursal effusion. IMPRESSION IMPRESSION: 1. Progressive advanced degenerative nolan nges of the medial compartment with progressive diffuse full-thickness chondral loss. 2. Partial meniscectomy changes of the m edial meniscus with progressive degenerative tearing throughout the anterior horn and body with extrusion of the body. 3. 2.0 x 0.6 cm nondisplaced chondral fl ap versus chondral delamination involving the weightbearing surface of the lateral femoral condyle. 4. Chronic complete full-thickness anter ior cruciate ligament tear. 5. Progressive chondral thinning and fis suring of the lateral and patellofemoral compartments as described. 6. Small joint effusion with intra-artic ular bodies. 7. Small partially ruptured popliteal cy st. 8. Multifocal regions of mild subchondra l marrow edema involving the medial and lateral compartments likely are degenerative versus stress reaction or osseous contusions. Maurilio Hair PA-C RAD MRI XR Knee Rt 1-2 Views Comparison (08/28/2016 [...] formation posterior knee joint. Maurilio PROCTOR GD XR Knee Lt 3 Views (08/28/2016 [...] joint body formation posterior knee joint. Maurilio aHir PA-C RAD GD documented in this encounter Visit Diagnoses Diagnosis Primary osteoarthritis of both knees - P rimary Primary localized osteoarthrosis, lower leg Left knee pain, unspecified chronicity Primary osteoarthritis of both knees Primary localized osteoarthrosis, lower leg documented in this encounter Care Teams Operations Management Professionals Relationship Specialty Start Date End Date Unassigned, Provider PCP - General 04/07/[address] [place] [id number] documented as of this encounter
--- OUTSIDE RECORDS SUMMARY | 2021-12-07 08:35 | XMS_ITS | Clinical Summary ---
:1980 Author [facility] Address [address] [place] [address] Care Team Providers Name Role Phone Unassigned, Provider Primary Care Provider Unavailable Source Comments You are receiving this document as you are listed as the primary care provider,follow-up provider, or the patient has been referred to you for consultation.This is in compliance with the Medicare and Medicaid EHR Incentive Program,which states Providers who transition their patient to another setting of careor provider of care or refers their patient to another provider of care shouldprovide summarycare record for each transition of care or referral. [employer] Allergies Active Allergy Reactions Severity Noted Date Comments Review Contrast Media 12/02/2007 PN: LW CM1: >>> NO CONTRAST ADVERSE REACTIO N <<< Reaction : Medications Medication Sig Dispensed Refills Start Date End Date Status DRUG NOT IN COMPUTER LW Comment:On 0 03/24/2010 Active 3 BP meds - name unknown unknown medication Indications: 0 04/10/2010 Active PN: unknown medication Indications: 0 10/15/2007 Active PN: lisinopril (ZESTRIL) 20 MG 20 mg. 2 07/30/2016 Active tablet hydroCHLOROthiazide 25 mg. 2 06/30/2016 Active (ORETIC) 25 MG tablet amLODIPine (NORVASC) 10 MG 10 mg. 3 07/01/2016 Active tablet FLUoxetine (PROZAC) 20 MG 20 mg. 0 06/27/2016 Active capsule diclofenac (VOLTAREN) 50 Take 1 Tab by 60 Tab 0 09/12/2016 Active MG enteric coated tablet mouth two times a day. Additional Information Patient not taking. Reported on 06/21/2020 lisinopril (ZESTRIL) 40 MG 0 01/19/2020 Active tablet metoprolol succinate (TOPROL 0 01/19/2020 Active XL) 100 MG 24 hour release tablet diclofenac (VOLTAREN) 50 MG Take 1 Tablet by mouth 60 Tablet 0 03/16/2020 Active enteric coated tablet two times a day. Additional Information Patient not taking. Reported on 06/21/2020 Active Problems No known active problems Immunizations Name Administration Dates Next Due HepB Ped/Adol (0-18 yrs) 12/21/1996 MMR 10/11/1993, 12/11/1981 Td 12/21/1996 Social History Tobacco Use Types Packs/Day Years Used Date Smoking Tobacco: Some Days Sex Assigned at Date Recorded Not on file Last Filed Vital Signs Vital Sign Reading Time Taken Comments Blood Pressure - - Pulse - - Temperature - - Respiratory Rate - - Oxygen Saturation - - Inhaled Oxygen Concentration - - Weight 163.3 kg (360 lb) 06/21/2020 3:19 PM CDT Height 175.3 cm (5' 9) 06/21/2020 3:19 PM CDT Body Mass Index 53.16 06/21/2020 3:19 PM CDT Plan of Treatment Health Maintenance Due Date Last Done Comments Hep C Screening (Preventive 1980 Services) COVID-19 Vaccine (#1) 03/11/1981 Pneumococcal (1 - PCV) 1986 HIV Screening (Preventive 1996 Services) HepB (2) 01/18/1997 12/21/1996 Adult Preventive Visit 1998 12/21/1996 Cholesterol 09/09/2015 12/21/1996 Influenza (#1) 2021 DTaP/Tdap/Td (3 - Tdap) 11/02/2029 11/03/2019, 12/21/1996 Zoster/Shingles (1 of 2) 2030 HPV Vaccine Aged Out No longer eligib le based on patient's age to complete this to [facility] HepA Aged Out No longer eligib le based on patient's age to complete this to [facility] Hib Aged Out No longer eligib le based on patient's age to complete this to [facility] IPV (Polio) Aged Out No longer eligib le based on patient's age to complete this to [facility] MCV4 Aged Out No longer eligib le based on patient's age to complete this to [facility] Insurance Payer Benefit Plan / Subscriber ID Effective Dates Phone Addre ss Type Group [place] [id number] 2020-Present [address] [address] [place] [address] [employer] [id number] 2020-[place] [address] [address] [place] [address] Brock Oakley Personal/Family Self 1980 [id number] [facility] (Home) [facility] [phone] [facility] ([place]) [place] [address] Brock Oakley Personal/Family Self 1980 [id number] [facility] (Home) [place] [address] Care Teams Encyclopedia Research Worker Relationship Specialty Start Date End Date Unassigned, Provider PCP - General 04/07/[address] [place] [id number]
--- OUTSIDE RECORDS SUMMARY | 2021-12-07 08:35 | XMS_ITS | Encounter Summary ---
:1980 Author Organization [employer] Address [address] [place] [address] Care Team Providers Name Role Phone Unassigned, Provider Primary Care Provider Unavailable Reason for Visit Reason Comments Knee Pain or Injury Left Knee Encounter Details Date Type Department Care Team Description 09/12/2016 Surgical Consult [facility] Thierno Sena MD Primary osteoarthritis of left knee (Doris domi Dx); CENTER [address] [place] [address] Chronic appearing left ACL tear; [address] [place], [place] Degenerati ve left medial meniscus tear [address] [address] [place], [place] [phone] (Work) [phone] Social History Tobacco Use Types Packs/Day Years Used Date Smoking Tobacco: Former Sex Assigned at Date Recorded Not on file documented as of this encounter Last Filed Vital Signs Vital Sign Reading Time Taken Comments Blood Pressure - - Pulse - - Temperature - - Respiratory Rate - - Oxygen Saturation - - Inhaled Oxygen Concentration - - Weight 170.6 kg (376 lb) 09/12/2016 1:39 PM CDT Height 177.8 cm (5' 10) 09/12/2016 1:39 PM CDT Body Mass Index 53.95 09/12/2016 1:39 PM CDT documented in this encounter Patient Instructions Patient InstructionsEmily Yeager MA - 09/12/2016 12:[address] Thierno Rodriguez MD Orthopaedic Surgeon Physician Professor Of Astronomy: Jordan Torres Integrative Medicine Physician: Rosy Leach Please contact Rosy with all administrative questions at [phone] Nurse: Vicki Powell Please contact Vicki for any medical questions at [phone] Medication Requests: Prescriptions are not filled on Weekends or on Weekdays after 3:00PM For all medication refills: Request a refill using [facility] or contact your Pharmacy documented in this encounter Progress Notes Thierno Rodriguez MD - 09/12/2016 12:50 PM CDT [facility] Orthopaedic [facility] Consultation 09/12/2016 Chief Complaint: Left knee pain History of Present Illness: Brock Gotti is a 36 y.o. male who presents for evaluation of left knee pain. This is a known patient of mine who is status-post left knee arthroscopy and partial medial meniscectomy on 12/08/2007. He reports that his left knee locked up on him while getting out of bed on 08/20/2016. He was able to wiggle the knee loose after playing with it for awhile. Since then, he has had persistent medial-sided knee pain and associated swelling. He rates his pain a 6/10. There is also associated loss of motion and feelings of instability in the left knee. Brock was evaluated by my colleague Maurilio Hair PA-C on 08/28/2016. Findings were concerning for a medial meniscus tear. An MRI of the left knee was competed with results as described below. His pain is constant in nature and is aggravated with increased activity. He has never tried a corticosteroid injection or visco supplementation. Allergies: Review contrast media Current Medications: The patient has a current medication list which includes the following prescription(s): amlodipine, drug not in computer, fluoxetine, hydrochlorothiazide, lisinopril, unknown medication, and unknown medication. Past Medical History: The patient has past medical history significant for hypertension. ?? Past Surgical History: The patient has past surgical history significant for left knee arthroscopy. ?? Family History: Noncontributory. ?? 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 Per the intake form, he does not use drugs or tobacco products, and he drinks occasionally. He enjoys golfing and fishing. Brock always wears a seatbelt. The General Medical History Form dated 09/12/2016 was updated and reviewed with the patient; this is located in [facility] in [facility]. Review of Systems: No swelling. No thigh/calf pain. No signs of infection. No numbness or tingling. Physical Exam: General: The patient is in no acute distress. Neuro: Answers questions appropriately. Left Knee: Range of motion 0-120 degrees. Stable to varus and valgus stress. Tender to palpation of the medial joint line. Tender to palpation of the lateral joint line. Equivocal Juanita's test. Imaging: MR of the left knee - (08/29/16): 1. Progressive advanced degenerative changes of the medial compartment with progressive diffuse full-thickness chondral loss. 2. Partial meniscectomy changes of the medial meniscus with progressive degenerative tearing throughout the anterior horn and body with extrusion of the body. 3. 2.0 x 0.6 cm nondisplaced chondral flap versus chondral delamination involving the weightbearing surface of the lateral femoral condyle. 4. Chronic complete full-thickness anterior cruciate ligament tear. 5. Progressive chondral thinning and fissuring of the lateral and patellofemoral compartments as described. 6. Small joint effusion with intra-articular bodies. 7. Small partially ruptured popliteal cyst. 8. Multifocal regions of mild subchondral marrow edema involving the medial and lateral compartmentslikely are degenerative versus stress reaction or osseous contusions. I independently reviewed and interpreted the imaging studies above; the results were discussed with the patient. Assessment: 1. Primary osteoarthritis of left knee 2. Chronic appearing left ACL tear 3. Degenerative left medial meniscus tear Plan: I discussed with the patient, in detail, the risks and benefits associated with the different treatment options available to them including conservative management (rest, activity modification, and oral pain medication), physical therapy, cortisone injection versus visco supplementation, and surgical i ntervention including total knee arthroplasty. Advised that he is far too young to consider a knee replacement. He needs to diminish his non-operative treatment options. [facility] in [facility] a weight loss program. The patient voices understanding and agreement of this plan. He will follow-up next week for a corticosteroid injection. All questions wereanswered. Scribe Disclosure: I, Gt Mckenna, am serving as a scribe to document services personally performed by Thierno Rodriguez MDat this visit, based upon the provider's statements to me. All documentation has been reviewed by the aforementioned provider prior to being entered into the official medical record. Entered on 09/12/16 at 2:19 PM. I, Thierno Rodriguez MD, attest that the above named individual is acting in scribe capacity, has observed my performance of the services performed at this visit and has documented them in accordance with my direction. Entered on 09/12/16 at 2:19 PM. Thierno Rodriguez MD documented in this encounter Plan of Treatment Not on filedocumented as of this encounter Visit Diagnoses Diagnosis Primary osteoarthritis of left knee - Pr imary Primary localized osteoarthrosis, lower leg Chronic appearing left ACL tear Degenerative left medial meniscus tear documented in this encounter Care Teams Railway Track Plant Operator Relationship Specialty Start Date End Date Unassigned, Provider PCP - General 04/07/[address] [place] [id number] documented as of this encounter
--- OUTSIDE RECORDS SUMMARY | 2021-12-07 08:35 | XMS_ITS | Encounter Summary ---
:1980 [facility] Address [address] [place] [address] Care Team Providers Name Role Phone Unassigned, Provider Primary Care Provider Unavailable Encounter Details Date Type Department Care Team Description 04/10/2010 Office Visit [facility] ORTHOPAEDIC DEBRA TER Melinda Cook MD [address] [facility] [address] [facility] [address] [place] [address] [place] [address] [phone] (Wo rk) Social History Tobacco Use Types Packs/Day Years Used Date Smoking Tobacco: Never Assessed Sex Assigned at Date Recorded Not on file documented as of this encounter Progress Notes Melinda Cook MD - 04/10/2010 12:01 AM CST NAME: MAGEN OAKLEY VISIT: [id number] DICTATING CLINICIAN: MELINDA COOK MD JOB: [id number] LOC: [id number] CLINIC PROGRESS NOTE DATE OF VISIT: 04/10/2010 SUBJECTIVE: Magen is a 29-year-old that is coming in today to discuss his MRI results. Magen is an established patient who had a previous partial meniscectomy to his knee back in 2007. He then had a reinjury recently. The MRI was obtained here at [facility]. Date of the scan was 03/26/2010. PHYSICAL EXAM: Magen is a very alert, cooperative gentleman in no apparent distress. He ambulates with a nonantalgic gait, using no assistive devices. The remainder of his exam is unchanged from his visit on 03/24/2010. The MRI from 03/26/2010 shows that there is a complete tear of the ACL ligament of the right knee. He also has a medial meniscus tear to the right knee. There is a complex tear to the lateral meniscus along with a perimeniscal cyst of the right knee. There also appears to be a chondral flap to the femoral trochlea. ASSESSMENT: 1. Right knee ACL tear. 2. Right knee medial meniscus tear. 3. Right knee lateral meniscus tear. 4. Right knee chondral flap to the femoral trochlea. PLAN: The risks, benefits and alternatives to surgery were discussed. At this time Magen would like to try conservative management. He was given a script for an iln-hzz-lmcsv derotation brace. He will wear the brace for participation in stop/start/pivot activities. Magen would like to see how his softball season goes. If he does have a recurrent instability episode then he will follow up here in clinic, otherwise he will come back in July after his softball season is complete and we will further discuss ACL reconstruction and partial meniscectomies. Of the 15 minute total time visit, 10 minutes was faxm-ud-[id number] discussion regarding treatment of ACL tears. DOCUMENT: [id number] EL OCCUPATIONAL THERAPIST documented in this encounter Plan of Treatment Not on filedocumented as of this encounter Visit Diagnoses Not on filedocumented in this encounter Care Teams Bread And Pastry Baker Relationship Specialty Start Date End Date Unassigned, Provider PCP - General 04/07/[address] [place] [id number] documented as of this encounter
--- OUTSIDE RECORDS SUMMARY | 2021-12-07 08:35 | XMS_ITS | Encounter Summary ---
:1980 [facility] Address [address] [place] [address] Care Team Providers Name Role Phone Unassigned, Provider Primary Care Provider Unavailable Reason for Visit Procedure/Equipment (Routine) - Closed Specialty Diagnoses / Procedures Referred By Contact Refer red To Contact Diagnoses Right knee pain, unspecified chronicity AmoaJordan hale S PA-C Procedures MR Knee Rt WO IV Cont [address] [place] [address] Referral ID Status Reason Start Date Expiration Date Visits Requ ested Visits Authorized [id number] Closed 03/16/2020 06/15/2021 1 1 Encounter Details Date Type Department Care Team Description 03/21/2020 Ancillary [facility] Radiology MRI AmoaJordan hale Right knee pain, Procedure [address] [facility] S, PA-C [address] [place] [address] [phone] Social History Tobacco Use Types Packs/Day Years Used Date Smoking Tobacco: Some Days Sex Assigned at Date Recorded Not on file documented as of this encounter Plan of Treatment Not on filedocumented as of this encounter Procedures Procedure Name Priority Date/Time Associated Diagnosis Comme nts MR KNEE RT WO IV Routine 03/21/2020 9:04 AM Right knee pain, R esults for this CONT MERCHANDISE CARRIER unspecified procedure are i n chronicity the results section. documented in this encounter Results MR Knee Rt WO IV Cont (03/21/2020 9:04 AM MERCHANDISE CARRIER) Anatomical Region Laterality Modality Lower Extremity, Knee, Skeletal, Thigh, Leg Right Magnetic Resonance Specimen (Source) Anatomical Collection Method Collection Time Re ceived Time Location / / Volume Laterality 03/21/2020 9:03 AM MERCHANDISE CARRIER Impressions 03/21/2020 9:48 AM MERCHANDISE CARRIER TECHNIQUE: ??Routine MRI of the right knee was performed without contrast. COMPARISON: ??03/26/2010 FINDINGS: MEDIAL COMPARTMENT: New full-thickness r adial tearing involving the medial meniscus posterior horn (series 6, image 13; series 5, image 13). Extrusion of the medial meniscus body along the medial joint line. 0.4 x 0.3 cm curvilinear low signa l intensity focus of tissue at the inferior margin of the medial meniscus body, extending into the meniscotibial recess (series 7, image 19; series 8, image 19), favored to reflect scarring of the menis cotibial ligament rather than a discrete meniscal flap. Confluent, smoothly-marginated foci of partial-thickness and hqoj-ruce-krucjqljb cartilage loss over the a nterior weightbearing, central, and post erior weightbearing surfaces of the medial femoral condyle, new compared to prior examination, and without significant underlying reactive osseous edema. Single f ocus of full-thickness chondral fissurin g over the central-posterior weightbearing surface of the medial femoral condyle, with minimal underlying reactive osseous edema. Mild diffuse chondral heterogene ity throughout the medial tibial plateau , without a superimposed high-grade or full-thickness chondral defect. LATERAL COMPARTMENT: ??Lateral meniscus intact. 0.8 x 0.9 cm region of basilar chondral delamination over the central weightbearing surface of the lateral femoral condyle. Smoothly-marginated focus of h igh-grade cartilage loss over the far po sterior aspect of the lateral femoral condyle. Chondral heterogeneity and punctate foci of partial-thickness chondral fissuring/fraying over the anterior aspect o f the lateral femoral condyle. 1.5 x 1.6 cm focus of chondral heterogeneity, partial-thickness cartilage loss, and nondisplaced partial-thickness chondral flap formation over the central and medial weig htbearing surfaces of the lateral tibial plateau, without significant underlying reactive osseous edema, new compared to prior examination. PATELLOFEMORAL JOINT: ??Osseous spurring extends into new subcentimeter foci of full-thickness cartilage loss over the medial patellar facet, patellar median eminence, and lateral patellar facet (series 4, image 10). Osseous spurring extends into confluent foci of bnyk-sfmi-xvejizhqi cartilage loss over the medial trochlear groove and central trochlear groove. Smoothly-marginated partial-thickness car tilage loss over the lateral trochlear g roove. Small joint effusion with synovitis. Loose bodies have decompressed into the posterior aspect of the joint into the region of the popliteus myotendinous ju nction (series 8, image 29; series 7, im age 29). ??Ovoid loose bodies are identified at the proximal-posterior margin of the medial femoral condyle as well (series 6, image 11; series 4, image 7). No drainable popliteal cyst. LIGAMENTS AND TENDONS: ??Low signal inte nsity scarring of the anterior cruciate ligament. No high-grade or full-thickness tearing of the anterior cruciate ligament. The posterior cruciate ligament is in tact. The medial collateral ligament, po sterior oblique ligament, lateral collateral ligament complex, popliteus tendon, posterior-lateral corner capsular structures, and iliotibial band are intact. EXTENSOR MECHANISM: The quadriceps and p atellar tendons are intact. The medial retinaculum, medial patellofemoral ligament, and lateral retinaculum are intact. MARROW AND SOFT TISSUES: ??Prominent tri compartmental osteophytosis. Moderate edema infiltrates prominent osteophytosis at the posterior aspect of the medial plateau. Milder osseous stress-related edema infiltrates the posterior and medial ma rgins of the medial tibial plateau. No acute fracture. No suspicious soft tissue mass lesion. IMPRESSION: ?? 1. New full-thickness radial tearing inv olving the medial meniscus posterior horn. 2. Advanced tricompartmental arthrosis, increased compared to prior examination, most prominently involving the medial and patellofemoral compartments. 3. Moderate reactive osseous edema infil trating prominent osteophytosis at the posterior aspect of the medial tibial plateau; no acute fracture. Procedure Note Herminio Field MD - 03/21/2020Format ting of this note might be different from the original. IMPRESSION TECHNIQUE: Routine MRI of the right knee was performed without contrast. COMPARISON: 03/26/2010 FINDINGS: MEDIAL COMPARTMENT: New full-thickness r adial tearing involving the medial meniscus posterior horn (series 6, image 13; series 5, image 13). Extrusion of the medial meniscus body along the medial joint line. 0.4 x 0.3 cm curvilinear low signal intensity focus of tissue at the inferior margin of the medial meniscus body, extending into the meniscotibial recess (series 7, image 19; series 8, image 19), favored to reflect scarring of the meniscotibial ligament r ather than a discrete meniscal flap. Confluent, smoothly-marginated foci of partial-thickness and cycz-qcbs-naodbxdxr cartilage loss over the anterior weightbearing, central, and posterior weightbearing jose faces of the medial femoral condyle, new compared to prior examination, and without significant underlying reactive osseous edema. Single focus of full-thickness chondral fissuring over the central-posterior devyn ghtbearing surface of the medial femoral condyle, with minimal underlying reactive osseous edema. Mild diffuse chondral heterogeneity throughout the medial tibial plateau, without a superimposed high-grade or ful l-thickness chondral defect. LATERAL COMPARTMENT: Lateral meniscus in tact. 0.8 x 0.9 cm region of basilar chondral delamination over the central weightbearing surface of the lateral femoral condyle. Smoothly-marginated focus of high-grade cartilage loss over the far posterior as pect of the lateral femoral condyle. Chondral heterogeneity and punctate foci of partial-thickness chondral fissuring/fraying over the anterior aspect of the lateral femoral condyle. 1.5 x 1.6 cm focus of chondral heterogeneity, partial-thickness cartilage loss, and nondisplaced partial-thickness chondral flap formation over the central and medial weightbearing surfaces of the lateral tibial plateau, without significant underlying reactive osseous edema, new compared to prior examination. PATELLOFEMORAL JOINT: Osseous spurring e xtends into new subcentimeter foci of full-thickness cartilage loss over the medial patellar facet, patellar median eminence, and lateral patellar facet (series 4, image 10). Osseous spurring extends into confluent foci of fxkg-ycjs-izdubngfx cartilage loss over the medial trochlear groove and central trochlear groove. Smoothly- marginated partial-thickness cartilage loss over the lateral trochlear groove. Small joint ef fusion with synovitis. Loose bodies have decompressed into the posterior aspect of the joint into the region of the popliteus myotendinous junction (series 8, image 29; series 7, image 29). Ovoid loose bodies are daniel ntified at the proximal-posterior margin of the medial femoral condyle as well (series 6, image 11; series 4, image 7). No drainable popliteal cyst. LIGAMENTS AND TENDONS: Low signal intens ity scarring of the anterior cruciate ligament. No high-grade or full-thickness tearing of the anterior cruciate ligament. The posterior cruciate ligament is intact. The medial collateral ligament, posterior oblique l igament, lateral collateral ligament complex, popliteus tendon, posterior-lateral corner capsular structures, and iliotibial band are intact. EXTENSOR MECHANISM: The quadriceps and p atellar tendons are intact. The medial retinaculum, medial patellofemoral ligament, and lateral retinaculum are intact. MARROW AND SOFT TISSUES: Prominent trico mpartmental osteophytosis. Moderate edema infiltrates prominent osteophytosis at the posterior aspect of the medial plateau. Milder osseous stress-related edema infiltrates the posterior and medial margins of the medi al tibial plateau. No acute fracture. No suspicious soft tissue mass lesion. IMPRESSION: 1. New full-thickness radial tearing inv olving the medial meniscus posterior horn. 2. Advanced tricompartmental arthrosis, increased compared to prior examination, most prominently involving the medial and patellofemoral compartments. 3. Moderate reactive osseous edema infil trating prominent osteophytosis at the posterior aspect of the medial tibial plateau; no acute fracture. Jordan Mckinley PA-C RAD MRI documented in this encounter Visit Diagnoses Diagnosis Right knee pain, unspecified chronicity documented in this encounter Care Teams Nuclear Cardiology Technologist Relationship Specialty Start Date End Date Unassigned, Provider PCP - General 04/07/[address] [place] [id number] documented as of this encounter
--- OUTSIDE RECORDS SUMMARY | 2021-12-07 08:35 | XMS_ITS | Encounter Summary ---
:1980 Author Organization [facility] Address [address] [place] [address] Care Team Providers Name Role Phone Unassigned, Provider Primary Care Provider Unavailable Reason for Referral (Routine) - New Request Specialty Diagnoses / Procedures Referred By Contact Refer red To Contact Diagnoses Chronic pain of both knees Jordan Mckinley PA-C Procedures Triamcinolone Acet Inj Nos: (per 10 mg) 640 [place] [address] Referral ID Status Reason Start Date Expiration Date Visits V isits Requested Authorized [id number] New Request 03/16/2021 06/15/2022 1 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 Reason for Visit Reason Comments Follow-up Bilateral Knee OA Encounter Details Date Type Department Care Team Description 03/15/2021 Office Visit [facility] Jordan Mckinley pain of both CENTER CARYL John knees (Primary Dx) [address] [facility] [address] [place], [place] [address] 1 [place], [place] [phone] Social History Tobacco Use Types Packs/Day Years Used Date Smoking Tobacco: Some Days Sex Assigned at Date Recorded Not on file documented as of this encounter Progress Notes Jordan Mckinley PA-C - 03/15/2021 12:00 AM CST NAME: MAGEN OAKLEY [facility]: [id number] CLINIC NOTE DATE OF SERVICE: 03/15/2021 : 1980 HISTORY: The patient is a 40-year-old male who presents to clinic today for followup of his bilateral knee pain. He has bilateral knee osteoarthritis. He states that both of his knees hurt differently on different days. He had a corticosteroid injection in both his knees in September, so about 6 months ago, which lasted up until 1 month ago. This provided him fairly significant relief of his knee discomfort. He is still trying to work on weight loss. He is having surgery on his hand to have a cyst removed, and therefore is not able to have a total knee replacement at this time. He is interested in continuing conservative treatment with bilateral corticosteroid injections today. PHYSICAL EXAM: GENERAL: Patient is alert, awake, in no apparent distress. He walks with an antalgic gait without the use of a brace or assistive device. On exam of his bilateral knees, there is no effusion, erythema, ecchymosis or other skin abnormalities. Range of motion not tested. He is otherwise neurovascularly intact. IMPRESSION: Bilateral knee osteoarthritis. PLAN: I discussed with Magen that we can continue conservative treatment. Ideally we would not like to do multiple cortisone injections in a year, but since it has been about 6 months since his last injeciton we were in agreement to repeat the corticosteroid injections today. After verbal consent was obtained, his bilateral knees were prepped with Betadine solution and 4 mL of lidocaine and 1 mL of Kenalog which is equivalent to 40 mg was injected in his knees under sterile technique. He tolerated the procedure well. He was educated on adverse reaction, and should he note any symptoms, he is instructed to call the clinic. He will follow up with Dr. James to discuss total knee replacement. We discussed that his surgery would not be able to be completed until he is at least 4 months out from his corticosteroid injections. He understood this. All questions answered. CARYL JARRELL/RONIT /[id number] Y AND CAULKING SUPERVISOR documented in this encounter Plan of Treatment Not on filedocumented as of this encounter Visit Diagnoses Diagnosis Chronic pain of both knees - Primary documented in this encounter Care Teams Polisher And Buffer Relationship Specialty Start Date End Date Unassigned, Provider PCP - General 04/07/[address] [place] [address] documented as of this encounter
--- OUTSIDE RECORDS SUMMARY | 2021-12-07 08:35 | XMS_ITS | Encounter Summary ---
:1980 Author Organization [facility] Address [address] [place] [address] Care Team Providers Name Role Phone Unassigned, Provider Primary Care Provider Unavailable Encounter Details Date Type Department Care Team Description 04/28/2010 Office Visit [facility] Lissy Burrows MD [address] [facility] [address] [place] [address] [address] [place] [address] [place] [address] [phone] (Wo rk) Social History Tobacco Use Types Packs/Day Years Used Date Smoking Tobacco: Never Assessed Sex Assigned at Date Recorded Not on file documented as of this encounter Plan of Treatment Not on filedocumented as of this encounter Visit Diagnoses Not on filedocumented in this encounter Care Teams Concrete Block Molder Relationship Specialty Start Date End Date Unassigned, Provider PCP - General 04/07/[address] [place] [address] documented as of this encounter
--- OUTSIDE RECORDS SUMMARY | 2021-12-07 08:35 | XMS_ITS | Encounter Summary ---
:1980 Author Organization [facility] Address [address] [address] Care Team Providers Name Role Phone Unassigned, Provider Primary Care Provider Unavailable Reason for Referral Consult/Transfer Care (Routine) - Closed Specialty Diagnoses / Procedures Referred By Contact Refer red To Contact Orthopedics Diagnoses Pain in both knees, unspecified chronicity Thierno Rodriguez MD Kain, Renae A, BALE PILER, [address] [place] [address] [place] [address] [place] [address] [place] [address] Phone: Fax: Referral ID Status Reason Start Date Expiration Date Visits Requ ested Visits Authorized [id number] Closed 05/23/2020 08/22/2021 1 1 Scheduling Instructions Your provider has recommended an appoint ment with [facility]. You may call [phone] to schedule your appoi ntment. We suggest you call your health insurance company about your coverage an d benefits for this appointment. Reason for Visit Reason Comments QUESTIONS, GENERAL Encounter Details Date Type Department Care Team Description 05/23/2020 Telephone [facility] DEBRA Thierno Henderson MD QUESTIONS, GENERAL [address] [facility] [address] [place] [address] ENRIQUE Romero [address] [place] [address] [phone] (Wo rk) Social History Tobacco Use Types Packs/Day Years Used Date Smoking Tobacco: Some Days Sex Assigned at Date Recorded Not on file documented as of this encounter Nursing Notes Vicki Powell RN - 05/23/2020 3:[address] Rodriguez, he would like pt to consult with Dr. James for total joint replacement. Recommended optimization clinic to get started. Apt scheduled with Dr. James. Vicki Powell RN - 05/23/2020 12:18 PM CDT Pt with left knee OA. ANA LAURA 04/04/20 with Kalpana Mckinley PA-C. Had a corticosteroid injection at this apt. Right knee pain, OA and meniscal tear. ANA LAURA 03/21/[address] Rodriguez. One option would be to do an [...] a game plan for the coming week. He received a corticosteroid inj to the right knee at this apt. Pt inquiring about his right knee and tx plan with Dr. Rodriguez. Will discuss with provider and call pt back. Giana Quintanilla - 05/23/2020 12:14 PM CDT Has the patient recently had surgery or an injury? No How may we help you today? Next option Describe your symptoms/concerns: the patient is asking if Dr Rodriguez or his assistant project manager have any options going forward with his knee pain and on going care When did the issue start: 03/16/20 Have you been seen for this recently?: Yes Jordan Olivo 04/04/20 [Product Development Assistant/Appt Center: If yes, please include date and provider.] Is it okay to leave detailed message on your voicemail? Yes [Product Development Assistant/Appt Center: If this call is after 3 p.m., communicate to patient: If we are not able to get back to you by the end of the day and your symptoms worsen please contact the Careline] documented in this encounter Plan of Treatment Scheduled Referrals Name Type Priority Associated Diagnoses Order S chedule Orthopedics Optimization Referral Routine Pain in both kne es, Ordered: 05/23/2020 Clinic - Adult unspecified chronicity documented as of this encounter Visit Diagnoses Diagnosis Pain in both knees, unspecified chronici ty - Primary documented in this encounter Care Teams Instruction Assistant Principal Relationship Specialty Start Date End Date Unassigned, Provider PCP - General 04/07/[address] [place] [address] documented as of this encounter
--- OUTSIDE RECORDS SUMMARY | 2021-12-07 08:35 | XMS_ITS | Encounter Summary ---
:1980 Author Organization [employer] Address [address] [place] [address] Care Team Providers Name Role Phone Unassigned, Provider Primary Care Provider Unavailable Reason for Referral (Routine) - Closed Specialty Diagnoses / Procedures Referred By Contact Refer red To Contact Diagnoses Chronic pain of both knees Peterson James MD Procedures Triamcinolone Acet Inj Nos: (per 10 mg) [address] [facility] ENRIQUE BERTRAND [address]643 1 Referral ID Status Reason Start Date Expiration Date Visits Requ ested Visits Authorized [id number] Closed 06/21/2020 09/20/2021 1 1 Reason for Visit Reason Comments CONSULT Right Knee OA Encounter Details Date Type Department Care Team Description 06/21/2020 Office Visit [facility] Peterson James, Chroni c pain of both CENTER knees (Primary Dx) [address] [facility] [address] [place] [address] ENRIQUE Bertrand 5543 1 [place] [phone] (Wo rk) Social History Tobacco Use Types [...] Mass Index 53.16 06/21/2020 3:19 PM CDT documented in this encounter Progress Notes Peterson James MD - 06/21/2020 3:00 PM CDT Brock Gotti Age: 39 y.o. Date of : 1980 History of Present Illness: Brock is a very pleasant 39-year-old man with a longstanding history of bilateral knee pain. He has been followed by Dr. Rodriguez. He notes that the pain has been present for many years and relates it back to an old hockey injury. He notes that at this point the right knee is worse than the left. However both are quite severe. He has been managing his symptoms with activity modifications, cortisone injections, and medications. Over the last couple years he has experienced some weight gain as the results of his limited activity. He notes that as he has gained weight the knee pain has been more severe in nature. He has previously around 305 lb and at that time had very minimal knee pain. As he is now to 350 or so the pain is substantially worse. Past Medical History: No past medical history on file. Morbid obesity. Past Surgical History: No past surgical history on file. Social History: Social History Socioeconomic History ??? Marital status: Single Spouse name: Not on file ??? Number of children: Not on file ??? Years of education: Not on file ??? Highest education level: Not on file Occupational History ??? Not on file Tobacco Use ??? Smoking status: Current Some Day Smoker Substance and Sexual Activity ??? Alcohol use: Not on file ??? Drug use: Not on file ??? Sexual activity: Not on file Other Topics Concern ??? Not on file Social History Narrative ??? Not on file Social Determinants of Health Financial Resource Strain: ??? Difficulty of Paying Living Expenses: Food Insecurity: ??? Worried About Running Out of Food in the Last Year: ??? Ran Out of Food in the Last Year: Transportation Needs: ??? Lack of Transportation (Medical): ??? Lack of Transportation (Non-Medical): Physical Activity: ??? Days of Exercise per Week: ??? Minutes of Exercise per Session: Stress: ??? Feeling of Stress : Social Connections: ??? Frequency of Communication with Friends and Family: ??? Frequency of Social Gatherings with Friends and Family: ??? Attends [employer] Services: ??? Active Member of Clubs or Organizations: ??? Attends Club or Organization Meetings: ??? Marital Status: Intimate Partner Violence: ??? Fear of Current or Ex-Partner: ??? Emotionally Abused: ??? Physically Abused: ??? Sexually Abused: Currently smoking and trying to quit. Family History: No family history on file. Medications: Outpatient Medications Prior to Visit Medication Sig Note Dispense Refill ??? amLODIPine (NORVASC) 10 MG tablet 10 mg. 08/28/2016: Received from: External Pharmacy Received Sig: TK 1 T PO D 3 ??? diclofenac (VOLTAREN) 50 MG enteric coated tablet Take 1 Tablet by mouth two times a day. (Patient not taking: Reported on 06/21/2020) 60 Tablet 0 ??? diclofenac (VOLTAREN) 50 MG enteric coated tablet Take 1 Tab by mouth two times a day. (Patient not taking: Reported on 06/21/2020) 60 Tab 0 ??? DRUG NOT IN COMPUTER LW Comment:On 3 BP meds - name unknown ??? FLUoxetine (PROZAC) 20 MG capsule 20 mg. 08/28/2016: Received from: External Pharmacy Received Sig: TK 1 C PO QD TO GET THRU TO APPOINTMENT. 0 ??? hydroCHLOROthiazide (ORETIC) 25 MG tablet 25 mg. 08/28/2016: Received from: External Pharmacy Received Sig: TK 1 T PO D 2 ??? lisinopril (ZESTRIL) 20 MG tablet 20 mg. 08/28/2016: Received from: External Pharmacy Received Sig: TK 2 TS PO QD 2 ??? lisinopril (ZESTRIL) 40 MG tablet ??? metoprolol succinate (TOPROL XL) 100 MG 24 hour release tablet ??? unknown medication Indications: PN: ??? unknown medication Indications: PN: No facility-administered medications prior to visit. Physical Exam: EXAMINATION pertinent findings: VITAL SIGNS: Height 1.753 m (5' 9), weight (!) 163.3 kg (360 lb). Estimated body mass index is 53.16 kg/m?? as calculated from the following: Height as of this encounter: 1.753 m (5' 9). Weight as of this encounter: 163.3 kg (360 lb). GEN: AOx3, cooperative PSYCH: appropriate mood and affect HEENT: normocephalic, atraumatic RESP: non labored breathing ABD: benign SKIN: No rashes or open lesions CV: Perfused extremities NEURO: alert, CN2-12 grossly intact MUSCULOSKELETAL: He walks with a mildly antalgic gait. Examination of the left knee demonstrates varus alignment thatis partially correctable to neutral. He has severe medial joint line tenderness palpation. He has mild lateral joint line tenderness palpation. His range of motion is from 0 to 100??. Right knee exam is notable for varus alignment that is partially correctable to neutral. He has medial joint line tenderness palpation. His knee is stable to varus and valgus stress. Extensor mechanism is intact. Range of motion from 0-100 degrees. Bilaterally, he has no pain with hip range of motion. Ankle plantar flexion dorsiflexion are intact. Intact sensation throughout his feet. Data: Imaging: X-rays demonstrate end-stage [id number] left knee osteoarthritis. MRI also was also reviewed of the right knee which demonstrates right knee osteoarthritis. Assessment and Plan: Brock Gotti is a 39 y.o. male with bilateral knee osteoarthritis. We had a long discussion regarding ongoing management options. Ultimately he may benefit from total joint replacement. However I wouldlike him to continue to work on weight management and quit smoking prior to considering joint replacement, particularly given his young age. We reviewed other conservative treatment options including injection. He was interested in pursuing the injection as this has provided good pain relief in the past. We prepped proceed with bilateral knee injection and he tolerated the injections well. He will keep us updated as to how his optimization is going as well as his symptoms. If he is able to quit smoking and work on some weight management some we would reconsider joint replacement if the symptoms warranted. He will otherwise let us know if he has any questions or concerns in the meantime. Procedure Note: Date: 06/21/2020 Procedure: Bilateral knee injection. We reviewed the risks, benefits and alternative to injection of the left knee. The patient's allergies were reviewed and verbal consent was obtained. The patients left knee was prepped with betadine. Kenalog/lidocaine was injected without complications. The patient tolerated the injection well. The patients right knee was prepped with betadine. Kenalog/lidocaine was injected without complications. The patient tolerated the injection well. A few minutes following the injection the patient noted good relief of their baseline pain. Peterson James M.D. Financial Compliance Officer Arthritis and Joint Replacement Department of Orthopaedic Surgery, [facility] [email or web address] [phone] (pager) documented in this encounter Plan of Treatment Not on filedocumented as of this encounter Visit Diagnoses Diagnosis Chronic pain of both knees - Primary documented in this encounter Care Teams Alley Worker Relationship Specialty Start Date End Date Unassigned, Provider PCP - General 04/07/[address] [place] [address] documented as of this encounter
--- OUTSIDE RECORDS SUMMARY | 2021-12-07 08:35 | XMS_ITS | Encounter Summary ---
:1980 Author Organization [facility] Address [address] [place] [address] Care Team Providers Name Role Phone Unassigned, Provider Primary Care Provider Unavailable Reason for Referral (Routine) - Closed Specialty Diagnoses / Procedures Referred By Contact Refer red To Contact Diagnoses Primary osteoarthritis of left knee Jordan Mckinley, Procedures Triamcinolone Acet Inj Nos: (per 10 mg) CARYL [address] [place] [address] Referral ID Status Reason Start Date Expiration Date Visits Requ ested Visits Authorized [id number] Closed 09/25/2016 12/25/2017 1 1 Reason for Visit Reason Comments Knee Pain or Injury Encounter Details Date Type Department Care Team Description 09/14/2016 Procedure Visit [facility] CARYL John [address] 1 [place], [place] [phone] Social History Tobacco Use Types Packs/Day Years Used Date Smoking Tobacco: Former Sex Assigned at Date Recorded Not on file documented as of this encounter Patient Instructions Patient InstructionsMendy Muller - 09/14/2016 9:[address] Thierno Rodriguez MD Orthopaedic Surgeon Physician Head Resident: Jordan Torres Director Safety Council: Rosy Leach Please contact Rosy with all administrative questions at [phone] Nurse: Vicki Powell Please contact Vicki for any medical questions at [phone] Medication Requests: Prescriptions are not filled on Weekends or on Weekdays after 3:00PM For all medication refills: Request a refill using [employer] or contact your Pharmacy The left knee was injected with Kenalog-40 and lidocaine. Avoid Strenuous Activity for the remainder of the day and avoid activities that cause pain for one to two weeks following the injection. Signs and Symptoms to watch for: If you have any redness, warmth or increasing pain at the site of the injection or develop a fever, please call [phone] Thank you for enrolling in [employer]. Please follow the instructions below to securely access your online medical record. [employer] allows you to send messages to your doctor, view your test results, renewyour prescriptions, schedule appointments, and more. How Do I Sign Up? 1. In your Internet browser, go to [email or web address] 2. Click on the Enter activation code link under the New User? section. You will see the Activate your account! page. 3. Enter your activation code exactly as it appears below. You will not need to use this code after you???ve completed the sign-up process. If you do not sign up before the expiration date, you must request a new code. Activation Code: [email or web address] Expires: 10/14/2016 9:40 AM 4. Enter your last name and date of (mm/dd/yyyy) as indicated, then click Continue. You will be taken to the Let's set up your account page. 5. Create a username. This will be your [employer] login ID and cannot be changed, so think of one thatis secure and easy to remember. 6. Create a password. You can change your password at any time. 7. Enter your e-mail address. You will receive e-mail notification when new information is availablein [employer]. 8. Select your Security Questions and enter your answers. These can be used at a later time if you forget your password. 9. Check the box to accept the terms and conditions. Click Create your account. You can now view your medical record. Additional Information If you have questions, you can call [phone] to talk to our [employer] staff. Remember, [employer] is NOT to be used for urgent needs. For medical emergencies, dial 911. documented in this encounter Progress Notes Jordan Mckinley PA-C - 09/14/2016 9:50 AM CDT NAME: MAGEN OAKLEY MR#: [id number] CSN: [id number] AUTHENTICATING CLINICIAN: MARIBETH Scott CONFIRM #: [id number] LOC: 711 CLINIC PROGRESS NOTE DATE OF VISIT: 09/14/2016 : 1980 HISTORY: Patient is a 36-year-old male who presents to clinic today with complaints of left knee pain. He last saw Dr. Rodriguez about [address] Rodriguez had recommended a cortisone injection. He was hesitantto undergo the injection at that time, but is here to have that cortisone injection today. He rates his pain about 5/10. He denies any changes in his left knee since the last time he was seen and he further denies any adverse reaction to injections in the past. PHYSICAL EXAM: On general exam, patient is alert, awake, in no apparent distress. He walks with a mildly antalgic gait without the use of a brace or assistive device. On exam of the left knee there is no effusion, erythema, ecchymosis or other skin abnormalities. His range of motion was not assessed. His thigh and calf are nontender. He is otherwise neurovascularly intact. IMPRESSION: Left knee osteoarthritis. PLAN: I discussed with the patient we can proceed with a cortisone injection today. PROCEDURE: After verbal consent was obtained, his left knee was prepped with a Betadine solution and 8 mL of lidocaine and 8 mL of Kenalog, which is equivalent to 80 mg, was injected into his knee under sterile technique. He tolerated the procedure well. He was educated on adverse reaction to this injection and should he note any of these symptoms he is instructed to call the clinic. JAMILA:BERT C: R:09/14/16 09:59 CONFIRM#:[id number] documented in this encounter Plan of Treatment Not on filedocumented as of this encounter Visit Diagnoses Diagnosis Primary osteoarthritis of left knee - Pr imary Primary localized osteoarthrosis, lower leg documented in this encounter Care Teams Electrician Front Relationship Specialty Start Date End Date Unassigned, Provider PCP - General 04/07/[address] [place] [address] documented as of this encounter
--- OUTSIDE RECORDS SUMMARY | 2021-12-07 08:35 | XMS_ITS | Encounter Summary ---
:1980 Author Organization [facility] Address [address] [place] [address] Care Team Providers Name Role Phone Unassigned, Provider Primary Care Provider Unavailable Encounter Details Date Type Department Care Team Description 06/13/2010 PN Conversion Only CONVERSION CONVERSION Jarad Storey MD [address] [place], [place] [address] (Wo rk) Social History Tobacco Use Types Packs/Day Years Used Date Smoking Tobacco: Never Assessed Sex Assigned at Date Recorded Not on file documented as of this encounter Plan of Treatment Not on filedocumented as of this encounter Visit Diagnoses Not on filedocumented in this encounter Care Teams Supervisor Sintering Plant Relationship Specialty Start Date End Date Unassigned, Provider PCP - General 04/07/[address] [place] [address] documented as of this encounter
--- OUTSIDE RECORDS SUMMARY | 2021-12-07 08:35 | XMS_ITS | Encounter Summary ---
:1980 Author Organization [employer] Address [address] [place] [address] Care Team Providers Name Role Phone Unassigned, Provider Primary Care Provider Unavailable Reason for Visit Reason Comments QUESTIONS, GENERAL Encounter Details Date Type Department Care Team Description 03/30/2020 Telephone [facility] Thierno Henderson MD QUESTIONS, GENERAL [address] [place] [address] [place] [address] [place] [address] [phone] (Wo rk) Social History Tobacco Use Types Packs/Day Years Used Date Smoking Tobacco: Some Days Sex Assigned at Date Recorded Not on file documented as of this encounter Nursing Notes Vicki Powell RN - 03/31/2020 10:[address] Rodriguez will get back to pt when he has developed the best plan. Apt was scheduled for left knee corticosteroid injection. OPERATOR Vicki Powell RN - 03/30/2020 2:48 PM CST ANA LAURA 03/21/20 for right knee pain. Plan: My impression is that the patient has right knee degenerative wear of his medial compartment. He's not down to jkls-ep-qmqy like he is in his left knee [...] a game plan for the coming week. Routing to Kalpana Mckinley PA-C to assist and advise. OPERATOR Bre Cuello - 03/30/2020 12:16 PM CST Has the patient recently had surgery or an injury? No How may we help you today? Patient was told that Dr Rodriguez would be consulting with another physician regarding patients knee and next steps to be taken. Please update patient Describe your symptoms/concerns: When did the issue start: Have you been seen for this recently?: Yes 03/21/20 Dr Rodriguez [[facility]: If yes, please include date and provider.] Is it okay to leave detailed message on your voicemail? yes [[facility]: If this call is after 3 p.m., communicate to patient: If we are not able to get back to you by the end of the day and your symptoms worsen please contact the Careline] OPERATOR documented in this encounter Plan of Treatment Not on filedocumented as of this encounter Visit Diagnoses Not on filedocumented in this encounter Care Teams Analytics Specialist Relationship Specialty Start Date End Date Unassigned, Provider PCP - General 04/07/00 [address] [place] [address] documented as of this encounter
--- OUTSIDE RECORDS SUMMARY | 2021-12-07 08:35 | XMS_ITS | Encounter Summary ---
:1980 Author [facility] Address [address] [place] [address] Care Team Providers Name Role Phone Unassigned, Provider Primary Care Provider Unavailable Reason for Referral (Routine) - Closed Specialty Diagnoses / Procedures Referred By Contact Refer red To Contact Diagnoses Chronic pain of left knee Jordan Mckinley PA-C Procedures Triamcinolone Acet Inj Nos: (per 10 mg) [address] [place] [address] Referral ID Status Reason Start Date Expiration Date Visits Requ ested Visits Authorized [id number] Closed 04/05/2020 07/05/2021 1 1 EL FINISHER Reason for Visit Reason Comments Injection Left Knee Encounter Details Date Type Department Care Team Description 04/04/2020 Office Visit Jordan Briones pain of left [facility] knee (Primary Dx) [address] [facility] [address] [place], [place] [address] [place], [place] [phone] Social History Tobacco Use Types Packs/Day Years Used Date Smoking Tobacco: Some Days Sex Assigned at Date Recorded Not on file documented as of this encounter Progress Notes Jordan Mckinley PA-C - 04/04/2020 12:00 PM CST NAME: MAGEN OAKLEY MR#: [id number] CSN: [id number] AUTHENTICATING CLINICIAN: MARIBETH Scott CONFIRM #: [id number] LOC: 711 CLINIC PROGRESS NOTE DATE OF VISIT: 04/04/2020 : 1980 HISTORY: The patient is a 39-year-old male who presents to clinic today for followup of his left knee. He hasa known history of left knee osteoarthritis and pain and is hoping to get some relief with a corticosteroid injection. He rates his pain 6/10, denies any new injury or adverse reaction to injection in the past. PHYSICAL EXAM: GENERAL: Patient is alert, awake, in no apparent distress. He walks with a mildly antalgic gait without the use of a brace or assistive device. On exam of left knee, there is no effusion, erythema, ecchymosis or other skin abnormalities. His range of motion was not tested. His thigh and calf are nonten janice. He is otherwise neurovascularly intact. IMPRESSION: Left knee osteoarthritis. PLAN: I discussed with patient we can proceed with a corticosteroid injection today. After verbal consent was obtained, his left knee was prepped with Betadine solution. 8 mL lidocaine and 2 mL of Kenalog, which was given to 80 mg, was injected in his knees under sterile technique. He tolerated this procedure well. He was educated on adverse reaction to this injection. Should he have any symptoms, he should call the clinic. CAITIEA:ANJALI C: R:04/04/20 09:42 CONFIRM#:[id number] EL FINISHER documented in this encounter Plan of Treatment Not on filedocumented as of this encounter Visit Diagnoses Diagnosis Chronic pain of left knee - Primary Pain in joint, lower leg documented in this encounter Care Teams Financial Services Director Relationship Specialty Start Date End Date Unassigned, Provider PCP - General 04/07/[address] [place] [address] documented as of this encounter
--- OUTSIDE RECORDS SUMMARY | 2021-12-07 08:35 | XMS_ITS | Encounter Summary ---
:1980 Author [facility] Address [address] [place] [address] Care Team Providers Name Role Phone Unassigned, Provider Primary Care Provider Unavailable Reason for Referral Procedure/Equipment (Routine) - Closed Specialty Diagnoses / Procedures Referred By Contact Refer red To Contact Diagnoses Right knee pain, unspecified chronicity Jordan Mckinley PA-C Procedures MR Knee Rt WO IV Cont [address] [place] [address] Referral ID Status Reason Start Date Expiration Date Visits Requ ested Visits Authorized [id number] Closed 03/16/2020 06/15/2021 1 1 ING INSPECTOR Procedure/Equipment (Routine) - Incomplete Specialty Diagnoses / Procedures Referred By Contact Refer red To Contact Diagnoses Pain in both knees, unspecified chronicity Jordan Mckinley PA-C Procedures XR Knee Rt 3 Views [address] [place] [address] Referral ID Status Reason Start Date Expiration Date Visits V isits Requested Authorized [id number] Incomplete 03/16/2020 06/15/2021 1 1 ING INSPECTOR Procedure/Equipment (Routine) - Incomplete Specialty Diagnoses / Procedures Referred By Contact Refer red To Contact Diagnoses Pain in both knees, unspecified chronicity Jordan Mckinley PA-C Procedures XR Knee Lt 3 Views [address] [place] [address] Referral ID Status Reason Start Date Expiration Date Visits V isits Requested Authorized [id number] Incomplete 03/16/2020 06/15/2021 1 1 ING INSPECTOR Reason for Visit Reason Comments KNEE PAIN Bilateral Knee OA Encounter Details Date Type Department Care Team Description 03/16/2020 Office Visit [facility] Jordan Mckinley Pain i n both knees, unspecified chronicity (Primary Dx); [facility] Right knee pain, unspecified chronicity [address] [facility] [address] [place], [place] [address] [address] [place], [place] [phone] Social History Tobacco Use Types Packs/Day Years Used Date Smoking Tobacco: Some Days Sex Assigned at Date Recorded Not on file documented as of this encounter Last Filed Vital Signs Vital Sign Reading Time Taken Comments Blood Pressure - - Pulse - - Temperature - - Respiratory Rate - - Oxygen Saturation - - Inhaled Oxygen Concentration - - Weight 158.8 kg (350 lb) 03/16/2020 1:31 PM WEAVING INSPECTOR Height 175.3 cm (5' 9) 03/16/2020 1:31 PM WEAVING INSPECTOR Body Mass Index 51.69 03/16/2020 1:31 PM WEAVING INSPECTOR documented in this encounter Progress Notes Jordan Mckinley PA-C - 03/16/2020 12:00 PM CST NAME: MAGEN OAKLEY MR#: [id number] CSN: [id number] AUTHENTICATING CLINICIAN: MARIBETH Scott CONFIRM #: [id number] LOC: 711 CLINIC PROGRESS NOTE DATE OF VISIT: 03/16/2020 : 1980 HISTORY: The patient is a 39-year-old male who presents to clinic today with complaints of his bilateral kneepain. He was last seen in the clinic over 3 years ago, complaining of mainly left-sided knee pain. At that time, he had a cortisone injection, which he reports no improvement of his pain. Since that time, he has noted progressive worsening knee pain, now more on the right than the left. He does reportlocking, catching, and feelings of giving way in both the knees. He gets swelling in the right knee at times, especially with any type of movement. He does report some clicking and popping. He denies anew injury. He is here to discuss the possibility of partial knee versus total knee replacement. He is currently taking ibuprofen and Tylenol with minimal improvement of his symptoms. 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 CURRENT MEDICAL CONDITIONS: Hypertension. PREVIOUS SURGERIES: Bilateral carpal tunnel surgery, knee arthroscopy, which he denies any complications. He denies issues with anesthesia in the past. MEDICATIONS: He is currently taking lisinopril and metoprolol. SOCIAL HISTORY: He is currently unemployed and he lives alone. He denies a history of substance or drug abuse. He smokes a half a pack of cigarettes a day for the last 15 years. He occasionally drinks alcohol. He doesexercise by lifting weights. He does not do any cardio. He sometimes wears a seat belt. REVIEW OF SYSTEMS: Positive for weakness and fatigue and high blood pressure, joint pains, anxiety and depression. FAMILY HEALTH HISTORY: He does not report any pertinent family health history. PHYSICAL EXAM: Height 5 feet 9 inches, weight 350 pounds. Patient is alert, awake, in no apparent distress. He walks with an antalgic gait without the use of a brace or assistive device. On exam of his right knee, hehas a trace effusion. No erythema, ecchymosis. He is significantly tender to palpation of his medialjoint line, slightly tender to palpation of his lateral joint line. He has slight lateral patellar tilt. Slightly decreased patellar mobility. Range of motion is 0 to about 120 degrees of flexion. Stable to varus and valgus stress and he is otherwise neurovascularly intact. In regard to his left knee, there is no effusion, erythema, ecchymosis. He is moderately tender medial lateral joint line. Decreased patellar mobility. Slight lateral patellar tilt. Stable to varus andvalgus stress. Range of motion is 0 to about 115 degrees of flexion. Thigh and calf are nontender. He is otherwise neurovascularly intact. IMAGING STUDIES: I did review bilateral knee x-rays in the office today. Left knee shows near lzht-kk-srhh joint space narrowing in the medial compartment with mild joint space narrowing in the patellofemoral and lateral compartment. Right knee shows mild joint space narrowing in medial and lateral and patellofemoral compartments with slight spurring. IMPRESSION: Bilateral knee pain, right worse than left. PLAN: I had a long discussion with Magen regarding his knees. At 39 years of age, he is fairly young and hehas a high BMI to undergo a total knee arthroplasty. Given the fact that he has had more medial joint line pain, as well as swelling, I think it is reasonable to get an MRI to evaluate for meniscus tear and also his osteoarthritis. I will have him come back in and discuss the possibility of conservative treatment of injections versus knee arthroscopy and eventually at some point, most likely needing a total knee. I did talk to him about optimization if he needs to undergo arthroplasty procedure, butgiven his age, it would be recommended that we continue a more conservative approach for his knee pain. At this point in time, we will put him on an anti-inflammatory Voltaren, have him continue with the Tylenol, and then follow up in the clinic once his MRI is complete. He verbalized understanding ofthis. The patient's office visit was 30 minutes in length, and over half of this was spent in counseling. JSA:MEDQ C: R:03/16/20 14:26 CONFIRM#:[id number] ING INSPECTOR documented in this encounter Plan of Treatment Not on filedocumented as of this encounter Results MR Knee Rt WO IV Cont (03/21/2020 9:04 AM WEAVING INSPECTOR) Anatomical Region Laterality Modality Lower Extremity, Knee, Skeletal, Thigh, Leg Right Magnetic Resonance Specimen (Source) Anatomical Collection Method Collection Time Re ceived Time Location / / Volume Laterality 03/21/2020 9:03 AM WEAVING INSPECTOR Impressions 03/21/2020 9:48 AM WEAVING INSPECTOR TECHNIQUE: ??Routine MRI of the right knee [...] flap. Confluent, smoothly-marginated foci of partial-thickness and ncfz-bzbz-lhqeokrir cartilage loss over the a nterior weightbearing, [...] Osseous spurring extends into confluent foci of jief-evuz-bcoqyzehl cartilage loss over the medial trochlear groove [...] flap. Confluent, smoothly-marginated foci of partial-thickness and ohob-mser-idvcpqhxq cartilage loss over the anterior weightbearing, central, [...] Osseous spurring extends into confluent foci of wcio-mhzt-hjzharrop cartilage loss over the medial trochlear groove [...] acute fracture. Jordan Mckinley PA-C RAD MRI XR Knee Rt 3 Views (03/16/2020 1:48 PM WEAVING INSPECTOR) Anatomical Region Laterality Modality Lower Extremity, Knee Digital Radiograph y Specimen (Source) Anatomical Collection Method Collection Time Re ceived Time Location / / Volume Laterality 03/16/2020 1:35 PM WEAVING INSPECTOR Impressions 03/16/2020 1:53 PM WEAVING INSPECTOR COMPARISON: ??08/18/2016. FINDINGS: ?? Right knee: 3 [...] Knee Lt 3 Views (03/16/2020 1:48 PM WEAVING INSPECTOR) Anatomical Region Laterality Modality Lower Extremity, Knee Digital Radiograph y Specimen (Source) Anatomical Collection Method Collection Time Re ceived Time Location / / Volume Laterality 03/16/2020 1:35 PM WEAVING INSPECTOR Impressions 03/16/2020 1:53 PM WEAVING INSPECTOR COMPARISON: ??08/18/2016. FINDINGS: ?? Right knee: 3 [...] both knees, unspecified chronici ty - Primary Right knee pain, unspecified chronicity Pain in both knees, unspecified chronici ty Right knee pain, unspecified chronicity documented in this encounter Care Teams Associate Civil Engineer Relationship Specialty Start Date End Date Unassigned, Provider PCP - General 04/07/[address] [place] [id number] documented as of this encounter
--- OUTSIDE RECORDS SUMMARY | 2021-12-07 08:35 | XMS_ITS | Encounter Summary ---
:1980 Author Organization [facility] Address [address], [place] [address] Care Team Providers Name Role Phone Unassigned, Provider Primary Care Provider Unavailable Reason for Visit Procedure/Equipment (Routine) - Incomplete Specialty Diagnoses / Procedures Referred By Contact Refer red To Contact Diagnoses Primary osteoarthritis of both knees Maurilio Hair PA-C Procedures MR Knee Lt WO IV Cont [address] [facility] [place], [place] [address] Referral ID Status Reason Start Date Expiration Date Visits V isits Requested Authorized [id number] Incomplete 08/28/2016 11/27/2017 1 1 Encounter Details Date Type Department Care Team Description 08/29/2016 Imaging [facility] MRI Maurilio Hair PA-C Primary osteoarthritis of [address] [facility] [address] [facility] [address] both knees [place], [place] [address] [place], [place] [phone] (Wo rk) Social History Tobacco Use Types Packs/Day Years Used Date Smoking Tobacco: Former Sex Assigned at Date Recorded Not on file documented as of this encounter Progress Notes Maurilio Hair PA-C - 08/30/2016 10:58 AM CDT Study was reviewed with patient and I recommended conservative management. Patient will follow up with a knee surgeon as he may need a osteotomy documented in this encounter Plan of Treatment Not on filedocumented as of this encounter Procedures Procedure Name Priority Date/Time Associated Diagnosis Comme nts MR KNEE LT WO IV Routine 08/29/2016 6:10 PM Primary osteoarthr itis Results for this CONT CDT of both knees procedure are in the results section. documented in this encounter Results MR Knee Lt WO [...] osseous contusions. Maurilio Hair PA-C RAD MRI documented in this encounter Visit Diagnoses Diagnosis Primary osteoarthritis of both knees Primary localized osteoarthrosis, lower leg documented in this encounter Care Teams Charter Driver Relationship Specialty Start Date End Date Unassigned, Provider PCP - General 04/07/[address] [place] [address] documented as of this encounter
--- OUTSIDE RECORDS SUMMARY | 2021-12-07 08:36 | XMS_ITS | Encounter Summary ---
:1980 Author Organization [employer] Address [address] [place] [address] Care Team Providers Name Role Phone Unassigned, Provider Primary Care Provider Unavailable Encounter Details Date Type Department Care Team Description 03/26/2010 PN Conversion Only [facility] [address] [place], [place] [address] Social History Tobacco Use Types Packs/Day Years Used Date Smoking Tobacco: Never Assessed Sex Assigned at Date Recorded Not on file documented as of this encounter Plan of Treatment Not on filedocumented as of this encounter Procedures Procedure Name Priority Date/Time Associated Diagnosis Comme nts MR KNEE RT WO IV Routine 03/26/2010 2:16 PM Resul ts for this CONT HEALTH EDUCATION ASSISTANT procedure are i n the results section. documented in this encounter Results MR Knee Rt WO IV Cont (03/26/2010 2:16 PM HEALTH EDUCATION ASSISTANT) Anatomical Region Laterality Modality Lower Extremity, Knee, Skeletal, Thigh, Leg Right Other Specimen (Source) Anatomical Location Collection Method / Collectio n Time Received Time / Laterality Volume Impressions 03/26/2010 2:16 PM HEALTH EDUCATION ASSISTANT : 1. Complete rupture of the anterior cruc ial ligament near the tibial insertion. 2. Oblique tear in the posterior horn of the medial meniscus with an associated 1.3 cm parameniscal cyst. 3. Complex tear in the anterior horn of lateral meniscus with an associated 2.4 cm parameniscal cyst. 4. 1.6 cm full-thickness chondral flap t ear in the superior midline femoral trochlea with moderate associate d subchondral marrow edema. Focal partial-thickness chondral defect in the lateral femoral condyle. Dictating ACMILA ESCOBEDO Radiologist Narrative 03/26/2010 2:16 PM HEALTH EDUCATION ASSISTANT TECHNIQUE: ??Routine MRI of the right knee was performed without contrast. COMPARISON: ??None. FINDINGS: MEDIAL COMPARTMENT: ??There are no focal cartilage defects. moderate-sized oblique tear within the p osterior horn of the medial meniscus extending to the inferior artic ular surface. ??There is an associated multiloculated parameniscal c yst adjacent to the posterior horn of the medial meniscus measuring up to 1.3 cm. LATERAL COMPARTMENT: ??Complex tear in t he anterior horn of the lateral meniscus with an associated mult iloculated parameniscal cyst measuring up to 2.4 cm. ??1 x 1.3 cm foc al partial-thickness chondral defect in the posterior weight-bearing p ortion of the lateral femoral condyle. PATELLOFEMORAL JOINT: ??1.6 cm full-thic kness chondral flap tear in the superior midline portion of the femo ral trochlea with associated fraying, edema and thickening of the adj acent articular cartilage. Moderate adjacent subchondral marrow elen ma in the midline trochlea. Moderate joint effusion. ??No Rivera's cy st. ??No osteochondral loose bodies. LIGAMENTS AND TENDONS: ??Rupture of the anterior cruciate ligament near the tibial insertion. ??The posteri or cruciate ligament, quadriceps tendon and patellar tendons a re intact. ??Medial collateral ligament, lateral collateral ligament co mplex is intact. MARROW AND SOFT TISSUES: ??Moderate reac tive marrow edema in the midline portion of the femoral trochlea. ??No soft tissue masses. Procedure Note Camila Garg MD - 07/29/2015For matting of this note might be different from the original. TECHNIQUE: Routine MRI of the right knee was performed without contrast. COMPARISON: None. FINDINGS: MEDIAL COMPARTMENT: There are no focal c artilage defects. moderate-sized oblique tear within the p osterior horn of the medial meniscus extending to the inferior artic ular surface. There is an associated multiloculated parameniscal c yst adjacent to the posterior horn of the medial meniscus measuring up to 1.3 cm. LATERAL COMPARTMENT: Complex tear in the anterior horn of the lateral meniscus with an associated mult iloculated parameniscal cyst measuring up to 2.4 cm. 1 x 1.3 cm focal partial-thickness chondral defect in the posterior weight-bearing p ortion of the lateral femoral condyle. PATELLOFEMORAL JOINT: 1.6 cm full-thickn ess chondral flap tear in the superior midline portion of the femo ral trochlea with associated fraying, edema and thickening of the adj acent articular cartilage. Moderate adjacent subchondral marrow elen ma in the midline trochlea. Moderate joint effusion. No Rivera's cyst . No osteochondral loose bodies. LIGAMENTS AND TENDONS: Rupture of the an terior cruciate ligament near the tibial insertion. The posterior cruciate ligament, quadriceps tendon and patellar tendons a re intact. Medial collateral ligament, lateral collateral ligament co mplex is intact. MARROW AND SOFT TISSUES: Moderate reacti ve marrow edema in the midline portion of the femoral trochlea. No soft tissue masses. IMPRESSION : 1. Complete rupture of the anterior cruc ial ligament near the tibial insertion. 2. Oblique tear in the posterior horn of the medial meniscus with an associated 1.3 cm parameniscal cyst. 3. Complex tear in the anterior horn of lateral meniscus with an associated 2.4 cm parameniscal cyst. 4. 1.6 cm full-thickness chondral flap t ear in the superior midline femoral trochlea with moderate associate d subchondral marrow edema. Focal partial-thickness chondral defect in the lateral femoral condyle. Dictating CAMILA ESCOBEDO Radiologist Thierno Rodriguez MD RAD MRI documented in this encounter Visit Diagnoses Not on filedocumented in this encounter Care Teams Shotweld Operator Relationship Specialty Start Date End Date Unassigned, Provider PCP - General 04/07/[address] [place] [address] documented as of this encounter
--- OUTSIDE RECORDS SUMMARY | 2021-12-07 08:36 | XMS_ITS | Encounter Summary ---
:1980 Author Organization [facility] Address [address] [place] [address] Care Team Providers Name Role Phone Unassigned, Provider Primary Care Provider Unavailable Encounter Details Date Type Department Care Team Description 10/16/2007 PN Conversion Only [facility] MRI Convert, Generic [address] [place], [place] [address] Social History Tobacco Use Types Packs/Day Years Used Date Smoking Tobacco: Never Assessed Sex Assigned at Date Recorded Not on file documented as of this encounter Plan of Treatment Not on filedocumented as of this encounter Procedures Procedure Name Priority Date/Time Associated Diagnosis Comme nts MR KNEE LT WO IV Routine 10/16/2007 6:55 PM Resul ts for this CONT CDT procedure are i n the results section. documented in this encounter Results MR Knee Lt WO IV Cont (10/16/2007 6:55 PM CDT) Anatomical Region Laterality Modality Lower Extremity, Knee, Skeletal, Thigh, Leg Left Other Specimen (Source) Anatomical Location Collection Method / Collectio n Time Received Time / Laterality Volume Impressions 10/16/2007 6:55 PM CDT : ? 1. ?? Bucket ?handle tear of the medial meniscus with a moderate sized meniscal fragment ?displaced into the intercondylar notch. ? There is r esulting blunting of the inner third of the body and ?posterior horn of the medial meniscus. ? 2. ?? Full-thickness ?kt dral defects in the lateral tibial plateau and central trochlea as ? described above. ??There is no associated subchondral cystic change or edema in either location. [id number] Dictating NOEMI MCGRATH RADIOLOGIST Narrative 10/16/2007 6:55 PM CDT FINDINGS: ??A routine MRI of the left knee was performed. ??No previous studies are available for comparison. Medial Compartment: ??There are no focal cartilage defects in the medial compartment. There is a bucket aldana ndle tear of the medial meniscus with a moderate sized meniscal fragment displaced into the intercondylar notch. ??There is resultin g blunting of the inner third of the body and posterior horn of the me dial meniscus. Lateral Compartment: ??There is an appro ximately 4 x 5 mm full thickness defect in the articular cartil age of the mid weightbearing portion of the lateral tibial plateau. ? ?There is no associated subchondral cystic change or edema. ??Th e lateral meniscus is normal without evidence of tear. Patellofemoral Joint: ??The patellar art icular cartilage is normal. There is an approximately 0.8 x 0.8 cm f ull thickness defect in the articular cartilage of the central troch konstantin. ??There is no associated subchondral cystic change or edema. ??No significant joint effusion or popliteal cyst. ??No osteocartilaginous bodies within the joint. Ligaments and Tendons: ??The anterior an d posterior cruciate ligaments, medial collateral ligament, i liotibial band, fibular collateral ligament, and biceps femoris tendons are intact. The popliteus muscle and tendon are normal. No evidence of injury to the posterolateral corner supporting structu res. The quadriceps and patellar tendons are normal. Marrow and Soft Tissues: ??There is a 1. 3 cm benign enchondroma in the proximal tibia. ??Marrow signal is other lyons normal. ??No soft tissue mass. Procedure Note Noemi Baugh MD - 04/12/2016 FINDINGS: A routine MRI of the left knee was performed. No previous studies are available for comparison. Medial Compartment: There are no focal c artilage defects in the medial compartment. There is a bucket aldana ndle tear of the medial meniscus with a moderate sized meniscal fragment displaced into the intercondylar notch. There is resulting blunting of the inner third of the body and posterior horn of the me dial meniscus. Lateral Compartment: There is an approxi mately 4 x 5 mm full thickness defect in the articular cartil age of the mid weightbearing portion of the lateral tibial plateau. T here is no associated subchondral cystic change or edema. The lateral meniscus is normal without evidence of tear. Patellofemoral Joint: The patellar artic ular cartilage is normal. There is an approximately 0.8 x 0.8 cm f ull thickness defect in the articular cartilage of the central troch konstantin. There is no associated subchondral cystic change or edema. No s ignificant joint effusion or popliteal cyst. No osteocartilaginous henry dies within the joint. Ligaments and Tendons: The anterior and posterior cruciate ligaments, medial collateral ligament, i liotibial band, fibular collateral ligament, and biceps femoris tendons are intact. The popliteus muscle and tendon are normal. No evidence of injury to the posterolateral corner supporting structu res. The quadriceps and patellar tendons are normal. Marrow and Soft Tissues: There is a 1.3 cm benign enchondroma in the proximal tibia. Marrow signal is otherwi se normal. No soft tissue mass. IMPRESSION : 1. Bucket handle tear of the medial men iscus with a moderate sized meniscal fragment displac ed into the intercondylar notch. There is resulting blunting of the inner third of the body and posterior horn of the medial meniscus. 2. Full-thickness chondral defects in t he lateral tibial plateau and central trochlea as describe d above. There is no associated subchondral cystic change or edema in either location. tss/[id number] Dictating NOEMI MCGRATH RADIOLOGIST Thierno Rodriguez MD RAD MRI documented in this encounter Visit Diagnoses Not on filedocumented in this encounter Care Teams Christian Counselor Relationship Specialty Start Date End Date Unassigned, Provider PCP - General 04/07/[address] [place] [address] documented as of this encounter
--- OUTSIDE RECORDS SUMMARY | 2021-12-07 08:36 | XMS_ITS | Encounter Summary ---
:1980 Author Organization [facility] Address [address] [place] [address] Care Team Providers Name Role Phone Unassigned, Provider Primary Care Provider Unavailable Encounter Details Date Type Department Care Team Description 10/16/2007 PN Conversion Only [facility] [address] [place], [place] [address] Social History Tobacco Use Types Packs/Day Years Used Date Smoking Tobacco: Never Assessed Sex Assigned at Date Recorded Not on file documented as of this encounter Plan of Treatment Not on filedocumented as of this encounter Visit Diagnoses Not on filedocumented in this encounter Care Teams Community Health Nurse Supervisor Relationship Specialty Start Date End Date Unassigned, Provider PCP - General 04/07/[address] [place] [address] documented as of this encounter
--- OUTSIDE RECORDS SUMMARY | 2021-12-07 08:36 | XMS_ITS | Encounter Summary ---
:1980 Author Organization [facility] Address [address] [place] [address] Care Team Providers Name Role Phone Unassigned, Provider Primary Care Provider Unavailable Encounter Details Date Type Department Care Team Description 10/27/2007 Office Visit [facility] Melinda Cook MD [address] [facility] [address] [facility] [address] [place] [address] [place] [address] [phone] (Wo rk) Social History Tobacco Use Types Packs/Day Years Used Date Smoking Tobacco: Never Assessed Sex Assigned at Date Recorded Not on file documented as of this encounter Progress Notes Melinda Cook MD - 10/27/2007 12:01 AM CDT Progress Notes signed by Melinda Cook MD at 11/21/07 1110 Author: Melinda Cook MD Service: (none) Author Type: Physician Filed: 06/03/10 0716 Note Time: 10/27/07 0001 Status: Signed Director Of Psychiatry: Melinda Cook MD (Physician) NAME: MAGEN OAKLEY VISIT: [id number] DICTATING CLINICIAN: MELINDA COOK MD JOB: [id number] LOC: 3711 CLINIC PROGRESS NOTE DATE OF VISIT: 10/27/2007 : 1980 Patient is seen today for a followup visit of his left knee status post an MRI of his left knee which demonstrates that he has a large bucket handle tear of his left medial meniscus. The patients findings were reviewed with him in some detail. The remainder of his MRI shows to be within normal. The patients physical exam demonstrates he has limited range of motion of the knee from -5 degrees to about 130 degrees of flexion. Stable to varus and valgus stress. Negative anterior and posterior drawer. The patient is otherwise neurovascularly intact. No lateral joint line tenderness. Positive medial joint line tenderness. No patellofemoral signs or symptoms. Negative patella tilt, negative patellar glide. He is otherwise neurovascularly intact. My impression is that the patient has a left knee medial meniscus tear, bucket handle type according to his MRI. The recommendation is that he consider having an arthroscopic intervention. The risks and benefits of the procedure were explained, as well as the rehab protocol. We will schedule at a time that is convenient. Patients office visit was 15 minutes of face to face time of which 10 minutes was counseling. EMANUEL/magaly DOCUMENT: [id number] documented in this encounter Plan of Treatment Not on filedocumented as of this encounter Visit Diagnoses Not on filedocumented in this encounter Care Teams Lock Technician Relationship Specialty Start Date End Date Unassigned, Provider PCP - General 04/07/[address] [place] [address] documented as of this encounter
--- OUTSIDE RECORDS SUMMARY | 2021-12-07 08:36 | XMS_ITS | Encounter Summary ---
:1980 Author Organization [facility] Address [address] [place] [address] Care Team Providers Name Role Phone Unassigned, Provider Primary Care Provider Unavailable Encounter Details Date Type Department Care Team Description 12/02/2007 Hospital Encounter CONV [facility] Melinda Galicia MD [address] [facility] [address] [place] [id number] 6500 [facility] Melinda Varela MD [address] [facility] [address] [place] [address] [place] [address] Social History Tobacco Use Types Packs/Day Years Used Date Smoking Tobacco: Never Assessed Sex Assigned at Date Recorded Not on file documented as of this encounter Medications at Time of Discharge Medication Sig Dispensed Refills Start Date End Date unknown medication Indications: PN: 0 10/15/2007 unknown medication Indications: PN: 0 12/02/2007 04/10/2010 unknown medication Indications: PN: 0 12/01/2007 04/10/2010 documented as of this encounter Miscellaneous Notes Miscellaneous - Melinda Cook MD - 12/02/2007 12:01 AM CDT ICD-9-CM ICD-9-CM Narrative description Code ======== DIAGNOSES Principal: TEAR MED MENISC KNEE-CUR 836.0 Secondary: TOBACCO USE DISORDER 305.1 OTHER OVEREXERTION AND STRENUOUS REP MVMT OR LOADS E927.8 PROCEDURES Provider1 Date Principal: EXCIS KNEE SEMILUN CARTL MELINDA COOK [id number] 80.6 Provider2: Provider3: DANIELLE COLORADO documented in this encounter Plan of Treatment Not on filedocumented as of this encounter Visit Diagnoses Not on filedocumented in this encounter Care Teams Business Strategist Relationship Specialty Start Date End Date Unassigned, Provider PCP - General 04/07/[address] [place] [address] documented as of this encounter
--- OUTSIDE RECORDS SUMMARY | 2021-12-07 08:36 | XMS_ITS | Encounter Summary ---
:1980 Author Organization [facility] Address [address] [place] [address] Care Team Providers Name Role Phone Unassigned, Provider Primary Care Provider Unavailable Encounter Details Date Type Department Care Team Description 12/08/2007 Office Visit [facility] Melinda Cook MD [address] [facility] [address] [facility] [address] [place] [address] [place] [address] [phone] (Wo rk) Social History Tobacco Use Types Packs/Day Years Used Date Smoking Tobacco: Never Assessed Sex Assigned at Date Recorded Not on file documented as of this encounter Progress Notes Melinda Cook MD - 12/08/2007 12:01 AM CDT Progress Notes signed by Melinda Cook MD at 12/19/07 1539 Author: Melinda Cook MD Service: (none) Author Type: Physician Filed: 06/03/10 0819 Note Time: 12/08/07 0001 Status: Signed Car Pre Cooler: Melinda Cook MD (Physician) NAME: MAGEN OAKLEY ACCT: [id number] DICTATING CLINICIAN: MELINDA COOK MD JOB: [id number] LOC: 3711 CLINIC PROGRESS NOTE DATE OF VISIT: 12/08/2007 DATE OF : 1980 HISTORY: The patient is in today for followup visit of his left knee, status post left knee arthroscopy with partial medial meniscectomy. The patient had a large bucket handle tear, which was removed. He is doing fairly well. He has been going to therapy and states that he feels much better already. PHYSICAL EXAMINATION: On physical exam, his wounds are clean and dry. Sutures are removed and the incision Steri-Stripped. His range of motion is full at this time. He has just a trace effusion at best. Ligamentously stable and neurovascularly intact. He has some slight decreased quad tone. IMPRESSION: He is six days status post left knee arthroscopy and partial medial meniscectomy for a bucket handle tear; doing well. He will return to see me in approximately three weeks time. This patient is in his global period. EMANUEL:kia DOCUMENT: [id number] CAL RECORD TRANSCRIBER documented in this encounter Plan of Treatment Not on filedocumented as of this encounter Visit Diagnoses Not on filedocumented in this encounter Care Teams Driver'S Education Instructor Relationship Specialty Start Date End Date Unassigned, Provider PCP - General 04/07/[address] [place] [address] documented as of this encounter
--- OUTSIDE RECORDS SUMMARY | 2021-12-07 08:36 | XMS_ITS | Encounter Summary ---
:1980 Author Organization [facility] Address [address] [place] [address] Care Team Providers Name Role Phone Unassigned, Provider Primary Care Provider Unavailable Encounter Details Date Type Department Care Team Description 12/02/2007 PN Conversion Only OTHER CONVERSION [address] [place] [address] Social History Tobacco Use Types Packs/Day Years Used Date Smoking Tobacco: Never Assessed Sex Assigned at Date Recorded Not on file documented as of this encounter Plan of Treatment Not on filedocumented as of this encounter Visit Diagnoses Not on filedocumented in this encounter Care Teams Stamp Machine Servicer Relationship Specialty Start Date End Date Unassigned, Provider PCP - General 04/07/[address] [place] [address] documented as of this encounter
--- OUTSIDE RECORDS SUMMARY | 2021-12-07 08:36 | XMS_ITS | Encounter Summary ---
:1980 Author Organization [facility] Address [address] [place] [address] Care Team Providers Name Role Phone Unassigned, Provider Primary Care Provider Unavailable Encounter Details Date Type Department Care Team Description 03/23/2010 PN Conversion Only [facility] [address] [place] [address] Social History Tobacco Use Types Packs/Day Years Used Date Smoking Tobacco: Never Assessed Sex Assigned at Date Recorded Not on file documented as of this encounter Plan of Treatment Not on filedocumented as of this encounter Visit Diagnoses Not on filedocumented in this encounter Care Teams Employee Benefits Administrator Relationship Specialty Start Date End Date Unassigned, Provider PCP - General 04/07/[address] [place] [address] documented as of this encounter
--- OUTSIDE RECORDS SUMMARY | 2021-12-07 08:36 | XMS_ITS | Encounter Summary ---
:1980 Author Organization [facility] Address [address] [place] [address] Care Team Providers Name Role Phone Unassigned, Provider Primary Care Provider Unavailable Encounter Details Date Type Department Care Team Description 03/24/2010 Office Visit [facility] Melinda Cook MD [address] [facility] [address] [facility] [address] [place] [address] [place] [address] [phone] (Wo rk) Social History Tobacco Use Types [...] Oxygen Concentration - - Weight 142 kg (312 lb 15.8 oz) 03/24/2010 12:20 PM C: 1 42.0kg RATINGS ANALYST Height 175.3 cm (5' 9) 03/24/2010 12:20 PM C: 175.3cm RATINGS ANALYST Body Mass Index 46.22 03/24/2010 12:20 PM RATINGS ANALYST documented in this encounter Progress Notes Melinda Cook MD - 03/24/2010 12:01 AM CST NAME: MAGEN OAKLEY VISIT: [id number] DICTATING CLINICIAN: MELINDA COOK MD JOB: [id number] LOC: 5423 CLINIC PROGRESS NOTE DATE OF VISIT: 03/24/2010 CHIEF COMPLAINT: Right knee pain. HISTORY OF PRESENT ILLNESS: Mr. Back is a 29-year-old male who is known to Dr. Cook after undergoing a left knee arthroscopy for a meniscal tear in November 2007. He comes in to clinic today stating that he has a new injury to his right knee. He was wrestling late at night about 3 months ago when he felt a pop and had pain and swelling in the knee. He is unable to recall any other details about it. He thought that perhaps the pain would get better, but it has not and so he decided to present for evaluation. He points to the medial aspect of his knee as the source of pain. He denies any mechanical symptoms such as locking, popping or catching and denies any feeling of instability of the knee. He says that the swelling has gone down, but the pain has continued. He has not done any specific conservative treatments for it. PAST MEDICAL HISTORY: An episode of acute, severe hypertension that required hospitalization recently. PAST SURGICAL HISTORY: In 2007 left knee surgery. MEDICATIONS: Unknown high blood pressure medication. 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 He lives with his family. He smokes a half-pack a day for the last 10 years and drinks alcohol occasionally. REVIEW OF SYSTEMS: On review of the new patient intake form the patient answers negatively to the 14 categories of the review of systems. FAMILY HISTORY: Patient denies any significant family health problems. PHYSICAL EXAMINATION: The left knee shows well-healed arthroscopic portal incisions. There is no effusion. Active range of motion 0-120 degrees. No tenderness to palpation. Negative Agus. Negative Juanita. Negative posterior drawer. No laxity to varus or valgus stress at 0 or 30 degrees. Sensation 2+ to light touch over the sural, saphenous, superficial peroneal, deep peroneal and tibial nerve distributions. He has 5/5 strength at the EHL, tibialis anterior and gastrocsoleus complex. The right knee has moderate effusion and medial joint line tenderness to palpation. Active range of motion 0-110. Pain medially with a Agus maneuver. Negative Juanita. No pivot shift. Negative posterior drawer. No laxity with varus or valgus stress. There are no skin lesions. Sensation is intact to light touch over sural, saphenous, superficial peroneal, deep peroneal and tibial nerve distributions. He has 5/5 strength at the EHL, tibialis anterior and gastrocsoleus complex. IMAGING: A right knee series was ordered and reviewed today. There are well-preserved joint spaces medially, laterally and in the patellofemoral compartment. There are no acute fractures or dislocations. ASSESSMENT/PLAN: This is a 29-year-old male with pain in his right knee for 3 months. He has an effusion today and signs and symptoms of a meniscal tear. We would like for him to obtain a MRI to fully evaluate the soft tissues in and around the knee. The patient voiced understanding to this plan and was happy with it. We will see him back after the MRI is done. The patient was seen and discussed with Dr. Cook, whose thoughts reflect in the plan. Dictated by Priscilla Tello MD, for Melinda Cook MD. I have personally examined this patient and have reviewed the clinical presentation and progress note, including the pertinent radiographs with the fellow. I agree with the treatment plan as outlined. The plan was formulated with the fellow on the day of the dictation and personally edited by me where appropriate. I personally discussed the treatment plan with the patient. MELINDA COOK MD DOCUMENT: [id number].seafood service team member NGS ANALYST documented in this encounter Plan of Treatment Not on filedocumented as of this encounter Procedures Procedure Name Priority Date/Time Associated Diagnosis Comme nts XR KNEE RT 3 VIEWS Routine 03/24/2010 12:35 PM Re sults for this RATINGS ANALYST procedure are i n the results section. XR KNEE LT 2 VIEWS Routine 03/24/2010 12:35 PM Re sults for this RATINGS ANALYST procedure are i n the results section. documented in this encounter Results XR Knee Lt 2 Views (03/24/2010 12:35 PM RATINGS ANALYST) Anatomical Region Laterality Modality Lower Extremity, Knee Other Specimen (Source) Anatomical Location Collection Method / Collectio n Time Received Time / Laterality Volume Narrative 03/24/2010 12:35 PM RATINGS ANALYST There are well-preserved joint spaces medially, laterally and in the patellofemoral compartment. There are no acute fractures or dislocations. JLB/seafood service team member Dictating MELINDA VELAZQUEZ MD Procedure Note Melinda Cook - 07/29/2015Formatting of t his note might be different from the original. There are well-preserved joint spaces me dially, laterally and in the patellofemoral compartment. There are no acute fractures or dislocations. JLB/seafood service team member Dictating MELINDA VELAZQUEZ MD Melinda CHINO XR Knee Rt 3 Views (03/24/2010 12:35 PM RATINGS ANALYST) Anatomical Region Laterality Modality Lower Extremity, Knee Other Specimen (Source) Anatomical Location Collection Method / Collectio n Time Received Time / Laterality Volume Narrative 03/24/2010 12:35 PM RATINGS ANALYST There are well-preserved joint spaces medially, laterally and in the patellofemoral compartment. There are no acute fractures or dislocations. JLB/seafood service team member Dictating MELINDA VELAZQUEZ MD Procedure Note Melinda Cook - 07/29/2015Formatting of t his note might be different from the original. There are well-preserved joint spaces me dially, laterally and in the patellofemoral compartment. There are no acute fractures or dislocations. JLB/seafood service team member Dictating MELINDA VELAZQUEZ MD Melinda CHINO documented in this encounter Visit Diagnoses Not on filedocumented in this encounter Care Teams Binder Lockstitch Relationship Specialty Start Date End Date Unassigned, Provider PCP - General 04/07/[address] [place] [address] documented as of this encounter
--- OUTSIDE RECORDS SUMMARY | 2021-12-07 08:37 | XMS_ITS | Encounter Summary ---
:1980 Author Organization [facility] Address [address] [place] [address] Care Team Providers Name Role Phone Unassigned, Provider Primary Care Provider Unavailable Encounter Details Date Type Department Care Team Description 10/15/2007 Office Visit [facility] Melinda Cook MD [address] [facility] [address] [facility] [place] [address] [place] [address] [phone] (Wo rk) Social History Tobacco Use Types Packs/Day Years Used Date Smoking Tobacco: Never Assessed Sex Assigned at Date Recorded Not on file documented as of this encounter Progress Notes Melinda Cook MD - 10/15/2007 12:01 AM CDT Progress Notes signed by Melinda Cook MD at 10/22/07 1614 Author: Melinda Cook MD Service: (none) Author Type: Physician Filed: 06/03/10 0659 Note Time: 10/15/07 0001 Status: Signed Quality Intern: Melinda Cook MD (Physician) NAME: MAGEN OAKLEY MR#: [id number] ACCT: [id number] VISIT: [id number] DICTATING CLINICIAN: MELINDA COOK MD CONFIRM #: [id number] LOC: 3711 CLINIC PROGRESS NOTE DATE OF VISIT: 10/15/2007 SUBJECTIVE: : 1980 CHIEF COMPLAINT: Left knee pain. HPI: Mr. Oakley is a 27-year-old gentleman who 3 months ago injured his left knee while playing [employer] He internally rotated and laterally placed his lower leg to reach a [place] outside of his body when he felt a pain in his knee. He has had difficulties with pain ever since. He had an effusion after the injury where it swelled up twice the size of the contralateral side. He describes that the effusion did resolve. He still feels a little bit of stiffness in the knee, but not a specific effusion. He states that it will click on occasion when he turns and has difficulties doing any active sports. He is unable to run, play softball, bowl, things that he enjoys doing. 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 These episodes during hockey were very similar to this most recent episode. However, this most recent episode has lasted much longer. He denies any give-way or locking type symptoms. No nighttime symptoms. No specific instability that he can appreciate. ADR/ALLERGIES: NO KNOWN DRUG ALLERGIES. MEDICATIONS: Patient is not currently taking any medications. PAST MEDICAL HISTORY: None. 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 He smokes a 1/4-pack of cigarettes per day for the last 7 years. He drinks alcohol on occasion and he exercises on a weekly basis when his knee is not bothering him. FAMILY HISTORY: No family history of bleeding disorders, blood clots, or complications with anesthesia. REVIEW OF SYSTEMS: Other than the HPI, is negative in general, ears, eyes, nose, throat, cardiac, genitourinary, gastrointestinal, respiratory, integument, neurologic, heme, endocrine, and psychiatric. OBJECTIVE: Patient is alert, appropriate, no acute distress, and is pleasant. He is overweight. He does ambulate with a mild antalgic gait, favoring the left lower extremity. He is able to get up on the examining table without significant difficulty. LEFT KNEE: Evaluation reveals range of motion from zero to approximately 120 degrees without significant discomfort. He does have pain with full extension but not significantly in hyperflexion. He notes that there is tenderness to palpation of both the lateral joint line as well as the medial joint line, but the medial joint line tenderness is something that he was not expecting. He has some mild pain about the superior aspect of the patella as well. He has no crepitation with range of motion. He has stability to varus and valgus stress with Juanita's that is stable with a distinct endpoint. He has a negative posterior drawer. Agus's test reproduces pain in the lateral aspect of the knee joint, but there is no audible click with this maneuver. He otherwise has CMS intact distally. There is no significant effusion to the knee and no erythema about the knee. RADIOGRAPHS: Patient presents this day with radiographs from outside institution, x-rays of his knee, which show no significant osteoarthritic changes. No fracture or dislocation appreciated. Otherwise, normal-appearing knee. ASSESSMENT: 1. Clinical suspicion for a lateral meniscus tear of the left knee. 2. Questionable existence of a medial meniscus tear of the left knee due to clinical finding. PLAN: At this point in time, the patient has knee pain with suspicion for intra-articular derangement of his knee. Ultimately, we will order an MRI of his left knee to evaluate for any meniscal pathology. Patient will present back to the clinic after his MRI for discussion about the MRI and options for his knee pain. The patient understands the above, will follow up as appropriate, and contact the clinic if he has any further questions before his next visit. Patient was seen and evaluated today with Dr. Cook. Dictated by Herminio Green MD, for Melinda Cook MD. JLB:[id number] C: 10/17/07 12:57 CONFIRM #: [id number] documented in this encounter Plan of Treatment Not on filedocumented as of this encounter Visit Diagnoses Not on filedocumented in this encounter Care Teams Program Supervisor Relationship Specialty Start Date End Date Unassigned, Provider PCP - General 04/07/[address] [place] [address] documented as of this encounter
--- OUTSIDE RECORDS SUMMARY | 2021-12-07 08:37 | XMS_ITS | Encounter Summary ---
:1980 Author Organization [facility] Address [address] [place] [address] Care Team Providers Name Role Phone Unavailable Primary Care Provider Unavailable Encounter Details Date Type Department Care Team Description 04/17/1994 Office Visit [facility] Hermelindo Farah Close d fracture [place] [address] [facility] [address] phalanges of hand [place], [place] [address] [place], [place] [phone] Social History Tobacco Use Types Packs/Day Years Used Date Smoking Tobacco: Never Assessed Sex Assigned at Date Recorded Not on file documented as of this encounter Plan of Treatment Not on filedocumented as of this encounter Visit Diagnoses Diagnosis Closed fracture of unspecified phalanx o r phalanges of hand documented in this encounter
--- OUTSIDE RECORDS SUMMARY | 2021-12-07 08:37 | XMS_ITS | Encounter Summary ---
:1980 Author Organization [facility] Address [address] [place] [address] Care Team Providers Name Role Phone Unavailable Primary Care Provider Unavailable Encounter Details Date Type Department Care Team Description 03/29/1995 Office Visit Giovanni Romero M D Unspecified otitis media [address], [place] [id number] (Wo rk) Social History Tobacco Use Types Packs/Day Years Used Date Smoking Tobacco: Never Assessed Sex Assigned at Date Recorded Not on file documented as of this encounter Progress Notes Giovanni Romero MD - 03/29/1995 12:00 AM CSTS: 14 YO young man who c/o having a 7 day history of URI with congestion, cough that has been present for the past 3 days. C/o ear pain for the last 2 days. He has been afebrile at home as far as he knows. Temp here is 101.2. O: Exam reveals that his lungs are clear. Mouth & throat are negative. Strep screen is negative. Ears -left is normal, right ear has some erythema peripherally around the TM and there is some erythema that extends up onto the ossicles. A: Early OM, right side. P: Amox. 250 tid x 10 days. Recheck if no improvement. cc: LER AND TEST PREPARER documented in this encounter Plan of Treatment Not on filedocumented as of this encounter Visit Diagnoses Diagnosis Unspecified otitis media documented in this encounter
--- OUTSIDE RECORDS SUMMARY | 2021-12-07 08:37 | XMS_ITS | Encounter Summary ---
:1980 Author Organization [facility] Address [address], [place] [address] Care Team Providers Name Role Phone Unavailable Primary Care Provider Unavailable Encounter Details Date Type Department Care Team Description 12/14/1997 Orders Only Lionel Blair MD [address] [facility] [place], [place] [phone] (Wo rk) Social History Tobacco Use Types Packs/Day Years Used Date Smoking Tobacco: Never Assessed Sex Assigned at Date Recorded Not on file documented as of this encounter Plan of Treatment Not on filedocumented as of this encounter Visit Diagnoses Not on filedocumented in this encounter
--- OUTSIDE RECORDS SUMMARY | 2021-12-07 08:37 | XMS_ITS | Clinical Summary ---
:1980 Author Organization [facility] [place] [address] Care Team Providers Name Role Phone Clinic, [facility] [place] Primary Care Provider [phone] Allergies No known active allergies Medications Medication Sig Dispensed Refills Start Date End Date Status hydrochlorothiazide Take 1 tablet 30 tablet 0 01/10/2010 Active (HCTZ) 25 mg tablet by mouth once daily. naproxen (NAPROSYN) 500 Take 1 po twice 60 tablet 0 02/10/2016 Active mg tablet daily with breakfast and Dinner on a regular basis for 7-10 days, then every 12 hours as needed. Blood-Glucose Meter Use as directed 1 Kit 0 01/15/2018 Active to test once daily. blood sugar diagnostic Use as directed 100 Each 01/15/2018 Active (ONETOUCH ULTRA BLUE TEST to test once STRIP) strip daily. lancets Use as directed 100 Each 01/15/2018 Act radha to test once daily. metFORMIN (GLUCOPHAGE XR) 0 05/02/2021 Active 500 mg Extended-Release tablet metoprolol succinate 0 05/02/2021 Active (TOPROL XL) 50 mg sustained-release tablet FLUoxetine (PROZAC) 20 mg Take 20 mg by 0 10/27/2020 Active capsule mouth. lisinopriL (PRINIVIL; Take 1 Tablet 0 01/19/2020 Active ZESTRIL) 40 mg tablet by mouth once daily. potassium chloride 0 01/30/2021 Active (KLOR-CON 10; K-TAB) 10 mEq Controlled-Release tablet amLODIPine (NORVASC) 10 Take 10 mg by 0 05/02/2021 Active mg tablet mouth. tamsulosin (FLOMAX) 0.4 Take 0.4 mg by 0 06/17/2020 Active mg capsule mouth. Active Problems Problem Noted Date Nasal septal deformity 05/27/2014 Essential hypertension 05/27/2014 GUTIERREZ on CPAP 05/27/2014 Morbid obesity with BMI of 45.0-49.9, adult 05/27/2014 Malignant hypertension 01/09/2010 Tobacco use disorder 01/09/2010 Hyperglycemia 01/09/2010 Chest pain, unspecified 01/09/2010 L sided Calf pain 01/09/2010 Alcohol abuse, unspecified 01/09/2010 Cocaine abuse, continuous 01/09/2010 ACP (advance care planning) 01/09/2010 Overview: Per admission screen, patient/family hav e declined Health Care Directive information at this time. HCD Specialist will remain available to patient if needed. Family History Medical History Relation Name Comments Other Other pt reports no FH of HTN, DM, Cancer or stroke Relation Name Status Comments Other Social History Tobacco Use Types Packs/Day Years Used Date Current Every Day Smoker Cigarettes 0.5 Smokeless Tobacco: Never Used Alcohol Use Standard Drinks/Week Comments Yes 0 (1 standard drink = 0.6 oz pure weeken d and some weekdays, no alcohol) withdrawal SX report ed Sex Assigned at Date Recorded Not on file Obstetrics History Last Filed Vital Signs Vital Sign Reading Time Taken Comments Blood Pressure 182/100 05/21/2021 3:24 PM CDT Pulse 74 05/21/2021 2:50 PM CDT Temperature 36.6 ??C (97.8 ??F) 05/21/2021 2:50 PM CDT Respiratory Rate 18 05/21/2021 2:50 PM CDT Oxygen Saturation 97% 05/21/2021 2:50 PM CDT Inhaled Oxygen Concentration - - Weight 164.7 kg (363 lb) 05/21/2021 2:50 PM CDT Height 177.8 cm (5' 10) 05/27/2014 10:04 AM CDT Body Mass Index 52.09 05/27/2014 10:04 AM CDT Plan of Treatment Health Maintenance Due Date Last Done Comments COVID-19 vaccine series (#1) 03/11/1981 Tdap 09/09/1991 Depression screening for age 12+ 1992 BMI (ht and wt on same day) for age 18+ 1998 Hepatitis C screening for age 18-79 1998 Tetanus booster 2000 Lipids for age 35-44 09/09/2015 Influenza for age 9-49 10/12/2021 Results Not on filefrom Last 3 Months Insurance Payer Benefit Plan / Subscriber ID Effective Dates Phone Addre ss Type Group BLUE CROSS BLUE CROSS OF [id number] 2020-Presen [address] [place] [address] UMR UMR Effective for [address] [place] [address] Advance Directives Latest Code Status on File Code Status Date Activated Date Inactivated Comments Full Code 05/27/2014 9:15 AM 05/28/2014 10:31 AM Full Code 01/09/2010 12:12 AM 01/10/2010 12:51 PM Care Teams Graphic User Interface Designer Relationship Specialty Start Date End Date Clinic, [facility] PCP - General 10/26/21 [address] [place] [address]
--- OUTSIDE RECORDS SUMMARY | 2021-12-07 08:37 | XMS_ITS | Encounter Summary ---
:1980 Author Organization [facility] Address [address] [place] [address] Care Team Providers Name Role Phone Unavailable Primary Care Provider Unavailable Encounter Details Date Type Department Care Team Description 12/21/1996 Notes/Orders Lionel Bliar MD [address], [place] [address] (Wo rk) Social History Tobacco Use Types Packs/Day Years Used Date Smoking Tobacco: Never Assessed Sex Assigned at Date Recorded Not on file documented as of this encounter Plan of Treatment Not on filedocumented as of this encounter Procedures Procedure Name Priority Date/Time Associated Comments Diagnosis CHOLESTEROL (TOTAL) Routine 12/21/1996 9:18 AM Re sults for this TRANSPORTATION LEAD procedure are i n the results section. UA WITH MICRO Routine 12/21/1996 9:18 AM Results for this TRANSPORTATION LEAD procedure are i n the results section. CBC HEME PANEL Routine 12/21/1996 9:18 AM Results for this TRANSPORTATION LEAD procedure are i n the results section. documented in this encounter Results CHOLESTEROL (TOTAL) (12/21/1996 9:18 AM TRANSPORTATION LEAD) P athologist Signature Cholesterol 189 <200 mg/dl [facility] Specimen Anatomical Collection Method Collection Time Receive d Time (Source) Location / / Volume Laterality 12/21/1996 9:18 AM 7 9:19 TRANSPORTATION LEAD AM TRANSPORTATION LEAD Vidal Blair MD LAB_1 Performing Organization Address City/State/ZIP Code Phon e Number [facility] [phone] [phone] CBC HEME PANEL (12/21/1996 9:18 AM TRANSPORTATION LEAD) P athologist Signature WBC 7.8 4.2 - 10.0 [facility] k/ul RBC 5.94 4.4 - 6.0 [facility] M/ul Hemoglobin 17.9 14 - 18 [facility] g/dl HCT 51.1 40 - 52 % [facility] MCV 86 80 - 98 fl [facility] MCH 30.1 27 - 34 pg [facility] MCHC 35.0 32 - 36 % [facility] Platelets 248 150 - 450 [facility] k/ul Specimen Anatomical Collection Method Collection Time Receive d Time (Source) Location / / Volume Laterality 12/21/1996 9:18 AM 7 9:19 TRANSPORTATION LEAD AM TRANSPORTATION LEAD Vidal Blair MD LAB_1 Performing Organization Address City/[facility]/ZIP Code Phon e Number [facility] [phone] [facility] [address] [place] [phone] UA WITH MICRO (12/21/1996 9:18 AM TRANSPORTATION LEAD) Analysis Performed At Patho logist Time Signature Appr Yellow [facility] Appr Clear [facility] Sp Gr 1.019 1.005 - [facility] 1.030 Leuk 0 0 [facility] Nitr 0 0 [facility] pH 6.0 4.5 - 8.0 [facility] Prot 0 0 mg/dl [facility] Gluc 0 0 g/dl [facility] Ket 0 0 [facility] Urob 0.1-1 0.1 - 1 [facility] mg/dl Bili 0 0 [facility] Blood 0 0 [facility] RBC'S 0 0 - 3 /hpf [facility] WBC'S 0 0 - 5 /hpf [facility] Epith, 0 [facility] Squamous Bact 0 [facility] Casts 0 /lpf [facility] Other Occ [facility] Mucous Specimen Anatomical Collection Method Collection Time Receive d Time (Source) Location / / Volume Laterality 12/21/1996 9:18 AM 7 9:19 TRANSPORTATION LEAD AM TRANSPORTATION LEAD Vidal Blair MD LAB_1 Performing Organization Address City/State/ZIP Code Phon e Number [facility] [phone] [phone] documented in this encounter Visit Diagnoses Not on filedocumented in this encounter
--- OUTSIDE RECORDS SUMMARY | 2021-12-07 08:37 | XMS_ITS | Encounter Summary ---
:1980 Author Organization [facility] Address [address] [place] [address] Care Team Providers Name Role Phone Unavailable Primary Care Provider Unavailable Encounter Details Date Type Department Care Team Description 12/14/1997 Office Visit [facility] Vidal Blair [place] [address] [address] [place], [place] [phone] Social History Tobacco Use Types Packs/Day Years Used Date Smoking Tobacco: Never Assessed Sex Assigned at Date Recorded Not on file documented as of this encounter Progress Notes Vidal Blair - 12/14/1997 12:00 AM CSTS: This 17 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 As he swung his leg, he felt a pop in left knee and his left knee buckled and he fell to the ground. Ice has been applied. The knee did swell up and he has been limping since this occurred which was one week ago. He is probably improving slowly as the swelling has resolved. His knee has been buckling occasionally during the week. It also hurts worse when he extends his knee completely or when he crouches down. O: This is a heavily built adolescent male who has gained 15 pounds in the past one year. Exam of left knee reveals minimal effusion at present. There is significant tenderness over the medial joint line. Full extension does cause significant pain. Drawer sign probably negative. Lateral and medial collateral ligaments intact. X-rays of both knees unremarkable. A: Possible medial cartilage injury in left knee. P: Refer to Dr. Natanael Murphy, orthopedist. No specific treatments given today other than recommendations for continued modified rest and Tylenol or ibuprofen. Recheck growth in three months. cc: ER GASKET INSPECTOR TRIMMER documented in this encounter Plan of Treatment Not on filedocumented as of this encounter Visit Diagnoses Diagnosis Injury, other and unspecified, knee, leg , ankle, and foot documented in this encounter
--- OUTSIDE RECORDS SUMMARY | 2021-12-07 08:37 | XMS_ITS | Encounter Summary ---
:1980 Author Organization [facility] Address [address] [place] [address] Care Team Providers Name Role Phone Unassigned, Provider Primary Care Provider Unavailable Encounter Details Date Type Department Care Team Description 04/17/1994 Orders Only Unknown, [facility] [address], [place] [address] (Wo rk) Social History Tobacco Use Types Packs/Day Years Used Date Smoking Tobacco: Never Assessed Sex Assigned at Date Recorded Not on file documented as of this encounter Procedure Notes Claudio Villafana - 04/17/1994 12:00 AM CSTAssociated Order(s): RADIOLOGIC STUDY ORDERING PHYSICIAN CLINICAL DATA: Trauma INTERPRETATION: This examination was interpreted in retrospect, the date of the exam was Apr.17. Exam demonstrated a salter Type II fracture through the base of the 5th proximal phalanx. Claudio Villafana M.D. cc: Radiology AV Hermelindo Garcia MD documented in this encounter Plan of Treatment Not on filedocumented as of this encounter Procedures Procedure Name Priority Date/Time Associated Diagnosis Comme nts UNLISTED DX RADIOGRAPHIC 04/17/1994 Res ults for this PROCEDURE procedure are i n the results section . documented in this encounter Results RADIOLOGIC STUDY (04/17/1994) Anatomical Region Laterality Modality Other Specimen (Source) Anatomical Location Collection Method / Collectio n Time Received Time / Laterality Volume Narrative 04/17/1994 Ordered by an unspecified provider. Transcriptions Claudio Villafana - 04/17/1994 12:00 AM CSTORDERING PHYSICIAN CLINICAL DATA: Trauma INTERPRETATION: This examination was int erpreted in retrospect, the date of the exam was Apr.17. Exam demonstrated a salter Type II fract ure through the base of the 5th proximal phalanx. Claudio Villafana M.D. cc: Radiology AV Hermelindo Garcia MD Physician Unknown [facility] documented in this encounter Visit Diagnoses Not on filedocumented in this encounter Care Teams Salon Supervisor Relationship Specialty Start Date End Date Unassigned, Provider PCP - General 04/07/[address] [place] [address] documented as of this encounter
--- OUTSIDE RECORDS SUMMARY | 2021-12-07 08:37 | XMS_ITS | Encounter Summary ---
:1980 Author Organization [facility] Address [address] [place] [address] Care Team Providers Name Role Phone Unassigned, Provider Primary Care Provider Unavailable Encounter Details Date Type Department Care Team Description 04/20/1994 Orders Only Natanael Murphy MD [address] [place], [place] [address] Social History Tobacco Use Types Packs/Day Years Used Date Smoking Tobacco: Never Assessed Sex Assigned at Date Recorded Not on file documented as of this encounter Plan of Treatment Not on filedocumented as of this encounter Visit Diagnoses Not on filedocumented in this encounter Care Teams Sharebroker Relationship Specialty Start Date End Date Unassigned, Provider PCP - General 04/07/[address] [place] [address] documented as of this encounter
--- OUTSIDE RECORDS SUMMARY | 2021-12-07 08:37 | XMS_ITS | Encounter Summary ---
:[address] [facility] Address [address] [place] [address] Care Team Providers Name Role Phone Unavailable Primary Care Provider Unavailable Encounter Details Date Type Department Care Team Description 10/11/1993 Office Visit Rodrigue Sultana M D Need for prophylactic [facility] vaccination with [address] [address] vaccine [phone] (Wo rk) Social History Tobacco Use Types Packs/Day Years Used Date Smoking Tobacco: Never Assessed Sex Assigned at Date Recorded Not on file documented as of this encounter Plan of Treatment Not on filedocumented as of this encounter Visit Diagnoses Diagnosis Need for prophylactic vaccination with u nspecified combined vaccine documented in this encounter
--- OUTSIDE RECORDS SUMMARY | 2021-12-07 08:37 | XMS_ITS | Encounter Summary ---
:1980 Author Organization [facility] Address [address] [place] [address] Care Team Providers Name Role Phone Unassigned, Provider Primary Care Provider Unavailable Encounter Details Date Type Department Care Team Description 12/14/1997 Orders Only [facility] Unknown, Physician [address] [place] [address] [phone] (Wo rk) Social History Tobacco Use Types Packs/Day Years Used Date Smoking Tobacco: Never Assessed Sex Assigned at Date Recorded Not on file documented as of this encounter Procedure Notes Yoandy Hayden - 12/14/1997 12:00 AM CSTAssociated Order(s): RADIOLOGIC STUDY CLINICAL DATA: INJURY INTERPRETATION: BOTH KNEES 11-98: Normal. Yoandy Heck MD cc: Radiology AV Vidal Blair MD documented in this encounter Plan of Treatment Not on filedocumented as of this encounter Procedures Procedure Name Priority Date/Time Associated Diagnosis Comme nts UNLISTED DX RADIOGRAPHIC 12/14/1997 Res ults for this PROCEDURE procedure are i n the results section . documented in this encounter Results RADIOLOGIC STUDY (12/14/1997) Anatomical Region Laterality Modality Other Specimen (Source) Anatomical Location Collection Method / Collectio n Time Received Time / Laterality Volume Narrative 12/14/1997 Ordered by an unspecified provider. Transcriptions Yoandy Hayden - 12/14/1997 12:00 AM C STCLINICAL DATA: INJURY INTERPRETATION: BOTH KNEES 12-14-97: Nikolas Lee MD cc: Radiology AV Vidal Blair MD Physician Unknown [facility] documented in this encounter Visit Diagnoses Not on filedocumented in this encounter Care Teams Key Carrier Relationship Specialty Start Date End Date Unassigned, Provider PCP - General 04/07/[address] [place] [address] documented as of this encounter
--- OUTSIDE RECORDS SUMMARY | 2021-12-07 08:37 | XMS_ITS | Encounter Summary ---
:1980 Author [facility] Address [address] [place] [address] Care Team Providers Name Role Phone Unavailable Primary Care Provider Unavailable Encounter Details Date Type Department Care Team Description 12/04/1995 Office Visit Taylor Mckeon APRN, ACUTE PHARYNGITIS(SORE THROAT); [facility] [address] C/[place] [address] Social History Tobacco Use Types Packs/Day Years Used Date Smoking Tobacco: Never Assessed Sex Assigned at Date Recorded Not on file documented as of this encounter Progress Notes Taylor Mckeon - 12/04/1995 12:00 AM CDTS. 15 yr. old who has been complaining of neck ache and S/T for the past 2 days. He has had a cough off and on for the past several weeks. Has not a run a fever at all. Had very little nasal congestion. Said that he may cough a few minutes when he first gets up in the morning,but then occasionally during the day and the cough doesn't wake him up at night. He has never had any hx of asthma. O. Exam shows a WD 15 yr. old. Temp. 96.7 orally. Eyes are clear. Ears - TM's are Neg. Nose is clear. Pharynx is inflamed. Bright red, but no exudate. Neck - He has anterior cervical adenopathy. Chest is clear. Peak Flow Meter was 850. No rales,rhonchi, or wheezes. A. Pharyngitis. P. RSS was done which is Neg. Discussed symptomatic care and will call tomorrow if culture is positive. cc: documented in this encounter Plan of Treatment Not on filedocumented as of this encounter Visit Diagnoses Diagnosis Acute pharyngitis Cough documented in this encounter
--- OUTSIDE RECORDS SUMMARY | 2021-12-07 08:37 | XMS_ITS | Encounter Summary ---
:1980 Author Organization [facility] Address [address] [place] [address] Care Team Providers Name Role Phone Unavailable Primary Care Provider Unavailable Encounter Details Date Type Department Care Team Description 04/19/1994 Office Visit Fani Lopez MD Closed fracture of [address] unspecified phalanx [place], [place] [address] phalanges of hand [phone] (Wo rk) Social History Tobacco Use Types Packs/Day Years Used Date Smoking Tobacco: Never Assessed Sex Assigned at Date Recorded Not on file documented as of this encounter Plan of Treatment Not on filedocumented as of this encounter Visit Diagnoses Diagnosis Closed fracture of unspecified phalanx o r phalanges of hand documented in this encounter
--- OUTSIDE RECORDS SUMMARY | 2021-12-07 08:37 | XMS_ITS | Encounter Summary ---
:1980 Author Organization [facility] Address [address] [place] [address] Care Team Providers Name Role Phone Unavailable Primary Care Provider Unavailable Encounter Details Date Type Department Care Team Description 12/14/1997 Orders Only Lionel Blair MD LOWER LEG INJURY NOS [address] [place] [address] (Wo rk) Social History Tobacco Use Types Packs/Day Years Used Date Smoking Tobacco: Never Assessed Sex Assigned at Date Recorded Not on file documented as of this encounter Plan of Treatment Not on filedocumented as of this encounter Results OFFICE VISIT EST. LEVEL3 (12/14/1997 12:00 AM FRONT OFFICE HELP) Specimen (Source) Anatomical Location Collection Method / Collectio n Time Received Time / Laterality Volume 12/14/1997 Vidal Blair MD E&M CODES Performing Organization Address City/State/ZIP Code Phon e Number [facility] [phone] documented in this encounter Visit Diagnoses Diagnosis Injury, other and unspecified, knee, leg , ankle, and foot documented in this encounter
--- OUTSIDE RECORDS SUMMARY | 2021-12-07 08:37 | XMS_ITS | Encounter Summary ---
:1980 Author Organization [facility] Address [address] [place] [address] Care Team Providers Name Role Phone Unassigned, Provider Primary Care Provider Unavailable Encounter Details Date Type Department Care Team Description 04/17/1994 Orders Only Hermelindo Garcia M D [address] [place], [place] [address] (Wo rk) Social History Tobacco Use Types Packs/Day Years Used Date Smoking Tobacco: Never Assessed Sex Assigned at Date Recorded Not on file documented as of this encounter Plan of Treatment Not on filedocumented as of this encounter Visit Diagnoses Not on filedocumented in this encounter Care Teams Machine Plaster Mixer Relationship Specialty Start Date End Date Unassigned, Provider PCP - General 04/07/[address] [place] [address] documented as of this encounter
--- OUTSIDE RECORDS SUMMARY | 2021-12-07 08:37 | XMS_ITS | Encounter Summary ---
:1980 Author Organization [facility] Address [address] [place] [address] Care Team Providers Name Role Phone Unassigned, Provider Primary Care Provider Unavailable Encounter Details Date Type Department Care Team Description 02/11/1989 PN Conversion Only [facility] [address] [place] [address] Social History Tobacco Use Types Packs/Day Years Used Date Smoking Tobacco: Never Assessed Sex Assigned at Date Recorded Not on file documented as of this encounter Plan of Treatment Not on filedocumented as of this encounter Visit Diagnoses Not on filedocumented in this encounter Care Teams Magnetometer Operator Relationship Specialty Start Date End Date Unassigned, Provider PCP - General 04/07/[address] [place] [address] documented as of this encounter
--- OUTSIDE RECORDS SUMMARY | 2021-12-07 08:37 | XMS_ITS | Encounter Summary ---
:1980 Author Organization [facility] Address [address] [place] [address] Care Team Providers Name Role Phone Unassigned, Provider Primary Care Provider Unavailable Encounter Details Date Type Department Care Team Description 10/14/2007 PN Conversion Only [facility] [address] [place] [address] Social History Tobacco Use Types Packs/Day Years Used Date Smoking Tobacco: Never Assessed Sex Assigned at Date Recorded Not on file documented as of this encounter Plan of Treatment Not on filedocumented as of this encounter Visit Diagnoses Not on filedocumented in this encounter Care Teams Pantry Goods Maker Relationship Specialty Start Date End Date Unassigned, Provider PCP - General 04/07/[address] [place] [address] documented as of this encounter
--- OUTSIDE RECORDS SUMMARY | 2021-12-07 08:37 | XMS_ITS | Encounter Summary ---
:1980 Author Organization [facility] Address [address] [place] [address] Care Team Providers Name Role Phone Unassigned, Provider Primary Care Provider Unavailable Encounter Details Date Type Department Care Team Description 03/29/1995 Orders Only Giovanni Romero M D [address] [place], [place] [address] (Wo rk) Social History Tobacco Use Types Packs/Day Years Used Date Smoking Tobacco: Never Assessed Sex Assigned at Date Recorded Not on file documented as of this encounter Plan of Treatment Not on filedocumented as of this encounter Visit Diagnoses Not on filedocumented in this encounter Care Teams Political Director Relationship Specialty Start Date End Date Unassigned, Provider PCP - General 04/07/[address] [place] [address] documented as of this encounter
--- OUTSIDE RECORDS SUMMARY | 2021-12-07 08:37 | XMS_ITS | Encounter Summary ---
:1980 Author Organization [facility] Address [address] [place] [address] Care Team Providers Name Role Phone Unavailable Primary Care Provider Unavailable Encounter Details Date Type Department Care Team Description 12/21/1996 Office Visit Lionel Blair MD ROUTINE CHILD HEALTH EXAM [address] [place], [place] [address] (Wo rk) Social History Tobacco Use Types Packs/Day Years Used Date Smoking Tobacco: Never Assessed Sex Assigned at Date Recorded Not on file documented as of this encounter Plan of Treatment Not on filedocumented as of this encounter Visit Diagnoses Diagnosis Routine infant or child health check documented in this encounter
[2021-12-07 08:46] VITALS: BP 152/84
[2021-12-07 09:00] VITALS: BP 172/101; PULSE 98; O2SAT 98
[2021-12-07 09:30] VITALS: BP 145/77; PULSE 59; RESP 18; O2SAT 97
[2021-12-07 10:00] VITALS: BP 144/83; PULSE 56; O2SAT 98
[2021-12-07 10:09] VITALS: BP 169/79; PULSE 76; RESP 18; TEMP 36.7
== END 2021-12-07 10:10 | disposition home or self-care (01) ==
PROVIDERS: Emergency Provider Emergency Medicine Emergency Medical Services
DX: N20.1 Calculus of ureter (principal)
CPT/HCPCS: 74176; 81001; 96374; 96375; 99284; J1170; J1885; J2405

== ENCOUNTER 2023-04-20 13:59 | Emergency (ER) | payer BC, SELFPAY ==
[2023-04-20 14:06] VITALS: BP 189/97; PULSE 89; RESP 18; TEMP 36.8; O2SAT 97; BMI 50.1
[2023-04-20 14:19] LABS: Appearance Urine Cloudy (Clear); Bilirubin Urine Negative (Negative); Blood Urine 2+ (Negative); Color Urine Amber (Yellow); Glucose Urine Negative (Negative); Ketones Urine Negative (Negative); Leukocyte Esterase Urine Negative (Negative); Nitrite Urine Negative (Negative); Protein Urine Trace (Negative)
--- NOTE | 2023-04-20 14:22 | ED_ITS ---
HPI - General Adult General Chief complaint: Abdominal Pain Stated complaint: Suspected kidney stone--side, scrotum pain Time Seen by Provider: 04/20/23 14:10 History of Present Illness HPI narrative: This is a pleasant 42-year-old male with a history of hypertension, anxiety, and multiple previous kidney stones presenting to the ER today with low back pain, right lower quadrant pain, right testicular pain. He suspects he is passing a kidney stone. He recalls that he has had multiple kidney stones over the past several years. He has been seen [facility]. He has cut out multiple things from his diet (soda, red meat, and is working hard to drink lots of water. He also drinks milk. ). He has had multiple previous kidney stones. He has had come to the ER a couple times in the past but it does not sound like he has ever required a lithotripsy or stent. He says that 1 time point he has actually passed an 8 mm stone. Last time he was here in the ER in [place] was a couple of years ago. He thinks he passes a kidney stone at home every few months. His current symptoms began a couple of weeks ago he when he began to have an achy feeling in his low back. This morning things got worse and he is now having more intense waves of pain in his right lower quadrant and down into his right testicle. His urine is also turned a slight blood tinge this morning. He is not having other urinary symptoms such as dysuria, urgency, frequency. No fe pedro chills. He was nauseous from pain but no vomiting. Bowel movements have been normal. He feels a sensation that he needs to pass a BM this morning, but is not able to pass. Due to the intensity of his pain, he came to the ER. He recalls that he has done well with Dilaudid and with oral pain meds in the past for kidney stones. No other recent injuries. No swelling or lumps in his groin. Related Data Home Medications Medication Instructions Recorded Confirmed amlodipine 10 mg tablet 10 mg PO DAILY 04/20/23 04/20/23 fluoxetine 20 mg capsule 20 mg PO DAILY 04/20/23 04/20/23 hydrochlorothiazide 25 mg tablet 25 mg PO DAILY 04/20/23 04/20/23 lisinopril 40 mg tablet 40 mg PO DAILY 04/20/23 04/20/23 metoprolol succinate 50 mg 50 mg PO DAILY 04/20/23 04/20/23 tablet,extended release 24 hr tirzepatide 2.5 mg/0.5 mL 2.5 mg subcut .once weekly 04/20/23 04/20/23 subcutaneous pen injector (Blas) Previous Rx's Medication Instructions Recorded hydrocodone 5 mg-acetaminophen 325 1 tab PO Q4-6H PRN pain #20 tabs 12/07/21 mg tablet ketorolac 10 mg tablet 10 mg PO Q8H 5 days #15 tabs 12/07/21 ondansetron HCl 4 mg tablet 4 mg PO Q6H #20 tabs 12/07/21 hydrocodone 5 mg-acetaminophen 325 1 tab PO Q4-6H PRN pain #14 tabs 04/20/23 mg tablet ondansetron 4 mg disintegrating 4 mg PO Q8H PRN nausea and 04/20/23 tablet vomiting #10 tabs tamsulosin 0.4 mg capsule (Flomax) 0.4 mg PO DAILY #7 caps 04/20/23 Allergies Allergy/AdvReac Type Severity Reaction Status Date / Time No Known Drug Allergies Allergy Verified 04/20/23 14:06 [facility] Social History Smoking Status: Current every day smoker What tobacco products do you use: cigarettes Do you use any of these nicotine containing products: None Second hand tobacco smoke exposure: No How often do you have a drink containing alcohol: monthly or less How many standard drinks containing alcohol do you have on a typical day: 3 or 4 How often do you have six or more drinks on one occasion: Less than monthly AUDIT-C Alcohol total score: 3 Non-prescribed substance use: marijuana (any form) service: No Exam Narrative: Exam Narrative: Constitutional: Appears well-developed and polite. Over nourished. Alert. Conversant. Non toxic. HENT: Head: Atraumatic. Nose: Nose normal. Mouth/Throat: Oral mucosa is clear and moist. no trismus. Pharynx normal. Tonsils symmetric. No tonsillar enlargement, erythema, or exudate. Eyes: Conjunctivae normal. EOM normal. Pupils equal, round, and reactive to light. No scleral icterus. Neck: Normal range of motion. Neck supple. No tracheal deviation present. Cardiovascular: Normal rate, regular rhythm. No gallop. No friction rub. No murmur heard. Symmetric radial artery pulses Pulmonary/Chest: Effort normal. No stridor. No respiratory distress. No wheezes. No rales. No rhonchi . No tenderness. Abdominal: Soft. Bowel sounds normal. Abdomen protuberant due to body habitus but non tympanic and No distension. No mass. Right lower quad tenderness. No rebound. No guarding. : No inguinal masses are palpable hernias. Normal penis. Normal testicles and scrotum. No scrotal tenderness. Musculoskeletal: RUE: Normal range of motion. No tenderness. No deformity LUE: Normal range of motion. No tenderness. No deformity RLE: Normal range of motion. No edema. No tenderness. No deformity LLE: Normal range of motion. No edema. No tenderness. No deformity Neurological: Alert and oriented to person, place, and time. Normal strength. CN II-VII intact. No sensory deficit. GCS eye subscore is 4. GCS verbal subscore is 5. GCS motor subscore is 6. Normal coordination Skin: Skin is warm and dry. No rash noted. No pallor. Normal capillary refill. Psychiatric: Normal mood. Normal affect. Very polite. Const: Vital Signs, click to edit/add: Vital Signs - 24 hr 04/20/23 14:06 Temperature 98.2 F Pulse Rate [Pulse Oximeter] 89 Respiratory Rate 18 Blood Pressure [Ri ght Upper Arm] 189/97 H Pulse Oximetry 97 Oxygen Delivery Me thod Room Air Course Reevaluation(s) Reevaluation #1: Recheck-doing well. Had declined Dilaudid. Feels comfortable ready to go home. Vital Signs Vital signs: Initial Vital Signs Temperature 98.2 F 04/20/23 14:06 Temperature Source Temporal Artery Scan 04/20/23 14:06 Pulse Rate 89 04/20/23 14:06 Respiratory Rate 18 04/20/23 14:06 Blood Pressure 189/97 H 04/20/23 14:06 Blood Pressure Mean 127 H 04/20/23 14:06 Blood Pressure Position Semi-Fowlers 04/20/23 14:06 Pulse Oximetry 97 04/20/23 14:06 Oxygen Delivery Method Room Air 04/20/23 14:06 Vital Signs Temperature 98.2 F 04/20/23 14:06 Pulse Rate 89 04/20/23 14:06 Respiratory Rate 18 04/20/23 14:06 Blood Pressure 189/97 H 04/20/23 14:06 Pulse Oximetry 97 04/20/23 14:06 Oxygen Delivery Method Room Air 04/20/23 14:06 Temperature 98.2 F 04/20/23 14:06 Pulse Rate 89 04/20/23 14:06 Respiratory Rate 18 04/20/23 14:06 Blood Pressure 189/97 H 04/20/23 14:06 Pulse Oximetry 97 04/20/23 14:06 Oxygen Delivery Method Room Air 04/20/23 14:06 Medications Administered Medications: Discontinued Medications Generic Name Dose Route Start Last Admin Trade Name Freq PRN Reason Stop Dose Admin Ketorolac Tromethamine 15 mg 04/20/23 14:35 04/20/23 14:52 Ketorolac 15 Mg/Ml Inj IVP 04/20/23 14:36 15 mg ONCE ONE Administration Ondansetron HCl 4 mg 04/20/23 14:35 04/20/23 14:50 Ondansetron 2 Mg/Ml Inj IVP 04/20/23 14:36 4 mg ONCE ONE Administration Medical Decision Making MDM Narrative Medical decision making narrative: Presented to the Emergency Department with right lower quadrant abdominal pain radiating to his right groin. Also some left-sided low back pain. Patient to him is very similar to when he has passed kidney stones in the past. The differential diagnosis of abdominal pain includes: Kidney stone, testicular pathology such as epididymitis, orchitis, torsion, Appendicitis, Bowel Obstruction, Cholecystitis, Diverticulitis, UTI, kidney stone, Enteritis/Colitis, amongst many other etiologies. Laboratory testing does not reveal a cause for the patient's pain. White count reassuring. Kidney function normal. Urinalysis confirms hematuria. CT scan shows a 4 mm stone in the proximal left ureter (which is the side where he is actually having less pain). No obvious stone in the right ureter. No right-sided hydronephrosis. No other signs of appendicitis or other right lower quadrant problem. Exam shows normal testicles and scrotum, normal inguinal hernia. At this point, the evaluation indicates the left-sided kidney stone is most likely the cause of the patient's symptoms. There are no signs that this is an infected stone. The patient's pain is controlled in ED. The patient is hemodynamically stable in ED. I think the patient is safe for discharge. The plan is discharge to home with recheck by primary care physician or urology.They will return to the ED right away if symptoms worsen (e.g Return immediately for fevers greater than 102, increasing pain, other new symptoms develop). Ureterolithiasis precautions for home. Prescriptions for pain control, nausea control, and flomax were provided. The patient's questions were answered. OR Prescriptions for [place]-Zofran, Flomax. He has a previous relationship with Urology through [place] and will follow-up with them. ER return precautions reviewed. Lab Data Labs: Lab Results 04/20/23 04/20/23 Range/Units 14:10 14:55 WBC 10.10 (4.50-11.00) K/uL RBC 5.42 (4.30-5.90) m/uL Hgb 15.5 (13.5-17.5) gm/dL Hct 44.8 (37.0-53.0) % MCV 83 (80-100) fL MCH 29 (26-34) pg MCHC 35 (32-36) gm/dL RDW Coeff of Micheal 12.3 (11.5-15.5) % Plt Count 234 (140-440) K/uL Neut % (Auto) 59.9 (42.0-72.0) % Lymph % (Auto) 20.7 (20-44) % [place] % (Auto) 9.4 (0.0-11.0) % Eos % (Auto) 8.9 H (0.0-7.0) % Baso % (Auto) 0.3 (0.0-3.0) % Neut # (Auto) 6.05 (1.7-7.0) K/uL Lymph # (Auto) 2.09 (0.90-2.90) K/uL [place] # (Auto) 0.90 (0.00-0.90) K/UL Eos # (Auto) 0.90 H (0.00-0.50) K/uL Baso # (Auto) 0.03 (0.00-0.30) K/uL Abs Immat Gran (auto) 0.08 (0.00-0.30) K/uL Imm/Tot Granulo (auto) 0.8 % Sodium 141 (135-149) mmol/L Potassium 3.5 L (3.6-5.1) mmol/L Chloride 107 (96-114) mmol/L Carbon Dioxide 27 (20-32) mmol/L Anion Gap 7 (7-15) mEq/L BUN 15 (5-24) mg/dL Creatinine 0.6 (0.5-1.5) mg/dL Estimated Creat Clear 160.38 Estimated GFR 124 ml/min Glucose 125 H (60-115) mg/dL Calcium 9.2 (8.4-10.6) mg/dL Urine Color [place] A (Yellow) Urine Appearance Cloudy A (Clear) Urine pH 7.0 (5.0-8.5) Ur Specific [place] 1.020 (1.000-1.030) Urine Protein Trace A (Negative) Urine Glucose (UA) Negative (Negative) Urine Ketones Negative (Negative) Urine Blood 2+ A (Negative) Urine Nitrite Negative (Negative) Urine Bilirubin Negative (Negative) Urine Urobilinogen 1.0 (0.2-1.0) Ur Leukocyte Esterase Negative (Negative) Urine RBC >100 A (0-2) Urine WBC 0-2 (0-5) Ur Squamous Epith Cells None (None-Few) Urine Bacteria None (None) Imaging Data CT scan - abdomen: Attestation: I have reviewed the pertinent imaging results. Radiologist's impression: Impression: 1. There is an obstructing 4 millimeter stone seen at the left ureteropelvic junction causing mild dilatation of the left renal pelvis. 2. Additional nonobstructing renal calculi bilaterally. Discharge Plan Discharge Clinical Impression: Abdominal pain, RLQ, Kidney stone on left side Patient Disposition: Home, Self-Care Condition: Stable Instructions: Kidney Stones (ED), Abdominal Pain (ED) Additional Instructions: As we discussed, please come back to the ER right away if you have worsening pain, fever, uncontrolled nausea and vomiting, weakness, worsening pain in your groin or testicle, or if you have any concerns. If you have not passed the st one within 3-4 days, please follow-up with your regular doctor or your urologist for recheck. If you can not get in with your doctor, come back to the ER to be rechecked. Use caution with prescription pain killers because they do cause drowsiness, sedation, and you should not drive. Prescriptions: New hydrocodone-acetaminophen 5-325 mg tablet 1 tab PO Q4-6H PRN (Reason: pain) Qty: 14 0RF ondansetron 4 mg tablet,disintegrating 4 mg PO Q8H PRN (Reason: nausea and vomiting) Qty: 10 0RF tamsulosin [Flomax] 0.4 mg capsule 0.4 mg PO DAILY Qty: 7 2RF No Action hydrocodone-acetaminophen 5-325 mg tablet 1 tab PO Q4-6H PRN (Reason: pain) Qty: 20 0RF ketorolac 10 mg tablet 10 mg PO Q8H 5 Days Qty: 15 0RF ondansetron HCl 4 mg tablet 4 mg PO Q6H Qty: 20 0RF Mounjaro 2.5 mg/0.5 mL pen injector 2.5 mg subcut .once weekly metoprolol succinate 50 mg tablet extended release 24 hr 50 mg PO DAILY amlodipine 10 mg tablet 10 mg PO DAILY hydrochlorothiazide 25 mg tablet 25 mg PO DAILY lisinopril 40 mg tablet 40 mg PO DAILY fluoxetine 20 mg capsule 20 mg PO DAILY Follow Up/Referrals: Provider,Not a Local [Referring] - Stand Alone Forms: [facility] Info Instructions
--- NOTE | 2023-04-20 14:25 | CT_ITS ---
Patient: MAGEN OAKLEY Facility:?[facility] Patient ID:?[id number] Site Patient ID:?[id number]. Site :?[id number] Study:?CT-Abdomen/Pelvis STONE STUDY-04/20/2023 3:12:08 PM Ordering Physician:?DR. SANCHEZ Final Report: Indication: BILAT FLANK PAIN. HX OF STONES Technique: CT abdomen/pelvis without IV contrast Comparison: CT abdomen/pelvis on 12/07/2021 Findings: The lower thorax is unremarkable. The liver, gallbladder, spleen, pancreas, bilateral adrenal glands are unremarkable. Stable small low-attenuation lesion in the right kidney at the interpolar region. Nonobstructing 2 millimeter renal calculus at the upper pole of the right kidney. No right-sided hydroureteronephrosis. There is an obstructing 4 millimeter stone seen at the left ureteropelvic junction causing mild dilatation of the left renal pelvis. Additional nonobstructing 1 centimeter stone at the lower pole of the left kidney. The bladder is unremarkable. The seminal vesicles and prostate are unremarkable. No evidence of bowel obstruction or inflammation. The appendix is normal. Few colonic diverticula without CT evidence of acute diverticulitis. No free fluid or free air. No abdominopelvic lymphadenopathy. No abdominal aortic aneurysm. Mild calcific atherosclerosis of the aortoiliac system. Small fat containing umbilical hernia. No acute fracture or malalignment. No suspicious osseous lesions. Impression: 1. There is an obstructing 4 millimeter stone seen at the left ureteropelvic junction causing mild dilatation of the left renal pelvis. 2. Additional nonobstructing renal calculi bilaterally. Please note that all CT scans at this facility use dose modulation, iterative reconstruction, and/or weight-based dosing when appropriate to reduce radiation dose to as low as reasonably achievable. Dictated by Dave Platt MD @ 04/20/2023 4:01:40 PM Signed by:?Dave Platt MD @04/20/2023 4:01:40 PM (Electronic Signature)
[2023-04-20 14:43] LABS: RBC Urine >100 (0-2); WBC Urine 0-2 (0-5)
[2023-04-20] MEDS: ONDANSETRON 2 MG/ML inj 4 MG IVP (14:50)
[2023-04-20] MEDS: KETOROLAC 15 MG/ML inj IVP (14:52)
[2023-04-20 15:01] LABS: Basophils Absolute Auto 0.03 K/uL (0.00-0.30); Basophils Percent Auto 0.3 % (0.0-3.0); Eosinophils Percent Auto 8.9 % (0.0-7.0); Hematocrit 44.8 % (37.0-53.0); Hemoglobin* 15.5 gm/dL (13.5-17.5); Immature Granulocytes Abs Auto 0.08 K/uL (0.00-0.30); Immature Granulocytes Pct Auto 0.8 %; Lymphocytes Absolute Auto 2.09 K/uL (0.90-2.90); Lymphocytes Percent Auto 20.7 % (20-44); Mean Corpuscular HGB Conc 35 gm/dL (32-36); Mean Corpuscular Hemoglobin 29 pg (26-34); Mean Corpuscular Volume 83 fL (80-100); Monocytes Percent Auto 9.4 % (0.0-11.0); Neutrophils Absolute Auto 6.05 K/uL (1.7-7.0); Neutrophils Percent Auto 59.9 % (42.0-72.0); Platelet Count* 234 K/uL (140-440); RDW Coefficient of Variation % 12.3 % (11.5-15.5); Red Blood Count 5.42 m/uL (4.30-5.90)
[2023-04-20 15:05] LABS: Slide Review Reflex No
[2023-04-20 15:14] LABS: Chloride* 107 mmol/L (96-114); Potassium* 3.5 mmol/L (3.6-5.1); Sodium* 141 mmol/L (135-149)
[2023-04-20 15:17] LABS: Anion Gap 7 mEq/L (7-15); Blood Urea Nitrogen* 15 mg/dL (5-24); Calcium* 9.2 mg/dL (8.4-10.6); Carbon Dioxide* 27 mmol/L (20-32); Creatinine* 0.6 mg/dL (0.5-1.5); Est. Creatinine Clearance* 160.38; Estimated Glomerular Filt Rate 124 ml/min; Glucose* 125 mg/dL (60-115)
== END 2023-04-20 16:47 | disposition home or self-care (01) ==
PROVIDERS: Emergency Provider Emergency Medicine; PCP Physician Assistant Medical
DX: R10.31 Right lower quadrant pain (principal); N20.0 Calculus of kidney
CPT/HCPCS: 36415; 74176; 80048; 81001; 85025; 96374; 96375; 99283; 99285; J1885; J2405

== ENCOUNTER 2023-05-09 08:19 | Emergency (ER) | payer BC, SELFPAY ==
[2023-05-09 08:32] VITALS: BP 153/98; PULSE 82; RESP 16; TEMP 36.7; O2SAT 98; BMI 49.3
--- NOTE | 2023-05-09 09:12 | ED_ITS ---
HPI - General Adult General Date Seen: 05/09/23 Chief complaint: Abdominal Pain Stated complaint: stomach pain,diarrhea,unable to eat Time Seen by Provider: 05/09/23 09:07 History of Present Illness HPI narrative: 42-year-old male with a history of previous kidney stones, high blood pressure, anxiety presenting to the ER today for abdominal pain with diarrhea. I saw him here in the ER about 3 weeks ago on April 19 for abdominal pain and suspected kidney stone on the right side. Treated with Toradol and Zofran. Workup showed a WBC of 10.1, hemoglobin 15.5, platelet count 234. Sodium 141, potassium 3.5, chloride 107, bicarb 27, BUN 15, creatinine 0.6, glucose 125. UA showed 100 RBC, 0-2 WBC. 2+ blood. Negative nitrite. Negative leukocyte esterase. CT scan showed a 4 mm stone in the left ureteropelvic junction with mild left hydronephrosis of the left renal pelvis. Also bilateral nonobstructing stones. Patient is not sure if he ever passed his kidney stone or not. He says he generally gotten better in terms of pain but then last Saturday he felt like his stone might be moving it so he took a couple of [place]. The following day, on Saturday his other symptoms began. He returns to the ER today for evaluation of generalized abdominal pain ongoing for 5 days (since Saturday). He is feeling bloated in generalized crampy pressure on abdominal pain. This comes and goes in waves. He is also having diarrhea.. Also having frequent episodes of watery diarrhea. He says the stool is been entirely watery and he has had at least 10 stools overnight tonight and into this morning. No bloody or mucousy stool. Sometimes he gets nauseous and wants to vomit. Particular whenever he tries to eat or drink anything but does not actually throw up. He has felt hot and chilled but has not measured an objective fever. He has had decreased urine output but no dysuria or hematuria. His bloating is generalized and affect his entire abdomen. It does not really lateralize to 1 side or the other or particularly affect is flank where his kid haley stone was. He recalls that he had another episode similar to this approximately 6 weeks ago. It lasted about 2 days and got better on its own. He did not come to the doctor for that previous episode. This episode began now on Saturday and is not getting better. He did travel to [place] a few weeks ago but that was actually after his 1st episode of symptoms. No other travel or camping. No recent antibiotics. Related Data Home Medications Medication Instructions Recorded Confirmed amlodipine 10 mg tablet 10 mg PO DAILY 04/20/23 04/20/23 fluoxetine 20 mg capsule 20 mg PO DAILY 04/20/23 04/20/23 hydrochlorothiazide 25 mg tablet 25 mg PO DAILY 04/20/23 04/20/23 lisinopril 40 mg tablet 40 mg PO DAILY 04/20/23 04/20/23 metoprolol succinate 50 mg 50 mg PO DAILY 04/20/23 04/20/23 tablet,extended release 24 hr tirzepatide 2.5 mg/0.5 mL 2.5 mg subcut .once weekly 04/20/23 04/20/23 subcutaneous pen injector (Blas) Previous Rx's Medication Instructions Recorded hydrocodone 5 mg-acetaminophen 325 1 tab PO Q4-6H PRN pain #20 tabs 12/07/21 mg tablet ketorolac 10 mg tablet 10 mg PO Q8H 5 days #15 tabs 12/07/21 ondansetron HCl 4 mg tablet 4 mg PO Q6H #20 tabs 12/07/21 hydrocodone 5 mg-acetaminophen 325 1 tab PO Q4-6H PRN pain #14 tabs 04/20/23 mg tablet ondansetron 4 mg disintegrating 4 mg PO Q8H PRN nausea and 04/20/23 tablet vomiting #10 tabs tamsulosin 0.4 mg capsule (Flomax) 0.4 mg PO DAILY #7 caps 04/20/23 Allergies Allergy/AdvReac Type Severity Reaction Status Date / Time No Known Drug Allergies Allergy Verified 05/09/23 10:20 PFSH PFSH Social History Smoking Status: Current every day smoker What tobacco products do you use: cigarettes Do you use any of these nicotine containing products: None Second hand tobacco smoke exposure: No How often do you have a drink containing alcohol: monthly or less How many standard drinks containing alcohol do you have on a typical day: 3 or 4 How often do you have six or more drinks on one occasion: Less than monthly AUDIT-C Alcohol total score: 3 Non-prescribed substance use: marijuana (any form) service: No Exam Narrative: Exam Narrative: Constitutional: Appears well-developed and well-nourished. Alert. Conversant. Non toxic. HENT: Head: Atraumatic. Nose: Nose normal. Mouth/Throat: Oral mucosa is clear but dry. Mucous membranes are not desiccated or cracked. no trismus. Pharynx normal. Tonsils symmetric. No tonsillar enlargement, erythema, or exudate. Eyes: Conjunctivae normal. EOM normal. Pupils equal, round, and reactive to light. No scleral icterus. Neck: Normal range of motion. Neck supple. No tracheal deviation present. No JVD Cardiovascular: Normal rate, regular rhythm. No gallop. No friction rub. No murmur heard. Symmetric radial artery pulses Pulmonary/Chest: Effort normal. No stridor. No respiratory distress. No wheezes. No rales. No rhonchi . No tenderness. Abdominal: Soft. Bowel sounds normal. No distension. No mass. Diffuse tenderness. No HSM. No rebound. No guarding. Musculoskeletal: RUE: Normal range of motion. No tenderness. No deformity LUE: Normal range of motion. No tenderness. No deformity RLE: Normal range of motion. No edema. No tenderness. No deformity LLE: Normal range of motion. No edema. No tenderness. No deformity Neurological: Alert and oriented to person, place, and time. Normal strength. CN II-VII intact. No sensory deficit. GCS eye subscore is 4. GCS verbal subscore is 5. GCS motor subscore is 6. Normal coordination Skin: Skin is warm and dry. No rash noted. No pallor. Normal capillary refill. Psychiatric: Normal mood. Normal affect. Const: Vital Signs, click to edit/add: Vital Signs - 24 hr 05/09/23 18:37 Temperature 98.0 F Pulse Rate [Pulse Oximeter] 74 Respiratory Rate 18 Blood Pressure [Ri ght Upper Arm] 155/88 H Course Course ED Course: Patient had a stool after arriving here in the ER. Reviewed by nursing and myself. He does appear to be pink or red tinged, possibly bloody. Will send stool culture and C diff. Reevaluation(s) Reevaluation #1: Recheck-had another bowel movement that was watery, not apparently bloody. No further vomiting. Reevaluation #2: Recheck discussed that he still has a large, in fact larger, kidney stone affecting the left ureter. My recommendation would be to admit given his overall condition and failure to pass his stone outpatient over the past couple of weeks. He would agree to being admitted at [facility], if beds available Reevaluation #3: Recheck-patient now hungry. No further diarrhea for an hour to. Still waiting on [facility] Additional Reevaluation(s): Recheck-patient accepted to the hospitalist service at [facility] by kevin Velazquez, on behalf of Dr. Munoz, hospitalist Vital Signs Vital signs: Initial Vital Signs Temperature 98.0 F 05/09/23 08:32 Temperature Source Temporal Artery Scan 05/09/23 08:32 Pulse Rate 82 05/09/23 08:32 Pulse Rhythm Regular 05/09/23 08:32 Pulse Strength 3+ Normal 05/09/23 08:32 Respiratory Rate 16 05/09/23 08:32 Blood Pressure 153/98 H 05/09/23 08:32 Blood Pressure Mean 116 H 05/09/23 08:32 Blood Pressure Position Sitting 05/09/23 08:32 Pulse Oximetry 98 05/09/23 08:32 Oxygen Delivery Method Room Air 05/09/23 08:32 Vital Signs Temperature 98.0 F 05/09/23 08:32 Pulse Rate 82 05/09/23 08:32 Respiratory Rate 16 05/09/23 08:32 Blood Pressure 153/98 H 05/09/23 08:32 Pulse Oximetry 98 05/09/23 08:32 Oxygen Delivery Method Room Air 05/09/23 08:32 Temperature 98.0 F 05/09/23 18:37 Pulse Rate 74 05/09/23 18:37 Respiratory Rate 18 05/09/23 18:37 Blood Pressure 155/88 H 05/09/23 18:37 Pulse Oximetry 98 05/09/23 08:32 Oxygen Delivery Method Room Air 05/09/23 08:32 Medications Administered Medications: Discontinued Medications Generic Name Dose Route Start Last Admin Trade Name Freq PRN Reason Stop Dose Admin Sodium Chloride 1,000 mls @ 1,000 mls/hr 05/09/23 09:30 05/09/23 11:21 0.9 % Sodium Chloride 1000 Ml IV 05/09/23 10:29 Infused .Q1H RENETTA Infusion Potassium Chloride 10 meq in 100 mls @ 100 mls/hr 05/09/23 13:12 05/09/23 14:28 Potassium Chloride IVPB 05/09/23 14:11 Infused ONCE ONE Infusion Ketorolac Tromethamine 15 mg 05/09/23 09:27 05/09/23 09:52 Ketorolac 15 Mg/Ml Inj IVP 05/09/23 09:28 15 mg ONCE ONE Administration Ondansetron HCl 4 mg 05/09/23 09:27 05/09/23 09:52 Ondansetron 2 Mg/Ml Inj IVP 05/09/23 09:28 4 mg ONCE ONE Administration Medical Decision Making MDM Narrative Medical decision making narrative: 42-year-old gentleman presenting to the ER today for generalized abdominal pain, frequent watery diarrhea, body aches, weakness, as well as nausea and vomiting ongoing for the past 5 days. I also saw him about 3 weeks ago for abdominal pain at that time diagnosed him with a kidney stone obstructing his left proximal ureter. 1. GI-patient does report prominent diarrhea and also nausea and some vomiting. Differential for these symptoms is broad. Consider possible viral GI syndrome. Also consider bacterial enteritis. No recent antibiotics to raise high risk for C diff. However with bloody stool here in the ER we did send C diff PCR which is fortunately negative. Given bloody stool here in the ER will also send stool PCR panel to look for bacterial enteritis. I CT scan is negative for any sign of diverticulitis or colitis. Patient has no personal history of inflammatory bowel disease but consider autoimmune disease such as Crohn's given that he had an episode of diarrhea about 6 weeks ago prior to this 5 day episode currently ongoing. Will need further workup with GI if stool panel is negative. 2. Renal/electrolytes. Patient does report repetitive diarrhea at home. Clinically he does appear dehydrated. Creatinine is almost tripled up from 0.6 up to 1.7 which could be related to acute kidney injury from dehydration. IV fluids administered here in the ER. Potassium mildly low at 3.3-supplemented. 3. Kidney stone-patient has ongoing signs of stone in his left proximal ureter. Stone is actually measuring substantially larger on today's CT scan compared to the CT scan from a couple of weeks ago (up from 4 mm to 9 mm). Unclear why the stone has gotten larger. Possibly has a 2nd stone abutting his previous. In any case with failure to pass his stone over the interval couple of weeks and now worsening kidney function he does require hospitalization for urology consultation. No evidence for UTI on urinalysis. Lactic acid normal. Not febrile. Blood pressure stable. He does have a leukocytosis with white count of 12.7. Suspect leukocyte may be related to his diarrheal illness. 4. Disposition: I rib believe this patient requires hospitalization for IV fluids, symptom management and specialist consultation. Urology not available here in [place]. Therefore transfer is indicated. Patient requests transfer to [facility] since it is close to his family's home. He is accepted by the hospitalist at [facility] and they will consult Urology for management of the kidney stone. Patient wants to transfer by private vehicle. At this point he is hemodynamically stable. He has not received any sedating meds here in the ER. Although I recommend transfer by EMS, the patient has medical decision-making capacity to choose his own method of transport and he prefers to go by private car. Therefore will transfer by private vehicle. Lab Data Labs: Lab Results 05/09/23 05/09/23 05/09/23 Range/Units 09:27 09:30 09:43 WBC 12.69 H (4.50-11.00) K/uL RBC 6.25 H (4.30-5.90) m/uL Hgb 18.0 H (13.5-17.5) gm/dL Hct 51.4 (37.0-53.0) % MCV 82 (80-100) fL MCH 29 (26-34) pg MCHC 35 (32-36) gm/dL RDW Coeff of Micheal 12.7 (11.5-15.5) % Plt Count 308 (140-440) K/uL Neut % (Auto) 73.4 H (42.0-72.0) % Lymph % (Auto) 13.9 L (20-44) % Marin % (Auto) 9.6 (0.0-11.0) % Eos % (Auto) 2.7 (0.0-7.0) % Baso % (Auto) 0.1 (0.0-3.0) % Neut # (Auto) 9.30 H (1.7-7.0) K/uL Lymph # (Auto) 1.80 (0.90-2.90) K/uL Marin # (Auto) 1.20 H (0.00-0.90) K/UL Eos # (Auto) 0.30 (0.00-0.50) K/uL Baso # (Auto) 0.00 (0.00-0.30) K/uL Abs Immat Gran (auto) 0.00 (0.00-0.30) K/uL Imm/Tot Granulo (auto) 0.3 % Sodium 138 (135-149) mmol/L Potassium 3.3 L (3.6-5.1) mmol/L Chloride 103 (96-114) mmol/L Carbon Dioxide 30 (20-32) mmol/L Anion Gap 5 L (7-15) mEq/L BUN 20 (5-24) mg/dL Creatinine 1.7 H (0.5-1.5) mg/dL Estimated Creat Clear 56.61 Estimated GFR 51 ml/min Glucose 115 (60-115) mg/dL Lactate 1.0 (0.5-1.9) mmol/L Calcium 9.3 (8.4-10.6) mg/dL Total Bilirubin 0.6 (0.1-1.5) mg/dL AST 17 (12-35) U/L ALT 25 (4-50) U/L Alkaline Phosphatase 92 (40-150) U/L Total Protein 7.2 (6.0-8.3) g/dL Albumin 4.0 (3.3-5.0) g/dL Lipase 68 (23-300) U/L Urine Color Yellow (Yellow) Urine Appearance Clear (Clear) Urine pH 7.0 (5.0-8.5) Ur Specific Swink 1.010 (1.000-1.030) Urine Protein Trace A (Negative) Urine Glucose (UA) Negative (Negative) Urine Ketones Negative (Negative) Urine Blood Trace-intact A (Negative) Urine Nitrite Negative (Negative) Urine Bilirubin Negative (Negative) Urine Urobilinogen 0.2 (0.2-1.0) Ur Leukocyte Esterase Negative (Negative) Urine RBC 2-5 A (0-2) Urine WBC 0-2 (0-5) Ur Squamous Epith Cells None (None-Few) Urine Bacteria None (None) Stl C. diff Tox B Gene Negative (Negative) Stl C. diff [id number] PRESUMPTIVE NEGATIVE (Negative) Imaging Data CT scan - abdomen: Attestation: I have reviewed the pertinent imaging results. Radiologist's impression: IMPRESSION: 1. Left-sided obstructive uropathy due to a 9 millimeter calcified calculus at the left ureteropelvic junction. Intrarenal calculi bilaterally, [id number]. Small right renal cyst. 2. Other incidental nonacute appearing findings as discussed in the body of the report. Discharge Plan Discharge Clinical Impression: LORA (acute kidney injury), Diarrhea, Kidney stone, Acute hypokalemia Patient Disposition: Xfer Other Additional Instructions: Please go to [facility] in [facility] to be admitted. They can admit you overnight for IV fluids and have Urology consult with you tomorrow to help get your kidney stone removed. Prescriptions: No Action hydrocodone-acetaminophen 5-325 mg tablet 1 tab PO Q4-6H PRN (Reason: pain) Qty: 20 0RF ketorolac 10 mg tablet 10 mg PO Q8H 5 Days Qty: 15 0RF ondansetron HCl 4 mg tablet 4 mg PO Q6H Qty: 20 0RF Mounjaro 2.5 mg/0.5 mL pen injector 2.5 mg subcut .once weekly metoprolol succinate 50 mg tablet extended release 24 hr 50 mg PO DAILY amlodipine 10 mg tablet 10 mg PO DAILY hydrochlorothiazide 25 mg tablet 25 mg PO DAILY lisinopril 40 mg tablet 40 mg PO DAILY fluoxetine 20 mg capsule 20 mg PO DAILY hydrocodone-acetaminophen 5-325 mg tablet 1 tab PO Q4-6H PRN (Reason: pain) Qty: 14 0RF ondansetron 4 mg tablet,disintegrating 4 mg PO Q8H PRN (Reason: nausea and vomiting) Qty: 10 0RF tamsulosin [Flomax] 0.4 mg capsule 0.4 mg PO DAILY Qty: 7 2RF Stand Alone Forms: [employer] Info Instructions
--- NOTE | 2023-05-09 09:27 | CT_ITS ---
Patient: MAGEN OAKLEY Facility:?[facility] RIS Patient ID:?[id number] Site Patient ID:?[id number]. Site :?[id number] Study:?CT-Abdomen/Pelvis W/ 149CC ISOVUE 370-05/09/2023 10:18:46 AM Ordering Physician:RAJEEV Final Report: INDICATION: Abdominal pain. Diarrhea. Bloating. Fever. COMPARISON: April 20, 2023 TECHNIQUE: CT examination of the abdomen and pelvis was performed following the uneventful intravenous administration of 149 cc of Isovue 370. Thin section axial images were obtained from the lung bases through the pubic symphysis. Oral contrast was not administered. Please note that all CT scans at this facility use dose modulation, iterative reconstruction, and/or weight-based dosing when appropriate to reduce radiation dose to as low as reasonably achievable. FINDINGS: LUNG BASES: The lung bases as visualized appear normal.The heart size is normal at the lung bases. LIVER/BILIARY SYSTEM:The liver is normal in size and configuration. There is no focal mass and there is no intra- or extra hepatic biliary ductal dilatation.Hepatic steatosis. Normal-appearing gallbladder. ADRENALS: Normal KIDNEYS, URETERS and BLADDER:Normal-sized kidneys. Intrarenal calculi bilaterally, left greater than right. Right renal cyst. Left-sided obstructive uropathy due to a 9 millimeter calculus at the left ureteropelvic junction. No calculi within the bladder. SPLEEN:Normal appearance. PANCREAS: Appears normal. RETROPERITONEUM and MESENTERY: There is no mass, adenopathy or aortic aneurysm. GASTROINTESTINAL SYSTEM: There is no evidence of diverticulitis, colitis, mechanical obstruction, or appendicitis. The small bowel as visualized appears normal.A few scattered diverticula are noted PELVIS: No mass, adenopathy or free fluid. OSSEOUS STRUCTURES and ABDOMINAL WALL: There is an age-appropriate appearance of the osseous structures.No significant abdominal wall defect. OTHER: No free fluid or free air. IMPRESSION: 1. Left-sided obstructive uropathy due to a 9 millimeter calcified calculus at the left ureteropelvic junction. Intrarenal calculi bilaterally, [id number]-right. Small right renal cyst. 2. Other incidental nonacute appearing findings as discussed in the body of the report. Please note that all CT scans at this facility use dose modulation, iterative reconstruction, and/or weight-based dosing when appropriate to reduce radiation dose to as low as reasonably achievable. Dictated by Douglas Rodrigues MD @ 05/09/2023 10:37:18 AM Signed by:?Douglas Rodrigues MD @05/09/2023 10:37:18 AM (Electronic Signature)
[2023-05-09 09:50] LABS: Basophils Percent Auto 0.1 % (0.0-3.0); Eosinophils Percent Auto 2.7 % (0.0-7.0); Hematocrit 51.4 % (37.0-53.0); Immature Granulocytes Pct Auto 0.3 %; Lymphocytes Percent Auto 13.9 % (20-44); Mean Corpuscular HGB Conc 35 gm/dL (32-36); Mean Corpuscular Hemoglobin 29 pg (26-34); Mean Corpuscular Volume 82 fL (80-100); Monocytes Percent Auto 9.6 % (0.0-11.0); Neutrophils Percent Auto 73.4 % (42.0-72.0); Platelet Count* 308 K/uL (140-440); RDW Coefficient of Variation % 12.7 % (11.5-15.5); Red Blood Count 6.25 m/uL (4.30-5.90); White Blood Count* 12.69 K/uL (4.50-11.00)
[2023-05-09 09:51] LABS: Slide Review Reflex No
[2023-05-09] MEDS: ONDANSETRON 2 MG/ML inj 4 MG IVP (09:52)
[2023-05-09] MEDS: KETOROLAC 15 MG/ML inj IVP (09:52)
[2023-05-09] MEDS: 0.9 % SODIUM CHLORIDE 1000 ml 1,000 ML IV (09:52)
[2023-05-09 10:04] LABS: Chloride* 103 mmol/L (96-114)
[2023-05-09 10:05] LABS: Potassium* 3.3 mmol/L (3.6-5.1); Sodium* 138 mmol/L (135-149)
[2023-05-09 10:07] LABS: Anion Gap 5 mEq/L (7-15); Aspartate Amino Transferase* 17 U/L (12-35); Bilirubin Total* 0.6 mg/dL (0.1-1.5); Carbon Dioxide* 30 mmol/L (20-32); Creatinine* 1.7 mg/dL (0.5-1.5); Est. Creatinine Clearance* 56.61; Estimated Glomerular Filt Rate 51 ml/min; Total Protein* 7.2 g/dL (6.0-8.3)
[2023-05-09 10:08] LABS: Alanine Aminotransferase* 25 U/L (4-50); Alkaline Phosphatase* 92 U/L (40-150); Blood Urea Nitrogen* 20 mg/dL (5-24); Calcium* 9.3 mg/dL (8.4-10.6); Glucose* 115 mg/dL (60-115); Lipase* 68 U/L (23-300)
[2023-05-09 10:56] LABS: Appearance Urine Clear (Clear); Bilirubin Urine Negative (Negative); Blood Urine Trace-intact (Negative); Color Urine Yellow (Yellow); Glucose Urine Negative (Negative); Ketones Urine Negative (Negative); Leukocyte Esterase Urine Negative (Negative); Nitrite Urine Negative (Negative); Protein Urine Trace (Negative); Urobilinogen Urine 0.2 (0.2-1.0)
[2023-05-09 10:58] LABS: C.Difficile Negative (Negative); CDIFFEPI 027 PRESUMPTIVE NEGATIVE (Negative)
[2023-05-09 11:13] LABS: WBC Urine 0-2 (0-5)
[2023-05-09] MEDS: POTASSIUM CHLORIDE 10 MEQ/100 ML PIGGYBACK 100 MEQ IVPB (13:25)
[2023-05-09 18:37] VITALS: BP 155/88; PULSE 74; RESP 18; TEMP 36.7
== END 2023-05-09 18:39 | disposition other institution (70) ==
PROVIDERS: Emergency Provider Emergency Medicine; PCP Physician Assistant Medical
DX: N17.9 Acute kidney failure, unspecified (principal); R19.7 Diarrhea, unspecified; E87.6 Hypokalemia; N20.0 Calculus of kidney
CPT/HCPCS: 36415; 74177; 80053; 81001; 83605; 83690; 85025; 87045; 87046; 87427; 87493; 96365; 96375; 99285; J1885; J2405; J3480; J7030; Q9967

== ENCOUNTER 2024-11-04 00:28 | Emergency (ER) | payer OTHER, SELFPAY ==
--- OUTSIDE RECORDS SUMMARY | 2022-02-27 05:00 | XMS_ITS | Continuity of Care Document ---
Author Organization [facility] Address [address] [place] [address] Phone Care Team Providers Care See Wheeler Name Role Phone Will Quan COLEMAN Unavailable Unavailabl e Allergies, Adverse Reactions, Alerts Substance Reaction Status Criticality No Known Drug Allergies Active No I nformation Medications Medication Instructions Dosage Effective Dates (start - stop) Status Comments metformin 500 mg tablet take 1 tablet by oral route 2 times every day with morning and evening meals 500 MG - Active Klor-Con 10 mEq tablet,extended release take 1 tablet by ORAL route 1 - 2 times every day with food 10 MEQ - Active Norvasc 10 mg tablet take 1 tablet by ORAL route every day 10 MG - Active aspirin 81 mg chewable tablet chew 1 tablet by oral route every day 81 MG - Active Prozac 20 mg capsule take 1 capsule by oral route every day in the morning 20 MG - Active Flonase Allergy Relief 50 mcg/actuation nasal spray,suspension spray 1 - 2 spray by intranasal route every day in each nostril as needed 50-100 MCG - Active hydrochlorothiazide 25 mg tablet take 1 tablet by oral route every day 25 MG - Active Zestril 40 mg tablet take 1 tablet by oral route every day 40 MG - Active Kapspargo Sprinkle 50 mg capsule,extended release take 1 capsule by oral route every day 50 MG - Active Flomax 0.4 mg capsule take 1 capsule by oral route every day 1/2 hour following the same meal each day 0.4 MG - Active Procedures Procedure Date LT Major Joint Or Bursa Inj With Ultraso und Synvisc PT EVAL LOW COMPLEX 20 MIN No Charge For Visit Per Prov OFFICE/OUTPATIENT VISIT, NEW Advance Directives Directive Yes / No Effective Date File Name No Information Encounters Encounter Description Practice Location Reason(s) For Visit Diagnoses Date Provider Providers Copied on Encounter [facility], [address] [place] [address], [id number] , [place] tel:[phone] [facility] Bilateral primary osteoarthritis of knee 3 Will Quan. [address] [place] [address], [id number] , [place]. [phone] Referring Provider: Quan Walker, [address] [place] [address], [id number]. [phone] [facility], [address] [place] [address], [id number] , [place] [phone] [facility] pain (chief complaint) Bilateral primary osteoarthritis of knee 2 Yesy Iniguez. [address] [place] [address], [id number] , [place]. [phone] Referring Provider: Quan Walker, [address] [place] [address], [id number]. [phone] [facility], [address] [place] [address], [id number] , [place] [phone] [facility] No Information 2 Will Quan. [address] [place] [address], [id number] , [place]. [phone] Referring Provider: Alice Gillette, [facility] [address], [place], [address]. tel:[phone] OFFICE/OUTPA TIENT VISIT, NEW [facility], [address] [place] [address], [id number] , [place] [phone] [facility] bilateral knee pain (chief complaint) Bilateral primary osteoarthritis of kneeHypertensionCh ronic pain syndrome 2 Will Quan. [address] [place] [address] is, [place], [id number] , [place]. tel:[phone] Family History Family Member Type Diagnosis Age At Onset No Information Payers Payer name Insurance type Covered constitution party ID Cammie meier(s) [facility] [id number] Social History Type Description Quantity Date Captured Comments Alcohol Use Details Unknown Caffeine Use Details Unknown Tobacco Use Status Smoking Status No Information Sex Male Chief Complaint And Reason For Visit No Information Reason For Referral Reason For Referral No Information Plan Of Treatment Date Type Action Status Goal Hepatitis C screening. Due o n due Goal Update Social History. Due o n due Goal Lipid panel. Due on 023 due Goal Review Allergy List. Due on due Goal Medication Reconciliation. D ue on due Goal Height. Due on d ue Goal Unhealthy drug use screening . Due on due Goal Weight. Due on d ue Goal PHQ-9. Due on du e Goal Tobacco Use. Due on 023 due Goal Weight. Due on d ue Goal Update Social History. Due o n due Goal Height. Due on d ue Goal PHQ-9. Due on du e Goal Review Allergy List. Due on due Goal Unhealthy drug use screening . Due on due Goal Lipid panel. Due on 022 due Goal Tobacco Use. Due on due Goal Medication Reconciliation. D ue on due Goal Hepatitis C screening. Due o n due Goal Weight. Due on d ue Goal Update Social History. Due o n due Goal Height. Due on d ue Goal PHQ-9. Due on du e Goal Review Allergy List. Due on due Goal Unhealthy drug use screening . Due on due Goal Lipid panel. Due on due Goal Tobacco Use. Due on due Goal Medication Reconciliation. D ue on due Goal Hepatitis C screening. Due o n due History Of Present Illness Encounter Date Complaint History Of Prese nt Illness pain Patient is a 41 year old male presenting with complaints of chronic knee pain left greater than right that has been on going for around 20 years. Reports he had an injury to the knee as well as years of sports injuries. He did have a scope and physical therapy about 20 years ago. Patient reports recent imaging show bone on bone cartilage loss and is planning a TKA in the future. He notes that he is currently experiencing severe pain located in the left and right knee joints that is sharp and deep achy pain. His symptoms also include feeling lack of knee control, popping and clicking, swelling and buckling due to pain. His symptoms are increased with longer distance walking and bending, stair climbing and descending, ascending and descending hills,. Symptoms are somewhat relieved with rest, cold, massage and stretching. He has tried multiple different interventions, including PT in the past and steroid injections. He notes that his current level of discomfort limits his activity especially after work. He is currently working on diet changes and trying to be more active for healthy weight loss and he is limited by the knee pain. He would like to decrease his overall discomfort to allow him to perform his daily, functional activities with less limitation and an improved quality of life Comments: Brock ron is a 41 year old who presents for a new patient visit. He reports that he injured his knees playing hockey 20 years ago when he tore his left meniscus and right ACL. He reports that he now has BL knee arthritis. Notes that the pain is most noticeable when he is climbing stairs and doing yardwork. Left knee pain significantly worse than the rightStates that [facility] recommended knee replacements after he is able to get down to 300 lbs. Reports that he has not PT for the knees since he completed PT post left knee scope. bilateral knee pain Onset: 20 ye ars ago. Severity level is 8. It occurs constantly and is stable. Location: bilateral knee. The pain is aching, dull, piercing, sharp and throbbing. The pain is aggravated by bending, climbing (and descending) stairs, lifting, movement, walking and standing. Functional Status Date Functional Assessmen t No Information Instructions Date Instruction Additional Infor mation No Information Assessments Type Assessment Date No Information Patient Care Teams Name Effective Dates (start - stop) Status Members No Information
--- OUTSIDE RECORDS SUMMARY | 2022-02-27 05:00 | XMS_ITS | Continuity of Care Document ---
Author Organization [facility] Address [address] [place] [address] Phone Care Team Providers Care [employer] Name Role Phone Will Quan COLEMAN Unavailable [...] Diagnoses Date Provider Providers Copied on Encounter [facility], [address] [place] [address], [id number] , [place] tel:[phone] [facility] Bilateral primary osteoarthritis of knee 3 Will Quan. [address] [place] [address], [id number] , [place]. [phone] Referring Provider: Quan Walker, [address] [place] [address], [id number]. [phone] [facility], [address] [place] [address], [id number] , [place] [phone] [facility] pain (chief complaint) Bilateral primary osteoarthritis of knee 2 Yesy Iniguez. [address] [place] [address], [id number] , [place]. [phone] Referring Provider: Quan Walker, [address] [place] [address], [id number]. [phone] [facility], [address] [place] [address], [id number] , [place] [phone] [facility] No Information 2 Will Quan. [address] [place] [address], [id number] , [place]. [phone] Referring Provider: Alice Gillette, [facility] [address], [place], [address]. tel:[phone] OFFICE/OUTPA TIENT VISIT, NEW [facility], [address] [place] [id number] , [place] [phone] [facility] bilateral knee pain (chief complaint) Bilateral primary osteoarthritis of kneeHypertensionCh ronic pain syndrome 2 Will Quan. [address] [place] [address] [place], [place], [id number] , [place]. tel:[phone] Family History Family Member Type Diagnosis Age At Onset No Information Payers Payer name Insurance type Covered democrat ID Cammie meier(s) [facility] [id number] Social History Type Description Quantity Date Captured Comments Alcohol Use Details Unknown Caffeine Use Details Unknown Tobacco Use Status Smoking Status No Information Sex Male Chief Complaint And Reason For Visit No Information Reason For Referral Reason For Referral No Information Plan Of Treatment Date Type Action Status Goal Tobacco Use. Due on due Goal PHQ-9. Due on du e Goal Weight. Due on d ue Goal Unhealthy drug use screening . Due on due Goal Height. Due on d ue Goal Medication Reconciliation. D ue on due Goal Review Allergy List. Due on due Goal Lipid panel. Due on due Goal Update Social History. Due o n due Goal Hepatitis C screening. Due o n due Goal Hepatitis C screening. Due o n due Goal Medication Reconciliation. D ue on due Goal Tobacco Use. Due on due Goal Lipid panel. Due on due Goal Unhealthy drug use screening . Due on due Goal Review Allergy List. Due on due Goal PHQ-9. Due on du e Goal Height. Due on d ue Goal Update Social History. Due o n due Goal Weight. Due on d ue Goal Weight. Due on d ue Goal Hepatitis C screening. Due o n due Goal Update Social History. Due o n due Goal Height. Due on d ue Goal PHQ-9. Due on du e Goal Review Allergy List. Due on due Goal Unhealthy drug use screening . Due on due Goal Lipid panel. Due on due Goal Tobacco Use. Due on due Goal Medication Reconciliation. D ue on due History Of Present Illness Encounter Date [...] limitation and an improved quality of life bilateral knee pain Onset: 20 ye ars ago. Severity level is 8. It occurs constantly and is stable. Location: bilateral knee. The pain is aching, dull, piercing, sharp and throbbing. The pain is aggravated by bending, climbing (and descending) stairs, lifting, movement, walking and standing. Comments: Brock ron is a 41 year [...] he completed PT post left knee scope. Functional Status Date Functional Assessmen t No Information Instructions Date Instruction Additional Infor mation No Information Assessments Type Assessment Date No Information Patient Care Teams Name Effective Dates (start - stop) Status Members No Information
[2024-11-04 00:32] VITALS: BP 145/86; PULSE 73; RESP 18; TEMP 36.8; O2SAT 99; BMI 48.7
--- OUTSIDE RECORDS SUMMARY | 2024-11-04 00:32 | XMS_ITS | Encounter Summary ---
[facility] Address [address] [place] [address] Care Team Providers Care Seamstress Fitter Name Role Phone Unassigned, Provider Primary Care Provider Unava ilable Encounter Details Date Type Department Care Team (Latest Contact Info) Description 04/20/1994 Orders Only Natanael Murphy MD [address] [place] [address] Social History Tobacco Use Types Packs/Day Years Used Date Smoking Tobacco: Never Assessed Sex and Gender Information Value Date Recorded Sex Assigned at Not on file Legal Sex Male 4:48 AM CDT Gender Identity Not on file Sexual Orientation Not on file documented as of this encounter Plan of Treatment Not on file documented as of this encounter Visit Diagnoses Not on filedocumented in this encounter Care Teams Seamstress Fitter Relationship Specialty Start Date End Date Unassigned, Provider [address] [place] [address] PCP - General 04/07/00 documented as of this encounter
--- OUTSIDE RECORDS SUMMARY | 2024-11-04 00:32 | XMS_ITS | Clinical Summary ---
Author Organization [email or web address] Address [address] [place] [address] Care Team Providers Care Mental Retardation Nurse Name Role Phone Pcp, No Primary Care Provider Unavailabl e Allergies No known active allergies Medications hydrochlorothia zide (HCTZ) 25 mg tablet Take 1 tablet by mouth once daily. 30 tablet 0 0 Active naproxen (NAPROSYN) 500 mg tablet Take 1 po twice daily with breakfast and Dinner on a regular basis for 7-10 days, then every 12 hours as needed. 60 tablet 6 Active Blood-Glucose Meter Use as directed to test once daily. 1 Kit 8 Active blood sugar diagnostic (ONETOUCH ULTRA BLUE TEST STRIP) strip Use as directed to test once daily. 100 Each 8 Active lancets Use as directed to test once daily. 100 Each 8 Active metFORMIN (GLUCOPHAGE XR) 500 mg Extended-Releas e tablet 2 Active metoprolol succinate (TOPROL XL) 50 mg sustained-relea se tablet 2 Active FLUoxetine (PROZAC) 20 mg capsule Take 20 mg by mouth. 1 Active lisinopriL (PRINIVIL; ZESTRIL) 40 mg tablet Take 1 Tablet by mouth once daily. 0 Active potassium chloride (KLOR-CON 10; K-TAB) 10 mEq Controlled-Rele ase tablet 1 Active amLODIPine (NORVASC) 10 mg tablet Take 10 mg by mouth. 2 Active tamsulosin (FLOMAX) 0.4 mg capsule Take 0.4 mg by mouth. Active Active Problems Problem Noted Date Diagnosed Date Nasal septal deformity 05/27/2014 Essential hypertension 05/27/2014 GUTIERREZ on CPAP 05/27/2014 Morbid obesity with BMI of 45.0-49.9, adult 05/12 Malignant hypertension 01/09/2010 Tobacco use disorder 01/09/2010 Hyperglycemia 01/09/2010 Chest pain, unspecified 01/09/2010 L sided Calf pain 01/09/2010 Alcohol abuse, unspecified 01/09/2010 Cocaine abuse, continuous 01/09/2010 ACP (advance care planning) 01/09/2010 Overview (01/09/2010): Per admission screen, patient/family have declined Health Care Directive information at this time. HCD Specialist will remain available to patient if needed. 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 Gender Identity Not on file Sexual Orientation Not on file Obstetrics History Last Filed Vital Signs Vital Sign Reading Time Taken Comments Blood Pressure 182/100 05/21/2021 3:24 PM CDT Pulse 74 05/21/2021 2:50 PM CDT Temperature 36.6 C (97.8 F) 05/21/2021 2:50 PM CDT Respiratory Rate 18 05/21/2021 2:50 PM CDT Oxygen Saturation 97% 05/21/2021 2:50 PM CDT Inhaled Oxygen Concentration - - Weight 164.7 kg (363 lb) 05/21/2021 2:50 PM CDT Height 177.8 cm (5' 10) 05/27/2014 10:04 AM CDT Body Mass Index 52.09 05/27/2014 10:04 AM CDT Plan of Treatment Health Maintenance Due Date Last Done Comments Tetanus booster 09/09/1991 Depression screening for age 12+ 1992 HIV for age 15-65 09/09/1995 BMI (ht and wt on same day) for age 18+ 1998 Hepatitis C screening for ag e 18-79 1998 Hepatitis B series for 19+ ( 1 of 3 - 19+ 3-dose series) 09/09/1999 HPV series for age 9-45 (1 - 3-dose SCDM series) 09/09/2007 Lipids for age 35-44 09/09/2015 COVID-19 vaccine series ( season) 2024 Influenza Vaccine (#1) 2024 RSV vaccine for adults or (1 - 1-dose 75+ series) 09/09/2055 Pneumococcal series for age 6-49 Aged Out No longer eligible based on patient's age to complete this topic Insurance [facility] Advance Directives * Full Code (Latest Code Status on File) Date Activated Date Inactivated Comments 05/27/2014 9:15 AM 05/28/2014 10:31 AM * Full Code Date Activated Date Inactivated Comments 01/09/2010 12:12 AM 01/10/2010 12:51 PM Care Teams Mental Retardation Nurse Relationship Specialty Start Date End Date Pcp, No . PCP - General 01/10/23
--- OUTSIDE RECORDS SUMMARY | 2024-11-04 00:32 | XMS_ITS | Encounter Summary ---
[facility] Organization [facility] Address [address] [place] [address] Care Team Providers Care Station Installer And Repairer Name Role Phone Unassigned, Provider Primary Care Provider Unava ilable Encounter Details Date Type Department Care Team (Latest Contact Info) Description 04/17/1994 Orders Only Hermelindo Garcia MD [address] [place] [address] Social History Tobacco Use Types Packs/Day Years [...] on filedocumented in this encounter Care Teams Station Installer And Repairer Relationship Specialty Start Date End Date Unassigned, Provider [address] [place] [address] PCP - General 04/07/00 documented as of this encounter
--- OUTSIDE RECORDS SUMMARY | 2024-11-04 00:32 | XMS_ITS | Clinical Summary ---
Author Organization [facility] Address [address] [place] [id number] Care Team Providers Care Home Health Aide Name Role Phone Unassigned, Provider Primary Care Provider Unava ilable Source Comments You are receiving this document as you are listed as the primary care provider,follow-up provider, or the patient has been referred to you for consultation.This is in compliance with the Medicare and[facility] System[facility] EHR Incentive Program,which states Providers who transition their patient to another setting of careor provider of care or refers their patient to another provider of care shouldprovide summary care record for each transition of care or referral. Prescribe Wellness Allergies Active Allergy Reactions Criticality Noted Date Comments Review Contrast Media 12/02/2007 PN: LW CM1: >>> NO CONTRAST ADVERSE REACTION <<< Reaction : Medications DRUG NOT IN COMPUTER LW Comment:On 3 BP meds - name unknown 1 Active unknown medication Indications: PN: 1 Active unknown medication Indications: PN: 8 Active lisinopril (ZESTRIL) 20 MG tablet 20 mg. 2 7 Active hydroCHLOROthia zide (ORETIC) 25 MG tablet 25 mg. 2 7 Active amLODIPine (NORVASC) 10 MG tablet 10 mg. 3 7 Active FLUoxetine (PROZAC) 20 MG capsule 20 mg. 0 7 Active diclofenac (VOLTAREN) 50 MG enteric coated tablet Take 1 Tab by mouth two times a day. 60 Tab 7 Active Additional Information Patient not taking.Reported on 06/21/2020 lisinopril (ZESTRIL) 40 MG tablet 0 Active metoprolol succinate (TOPROL XL) 100 MG 24 hour release tablet 0 Active diclofenac (VOLTAREN) 50 MG enteric coated tablet Take 1 Tablet by mouth two times a day. 60 Tablet 1 Active Additional Information Patient not taking.Reported on 06/21/2020 Active Problems No known active problems Immunizations Immunization Administration Dates Next Due HepB Ped/Adol (0-18 yrs) 12/21/1996 MMR 10/11/1993,12/11/1981 Td 12/21/1996 Social History Tobacco Use Types Packs/Day Years Used Date Smoking Tobacco: Some Days Sex and Gender Information Value Date Recorded Sex Assigned at Not on file Legal Sex Male 4:48 AM CDT Gender Identity Not on file Sexual Orientation Not on file Last Filed Vital Signs [...] Last Done Comments Hep C Screening (Preventive Services) 1980 HIV Screening (Preventive Services) 1996 HepB Vaccine (2) 01/18/1997 12/21/1996 Adult Preventive Visit 1998 12/21/1996 Pneumococcal Vaccine (1 of 2 - PCV) 09/09/1999 HPV Vaccine (1 - 3-dose SCDM series) 09/09/2007 Cholesterol 09/09/2015 12/21/1996 COVID-19 Vaccine ( - 2023-2 5 season) 2024 Influenza Vaccine (#1) 2024 DTaP/Tdap/Td Vaccine (3 - Tdap) 11/02/2029 11/03/2019, 12/21/1996 Zoster/Shingles Vaccine (1 o f 2) 2030 HepA Vaccine Aged Out No longer eligi ble based on patient's age to complete this topic Hib Vaccine Aged Out No longer eligi ble based on patient's age to complete this topic IPV (Polio) Vaccine Aged Out No longe r eligible based on patient's age to complete this topic MCV4 Vaccine Aged Out No longer eligi ble based on patient's age to complete this topic Meningococcal B Vaccine Aged Out No l onger eligible based on patient's age to complete this topic Procedures Procedure Name Priority Date/Time Associated Diagnosis Comments CHOLESTEROL (TOTAL) Routine 12/21/1996 9 :18 AM RAIL SWITCHMAN from Last 3 Months or Most Recently Relevant to Health Maintenance Results * CHOLESTEROL (TOTAL) (12/21/1996 9:18 AM RAIL SWITCHMAN) Cholesterol 189 <200 mg/dl [place] 12/21/1996 9:18 AM RAIL SWITCHMAN 12/21/1996 9:19 AM RAIL SWITCHMAN us Vidal Blair MD LAB_[email or web address] Final Resu lt [place] [address] [id number] from Last 3 Months or Most Recently Relevant to Health Maintenance Insurance [facility] Care Teams Home Health Aide Relationship Specialty Start Date End Date Unassigned, Provider [address] [place] [address] PCP - General 04/07/00
--- OUTSIDE RECORDS SUMMARY | 2024-11-04 00:32 | XMS_ITS | Encounter Summary ---
Author Organization [facility] Address [address] [place] [id number] Care Team Providers Care 3D Artist Name Role Phone Unassigned, Provider Primary Care Provider Unava ilable Encounter Details Date Type Department Care Team (Latest Contact Info) Description 03/29/1995 Orders Only Giovanni Romero MD Social History Tobacco Use Types Packs/Day Years [...] on filedocumented in this encounter Care Teams 3D Artist Relationship Specialty Start Date End Date Unassigned, Provider [address] [place] [address] PCP - General 04/07/00 documented as of this encounter
--- OUTSIDE RECORDS SUMMARY | 2024-11-04 00:33 | XMS_ITS | Patient Health Record ---
Author Organization [facility] Address [address] [place] [address] Care Team Providers Care Store Coordinator Name Role Phone Bertrand Field Primary Care Provider Unavailabl e Reason For Referral No Information Medications Medication SIG (Take, Route, Fr equency, Duration) Notes Start Date End Date Status Percocet Active Lisinopril Active hydroCHLOROthiazide Active amLODIPine Besylate Active Social History Section Notes: Recently quit Recently quit Recently quit Problems Problem Type SNOMED Code ICD Code Onset Dates Problem Status W/U Status Risk Notes Problem Eustachian tube dysfunction (40472981) Eustachian tube dysfunction (381.81) Active confirmed Problem Deviated nasal septum (210696046) Deviated nasal septum (470) Active confirmed Problem Serous otitis media (91492695) Serous otitis media (381.4) Active confirmed Problem Chronic rhinitis (43581376) Chronic rhinitis (472.0) Active confirmed Problem Hypertrophy of nasal turbinates (54413323) Hypertrophy of both inferior nasal turbinates (478.0) Active confirmed Plan Of Treatment No Information Insurance Providers Payer Name Payer Address Payer Phone Subscriber Number Group Number Insured Name Patient Relationship to Insured Coverage Start Date Coverage End Date BLUE CROSS OUT [facility] [address] [address] [place], [place] [id number] Brock Gotti Self - patient is the insured Medical (General) History Medical History History ICD Code HTN Surgical History Surgery Date(Month/Year) Tailbone cyst Throat 2013 Septoturbinoplasty 05/27/2014
--- NOTE | 2024-11-04 00:39 | ED.GENADULT ---
HPI - General Adult General Time Seen by Provider: 00:39 Date Seen: 11/04/24 Chief complaint: Shoulder Injury/Pain Stated complaint: R shldr injury Time Seen by Provider: 11/04/24 00:39 Source: patient History of Present Illness HPI narrative: Brock is a 44-year-old male with a past medical history of chronic shoulder pain who presents the emergency department for evaluation of worsening right shoulder pain. Patient reports history of bilateral shoulder pain, calcium buildup, reports that he has done physical therapy, rehab, and occasionally gets steroid injections. Patient reports he last had a steroid injection back in August. Patient reports that he has had worsening right shoulder pain for the past few days after over using it at work. Patient denies any other trauma or injury. Patient states that he has scheduled follow-up with orthopedics this coming Saturday on 11/10/2024 in hopes for an injection and then eventually possible surgery. Patient states that tonight he was unable to sleep due to severe pain. Patient with no other complaints. Patient took Flexeril prior to arrival with no significant improvement of symptoms. Related Data Home Medications ?Medication ?Instructions ?Recorded ?Confirmed amlodipine 10 mg tablet 10 mg PO DAILY 04/20/23 11/04/24 lisinopril 40 mg tablet 40 mg PO DAILY 04/20/23 11/04/24 atorvastatin 20 mg tablet 20 mg PO DAILY 11/04/24 11/04/24 fluoxetine 40 mg capsule 40 mg PO DAILY 11/04/24 11/04/24 hydrochlorothiazide 12.5 mg tablet 12.5 mg PO DAILY 11/04/24 11/04/24 metformin 500 mg tablet,extended 500 mg PO QPM 11/04/24 11/04/24 release 24 hr metoprolol succinate 100 mg 100 mg PO DAILY 11/04/24 11/04/24 tablet,extended release 24 hr tirzepatide 12.5 mg/0.5 mL 12.5 mg subcut DIRECTED 11/04/24 11/04/24 subcutaneous pen injector (Blas) Previous Rx's ?Medication ?Instructions ?Recorded oxycodone 5 mg capsule 5 mg PO Q6H PRN pain #10 caps 11/04/24 Allergies Allergy/AdvReac Type Severity Reaction Status Date / Time No Known Drug Allergies Allergy Verified 11/04/24 00:35 Review of Systems Narrative: Past medical history, past surgical history, medications, allergies, family history, and social history were reviewed with the patient. No additional pertinent items. A medically appropriate review of systems was performed with pertinent positives and negatives noted in HPI, all other systems negative. [facility] Social History Smoking Status: Current every day smoker What tobacco products do you use: cigarettes Do you use any of these nicotine containing products: Vaping Products Second hand tobacco smoke exposure: No How often do you have a drink containing alcohol: monthly or less How many standard drinks containing alcohol do you have on a typical day: 3 or 4 How often do you have six or more drinks on one occasion: Less than monthly AUDIT-C Alcohol total score: 3 Non-prescribed substance use: marijuana (any form) service: No Exam Narrative: Exam Narrative: General: Afebrile, in distress secondary to pain HEENT: Normocephalic, atraumatic, conjunctiva normal. MMM Neck: non-tender, supple Cardio: regular rate. regular rhythm Resp: Normal work of breathing, no respiratory distress, lungs clear bilaterally, no wheezing, rhonchi, rales Chest/Back: no visual signs of trauma, no midline tenderness, no CVA tenderness Abdomen: soft, non distension, no tenderness, no peritoneal signs Neuro: alert and fully oriented. CN II-XII grossly intact. Grossly normal strength and sensation in all extremities. MSK: no deformities. +TTP right shoulder, active and passive ROM limited due to pain, no focal neurological deficit, distally neurovascular intact Integumentary/Skin: no rash visualized, normal color Psych: normal affect, normal behavior Const: Vital Signs, click to edit/add: Vital Signs - 24 hr 11/04/24 00:32 11/04/24 01:03 Temperature 98.2 F 98.2 F Pulse Rate [Right Pulse Oximeter] 73 Respiratory Rate 18 Blood Pressure [Ri ght Upper Arm] 145/86 H Pulse Oximetry 99 Oxygen Delivery Me thod Room Air Course Vital Signs Vital signs: Initial Vital Signs Temperature 98.2 F 11/04/24 00:32 Temperature Source Temporal Artery Scan 11/04/24 00:32 Pulse Rate 73 11/04/24 00:32 Respiratory Rate 18 11/04/24 00:32 Blood Pressure 145/86 H 11/04/24 00:32 Blood Pressure Mean 105 11/04/24 00:32 Blood Pressure Position Sitting 11/04/24 00:32 Pulse Oximetry 99 11/04/24 00:32 Oxygen Delivery Method Room Air 11/04/24 00:32 Vital Signs Temperature 98.2 F 11/04/24 00:32 Pulse Rate 73 11/04/24 00:32 Respiratory Rate 18 11/04/24 00:32 Blood Pressure 145/86 H 11/04/24 00:32 Pulse Oximetry 99 11/04/24 00:32 Oxygen Delivery Method Room Air 11/04/24 00:32 Temperature 98.2 F 11/04/24 01:03 Pulse Rate 73 11/04/24 00:32 Respiratory Rate 18 11/04/24 00:32 Blood Pressure 145/86 H 11/04/24 00:32 Pulse Oximetry 99 11/04/24 00:32 Oxygen Delivery Method Room Air 11/04/24 00:32 Medications Administered Medications: Generic Name Dose Route Start Last Admin Trade Name Freq PRN Reason Stop Dose Admin Ibuprofen 600 mg 11/04/24 00:58 11/04/24 01:03 Ibuprofen 200 Mg Tablet PO 11/04/24 00:59 600 mg ONCE ONE Administration Oxycodone HCl 5 mg 11/04/24 00:58 11/04/24 01:03 Oxycodone 5 Mg Tablet PO 11/04/24 00:59 5 mg ONCE ONE Administration Medical Decision Making [facility] Narrative Medical decision making narrative: Brock is a 44-year-old male with a past medical history of chronic shoulder pain who presents the emergency department for evaluation of worsening right shoulder pain. Upon arrival patient is nontoxic appearing, afebrile, in distress secondary to pain. patient here with worsening right shoulder pain for the past few days, currently scheduled to follow up with Orthopedics on Saturday11/10/2024. No other significant trauma or injury, no focal neurological deficit, range of motion of right shoulder is limited secondary to pain. After shared decision making with patient, considered imaging however at this time no emergent indication for imaging and do not think this would slip box changer. Patient states he recently had x-ray and is scheduled to follow-up with orthopedics. Patient did call the clinic today is on the wait list for any cancellations. Plan for treatment with ibuprofen, oxycodone, as well as right upper extremity sling for comfort. Recommend continue supportive care, will discharge with a short course of oxycodone until he is able to follow-up with orthopedics. Strict return precautions discussed. Patient understands and agrees the plan. Discharge Plan Discharge Clinical Impression: Acute pain of right shoulder Patient Disposition: Home, Self-Care Condition: Stable Additional Instructions: Please follow-up with your orthopedic provider at your currently scheduled appointment. Please alternate taking Tylenol 1000 mg and ibuprofen 600 mg every 6 hours as needed for pain. Please take oxycodone 1 tablet every 6 hours as needed for severe pain. Please wear sling for comfort. Return to the emergency department if any worsening symptoms. It was a pleasure taking care of you today. We hope you feel better soon. Prescriptions: New oxycodone 5 mg capsule 5 mg PO Q6H PRN (Reason: pain) Qty: 10 0RF No Action Mounjaro 12.5 mg/0.5 mL pen injector 12.5 mg subcut DIRECTED Rx Instructions: take every 14 days fluoxetine 40 mg capsule 40 mg PO DAILY atorvastatin 20 mg tablet 20 mg PO DAILY metoprolol succinate 100 mg tablet extended release 24 hr 100 mg PO DAILY metformin 500 mg tablet extended release 24 hr 500 mg PO QPM hydrochlorothiazide 12.5 mg tablet 12.5 mg PO DAILY amlodipine 10 mg tablet 10 mg PO DAILY lisinopril 40 mg tablet 40 mg PO DAILY Follow Up/Referrals: Alice Gillette PA-C [Primary Care Provider, Medical] [facility]
[2024-11-04 01:03] VITALS: TEMP 36.8
[2024-11-04] MEDS: IBUPROFEN 200 MG TABLET 600 MG PO (01:03)
[2024-11-04 01:11] VITALS: BP 142/74; PULSE 68; RESP 18; TEMP 36.8; O2SAT 99
== END 2024-11-04 01:12 | disposition home or self-care (01) ==
LOC: ED 01:12
PROVIDERS: Emergency Provider Emergency Medicine; PCP Physician Assistant Medical
DX: M25.511 Pain in right shoulder (principal)
CPT/HCPCS: 99283; 99284; A9270